=== PATIENT | female | born 1955 | race African-American/Black ===

== ENCOUNTER 2019-03-07 12:42 | Observation (INO) | payer MEDICAID ==
[~2019-03-07] VITALS: Ht 162 cm; Wt 111.2 kg
[~2019-03-07 12:42] MED LIST: ACHD5005 PO; AZIT-21 PO; CEPH500C PO; CPR500T PO; DOXY-233 PO; IBUP-30 PO
[2019-03-07] MEDS ORDERED: IOHEXOL 350 MG/ML 100 ML (OMNIPAQUE 350) VIAL IV ONE (13:00)
[2019-03-07] MEDS ORDERED: NS 100 ML (IVPB) BAG IV ONE (13:00)
[2019-03-07] MEDS ORDERED: CATHETER FLUSH 10 ML SYR IV PRN (13:00)
[2019-03-07] MEDS ORDERED: HOLD METFORMIN - RECEIVED CONTRAST 20 ML VIAL IV SCH (13:00)
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
[2019-03-07] MEDS ORDERED: fentaNYL INJECTION 100 MCG/2 ML AMP ONE (13:09)
[2019-03-07] MEDS ORDERED: LORazepam INJ 2 MG/ML (ATIVAN) VIAL ONE (13:10)
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
[2019-03-07] MEDS: LORazepam INJ 2 MG/ML (ATIVAN) VIAL IVP PRN ×2 (13:14→13:34)
[2019-03-07] MEDS ORDERED: TETANUS,DIPTH,PERTUSS P/F (BOOSTRIX) 0.5 ML VIAL IM ONE (13:15)
[2019-03-07] MEDS ORDERED: fentaNYL INJECTION 100 MCG/2 ML AMP IVP ONE ×2 (13:15→14:15)
[2019-03-07 13:23] LABS: BASOPHILS % (AUTO) 0 % (0-10); EOSINOPHILS # (AUTO) 0.2 10^3/uL (0.0-0.3); EOSINOPHILS % (AUTO) 2 % (0-10); HEMATOCRIT 43 % (35-52); HEMOGLOBIN 13.9 G/DL (11.5-16.0); LYMPHOCYTES # (AUTO) 2.8 X 10^3 (1.0-4.0); LYMPHOCYTES % (AUTO) 25 % (12-44); MEAN CORPUSCULAR HEMOGLOBIN 29 PG (25-34); MEAN CORPUSCULAR HGB CONC 33 G/DL (32-36); MEAN CORPUSCULAR VOLUME 91 FL (80-99); MEAN PLATELET VOLUME 10.6 FL (7.4-10.4); MONOCYTES # (AUTO) 0.8 X 10^3 (0.0-1.0); MONOCYTES % (AUTO) 8 % (0-12); NEUTROPHILS # (AUTO) 7.1 X 10^3 (1.8-7.8); NEUTROPHILS % (AUTO) 65 % (42-75); PLATELET COUNT 191 10^3/uL (130-400); RED CELL DISTRIBUTION WIDTH 14.3 % (10.0-14.5); WHITE BLOOD COUNT 10.9 10^3/uL (4.3-11.0)
[2019-03-07 13:40] LABS: INR 1.1 (0.8-1.4); PROTHROMBIN TIME PATIENT 14.1 SEC (12.2-14.7)
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
[2019-03-07 13:51] LABS: ALANINE AMINOTRANSFERASE 41 U/L (0-55); ALBUMIN 3.8 GM/DL (3.2-4.5); ALKALINE PHOSPHATASE 82 U/L (40-136); BILIRUBIN,DIRECT 0.3 MG/DL (0.0-0.3); BILIRUBIN,INDIRECT 0.5 MG/DL; BILIRUBIN,TOTAL 0.8 MG/DL (0.1-1.0); BUN/CREATININE RATIO 20; CALCIUM 9.2 MG/DL (8.5-10.1); CARBON DIOXIDE 23 MMOL/L (21-32); CHLORIDE 104 MMOL/L (98-107); CHOLESTEROL 165 MG/DL (< 200); CREATININE SERUM 0.64 MG/DL (0.60-1.30); GFR ESTIMATED > 60; GLUCOSE 157 MG/DL (70-105); HDL CHOLESTEROL 47 MG/DL (40-60); POTASSIUM 3.5 MMOL/L (3.6-5.0); SODIUM 136 MMOL/L (135-145); TOTAL PROTEIN 7.7 GM/DL (6.4-8.2); TRIGLYCERIDES 197 MG/DL (<150); VLDL CHOLESTEROL 39 MG/DL (5-40)
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
[2019-03-07 14:36] LABS: BILIRUBIN,URINE NEGATIVE (NEGATIVE); CLARITY,URINE SLIGHTLY CLOUDY; COLOR,URINE YELLOW; GLUCOSE, URINE (UA) NEGATIVE (NEGATIVE); KETONES,URINE NEGATIVE (NEGATIVE); LEUKOCYTE ESTERASE ,URINE 1+ (NEGATIVE); NITRITE,URINE POSITIVE (NEGATIVE); PH,URINE 5 (5-9); PROTEIN,URINE 3+ (NEGATIVE); UROBILINOGEN,URINE NORMAL (NORMAL)
[2019-03-07 14:44] LABS: BACTERIA,URINE MODERATE /HPF; RBC,URINE 50-100 /HPF
[2019-03-07 16:17] VITALS: BP 153/91
[2019-03-07 16:24] VITALS: BP 153/91
[2019-03-07] MEDS: fentaNYL INJECTION 100 MCG/2 ML AMP IV PRN ×2 (16:31→19:46)
[2019-03-07] MEDS: HYDROcodone/APAP 5 MG/325 MG (LORTAB) TAB PO PRN (16:31)
--- NOTE | 2019-03-07 16:37 | Diagnostic Imaging Report ---
EXAM: CT left shoulder without contrast. DATE: March 07, 2019. INDICATION: 63-year-old female, evaluation of left scapular fracture. COMPARISON: Left shoulder radiographs March 07, 2019. TECHNIQUE: Axial CT images at the level of the left shoulder and scapula were obtained without contrast. Coronal and sagittal reformats were obtained and provided. FINDINGS: There is a very comminuted and displaced fracture of the scapula. This includes fracture involvement of the base of the coracoid as well as additional more distal aspects of the coracoid. There is a medial to lateral fracture gap at the level of the coracoid process fracture which measures 8 mm in size as measured on axial image 95. There is superior to inferior displacement of the fracture at this level measuring 4.3 mm on coronal image 18. There is comminuted fracture involvement of the articulating surface of the glenoid including anterior to posterior length of the superior glenoid with offset of the articulating surface measuring up to roughly 4 mm with several displaced intra-articular fracture fragments. The fractures of the superior glenoid extend posteriorly to nearly the 9 o'clock position of the posterior glenoid. There is a displaced fracture of the scapula also at the level of the junction of the scapular spine with the acromion, perhaps best illustrated on sagittal image 34 and adjacent sequential images with the superior to inferior fracture gap of 10.4 mm. The humeral head is normally positioned relative to the glenoid. There is no identified fracture of the imaged portions of the left proximal humerus. The acromioclavicular joint is normally aligned. The left clavicle is intact. There is a mildly displaced fracture involving the left third rib anteriorly and laterally, left fourth rib, left fifth rib. There is a small anterior mediastinal hematoma. There is a mildly displaced fracture involving the right side of the upper sternum. Motion limited evaluation of the lungs is unremarkable. IMPRESSION: 1. Comminuted displaced scapular fracture including involvement of the articulating surface of the glenoid with offset of the articulating surface. 2. Mildly displaced fractures involving the left third, fourth, and fifth ribs. 3. Small anterior mediastinal hematoma. 4. Mildly displaced fracture of the right side of the upper sternum. Dictated by: Dictated on workstation # [id number]
[2019-03-07] MEDS ORDERED: SITA100T12 PO (16:51)
[2019-03-07] MEDS ORDERED: DAPA1TAB5 PO (16:51)
[2019-03-07] MEDS ORDERED: IBUP-1780 PO (16:51)
[2019-03-07] MEDS ORDERED: CYCL10TA9 PO (16:51)
[2019-03-07] MEDS ORDERED: SIMV20TA3 PO (16:51)
[2019-03-07] MEDS ORDERED: CYCL1DRO OU (16:51)
--- NOTE | 2019-03-07 16:51 | NUR ---
PATIENT AND THE FAMILY MEMBER CURRENTLY IN THE ROOM ARE UNSURE OF HER MEDICATIONS. I CALLED [facility] AND UPDATED THE MED REC WITH WHAT THEY HAVE FILLED RECENTLY BUT THE PATIENT ASKED THAT I SPEAK WITH HER GRANDDAUGHTER VIKY TO CLARIFY. I DO NOT HAVE A NUMBER FOR HER AND SHE IS NOT HERE AT THIS TIME. I WILL CHECK BACK TOMORROW. [facility] STATES THEY HAVE NOT YET DISPENSED THE TRULICITY THAT IS SHOWING ON THE EXT MED HX BECAUSE IT REQUIRES A PA. Addendum: 03/08/19 at 1052 by SARAY AMOR [facility] SPOKE WITH THE PATIENT AGAIN THIS MORNING ABOUT MEDICATIONS. SHE STILL IS UNABLE TO TELL ME WHAT MEDS SHE TAKES OTHER THAN HER IBU AND HER INJECTABLE. SHE DOES STATE IF HER INSURANCE DOESN'T COVER THE INJECTABLE SHE WILL STOP TAKING IT. SHE STATS VIKY HELPS HER WITH HER MEDS BUT SHES IN [employer] AND UNAVAILABLE FOR ME TO CALL AT THIS TIME. SHE WAS SEEING DR. LEAL BUT THAT HAS NOW BEEN SWITCHED TO [facility] AT THAT SAME LOCATION AND THEY PRESCRIBED ALL OF HER MEDICATIONS. SHE STATES SHE DOES NOT TAKE ANYTHING OTC. I CALLED AND SPOKE WITH [facility] OFFICE AND THEY FAXED ME A MEDICATION LIST HOWEVER ALL IT HAD WAS IBU, SIMVASTATIN, AND TRULICITY. [facility] HAS FILLED MORE THAN THAT FOR THE PATIENT THIS MONTH. I CALLED AND SPOKE WITH THEM TO SEE IF SOME MEDS HAD RECENTLY BEEN STOPPED. THEY WERE UNABLE TO GIVE ME CLEAR INFORMATION ABOUT THEIR RECORDS OTHER THAN THE PATIENT HAS FILLED THOSE OTHER MEDICATIONS BUT THEY ARE NOT AWARE OF WHAT SHE IS ACTUALLY TAKING AT HOME. I INCLUDED ALL MEDS THAT WERE RECENTLY FILLED AT [facility] ON THE MED REC AT THIS TIME. IN ADDITION THE THE THREE LISTED FROM THE DR. OFFICE THAT INCLUDES RESTASIS, JANUVIA, AND XIGDUO. THE PATIENT ALSO FILLED FLEXERIL 10MG #45 FOR 15 DAYS 8 BUT WHEN I ASKED HER ABOUT A MUSCLE RELAXER SHE STATES SHE DOES NOT TAKE ONE, I DID NOT INCLUDE THE FLEXERIL ON THE MED REC AT THIS TIME. [facility] STATES THEY HAVE NOT DISPENSED THE TRULICITY, IT REQUIRES A PRIOR AUTHORIZATION. WHEN I SPOKE WITH THE DR. OFFICE THEY STATE THE DO GIVE SAMPLES OF IT WHEN THEY HAVE IT AVAILABLE AND THEY DID TRY TO GET THE PA BUT THE FIRST TIME IT WAS DENIED. NURSE STATES THE PATIENT HAS TOLD THEM IF IT IS NOT AUTHORIZED OR SHE DOESN'T GET SAMPLES SHE WILL NOT TAKE IT.
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
[2019-03-07 18:07] LABS: HEMOGLOBIN 12.9 G/DL (11.5-16.0)
--- NOTE | 2019-03-07 19:00 | NUR ---
Pt complaining of chest pain 03/07, no radiation. Dr. Devlin notified, orders received for stat troponin.
[2019-03-07] MEDS ORDERED: ALPRAZolam 0.25 MG (XANAX) TAB PO NR (19:15)
[2019-03-07 19:30] VITALS: BP 125/71
[2019-03-07] MEDS: inSUlin ASPART (NovoLOG) 1 UNIT/0.01 ML (CHARGE PER UNIT) SC SCH (21:00)
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
[2019-03-08 00:40] VITALS: BP 128/80
[2019-03-08] MEDS: HYDROcodone/APAP 5 MG/325 MG (LORTAB) TAB PO PRN ×4 (00:43→18:11)
[2019-03-08 04:30] VITALS: BP 123/83
[2019-03-08] MEDS: inSUlin ASPART (NovoLOG) 1 UNIT/0.01 ML (CHARGE PER UNIT) SC SCH ×4 (06:00→22:31)
[2019-03-08 06:25] LABS: HEMOGLOBIN 12.8 G/DL (11.5-16.0); MEAN PLATELET VOLUME 11.3 FL (7.4-10.4); RED CELL DISTRIBUTION WIDTH 14.2 % (10.0-14.5); WHITE BLOOD COUNT 11.6 10^3/uL (4.3-11.0)
[2019-03-08 06:38] LABS: BUN/CREATININE RATIO 25; CALCIUM 8.2 MG/DL (8.5-10.1); CARBON DIOXIDE 22 MMOL/L (21-32); CHLORIDE 100 MMOL/L (98-107); CREATININE SERUM 0.59 MG/DL (0.60-1.30); GFR ESTIMATED > 60; GLUCOSE 136 MG/DL (70-105); POTASSIUM 3.9 MMOL/L (3.6-5.0); SODIUM 131 MMOL/L (135-145)
[2019-03-08 08:00] VITALS: BP 124/79
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
[2019-03-08] MEDS ORDERED: DULA1.5P2 SC (09:20)
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
[2019-03-08] MEDS: NS IV 1000 ML 1,000 ML IV SCH ×3 (11:30→23:14)
[2019-03-08 12:00] VITALS: BP 134/75
[2019-03-08] MEDS: ONDANSETRON 4 MG/2 ML (SDV) Z0FRAN IV PRN (13:55)
[2019-03-08] MEDS: fentaNYL INJECTION 100 MCG/2 ML AMP IV PRN ×2 (14:22→22:31)
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
[2019-03-08 16:00] VITALS: BP 139/87
--- NOTE | 2019-03-08 16:28 | NUR ---
Pastoral care visit, pt and present, doing well.
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
[2019-03-08 19:57] VITALS: BP 146/87
[2019-03-09] VITALS: BP 151/83
[2019-03-09] MEDS: HYDROcodone/APAP 5 MG/325 MG (LORTAB) TAB PO PRN ×4 (02:48→15:23)
[2019-03-09 04:00] VITALS: BP 144/85
[2019-03-09] MEDS: inSUlin ASPART (NovoLOG) 1 UNIT/0.01 ML (CHARGE PER UNIT) SC SCH ×2 (06:38→11:38)
[2019-03-09 08:00] VITALS: BP 117/65
[2019-03-09] MEDS: ONDANSETRON 4 MG/2 ML (SDV) Z0FRAN IV PRN (08:03)
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
[2019-03-09] MEDS: NS IV 1000 ML 1,000 ML IV SCH (09:13)
--- NOTE | 2019-03-09 10:36 | Physical Therapy Daily Note ---
PT Daily Note-Current Subjective Agrees to a short walk. Wants to get in bed after treatment. Transfers SCALE: Activities may be completed with or without assistive devices. 0-Eocggbvsgl-oucspni completes the activity by him/herself with no assistance from a helper. 5-Set-up or Clean-up Assistance-helper sets up or cleans up; patient completes activity. Channing assists only prior to or following the activity. 4-Supervision or Touching Assistance-helper provides verbal cues and/or touching/steadying and/or contact guard assistance as patient completes activity. Assistance may be provided throughout the activity or intermittently. 3-Partial/Moderate Assistance-helper does LESS THAN HALF the effort. Channing lifts, holds or supports trunk or limbs, but provides less than half the effort. 2-Substantial/Maximal Assistance-helper does MORE THAN HALF the effort. Channing lifts or holds trunk or limbs and provides more than half the effort. 7-Gmdohvihs-vjyfsj does ALL the effort. Patient does none of the effort to complete the activity. Or, the assistance of 2 or more helpers is required for the patient to complete the activity. If activity was not attempted, code reason: 7-Patient Refused. 9-Not Applicable-not attempted and the patient did not perform the activity before the current illness, exacerbation or injury. 10-Not Attempted due to Environmental Limitations-(lack of equipment, weather restraints, etc.). 88-Not Attempted due to Medical Conditions or Safety Concerns. Weight Bearing Right Lower Extremity: Right Weight Bearing/Tolerated Left Lower Extremity: Left Weight Bearing/Tolerated Treatments Pt ambulated with SBA x 150 ft with manipulating her bathroom, room and turns in the giles. She did require assist to lift her legs into bed and assist withpositioning in bed. Pt in bed post treatment. Assessment Current Status: Good Progress safe and steady gait without LOB noted. PT Correction Goals Correction Goals PT Correction Goals Time Frame: Mar 16, 2019 Sit to Lying (QC): 6 Lying-Sitting on Side/Bed(QC): 6 Sit to Stand (QC): 6 Roll Left to Right (QC): 6 Chair/Joi-kc-Besvi Xfer(QC): 6 Car Transfer (QC): 6 Does the Patient Walk: Yes Distance: 75' Walk 10 feet (QC): 6 Walk 10ft-Uneven Surface(QC): 6 Walk 50ft with 2 Turns (QC): 6 Walk 150 ft (QC): 9 Gait Assistive Device: Walker Uriah PT Plan Problem List Problem List: Activity Tolerance, Functional Strength, Safety, Balance, Gait, Transfer, Bed Mobility Treatment/Plan Treatment Plan: Continue Plan of Care Treatment Plan: Bed Mobility, Education, Functional Activity Paula, Functional Strength, Gait, Safety, Therapeutic Exercise, Transfers Treatment Duration: Mar 16, 2019 Frequency: 6 times per week Estimated Hrs Per Day: .25 hour per day Patient and/or Family Agrees t: Yes Safety Risks/Education Patient Education: Safety Issues Teaching Recipient: Patient Teaching Methods: Discussion Response to Teaching: Return Demonstration Discharge Recommendations Therapy Discharge Recommendati: Post Acute PT Time/GCodes Time In: 1000 Time Out: 1015 Total Billed Treatment Time: 15 Total Billed Treatment visit GT 15 MILENA WRIGHT PT Mar 09, 2019 10:36
[2019-03-09 12:00] VITALS: BP 137/80
[2019-03-09] MEDS ORDERED: DOCU-143 PO (12:27)
[2019-03-09] MEDS ORDERED: ACHD5005 PO (12:27)
--- NOTE | 2019-03-09 12:31 | Discharge Inst-Simple/Standard ---
Discharge Inst-Standard Discharge Medications New, Converted or Re-Newed RX: RX on Chart Patient Instructions/Follow Up Plan of Care/Instructions/FU: Dr. Antunez follow up within 2 weeks. Keep left arm in sling. See your primary care doctor within [address] Wang follow up 2 weeks. Activity as Tolerated: No Discharge Diet: Regular Diet Other Inst to Patient Follow up Appt: Make follow up appointment With Claus Hollis and your primary care doctor. Instructions: No lifting greater than 10 pounds. No strenuous activity. Keep left arm in sling. Use incentive spirometer at home as directed. No Smoking Skin/Wound Care: Keep clean and dry. Symptoms to Report: Appetite Changes, Extremity Discoloration, Numbness/Tingling, Swelling Increased, Bleeding Excessive, Eyesight Changes, Pain Increased, Urine Color Change, Constipation(Persistent), Fever over 101 degree F, Pain/Pressure in chest, Urinating Difficulty, Cough Up/Vomit Blood, Heart Beat Irreg/Pounding, Pain/Pressure in jaw, Vaginal Bleeding Increase, Cramps in feet or legs, Lightheadedness, Pain/Pressure in shoulder, Diarrhea(Persistent), Memory Changes Suddenly, Questions/Concerns, Weight gain consecutive days, Dizziness/Fainting, Nausea/Vomiting, Shortness of Breath, Weight gain over 2 pounds If questions or concerns contact your physician Or seek help at emergency department. Planned Outpatient Orders/Ref. Pneu Vac Indicated: Yes MILTON WANG DO Mar 09, 2019 12:30
[2019-03-09 15:30] VITALS: BP 137/80
[2019-03-10] MEDS ORDERED: ALBU2.5V4 INH (22:12)
[2019-03-10] MEDS ORDERED: AZIT250T PO (22:12)
== END 2019-03-09 12:26 | disposition home or self-care (01) ==
LOC: EDUNIT# 12:42 → ER 12:44 → UNDOADMOB 15:00 → 4TH 15:00 → UNDODISOB 03-09 15:30
PROVIDERS: ADMIT Surgery; ATTEND Surgery
DX: S22.31XA Fracture of one rib, right side, initial encounter for closed fracture (principal); S42.102A Fracture of unspecified part of scapula, left shoulder, initial encounter for closed fracture; M25.512 Pain in left shoulder; M47.812 Spondylosis without myelopathy or radiculopathy, cervical region; E11.9 Type 2 diabetes mellitus without complications; Z88.2 Allergy status to sulfonamides; Z79.891 Long term (current) use of opiate analgesic; Z79.899 Other long term (current) drug therapy; V89.2XXA Person injured in unspecified motor-vehicle accident, traffic, initial encounter
CPT/HCPCS: 36415; 70450; 71045; 71260; 72125; 72170; 73030; 73080; 73200; 73562; 73590; 74177; 76937; 80048; 80053; 80061; 80076; 80320; 81000; 82962; 83735; 83874; 84484; 84703; 85014; 85018; 85025; 85027; 85610; 85730; 86850; 86900; 86901; 87077; 87088; 87186; 90471; 90715; 93005; 94664; 96374; 96375; 96376; G0378

== ENCOUNTER 2019-03-10 16:49 | Emergency (ER) | payer MEDICAID ==
[~2019-03-10] VITALS: Ht 160 cm; Wt 111.2 kg
[~2019-03-10 16:49] MED LIST changes: +CYCL10TA9 PO; +CYCL1DRO OU; +DAPA1TAB5 PO; +DOCU-143 PO; +DULA1.5P2 SC; +IBUP-1780 PO; +SIMV20TA3 PO; +SITA100T12 PO
[2019-03-10] MEDS ORDERED: morphine INJ 10 MG/ML 1ML (SYR OR VIAL) IVP ONE (18:15)
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
[2019-03-10] MEDS ORDERED: morphine INJ 10 MG/ML 1ML (SYR OR VIAL) IM STA (19:56)
[2019-03-10 20:08] LABS: BASOPHILS % (AUTO) 0 % (0-10); EOSINOPHILS # (AUTO) 0.3 10^3/uL (0.0-0.3); EOSINOPHILS % (AUTO) 3 % (0-10); HEMATOCRIT 39 % (35-52); HEMOGLOBIN 12.3 G/DL (11.5-16.0); LYMPHOCYTES # (AUTO) 2.6 X 10^3 (1.0-4.0); LYMPHOCYTES % (AUTO) 25 % (12-44); MEAN CORPUSCULAR HEMOGLOBIN 30 PG (25-34); MEAN CORPUSCULAR HGB CONC 32 G/DL (32-36); MEAN CORPUSCULAR VOLUME 93 FL (80-99); MEAN PLATELET VOLUME 10.2 FL (7.4-10.4); MONOCYTES % (AUTO) 9 % (0-12); NEUTROPHILS # (AUTO) 6.8 X 10^3 (1.8-7.8); NEUTROPHILS % (AUTO) 63 % (42-75); PLATELET COUNT 204 10^3/uL (130-400); RED CELL DISTRIBUTION WIDTH 14.5 % (10.0-14.5); WHITE BLOOD COUNT 10.7 10^3/uL (4.3-11.0)
[2019-03-10 20:23] LABS: ALANINE AMINOTRANSFERASE 31 U/L (0-55); ALBUMIN 3.8 GM/DL (3.2-4.5); ALKALINE PHOSPHATASE 81 U/L (40-136); BILIRUBIN,TOTAL 1.5 MG/DL (0.1-1.0); BUN/CREATININE RATIO 14; CARBON DIOXIDE 26 MMOL/L (21-32); CHLORIDE 104 MMOL/L (98-107); CREATININE SERUM 0.69 MG/DL (0.60-1.30); GFR ESTIMATED > 60; GLUCOSE 109 MG/DL (70-105); POTASSIUM 3.8 MMOL/L (3.6-5.0); SODIUM 142 MMOL/L (135-145); TOTAL PROTEIN 7.5 GM/DL (6.4-8.2)
--- NOTE | 2019-03-10 20:51 | Diagnostic Imaging Report ---
PROCEDURE: CT chest without contrast. TECHNIQUE: Multiple contiguous axial images were obtained through the chest without the use of intravenous contrast. Auto Exposure Controls were utilized during the CT exam to meet ALARA standards for radiation dose reduction. INDICATION: Chest pain The CT chest, abdomen, and pelvis exam performed on 03/07/2019 noted a fracture of the left 1st rib near its articulation with the sternum. That finding is again evident and does not seem to have changed significantly. The previous exam also noted a small avulsion fracture along the superior margin of the medial head of the left clavicle. In addition, there is a comminuted fracture of the left scapula. Those findings seem similar as well. In the interval since the previous exam a displaced fracture of the left 3rd rib has developed. The fracture fragments are displaced by half the width of the shaft. There are also nondisplaced fractures of the left 4th and 5th 6th ribs. There is still no sign of a pneumothorax on the left, mild left lower lobe atelectasis/infiltrate has developed, however. There is no acute bony abnormality of the right thorax. However, in the interval since the prior study there has been an increase in the atelectasis/infiltrate in the right lung base. A small amount of fluid is also suspected in this area. There is no sign of a pneumothorax on the right. The heart is stable in size. The density in the anterior mediastinum seen previously is again evident. This may be related to a small amount of hemorrhage/hematoma formation. The aorta is not abnormally dilated. The sections through the upper abdomen failed to show any sign of an acute abnormality. There is no obvious breast mass but there does appear to be increased density throughout the subcutaneous fat of the anterior thorax. This may be related to edema/inflammation. IMPRESSION: 1. The fracture of the left 1st rib seen previously is again evident as is the comminuted fracture of the left scapula and the small avulsion fracture of the left clavicle. There is now a displaced fracture of the left 3rd rib and nondisplaced fractures of the left 4th, 5th and 6th ribs. 2. There has been an increase in the atelectasis/infiltrate and fluid in the right lung base since the prior exam and to a lesser extent in the left lower lobe. There is no sign of a pneumothorax. 3. These results were discussed with NILTON BAJWA. Dictated by: Dictated on workstation # [id number]
[2019-03-10] MEDS ORDERED: RX-ALBUTEROL NEB 2.5 MG/3 ML PACK #5 IH STA (21:54)
[2019-03-10] MEDS ORDERED: RX-HYDROCODONE/APAP 5/325 MG #4 TAB PK PO PRN (22:00)
[2019-03-10] MEDS ORDERED: RT-ALBUTEROL/IPRATROPIUM 3 ML (DUONEB) VIAL INH ONE (22:00)
[2019-03-10] MEDS ORDERED: AZITHROMYCIN 250 MG TAB (ZITHROMAX) PO ONE (22:00)
[2019-03-10] MEDS ORDERED: AZIT250T PO (22:12)
[2019-03-10] MEDS ORDERED: ALBU2.5V4 INH (22:12)
[2019-03-10 22:28] VITALS: BP 139/75
== END 2019-03-10 22:31 | disposition home or self-care (01) ==
LOC: EDUNIT# 16:49 → ER 16:50
DX: S22.43XA Multiple fractures of ribs, bilateral, initial encounter for closed fracture (principal); S42.102A Fracture of unspecified part of scapula, left shoulder, initial encounter for closed fracture; S22.20XA Unspecified fracture of sternum, initial encounter for closed fracture; J18.1 Lobar pneumonia, unspecified organism; K59.00 Constipation, unspecified; E11.9 Type 2 diabetes mellitus without complications; Z88.2 Allergy status to sulfonamides; Z87.81 Personal history of (healed) traumatic fracture; Z79.84 Long term (current) use of oral hypoglycemic drugs; Z77.22 Contact with and (suspected) exposure to environmental tobacco smoke (acute) (chronic); V89.2XXA Person injured in unspecified motor-vehicle accident, traffic, initial encounter
CPT/HCPCS: 36415; 71250; 80053; 85025; 94640

== ENCOUNTER → 2019-04-18 | Outpatient (CLI) | payer MEDICAID ==
[~2019-04-18] MED LIST changes: +ALBU2.5V4 INH; +AZIT250T PO
--- NOTE | 2019-04-18 12:50 | Diagnostic Imaging Report ---
INDICATION: Fracture. Two views were obtained. FINDINGS: There is arthrosis of the acromioclavicular joint. Proximal left humerus is intact. There is a persistent lucency through the base of the coracoid and superior aspect of the glenoid compatible with subacute fracture. Alignment appears grossly normal. There is no other fracture or dislocation. Left lung is clear. IMPRESSION: Stable alignment of the comminuted fracture involving the superior glenoid and coracoid. Moderate arthrosis of the acromioclavicular joint. Dictated by: Dictated on workstation # [id number]
== END ==
LOC: ORTHO 08:16
PROVIDERS: ATTEND Orthopaedic Surgery
DX: S42.145D Nondisplaced fracture of glenoid cavity of scapula, left shoulder, subsequent encounter for fracture with routine healing (principal)
CPT/HCPCS: 73030; 99203

== ENCOUNTER → 2019-05-24 | Outpatient (CLI) | payer MEDICAID ==
--- NOTE | 2019-05-24 10:56 | Diagnostic Imaging Report ---
INDICATION: Rotator cuff tendinitis and scapular fracture. TIME OF EXAM: 10:13 AM Correlation is made with prior radiograph from 04/18/2019. FINDINGS: Glenohumeral and acromioclavicular alignment are normal. Overall alignment of the scapula appears similar to prior exam. There are some residual fracture lines in the supraglenoid portion of the scapula and in the region of the coracoid. No new abnormality is identified. The right shoulder shows normal alignment. There is mild AC joint degenerative changes noted. No acute fracture on the right is identified. IMPRESSION: 1. Stable appearance to the scapular fractures on the left when compared with examination one month earlier. Fracture lines do remain partly visible. 2. No acute feature in the right shoulder is identified. Dictated by: Dictated on workstation # [id number]
== END ==
LOC: ORTHO 10:00
PROVIDERS: ATTEND Orthopaedic Surgery
DX: S42.145D Nondisplaced fracture of glenoid cavity of scapula, left shoulder, subsequent encounter for fracture with routine healing (principal)

== ENCOUNTER 2019-08-09 10:45 | Outpatient (RCR) | payer OTHER, MEDICAID ==
[~2019-08-09 10:45] MED LIST changes: +SIMV20TA26 PO; -SIMV20TA3 PO
== END 2019-10-07 | disposition home or self-care (01) ==
PROVIDERS: ATTEND Orthopaedic Surgery
DX: M75.41 Impingement syndrome of right shoulder (principal)

== ENCOUNTER → 2019-08-12 | Outpatient (CLI) | payer OTHER, MEDICAID ==
--- NOTE | 2019-08-12 11:11 | Diagnostic Imaging Report ---
INDICATION: Scapular fracture COMPARISON: 05/24/2019 TECHNIQUE: 3 radiographs of the left shoulder dated 08/12/2019 FINDINGS: Persistent fracture plane is identified extending through the base of the coracoid process. Alignment appears stable. Fracture through the scapular spine is again identified, though alignment appears slightly improved with the fracture lucency remaining well visualized though slightly less so than the prior examination. Mild degenerative changes of the acromioclavicular joint. No new fracture or dislocation. Fracturing extending into the superior aspect of the glenoid is again noted, appearing stable. IMPRESSION: Persistent fracturing of the scapula as described above. Persisting fracture lucencies do remain, particularly involving the base of the coracoid process extending into the superior glenoid, therefore, developing nonunion may be present. Overall alignment appears stable. No new fracture with mild scattered degenerative changes. Dictated by: Dictated on workstation # [id number]
== END ==
LOC: ORTHO 09:17
PROVIDERS: ATTEND Orthopaedic Surgery
DX: S42.142A Displaced fracture of glenoid cavity of scapula, left shoulder, initial encounter for closed fracture (principal)
CPT/HCPCS: 73030; 99213

== ENCOUNTER 2019-10-29 13:23 | Emergency (ER) | payer MEDICAID ==
[~2019-10-29] VITALS: Ht 157.5 cm; Wt 99.8 kg
--- OUTSIDE RECORDS SUMMARY | 2019-10-29 14:25 | XMS REPORT | Continuity of Care Document ---
Demographics Preferred Language Unknown Marital Status Unknown Christianity Affiliation Unknown Race Unknown Ethnic Group Unknown Author Organization Unknown Address Unknown Phone Unavailable Allergies Active Description Code Type Severity Reaction Onset Reported/Identified Relationship to Patient Clinical Status Yes SULFAMETHOXAZOLE-TRIMETHOPRIM MODERATE DERMATOLOGICAL - HIV Yes SULFAMETHOXAZOLE-TRIMETHOPRIM MODERATE MODERATE Yes Sulfa (Sulfonamide Antibiotics) [id number] Drug Allergy Unknown N/A 019 Medications Medication Packaging Start Date St op Date Route Dosage Sig NORMAL SALINE 1000CC IV BAG INJ 0.9 % (NS 1000CC IV BAG) ml 09/25/2018 10/10/2018 CONTINUOUSEVERY 0 Hour NORMAL SALINE 1000CC IV BAG INJ 0.9 % (NS 1000CC IV BAG) ml 10/02/2018 10/10/2018 CONTINUOUSEVERY 0 Hour KETOROLAC VIAL INJ 30 MG/CC (TORADOL VIAL) MG 12/11/2018 12/11/2018 ONCE&2115 METRONIDAZOLE TAB 500 MG (FLAGYL) MG 12/11/2018 12/11/2018 ONCE&2159 Problems Date Dx Coded Attending Type Code Diagnosis Diagnosed By 02/09/2017 W 309.0 ADJU STMENT DISORDER WITH DEPRESSED MOOD 02/09/2017 W 599.0 URIN JUAQUIN TRACT INFECTION, SITE NOT SPECIFIED 02/09/2017 W F43.21 ADJ USTMENT DISORDER WITH DEPRESSED MOOD 02/09/2017 W N39.0 URIN JUAQUIN TRACT INFECTION, SITE NOT SPECIFIED 03/08/2017 W 003.23 JJ MONELLA ARTHRITIS 03/08/2017 W 250.00 DEMI BETES MELLITUS WITHOUT MENTION OF COMPLICATION, TYPE II OR UNSPECIFIED TYPE, NOT STATED UNCONTROLLED 03/08/2017 W 250.90 DEMI BETES MELLITUS WITH UNSPECIFIED COMPLICATION, TYPE II OR UNSPECIFIED TYPE, NOT STATED UNCONTROLLED 03/08/2017 W 278.00 OBE SITY, UNSPECIFIED 03/08/2017 W 382.9 UNSP ECIFIED OTITIS MEDIA 03/08/2017 W 599.0 URIN JUAQUIN TRACT INFECTION, SITE NOT SPECIFIED 03/08/2017 W 737.30 SCO LIOSIS [AND KYPHOSCOLIOSIS], IDIOPATHIC 03/08/2017 W 788.1 DYSURIA 03/08/2017 W A02.23 JJ MONELLA ARTHRITIS 03/08/2017 W E11.8 TYPE 2 DIABETES MELLITUS WITH UNSPECIFIED COMPLICATIONS 03/08/2017 W E11.9 TYPE 2 DIABETES MELLITUS WITHOUT COMPLICATIONS 03/08/2017 W E66.1 DRUG -INDUCED OBESITY 03/08/2017 W H66.91 BLAYNE TIS MEDIA, UNSPECIFIED, RIGHT EAR 03/08/2017 W M41.00 INF ANTILE IDIOPATHIC SCOLIOSIS, SITE UNSPECIFIED 03/08/2017 W N39.0 URIN JUAQUIN TRACT INFECTION, SITE NOT SPECIFIED 03/08/2017 W R30.0 DYSURIA 03/08/2017 W V15.81 PER YENNI HISTORY OF NONCOMPLIANCE WITH MEDICAL TREATMENT, PRESENTING HAZARDS TO HEALTH 03/08/2017 W Z91.19 PAT IENT'S NONCOMPLIANCE WITH OTHER MEDICAL TREATMENT AND REGIMEN 04/14/2017 W 380.23 OTH ER CHRONIC OTITIS EXTERNA 04/14/2017 W 382.9 UNSP ECIFIED OTITIS MEDIA 04/14/2017 W H60.93 UNS PECIFIED OTITIS EXTERNA, BILATERAL 04/14/2017 W H66.93 BLAYNE TIS MEDIA, UNSPECIFIED, BILATERAL 04/25/2017 W 250.80 DEMI BETES MELLITUS WITH OTHER SPECIFIED MANIFESTATIONS, TYPE II OR UNSPECIFIED TYPE, NOT STATED UNCONTROLLED 04/25/2017 W 382.9 UNSP ECIFIED OTITIS MEDIA 04/25/2017 W E11.65 TYP E 2 DIABETES MELLITUS WITH HYPERGLYCEMIA 04/25/2017 W H66.93 BLAYNE TIS MEDIA, UNSPECIFIED, BILATERAL 04/25/2017 Anthony Kerr W 250.80 DIABETES MELLITUS WITH OTHER SPECIFIED MANIFESTATIONS, TYPE II OR UNSPECIFIED TYPE, NOT STATED UNCONTROLLED 04/25/2017 Anthony Kerr W E11.65 TYPE 2 DIABETES MELLITUS WITH HYPERGLYCEMIA 04/26/2017 Anthony Kerr W 250.80 DIABETES MELLITUS WITH OTHER SPECIFIED MANIFESTATIONS, TYPE II OR UNSPECIFIED TYPE, NOT STATED UNCONTROLLED 04/26/2017 Anthony Kerr W E11.65 TYPE 2 DIABETES MELLITUS WITH HYPERGLYCEMIA 05/16/2017 W 724.2 LUMBAGO 05/16/2017 W 788.42 ALONDRA YURIA 05/16/2017 W M54.5 LOW BACK PAIN 05/16/2017 W R35.8 OTHE R POLYURIA 06/30/2017 W 724.1 PAIN IN THORACIC SPINE 06/30/2017 W 728.85 SPA SM OF MUSCLE 06/30/2017 W 733.6 TIET ZE'S DISEASE 06/30/2017 W M54.6 PAIN IN THORACIC SPINE 06/30/2017 W M62.838 OT HER MUSCLE SPASM 06/30/2017 W 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] 11/20/2017 W 250.90 DEMI BETES MELLITUS WITH UNSPECIFIED COMPLICATION, TYPE II OR UNSPECIFIED TYPE, NOT STATED UNCONTROLLED 11/20/2017 W 278.00 OBE SITY, UNSPECIFIED 11/20/2017 W 309.81 POS TTRAUMATIC STRESS DISORDER 11/20/2017 W 599.0 URIN JUAQUIN TRACT INFECTION, SITE NOT SPECIFIED 11/20/2017 W 791.5 GLYC OSURIA 11/20/2017 W E11.8 TYPE 2 DIABETES MELLITUS WITH UNSPECIFIED COMPLICATIONS 11/20/2017 W E66.9 OBES ITY, UNSPECIFIED 11/20/2017 W F43.10 POS T-TRAUMATIC STRESS DISORDER, UNSPECIFIED 11/20/2017 W N39.0 URIN JUAQUIN TRACT INFECTION, SITE NOT SPECIFIED 11/20/2017 W R81 GLYCOSURIA 11/20/2017 W V15.81 PER YENNI HISTORY OF NONCOMPLIANCE WITH MEDICAL TREATMENT, PRESENTING HAZARDS TO HEALTH 11/20/2017 W V76.19 OTH ER SCREENING BREAST EXAMINATION 11/20/2017 W V76.2 SCRE ENING FOR MALIGNANT NEOPLASMS OF THE CERVIX 11/20/2017 W Z12.39 ENC OUNTER FOR OTHER SCREENING FOR MALIGNANT NEOPLASM OF BREAST 11/20/2017 W Z12.4 ENCO UNTER FOR SCREENING FOR MALIGNANT NEOPLASM OF CERVIX 11/20/2017 W Z91.19 PAT IENT'S NONCOMPLIANCE W OTH MEDICAL TREATMENT AND REGIMEN 11/27/2017 W 250.90 DEMI BETES MELLITUS WITH UNSPECIFIED COMPLICATION, TYPE II OR UNSPECIFIED TYPE, NOT STATED UNCONTROLLED 11/27/2017 W 300.00 ANX IETY STATE, UNSPECIFIED 11/27/2017 W 599.0 URIN JUAQUIN TRACT INFECTION, SITE NOT SPECIFIED 11/27/2017 W 618.01 CYS TOCELE, MIDLINE 11/27/2017 W E11.8 TYPE 2 DIABETES MELLITUS WITH UNSPECIFIED COMPLICATIONS 11/27/2017 W F41.9 ANXI ETY DISORDER, UNSPECIFIED 11/27/2017 W N13.6 PYON EPHROSIS 11/27/2017 W N81.10 CYS TOCELE, UNSPECIFIED 11/27/2017 W V15.81 PER YENNI HISTORY OF NONCOMPLIANCE WITH MEDICAL TREATMENT, PRESENTING HAZARDS TO HEALTH 11/27/2017 W V62.3 EDUC ATIONAL CIRCUMSTANCES 11/27/2017 W Z55.9 PROB LEMS RELATED TO EDUCATION AND LITERACY, UNSPECIFIED 11/27/2017 W Z91.19 PAT IENT'S NONCOMPLIANCE WITH OTHER MEDICAL TREATMENT AND REGIMEN 11/28/2017 Kerr, Benita-To W 250.90 DIABETES MELLITUS WITH UNSPECIFIED COMPLICATION, TYPE II OR UNSPECIFIED TYPE, NOT STATED UNCONTROLLED 11/28/2017 Kerr, Benita-To W 599.0 URINARY TRACT INFECTION, SITE NOT SPECIFIED 11/28/2017 Kerr, Benita-To W 791.5 GLYCOSURIA 11/28/2017 Kerr, Anthony W E11.8 TYPE 2 DIABETES MELLITUS WITH UNSPECIFIED COMPLICATIONS 11/28/2017 Kerr, Anthony W N39.0 URINARY TRACT INFECTION, SITE NOT SPECIFIED 11/28/2017 Kerr, Benita-To W R81 GLYCOSURIA 11/28/2017 Kerr, Benita-To W V15.81 11/28/2017 Kerr, Anthony W V76.19 OTHER SCREENING BREAST EXAMINATION 11/28/2017 Kerr, Benita-To W V76.2 SCREENING FOR MALIGNANT NEOPLASMS OF THE CERVIX 11/28/2017 Kerr, Anthony W Z12.39 ENCOUNTER FOR OTHER SCREENING FOR MALIGNANT NEOPLASM OF BREAST 11/28/2017 Kerr, Anthony W Z12.4 ENCOUNTER FOR SCREENING FOR MALIGNANT NEOPLASM OF CERVIX 11/28/2017 Kerr, MychalTo W Z91.19 PATIENT'S NONCOMPLIANCE W OTH MEDICAL TREATMENT AND REGIMEN 11/28/2017 Cirilo, Benita-To W 250.90 DIABETES MELLITUS WITH UNSPECIFIED COMPLICATION, TYPE II OR UNSPECIFIED TYPE, NOT STATED UNCONTROLLED 11/28/2017 Kerr, Benita-To W 278.00 11/28/2017 Kerr, Benita-To W 309.81 11/28/2017 Kerr, Benita-To W 599.0 11/28/2017 Kerr, Benita-To W 791.5 11/28/2017, Benita-To W E11.8 TYPE 2 DIABETES MELLITUS WITH UNSPECIFIED COMPLICATIONS 11/28/2017 Kerr, Benita-To W E66.9 OBESITY, UNSPECIFIED 11/28/2017 Kerr, Benita-To W F43.10 POST- TRAUMATIC STRESS DISORDER, UNSPECIFIED 11/28/2017 Kerr, Benita-To W N39.0 URINARY TRACT INFECTION, SITE NOT SPECIFIED 11/28/2017, Benita-To W R81 GLYCOSURIA 11/28/2017, Benita-To W V15.81 11/28/2017 Kerr, Benita-To W V76.19 OTHER SCREENING BREAST EXAMINATION 11/28/2017 Kerr, Benita-To W V76.2 SCREENING FOR MALIGNANT NEOPLASMS OF THE CERVIX 11/28/2017, Benita-To W Z12.39 ENCOUNTER FOR OTHER SCREENING FOR MALIGNANT NEOPLASM OF BREAST 11/28/2017 Kerr, Benita-To W Z12.4 ENCOUNTER FOR SCREENING FOR MALIGNANT NEOPLASM OF CERVIX 11/28/2017 Kerr, Benita-To W Z91.19 PATIENT'S NONCOMPLIANCE W OTH MEDICAL TREATMENT AND REGIMEN 11/28/2017, Benita-To W 250.00 11/28/2017, Benita-To W 250.90 11/28/2017, Benita-To W 278.00 11/28/2017, Benita-To W 309.81 11/28/2017, Benita-To W 599.0 11/28/2017, Benita-To W 791.5 11/28/2017, Benita-To W E11.8 TYPE 2 DIABETES MELLITUS WITH UNSPECIFIED COMPLICATIONS 11/28/2017, Benita-To W E11.9 TYPE 2 DIABETES MELLITUS WITHOUT COMPLICATIONS 11/28/2017 Kerr, Benita-To W E66.9 OBESITY, UNSPECIFIED 11/28/2017 Kerr, Benita-To W F43.10 POST- TRAUMATIC STRESS DISORDER, UNSPECIFIED 11/28/2017 Kerr, Benita-To W N39.0 URINARY TRACT INFECTION, SITE NOT SPECIFIED 11/28/2017, Benita-To W R81 GLYCOSURIA 11/28/2017, Benita-To W V15.81 11/28/2017 Kerr, Benita-To W V76.19 OTHER SCREENING BREAST EXAMINATION 11/28/2017 Kerr, Benita-To W V76.2 SCREENING FOR MALIGNANT NEOPLASMS OF THE CERVIX 11/28/2017, Benita-To W Z12.39 ENCOUNTER FOR OTHER SCREENING FOR MALIGNANT NEOPLASM OF BREAST 11/28/2017 Kerr, Benita-To W Z12.4 ENCOUNTER FOR SCREENING FOR MALIGNANT NEOPLASM OF CERVIX 11/28/2017 Kerr, Benita-To W Z91.19 PATIENT'S NONCOMPLIANCE W OTH MEDICAL TREATMENT AND REGIMEN 11/28/2017 W 250.00 DEMI BETES MELLITUS WITHOUT MENTION OF COMPLICATION, TYPE II OR UNSPECIFIED TYPE, NOT STATED UNCONTROLLED 11/28/2017 W E11.9 TYPE 2 DIABETES MELLITUS WITHOUT COMPLICATIONS 11/28/2017, Benita-To W 250.00 11/28/2017, Benita-To W 250.90 11/28/2017, Benita-To W 278.00 11/28/2017, Benita-To W 309.81 11/28/2017, Benita-To W 599.0 11/28/2017, Benita-To W 791.5 11/28/2017, Benita-To W E11.8 TYPE 2 DIABETES MELLITUS WITH UNSPECIFIED COMPLICATIONS 11/28/2017, Benita-To W E11.9 TYPE 2 DIABETES MELLITUS WITHOUT COMPLICATIONS 11/28/2017, Benita-To W E66.9 OBESITY, UNSPECIFIED 11/28/2017, Benita-To W F43.10 POST- TRAUMATIC STRESS DISORDER, UNSPECIFIED 11/28/2017, Benita-To W N39.0 URINARY TRACT INFECTION, SITE NOT SPECIFIED 11/28/2017, Benita-To W R81 GLYCOSURIA 11/28/2017, Benita-To W V15.81 11/28/2017, Benita-To W V76.19 11/28/2017 Kerr, Benita-To W V76.2 SCREENING FOR MALIGNANT NEOPLASMS OF THE CERVIX 11/28/2017 Kerr, Benita-To W Z12.39 ENCOUNTER FOR OTHER SCREENING FOR MALIGNANT NEOPLASM OF BREAST 11/28/2017 Kerr, Anthony W Z12.4 ENCOUNTER FOR SCREENING FOR MALIGNANT NEOPLASM OF CERVIX 11/28/2017 Cirilo, Anthony W Z91.19 PATIENT'S NONCOMPLIANCE W OTH MEDICAL TREATMENT AND REGIMEN 04/10/2018 W 250.00 DEMI BETES MELLITUS WITHOUT MENTION OF COMPLICATION, TYPE II OR UNSPECIFIED TYPE, NOT STATED UNCONTROLLED 04/10/2018 W 278.00 OBE SITY, UNSPECIFIED 04/10/2018 W 530.81 ESO PHAGEAL REFLUX 04/10/2018 W 535.50 UNS PECIFIED GASTRITIS AND GASTRODUODENITIS, WITHOUT MENTION OF HEMORRHAGE 04/10/2018 W E11.9 TYPE 2 DIABETES MELLITUS WITHOUT COMPLICATIONS 04/10/2018 W E66.9 OBES ITY, UNSPECIFIED 04/10/2018 W K21.9 MARAL RO-ESOPHAGEAL REFLUX DISEASE WITHOUT ESOPHAGITIS 04/10/2018 W K29.70 GAS TRITIS, UNSPECIFIED, WITHOUT BLEEDING 04/10/2018 W V70.0 ROUT INE GENERAL MEDICAL EXAMINATION AT A HEALTH CARE FACILITY 04/10/2018 W Z00.00 ENC OUNTER FOR GENERAL ADULT MEDICAL EXAMINATION WITHOUT ABNORMAL FINDINGS 04/11/2018 Kerr, Anthony W 250.00 DIABETES MELLITUS WITHOUT MENTION OF COMPLICATION, TYPE II OR UNSPECIFIED TYPE, NOT STATED UNCONTROLLED 04/11/2018 Kerr, BenitaAshlyn W 278.00 OBESITY, UNSPECIFIED 04/11/2018 Kerr, MychalTo W E11.9 TYPE 2 DIABETES MELLITUS WITHOUT COMPLICATIONS 04/11/2018 Kerr, MychalTo W E66.9 OBESITY, UNSPECIFIED 04/11/2018 Kerr, Anthony W 250.00 DIABETES MELLITUS WITHOUT MENTION OF COMPLICATION, TYPE II OR UNSPECIFIED TYPE, NOT STATED UNCONTROLLED 04/11/2018 Kerr, BenitaAshlyn W 278.00 OBESITY, UNSPECIFIED 04/11/2018 Kerr, MychalTo W 530.81 ESOPHAGEAL REFLUX 04/11/2018 Kerr, Benita-To W 535.50 UNSPECIFIED GASTRITIS AND GASTRODUODENITIS, WITHOUT MENTION OF HEMORRHAGE 04/11/2018 Kerr, Benita-To W E11.9 TYPE 2 DIABETES MELLITUS WITHOUT COMPLICATIONS 04/11/2018 Kerr, Benita-To W E66.9 OBESITY, UNSPECIFIED 04/11/2018 Kerr, Anthony W K21.9 GASTRO-ESOPHAGEAL REFLUX DISEASE WITHOUT ESOPHAGITIS 04/11/2018 Kerr, Anthony W K29.70 GASTRITIS, UNSPECIFIED, WITHOUT BLEEDING 04/11/2018 Anthony Kerr W V70.0 ROUTINE GENERAL MEDICAL EXAMINATION AT A HEALTH CARE FACILITY 04/11/2018 Anthony Kerr W Z00.00 ENCOUNTER FOR GENERAL ADULT MEDICAL EXAMINATION WITHOUT ABNORMAL FINDINGS 04/11/2018 Anthony Kerr W 250.00 DIABETES MELLITUS WITHOUT MENTION OF COMPLICATION, TYPE II OR UNSPECIFIED TYPE, NOT STATED UNCONTROLLED 04/11/2018 Cirilo, Anthony W 278.00 OBESITY, UNSPECIFIED 04/11/2018 Kerr, Anthony W 530.81 ESOPHAGEAL REFLUX 04/11/2018 Kerr, Anthony W 535.50 UNSPECIFIED GASTRITIS AND GASTRODUODENITIS, WITHOUT MENTION OF HEMORRHAGE 04/11/2018 Kerr, Anthony W E11.9 TYPE 2 DIABETES MELLITUS WITHOUT COMPLICATIONS 04/11/2018 Kerr, Anthony W E66.9 OBESITY, UNSPECIFIED 04/11/2018 Kerr, Anthony W K21.9 GASTRO-ESOPHAGEAL REFLUX DISEASE WITHOUT ESOPHAGITIS 04/11/2018 Cirilo, Anthony W K29.70 GASTRITIS, UNSPECIFIED, WITHOUT BLEEDING 04/11/2018 Anthony Kerr W V70.0 ROUTINE GENERAL MEDICAL EXAMINATION AT A HEALTH CARE FACILITY 04/11/2018 Anthony Kerr W Z00.00 ENCOUNTER FOR GENERAL ADULT MEDICAL EXAMINATION WITHOUT ABNORMAL FINDINGS 05/14/2018 W 250.00 DEMI BETES MELLITUS WITHOUT MENTION OF COMPLICATION, TYPE II OR UNSPECIFIED TYPE, NOT STATED UNCONTROLLED 05/14/2018 W 466.0 ACUT E BRONCHITIS 05/14/2018 W 780.61 FEV ER PRESENTING WITH CONDITIONS CLASSIFIED ELSEWHERE 05/14/2018 W 780.79 OTH ER MALAISE AND FATIGUE 05/14/2018 W E11.9 TYPE 2 DIABETES MELLITUS WITHOUT COMPLICATIONS 05/14/2018 W J20.9 ACUT E BRONCHITIS, UNSPECIFIED 05/14/2018 W R50.81 FEV ER PRESENTING WITH CONDITIONS CLASSIFIED ELSEWHERE 05/14/2018 W R53.83 OTH ER FATIGUE 06/01/2018 A 599.0 URIN JUAQUIN TRACT INFECTION, SITE NOT SPECIFIED 06/01/2018 A N39.0 URIN JUAQUIN TRACT INFECTION, SITE NOT SPECIFIED 06/18/2018 Margarita, Carmen A 599.0 URINARY TRACT INFECTION, SITE NOT SPECIFIED 06/18/2018 Margarita, Carmen A N39.0 URINARY TRACT INFECTION, SITE NOT SPECIFIED 06/18/2018 Margarita, Carmen A 599.0 URINARY TRACT INFECTION, SITE NOT SPECIFIED 06/18/2018 MargaritaCarmen W 625.8 OTHER SPECIFIED SYMPTOMS ASSOCIATED WITH FEMALE GENITAL ORGANS 06/18/2018 MargaritaCarmen W 698.1 PRURITUS OF GENITAL ORGANS 06/18/2018 Margarita, Carmen W L29.3 ANOGENITAL PRURITUS, UNSPECIFIED 06/18/2018 Margarita, Carmen A N39.0 URINARY TRACT INFECTION, SITE NOT SPECIFIED 06/18/2018 MargaritaCarmen W N89.8 OTHER SPECIFIED NONINFLAMMATORY DISORDERS OF VAGINA 06/18/2018 MargaritaCarmen W V76.2 SCREENING FOR MALIGNANT NEOPLASMS OF THE CERVIX 06/18/2018 MargaritaCarmen W Z12.4 ENCOUNTER FOR SCREENING FOR MALIGNANT NEOPLASM OF CERVIX 06/18/2018 W 250.02 DEMI BETES MELLITUS WITHOUT MENTION OF COMPLICATION, TYPE II OR UNSPECIFIED TYPE, UNCONTROLLED 06/18/2018 W 599.0 URIN JUAQUIN TRACT INFECTION, SITE NOT SPECIFIED 06/18/2018 W 625.8 OTHE R SPECIFIED SYMPTOMS ASSOCIATED WITH FEMALE GENITAL ORGANS 06/18/2018 W 698.1 PRUR ITUS OF GENITAL ORGANS 06/18/2018 W 788.1 DYSURIA 06/18/2018 W E11.65 TYP E 2 DIABETES MELLITUS WITH HYPERGLYCEMIA 06/18/2018 W L29.3 ANOG ENITAL PRURITUS, UNSPECIFIED 06/18/2018 W N39.0 URIN JUAQUIN TRACT INFECTION, SITE NOT SPECIFIED 06/18/2018 W N89.8 OTHE R SPECIFIED NONINFLAMMATORY DISORDERS OF VAGINA 06/18/2018 W R30.0 DYSURIA 06/18/2018 W V76.19 OTH ER SCREENING BREAST EXAMINATION 06/18/2018 W V76.2 SCRE ENING FOR MALIGNANT NEOPLASMS OF THE CERVIX 06/18/2018 W Z12.39 ENC OUNTER FOR OTHER SCREENING FOR MALIGNANT NEOPLASM OF BREAST 06/18/2018 W Z12.4 ENCO UNTER FOR SCREENING FOR MALIGNANT NEOPLASM OF CERVIX 07/18/2018 W 250.80 DEMI BETES MELLITUS WITH OTHER SPECIFIED MANIFESTATIONS, TYPE II OR UNSPECIFIED TYPE, NOT STATED UNCONTROLLED 07/18/2018 W 788.42 ALONDRA YURIA 07/18/2018 W E11.65 TYP E 2 DIABETES MELLITUS WITH HYPERGLYCEMIA 07/18/2018 W R35.8 OTHE R POLYURIA 07/20/2018 Kerr, Benita-To W 250.00 DIABETES MELLITUS WITHOUT MENTION OF COMPLICATION, TYPE II OR UNSPECIFIED TYPE, NOT STATED UNCONTROLLED 07/20/2018 Kerr, Benita-To W E11.9 TYPE 2 DIABETES MELLITUS WITHOUT COMPLICATIONS 07/20/2018 W 250.00 DEMI BETES MELLITUS WITHOUT MENTION OF COMPLICATION, TYPE II OR UNSPECIFIED TYPE, NOT STATED UNCONTROLLED 07/20/2018 W E11.9 TYPE 2 DIABETES MELLITUS WITHOUT COMPLICATIONS 07/20/2018 Kerr, Benita-To W 250.00 DIABETES MELLITUS WITHOUT MENTION OF COMPLICATION, TYPE II OR UNSPECIFIED TYPE, NOT STATED UNCONTROLLED 07/20/2018 Kerr, Benita-To W E11.9 TYPE 2 DIABETES MELLITUS WITHOUT COMPLICATIONS 08/14/2018 Kerr, Benita-To W 599.0 URINARY TRACT INFECTION, SITE NOT SPECIFIED 08/14/2018 Kerr, Benita-To W N39.0 URINARY TRACT INFECTION, SITE NOT SPECIFIED 08/14/2018 W 599.0 URIN JUAQUIN TRACT INFECTION, SITE NOT SPECIFIED 08/14/2018 W N39.0 URIN JUAQUIN TRACT INFECTION, SITE NOT SPECIFIED 08/14/2018 Kerr, Benita-To W 599.0 URINARY TRACT INFECTION, SITE NOT SPECIFIED 08/14/2018 Kerr, Benita-To W N39.0 URINARY TRACT INFECTION, SITE NOT SPECIFIED 08/22/2018 W 726.10 DIS ORDERS OF BURSAE AND TENDONS IN SHOULDER REGION, UNSPECIFIED 08/22/2018 W M75.101 UN SPECIFIED ROTATOR CUFF TEAR OR RUPTURE OF RIGHT SHOULDER, NOT SPECIFIED TRAUMATIC 09/03/2018 Carmen Avila W 564.00 CONSTIPATION, UNSPECIFIED 09/03/2018 Carmen Avila W 578.1 BLOOD IN STOOL 09/03/2018 Carmen Avila W 724.2 LUMBAGO 09/03/2018 MargaritaCarmen W 787.01 NAUSEA WITH VOMITING 09/03/2018 Carmen Avila W 789.00 ABDOMINAL PAIN, UNSPECIFIED SITE 09/03/2018 Margarita, Carmen W K59.00 CONSTIPATION, UNSPECIFIED 09/03/2018 Margarita, Carmen W K92.1 MELENA 09/03/2018 Margarita, Carmen W M54.5 LOW BACK PAIN 09/03/2018 Margarita, Carmen W R10.9 UNSPECIFIED ABDOMINAL PAIN 09/03/2018 Margarita, Carmen W R11.2 NAUSEA WITH VOMITING, UNSPECIFIED 09/03/2018 Margarita, Carmen W 250.00 09/03/2018 Margarita, Carmen W 564.00 CONSTIPATION, UNSPECIFIED 09/03/2018 Margarita, Carmen W 578.1 BLOOD IN STOOL 09/03/2018 Margarita, Carmen W 724.2 09/03/2018 Margarita, Carmen W 780.4 09/03/2018 Margarita, Carmen W 787.01 NAUSEA WITH VOMITING 09/03/2018 Margarita, Carmen W 788.41 09/03/2018 Margarita, Carmen W 789.00 ABDOMINAL PAIN, UNSPECIFIED SITE 09/03/2018 Margarita, Carmen W E11.9 TYPE 2 DIABETES MELLITUS WITHOUT COMPLICATIONS 09/03/2018 Margarita, Carmen W K59.00 CONSTIPATION, UNSPECIFIED 09/03/2018 Margarita, Carmen W K92.1 MELENA 09/03/2018 Margarita, Carmen W M54.5 LOW BACK PAIN 09/03/2018 Margarita, Carmen W R10.9 UNSPECIFIED ABDOMINAL PAIN 09/03/2018 Margarita, Carmen W R11.2 NAUSEA WITH VOMITING, UNSPECIFIED 09/03/2018 Margarita, Carmen W R35.0 FREQUENCY OF MICTURITION 09/03/2018 Margarita, Carmen W R42 DIZZINESS AND GIDDINESS 09/03/2018 W 250.00 DEMI BETES MELLITUS WITHOUT MENTION OF COMPLICATION, TYPE II OR UNSPECIFIED TYPE, NOT STATED UNCONTROLLED 09/03/2018 W 564.00 CON STIPATION, UNSPECIFIED 09/03/2018 W 578.1 BLOO D IN STOOL 09/03/2018 W 724.2 LUMBAGO 09/03/2018 W 780.4 DIZZ INESS AND GIDDINESS 09/03/2018 W 787.01 DIEUDONNE SEA WITH VOMITING 09/03/2018 W 788.41 URI NARY FREQUENCY 09/03/2018 W 789.00 ABD OMINAL PAIN, UNSPECIFIED SITE 09/03/2018 W E11.9 TYPE 2 DIABETES MELLITUS WITHOUT COMPLICATIONS 09/03/2018 W K59.00 CON STIPATION, UNSPECIFIED 09/03/2018 W K92.1 MELENA 09/03/2018 W M54.5 LOW BACK PAIN 09/03/2018 W R10.9 UNSP ECIFIED ABDOMINAL PAIN 09/03/2018 W R11.2 NAUS EA WITH VOMITING, UNSPECIFIED 09/03/2018 W R35.0 FREQ UENCY OF MICTURITION 09/03/2018 W R42 DIZZIN ESS AND GIDDINESS 10/03/2018 W 789.02 ABD OMINAL PAIN, LEFT UPPER QUADRANT 10/03/2018 W 789.04 ABD OMINAL PAIN, LEFT LOWER QUADRANT 10/03/2018 W R10.12 LEF T UPPER QUADRANT PAIN 10/03/2018 W R10.32 LEF T LOWER QUADRANT PAIN 11/15/2018 Kerr, Benita-To W 112.9 CANDIDIASIS OF UNSPECIFIED SITE 11/15/2018 Kerr, Benita-To W 599.0 URINARY TRACT INFECTION, SITE NOT SPECIFIED 11/15/2018 Kerr, Benita-To W B37.9 CANDIDIASIS, UNSPECIFIED 11/15/2018 Kerr, Benita-To W N39.0 URINARY TRACT INFECTION, SITE NOT SPECIFIED 11/15/2018 W 112.9 CAND IDIASIS OF UNSPECIFIED SITE 11/15/2018 W 599.0 URIN JUAQUIN TRACT INFECTION, SITE NOT SPECIFIED 11/15/2018 W B37.9 CAND IDIASIS, UNSPECIFIED 11/15/2018 W N39.0 URIN JUAQUIN TRACT INFECTION, SITE NOT SPECIFIED 11/15/2018 Kerr, Benita-To W 112.9 CANDIDIASIS OF UNSPECIFIED SITE 11/15/2018 Kerr, Benita-To W 599.0 URINARY TRACT INFECTION, SITE NOT SPECIFIED 11/15/2018 Krer, Benita-To W B37.9 CANDIDIASIS, UNSPECIFIED 11/15/2018 Kerr, Benita-To W N39.0 URINARY TRACT INFECTION, SITE NOT SPECIFIED 11/22/2018 W 112.0 CAND IDIASIS OF MOUTH 11/22/2018 W 616.10 VAG INITIS AND VULVOVAGINITIS, UNSPECIFIED 11/22/2018 W 786.2 COUGH 11/22/2018 W B37.0 CAND IDAL STOMATITIS 11/22/2018 W N76.0 ACUT E VAGINITIS 11/22/2018 W R05 COUGH 12/05/2018 W 110.3 DERM ATOPHYTOSIS OF GROIN AND PERIANAL AREA 12/05/2018 W B35.6 ANSLEY A CRURIS 12/10/2018 W 110.3 DERM ATOPHYTOSIS OF GROIN AND PERIANAL AREA 12/10/2018 W 338.19 OTH ER ACUTE PAIN 12/10/2018 W 625.8 OTHE R SPECIFIED SYMPTOMS ASSOCIATED WITH FEMALE GENITAL ORGANS 12/10/2018 W B35.6 ANSLEY A CRURIS 12/10/2018 W R22.2 LOCA LIZED SWELLING, MASS AND LUMP, TRUNK 12/10/2018 W R52 PAIN, UNSPECIFIED 12/11/2018 Brown, Stephon W 616.4 OTHER ABSCESS OF VULVA 12/11/2018 Brown, Stephon W N76.4 ABSCESS OF VULVA 12/19/2018 W 616.3 ABSC ESS OF [place] 12/19/2018 W N75.1 ABSC ESS OF [place] 01/15/2019 W 788.1 DYSURIA 01/15/2019 W R30.0 DYSURIA 01/15/2019 W 724.2 LUMBAGO 01/15/2019 W 788.1 DYSURIA 01/15/2019 W M54.5 LOW BACK PAIN 01/15/2019 W R30.0 DYSURIA 01/15/2019 W 724.2 LUMBAGO 01/15/2019 W 724.8 OTHE R SYMPTOMS REFERABLE TO BACK 01/15/2019 W 788.1 DYSURIA 01/15/2019 W M54.5 LOW BACK PAIN 01/15/2019 W M62.830 MU SCLE SPASM OF BACK 01/15/2019 W R30.0 DYSURIA 01/15/2019 W 724.2 LUMBAGO 01/15/2019 W 724.8 OTHE R SYMPTOMS REFERABLE TO BACK 01/15/2019 W 788.1 DYSURIA 01/15/2019 W M54.5 LOW BACK PAIN 01/15/2019 W M62.830 MU SCLE SPASM OF BACK 01/15/2019 W R30.0 DYSURIA 01/15/2019 W 724.2 LUMBAGO 01/15/2019 W 724.8 OTHE R SYMPTOMS REFERABLE TO BACK 01/15/2019 W 788.1 DYSURIA 01/15/2019 W 840.9 SPRA IN OF UNSPECIFIED SITE OF SHOULDER AND UPPER ARM 01/15/2019 W M54.5 LOW BACK PAIN 01/15/2019 W M62.830 MU SCLE SPASM OF BACK 01/15/2019 W R30.0 DYSURIA 01/15/2019 W S46.911A S TRAIN OF UNSPECIFIED MUSCLE, FASCIA AND TENDON AT SHOULDER AND UPPER ARM LEVEL, RIGHT ARM, INITIAL ENCOUNTER 01/15/2019 W 724.2 LUMBAGO 01/15/2019 W 724.8 OTHE R SYMPTOMS REFERABLE TO BACK 01/15/2019 W 788.1 DYSURIA 01/15/2019 W 840.9 SPRA IN OF UNSPECIFIED SITE OF SHOULDER AND UPPER ARM 01/15/2019 W M54.5 LOW BACK PAIN 01/15/2019 W M62.830 MU SCLE SPASM OF BACK 01/15/2019 W R30.0 DYSURIA 01/15/2019 W S46.911A S TRAIN OF UNSPECIFIED MUSCLE, FASCIA AND TENDON AT SHOULDER AND UPPER ARM LEVEL, RIGHT ARM, INITIAL ENCOUNTER 01/15/2019 W 599.0 URIN JUAQUIN TRACT INFECTION, SITE NOT SPECIFIED 01/15/2019 W 724.2 LUMBAGO 01/15/2019 W 724.8 OTHE R SYMPTOMS REFERABLE TO BACK 01/15/2019 W 788.1 DYSURIA 01/15/2019 W 840.9 SPRA IN OF UNSPECIFIED SITE OF SHOULDER AND UPPER ARM 01/15/2019 W M54.5 LOW BACK PAIN 01/15/2019 W M62.830 MU SCLE SPASM OF BACK 01/15/2019 W N39.0 URIN JUAQUIN TRACT INFECTION, SITE NOT SPECIFIED 01/15/2019 W R30.0 DYSURIA 01/15/2019 W S46.911A S TRAIN OF UNSPECIFIED MUSCLE, FASCIA AND TENDON AT SHOULDER AND UPPER ARM LEVEL, RIGHT ARM, INITIAL ENCOUNTER 01/15/2019 W 599.0 URIN JUAQUIN TRACT INFECTION, SITE NOT SPECIFIED 01/15/2019 W 724.2 LUMBAGO 01/15/2019 W 724.8 OTHE R SYMPTOMS REFERABLE TO BACK 01/15/2019 W 788.1 DYSURIA 01/15/2019 W 840.9 SPRA IN OF UNSPECIFIED SITE OF SHOULDER AND UPPER ARM 01/15/2019 W M54.5 LOW BACK PAIN 01/15/2019 W M62.830 MU SCLE SPASM OF BACK 01/15/2019 W N39.0 URIN JUAQUIN TRACT INFECTION, SITE NOT SPECIFIED 01/15/2019 W R30.0 DYSURIA 01/15/2019 W S46.911A S TRAIN OF UNSPECIFIED MUSCLE, FASCIA AND TENDON AT SHOULDER AND UPPER ARM LEVEL, RIGHT ARM, INITIAL ENCOUNTER 01/15/2019 W 250.00 DEMI BETES MELLITUS WITHOUT MENTION OF COMPLICATION, TYPE II OR UNSPECIFIED TYPE, NOT STATED UNCONTROLLED 01/15/2019 W 599.0 URIN JUAQUIN TRACT INFECTION, SITE NOT SPECIFIED 01/15/2019 W 724.2 LUMBAGO 01/15/2019 W 724.8 OTHE R SYMPTOMS REFERABLE TO BACK 01/15/2019 W 788.1 DYSURIA 01/15/2019 W 840.9 SPRA IN OF UNSPECIFIED SITE OF SHOULDER AND UPPER ARM 01/15/2019 W E11.9 TYPE 2 DIABETES MELLITUS WITHOUT COMPLICATIONS 01/15/2019 W M54.5 LOW BACK PAIN 01/15/2019 W M62.830 MU SCLE SPASM OF BACK 01/15/2019 W N39.0 URIN JUAQUIN TRACT INFECTION, SITE NOT SPECIFIED 01/15/2019 W R30.0 DYSURIA 01/15/2019 W S46.911A S TRAIN OF UNSPECIFIED MUSCLE,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
[2019-10-29] MEDS ORDERED: inSUlin (REGULAR) HUMAN 1 UNIT/0.01 ML (CHARGE PER UNIT) IV STA (16:10)
[2019-10-29] MEDS ORDERED: NS IV 1000 ML 1,000 ML IV ONE (16:10)
[2019-10-29 16:11] LABS: BASOPHILS % (AUTO) 0 % (0-10); EOSINOPHILS # (AUTO) 0.3 10^3/uL (0.0-0.3); EOSINOPHILS % (AUTO) 5 % (0-10); HEMATOCRIT 45 % (35-52); HEMOGLOBIN 14.8 G/DL (11.5-16.0); LYMPHOCYTES # (AUTO) 1.8 X 10^3 (1.0-4.0); LYMPHOCYTES % (AUTO) 34 % (12-44); MEAN CORPUSCULAR HEMOGLOBIN 30 PG (25-34); MEAN CORPUSCULAR HGB CONC 33 G/DL (32-36); MEAN CORPUSCULAR VOLUME 90 FL (80-99); MEAN PLATELET VOLUME 11.3 FL (7.4-10.4); MONOCYTES # (AUTO) 0.5 X 10^3 (0.0-1.0); MONOCYTES % (AUTO) 9 % (0-12); NEUTROPHILS # (AUTO) 2.7 X 10^3 (1.8-7.8); NEUTROPHILS % (AUTO) 52 % (42-75); PLATELET COUNT 152 10^3/uL (130-400); RED CELL DISTRIBUTION WIDTH 13.8 % (10.0-14.5); WHITE BLOOD COUNT 5.2 10^3/uL (4.3-11.0)
[2019-10-29 16:16] LABS: CHLORIDE 99 MMOL/L (98-107); SODIUM 131 MMOL/L (135-145)
[2019-10-29 16:17] LABS: CALCIUM 9.1 MG/DL (8.5-10.1)
[2019-10-29 16:18] LABS: TOTAL PROTEIN 7.7 GM/DL (6.4-8.2)
[2019-10-29 16:19] LABS: CARBON DIOXIDE 19 MMOL/L (21-32)
[2019-10-29 16:21] LABS: GLUCOSE 579 MG/DL (70-105)
[2019-10-29 16:21] LABS: BILIRUBIN,URINE NEGATIVE (NEGATIVE); CLARITY,URINE CLEAR; COLOR,URINE YELLOW; GLUCOSE, URINE (UA) 3+ (NEGATIVE); KETONES,URINE TRACE (NEGATIVE); LEUKOCYTE ESTERASE ,URINE NEGATIVE (NEGATIVE); NITRITE,URINE NEGATIVE (NEGATIVE); PH,URINE 5.5 (5-9); PROTEIN,URINE NEGATIVE (NEGATIVE)
[2019-10-29 16:22] LABS: ALKALINE PHOSPHATASE 87 U/L (40-136); CREATININE SERUM 0.85 MG/DL (0.60-1.30); GFR ESTIMATED > 60
[2019-10-29 16:23] LABS: BUN/CREATININE RATIO 9
[2019-10-29 16:25] LABS: ALANINE AMINOTRANSFERASE 57 U/L (0-55)
--- NOTE | 2019-10-29 16:37 | ED General ---
General Chief Complaint: Glucose Problems Stated Complaint: DIABETES;SHAKING Nursing Triage Note: Assisted pt via personal w/c to room #5 with c/o hyperglycemia. Pt reports flucuating glucose for x1wk. Pt repots chronic SOA et polyuria. A&OX4. Nursing Sepsis Screen: Possible Severe Sepsis Risk Source of Information: Patient Exam Limitations: No Limitations History of Present Illness Date Seen by Provider: Oct 29, 2019 Time Seen by Provider: 16:[address] Jack mclean of ketones in her urine. Patient is a diabetic and she is on metformin and was on Januvia. She is unable to continue on Januvia due to Medicaid payment issues. He has increased her metformin from 500 twice a day to 1000 mg twice a day now. He was worried because of ketones in the urine and wanted to have her checked out. Patient states that her blood sugars have not done well recently. Denies illness or injury. Denies dysuria or diarrhea. Does report increased thirst. Timing/Duration: 1 Week, Constant Severity: Moderate Associated Systoms: No Chest Pain, No Cough, No Fever/Chills, No Nausea/Vomiting, No Shortness of Air, No Weakness Allergies and Home Medications Allergies Coded Allergies: Sulfa (Sulfonamide Antibiotics) (Verified Allergy, Unknown, 03/07/19) Home Medications Albuterol Sulfate 2.5 Mg/3 Ml Vial.neb, 2.5 MG INH Q4H PRN for WHEEZING Prescribed by: TEMO CARTER on 03/10/192211 Azithromycin 250 Mg Tablet, 250 MG PO DAILY Prescribed by: TEMO CARTER on 03/10/192211 Cyclosporine 1 Each Droperette, 1 DROP OU BID, (Reported) Dapagliflozin/Metformin HCl 1 Each Tab.bp.24h, 1 TAB PO DAILY, (Reported) Docusate Sodium 100 Mg Capsule, 100 MG PO DAILY Prescribed by: MILTON WANG on 03/09/19 122 Dulaglutide 1.5 Mg/0.5 Ml Pen.injctr, 1.5 MG SC WEEK, (Reported) Hydrocodone Bit/Acetaminophen 1 Tab Tab, 1 TAB PO Q4-6HR Prescribed by: MILTON WANG on 03/09/19 122 Ibuprofen 800 Mg Tablet, 800 MG PO TID PRN for PAIN-MILD, (Reported) Simvastatin 20 Mg Tablet, 20 MG PO HS, (Reported) Sitagliptin Phosphate 100 Mg Tablet, 100 MG PO DAILY, (Reported) Patient Home Medication List Home Medication List Reviewed: Yes Review of Systems Review of Systems Constitutional: see HPI; No chills, No fever, No weakness EENTM: no symptoms reported Respiratory: no symptoms reported Cardiovascular: no symptoms reported Gastrointestinal: No abdominal pain, No nausea, No vomiting Genitourinary: No dysuria, No hematuria Musculoskeletal: no symptoms reported Skin: no symptoms reported Psychiatric/Neurological: No Symptoms Reported Hematologic/Lymphatic: No Symptoms Reported Polydipsia and polyuria All Other Systems Reviewed Negative Unless Noted: Yes Past Scyjufe-Wsajun-Ftizby Hx Past Med/Social Hx: Reviewed Nursing Past Med/Soc Hx Patient Social History Alcohol Use: Denies Use Recreational Drug Use: No Smoking Status: Never a Smoker 2nd Hand Smoke Exposure: Yes Recent Foreign Travel: No Contact w/Someone Who Travel: No Recent Infectious Disease Expo: No Recent Hopitalizations: Yes Immunizations Up To Date Tetanus Booster (TDap): Unknown Date of Influenza Vaccine: Mar 06, 2019 Past Medical History Surgeries: Yes (right shoulder, GI surgery, tubal, extra bone removed from skull as child) Respiratory: No Cardiac: Yes 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 oz. kg; 40.00 BMI Method:Estimated General Appearance: No Apparent Distress, WD/WN HEENT: PERRL/EOMI, Pharynx Normal Neck: Non Tender, Supple Respiratory: Lungs Clear, Normal Breath Sounds Cardiovascular: Regular Rate, Rhythm, No Murmur Gastrointestinal: Non Tender, Soft Extremity: Normal Range of Motion, Non Tender Neurologic/Psychiatric: Alert, Oriented x3 Skin: Normal Color, Warm/Dry Progress/Results/Core Measures Suspected Sepsis Recent Fever Within 48 Hours: No Infection Criteria Present: Suspected New Infection New/Unexplained Altered Menta: No Sepsis Screen: Possible Severe Sepsis Risk SIRS Temperature: Pulse: 97 Respiratory Rate: 22 Laboratory Tests 10/29/19 15:40: White Blood Count 5.2 Blood Pressure 178 /100 Mean: 126 Laboratory Tests 10/29/19 15:40: Creatinine 0.85, Platelet Count 152, Total Bilirubin 1.0 Results/Orders Lab Results Laboratory Tests Test 10/29/19 14:46 10/29/19 15:22 10/29/19 15:40 10/29/19 17:30 Range/Units Glucometer 476 *H 363 H 70-110 MG/DL Urine Color YELLOW Urine Clarity CLEAR Urine pH 5.5 5-9 Urine Specific [place] 1.010 L 1.016-1.022 Urine Protein NEGATIVE NEGATIVE Urine Glucose (UA) 3+ H NEGATIVE Urine Ketones TRACE H NEGATIVE Urine Nitrite NEGATIVE NEGATIVE Urine Bilirubin NEGATIVE NEGATIVE Urine Urobilinogen 0.2 < = 1.0 MG/DL Urine Leukocyte Esterase NEGATIVE NEGATIVE Urine RBC (Auto) NEGATIVE NEGATIVE Urine RBC NONE /HPF Urine WBC NONE /HPF Urine Crystals PRESENT H /LPF Urine Amorphous Sediment RARE JIM URATES H /LPF Urine Bacteria FEW H /HPF Urine Casts NONE /LPF Urine Mucus NEGATIVE /LPF Urine Culture Indicated NO White Blood Count 5.2 4.3-11.0 10^3/uL Red Blood Count 5.00 4.35-5.85 10^6/uL Hemoglobin 14.8 11.5-16.0 G/DL Hematocrit 45 35-52 % Mean Corpuscular Volume 90 80-99 FL Mean Corpuscular Hemoglobin 30 25-34 PG Mean Corpuscular Hemoglobin Concent 33 32-36 G/DL Red Cell Distribution Width 13.8 10.0-14.5 % Platelet Count 152 130-400 10^3/uL Mean Platelet Volume 11.3 H 7.4-10.4 FL Neutrophils (%) (Auto) 52 42-75 % Lymphocytes (%) (Auto) 34 12-44 % Monocytes (%) (Auto) 9 0-12 % Eosinophils (%) (Auto) 5 0-10 % Basophils (%) (Auto) 0 0-10 % Neutrophils # (Auto) 2.7 1.8-7.8 X 10^3 Lymphocytes # (Auto) 1.8 1.0-4.0 X 10^3 Monocytes # (Auto) 0.5 0.0-1.0 X 10^3 Eosinophils # (Auto) 0.3 0.0-0.3 10^3/uL Basophils # (Auto) 0.0 0.0-0.1 10^3/uL Sodium Level 131 L 135-145 MMOL/L Potassium Level 4.0 3.6-5.0 MMOL/L Chloride Level 99 98-107 MMOL/L Carbon Dioxide Level 19 L 21-32 MMOL/L Anion Gap 13 5-14 MMOL/L Blood Urea Nitrogen 8 7-18 MG/DL Creatinine 0.85 0.60-1.30 MG/DL Estimat Glomerular Filtration Rate > 60 BUN/Creatinine Ratio 9 Glucose Level 579 *H 70-105 MG/DL Calcium Level 9.1 8.5-10.1 MG/DL Corrected Calcium 9.1 8.5-10.1 MG/DL Total Bilirubin 1.0 0.1-1.0 MG/DL Aspartate Amino Transf (AST/SGOT) 52 H 5-34 U/L Alanine Aminotransferase (ALT/SGPT) 57 H 0-55 U/L Alkaline Phosphatase 87 40-136 U/L Total Protein 7.7 6.4-8.2 GM/DL Albumin 4.0 3.2-4.5 GM/DL My Orders Orders - PASCALE WAN MD Ns Iv 1000 Ml (Sodium Chloride 0.9%) (10/29/19 16:10) Insulin (Regular) Human (Humulin R (Per (10/29/19 16:10) Medications Given in ED Current Medications Medications Dose Ordered Sig/Bailey Route Start Time Stop Time Status Last Admin Dose Admin Sodium Chloride 1,000 ml @ 0 mls/hr Q0M ONCE IV 10/29/19 16:10 10/29/19 16:11 DC 10/29/19 16:17 0 MLS/HR Vital Signs/I&O 10/29/19 15:16 Temp 36.7 Pulse 97 Resp 22 B/P (MAP) 178/100 (126) Pulse Ox 96 O2 Delivery Room Air Capillary Refill : Less Than 3 Seconds Blood Pressure Mean: 126 Point of Care Testing Finger Stick Blood Glucose: 493 Progress Note : Progress Note Seen and evaluated. IV, labs, UA, saline 1 L bolus and insulin 15 units IV ordered. Monitor patient. 1833: Overall improved. Patient like to go home. She has trace ketones in her urine but no indication of diabetic ketoacidosis. Blood sugar is improved after insulin. She will initiate her increased metformin tonight and she will follow-up with her doctor for continuation of care tomorrow. Patient has been drinking water without difficulty. Overall she states she feels much better. Departure Impression Primary Impression: Diabetes mellitus type 2 Qualified Codes: E11.65 - Type 2 diabetes mellitus with hyperglycemia Disposition: HOME, SELF-CARE Condition: Improved Departure-Patient Inst. Decision time for Depature: 18:35 Referrals: TERESO DUTTON MD (PCP/Family) Primary Care Physician Patient Instructions: Diabetes Type 2 (DC), Hyperglycemia, Adult (DC) Add. Discharge Instructions: All discharge instructions reviewed with patient and/or family. Voiced understanding. Drink plenty of fluids. Take medications as directed. Call and make appointment with Dr. Dutton for tomorrow or the next day to review your blood sugar management. Return for worse pain, fever, vomiting, weakness, breathing problems or other concerns as needed. PASCALE WAN MD Oct 29, 2019 16:37
[2019-10-29 16:41] LABS: AMORPHOUS SEDIMENT,UR RARE AMOR URATES /LPF; BACTERIA,URINE FEW /HPF
--- NOTE | 2019-10-29 17:32 | NUR ---
Assisted pt via personal w/c to restroom.
[2019-10-29 18:45] VITALS: BP 123/108
== END 2019-10-29 18:45 | disposition home or self-care (01) ==
LOC: EDUNIT# 13:23 → ER 13:25
DX: E11.65 Type 2 diabetes mellitus with hyperglycemia (principal); Z88.2 Allergy status to sulfonamides; Z79.84 Long term (current) use of oral hypoglycemic drugs; Z77.22 Contact with and (suspected) exposure to environmental tobacco smoke (acute) (chronic)
CPT/HCPCS: 36415; 80053; 81000; 82962; 83036; 85025

== ENCOUNTER → 2019-10-29 | Outpatient (CLI) | payer MEDICAID ==
--- NOTE | 2019-10-29 20:05 | Diagnostic Imaging Report ---
EXAM: Digital mammogram bilateral screening COMPARISON: This study was compared to the prior exams of 12/15/2017 and 10/26/2016. There are no current complaints. The current study was also evaluated with a Computer Aided Detection (CAD) system. FINDINGS: There are scattered fibroglandular densities in both breasts which could obscure a lesion. Overall, there does not appear to have been any significant change when compared to the prior exam. No primary or secondary sign of malignancy is noted. IMPRESSION: There is no radiographic evidence for malignancy. ACR BI-RADS Category 1: Negative. Result letter will be mailed to the patient. Note: At least 10% of breast cancer is not imaged by mammography. Dictated by: Dictated on workstation # [id number]
== END ==
LOC: RAD 13:03
PROVIDERS: ATTEND Family Medicine
DX: Z12.31 Encounter for screening mammogram for malignant neoplasm of breast (principal)
CPT/HCPCS: 77063; 77067; 82962

== ENCOUNTER 2019-11-26 14:41 | Emergency (ER) | payer MEDICAID ==
[~2019-11-26] VITALS: Ht 160 cm; Wt 99.8 kg
[2019-11-26] MEDS ORDERED: NS IV 1000 ML 1,000 ML IV SCH (14:57)
[2019-11-26 15:19] LABS: BASOPHILS % (AUTO) 0 % (0-10); EOSINOPHILS # (AUTO) 0.2 10^3/uL (0.0-0.3); EOSINOPHILS % (AUTO) 4 % (0-10); HEMATOCRIT 43 % (35-52); HEMOGLOBIN 14.5 G/DL (11.5-16.0); LYMPHOCYTES # (AUTO) 2.5 X 10^3 (1.0-4.0); LYMPHOCYTES % (AUTO) 43 % (12-44); MEAN CORPUSCULAR HEMOGLOBIN 30 PG (25-34); MEAN CORPUSCULAR HGB CONC 33 G/DL (32-36); MEAN CORPUSCULAR VOLUME 89 FL (80-99); MEAN PLATELET VOLUME 11.2 FL (7.4-10.4); MONOCYTES # (AUTO) 0.4 X 10^3 (0.0-1.0); MONOCYTES % (AUTO) 7 % (0-12); NEUTROPHILS # (AUTO) 2.6 X 10^3 (1.8-7.8); NEUTROPHILS % (AUTO) 46 % (42-75); PLATELET COUNT 148 10^3/uL (130-400); RED CELL DISTRIBUTION WIDTH 13.6 % (10.0-14.5); WHITE BLOOD COUNT 5.7 10^3/uL (4.3-11.0)
[2019-11-26 15:33] LABS: ALBUMIN 3.9 GM/DL (3.2-4.5); CHLORIDE 101 MMOL/L (98-107); POTASSIUM 3.7 MMOL/L (3.6-5.0); SODIUM 135 MMOL/L (135-145)
[2019-11-26 15:35] LABS: GLUCOSE 345 MG/DL (70-105); TOTAL PROTEIN 7.8 GM/DL (6.4-8.2)
[2019-11-26 15:37] LABS: BILIRUBIN,TOTAL 0.7 MG/DL (0.1-1.0); CARBON DIOXIDE 20 MMOL/L (21-32)
[2019-11-26 15:39] LABS: ALKALINE PHOSPHATASE 88 U/L (40-136); CREATININE SERUM 0.76 MG/DL (0.60-1.30); GFR ESTIMATED > 60
[2019-11-26 15:40] LABS: BUN/CREATININE RATIO 13
[2019-11-26 15:42] LABS: ALANINE AMINOTRANSFERASE 56 U/L (0-55); MAGNESIUM 1.8 MG/DL (1.6-2.4)
--- NOTE | 2019-11-26 15:55 | ED General ---
General Chief Complaint: Glucose Problems Stated Complaint: HIGH BLOOD SUGAR Nursing Triage Note: CALLED DR DUTTON TO REPORT HIGH BLOOD SUGAR AND WAS REFFERED TO THE ER. PATIENT REPORTS BLOOD SUGAR OF 340 USABILITY STRATEGIST Nursing Sepsis Screen: No Definite Risk Source of Information: Patient Exam Limitations: No Limitations (CYNDIE GOLDEN,MED STUDENT) History of Present Illness Date Seen by Provider: Nov 26, 2019 Time Seen by Provider: 14:52 Initial Comments Ms. Wilde is a 63 year old female who reports to the emergency department this afternoon with complaints of elevated blood sugars. She states she called her PCPs office (Dr. Dutton) to report her high blood sugars and they instructed her to be seen in the emergency department. Mrs. Wilde states her blood sugar was 340 prior to arrival and has been elevated over the last few days. She was previously on insulin therapy but states her current diabetic medication regimen is oral medications only. Since the switch from insulin to oral medications she has noticed elevated blood sugars. She denies other complaints at this time including nausea, vomiting, shortness of air, fevers, cough, or diarrhea. She states she is currently on medication for a UTI. (CYNDIE GOLDEN,MED STUDENT) Initial Comments I was personally present for the history and physical of Ms Wilde, and I agree with MS4 documentation. (CIRO BURGER MD) Allergies and Home Medications Allergies Coded Allergies: Sulfa (Sulfonamide Antibiotics) (Verified Allergy, Unknown, 11/26/19) Home Medications Albuterol Sulfate 2.5 Mg/3 Ml Vial.neb, 2.5 MG INH Q4H PRN for WHEEZING Prescribed by: TEMO CARTER on 03/10/192211 Azithromycin 250 Mg Tablet, 250 MG PO DAILY Prescribed by: TEMO CARTER on 03/10/192211 Cyclosporine 1 Each Droperette, 1 DROP OU BID, (Reported) Dapagliflozin/Metformin HCl 1 Each Tab.bp.24h, 1 TAB PO DAILY, (Reported) Docusate Sodium 100 Mg Capsule, 100 MG PO DAILY Prescribed by: MILTON WANG on 03/09/19 122 Dulaglutide 1.5 Mg/0.5 Ml Pen.injctr, 1.5 MG SC WEEK, (Reported) Hydrocodone Bit/Acetaminophen 1 Tab Tab, 1 TAB PO Q4-6HR Prescribed by: MILTON WANG on 03/09/19 1227 Ibuprofen 800 Mg Tablet, 800 MG PO TID PRN for PAIN-MILD, (Reported) Simvastatin 20 Mg Tablet, 20 MG PO HS, (Reported) Sitagliptin Phosphate 100 Mg Tablet, 100 MG PO DAILY, (Reported) Patient Home Medication List Home Medication List Reviewed: Yes (CYNDIE GOLDEN MED STUDENT) Review of Systems Review of Systems Constitutional: no symptoms reported EENTM: no symptoms reported Respiratory: no symptoms reported Cardiovascular: no symptoms reported Gastrointestinal: no symptoms reported Genitourinary: no symptoms reported Musculoskeletal: no symptoms reported Skin: no symptoms reported (CYNDIE GOLDEN MED STUDENT) Past Qfnofhh-Sykwac-Cqnyii Hx Past Med/Social Hx: Reviewed Nursing Past Med/Soc Hx (CIRO BURGER MD) Patient Social History Alcohol Use: Denies Use Recreational Drug Use: No 2nd Hand Smoke Exposure: Yes Recent Foreign Travel: No Contact w/Someone Who Travel: No Recent Infectious Disease Expo: No Recent Hopitalizations: Yes Physical Abuse: No Sexual Abuse: No Mistreated: No Fear: No (CYNDIE GOLDEN MED STUDENT) Immunizations Up To Date Tetanus Booster (TDap): Unknown Date of Influenza Vaccine: Mar 06, 2019 (CYNDIE GOLDEN MED STUDENT) Past Medical History Surgeries: Yes (right shoulder, GI surgery, tubal, extra bone removed from [facility] as child) Respiratory: No Cardiac: No 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 oz. kg; 38.00 BMI Method:Estimated (CYNDIE GOLDEN MED STUDENT) General Appearance: No Apparent Distress, WD/WN, Obese HEENT: PERRL/EOMI, Normal ENT Inspection, Other (MM somewhat dry) Neck: Normal Inspection Respiratory: Lungs Clear, Normal Breath Sounds, No Accessory Muscle Use Cardiovascular: Regular Rate, Rhythm, No Murmur Gastrointestinal: Normal Bowel Sounds, Non Tender, Soft Extremity: Normal Inspection, No Pedal Edema Neurologic/Psychiatric: Alert, Oriented x3, No Motor/Sensory Deficits, Normal Mood/Affect, Other (Patient appears stressed and flustered.) Skin: Normal Color, Warm/Dry (CIRO BURGER MD) Progress/Results/Core Measures Suspected Sepsis Recent Fever Within 48 Hours: No Infection Criteria Present: None New/Unexplained Altered Menta: No Sepsis Screen: No Definite Risk SIRS Temperature: Pulse: 107 Respiratory Rate: 20 Laboratory Tests 11/26/19 15:05: White Blood Count 5.7 Blood Pressure 143 /98 Mean: 113 Laboratory Tests 11/26/19 15:05: Creatinine 0.76, Platelet Count 148, Total Bilirubin 0.7 (CYNDIE GOLDEN MED STUDENT) Results/Orders Lab Results Laboratory Tests Test 11/26/19 14:52 11/26/19 15:05 11/26/19 15:49 11/26/19 16:07 Range/Units Glucometer 323 H 271 H 70-110 MG/DL White Blood Count 5.7 4.3-11.0 10^3/uL Red Blood Count 4.87 4.35-5.85 10^6/uL Hemoglobin 14.5 11.5-16.0 G/DL Hematocrit 43 35-52 % Mean Corpuscular Volume 89 80-99 FL Mean Corpuscular Hemoglobin 30 25-34 PG Mean Corpuscular Hemoglobin Concent 33 32-36 G/DL Red Cell Distribution Width 13.6 10.0-14.5 % Platelet Count 148 130-400 10^3/uL Mean Platelet Volume 11.2 H 7.4-10.4 FL Neutrophils (%) (Auto) 46 42-75 % Lymphocytes (%) (Auto) 43 12-44 % Monocytes (%) (Auto) 7 0-12 % Eosinophils (%) (Auto) 4 0-10 % Basophils (%) (Auto) 0 0-10 % Neutrophils # (Auto) 2.6 1.8-7.8 X 10^3 Lymphocytes # (Auto) 2.5 1.0-4.0 X 10^3 Monocytes # (Auto) 0.4 0.0-1.0 X 10^3 Eosinophils # (Auto) 0.2 0.0-0.3 10^3/uL Basophils # (Auto) 0.0 0.0-0.1 10^3/uL Sodium Level 135 135-145 MMOL/L Potassium Level 3.7 3.6-5.0 MMOL/L Chloride Level 101 98-107 MMOL/L Carbon Dioxide Level 20 L 21-32 MMOL/L Anion Gap 14 5-14 MMOL/L Blood Urea Nitrogen 10 7-18 MG/DL Creatinine 0.76 0.60-1.30 MG/DL Estimat Glomerular Filtration Rate > 60 BUN/Creatinine Ratio 13 Glucose Level 345 H 70-105 MG/DL Calcium Level 9.0 8.5-10.1 MG/DL Corrected Calcium 9.1 8.5-10.1 MG/DL Magnesium Level 1.8 1.6-2.4 MG/DL Total Bilirubin 0.7 0.1-1.0 MG/DL Aspartate Amino Transf (AST/SGOT) 47 H 5-34 U/L Alanine Aminotransferase (ALT/SGPT) 56 H 0-55 U/L Alkaline Phosphatase 88 40-136 U/L Total Protein 7.8 6.4-8.2 GM/DL Albumin 3.9 3.2-4.5 GM/DL Urine Color YELLOW Urine Clarity CLEAR Urine pH 6.0 5-9 Urine Specific [place] 1.025 H 1.016-1.022 Urine Protein NEGATIVE NEGATIVE Urine Glucose (UA) 3+ H NEGATIVE Urine Ketones TRACE H NEGATIVE Urine Nitrite NEGATIVE NEGATIVE Urine Bilirubin NEGATIVE NEGATIVE Urine Urobilinogen 0.2 < = 1.0 MG/DL Urine Leukocyte Esterase NEGATIVE NEGATIVE Urine RBC (Auto) NEGATIVE NEGATIVE Urine RBC RARE /HPF Urine WBC 0-2 /HPF Urine Squamous Epithelial Cells 0-2 /HPF Urine Crystals NONE /LPF Urine Bacteria TRACE /HPF Urine Casts NONE /LPF Urine Mucus NEGATIVE /LPF Urine Yeast FEW H /HPF Urine Culture Indicated YES (CIRO BURGER MD) Micro Results Microbiology 11/26/19 Urine Culture - Final, Complete 3 or more isolates (CIRO BURGER MD) My Orders Orders - CIRO BURGER MD Accucheck Stat ONCE (11/26/19 14:45) Cbc With Automated Diff (11/26/19 14:57) Comprehensive Metabolic Panel (11/26/19 14:57) Magnesium (11/26/19 14:57) Ua Culture If Indicated (11/26/19 14:57) Ed Iv/Invasive Line Start (11/26/19 14:57) Ns Iv 1000 Ml (Sodium Chloride 0.9%) (11/26/19 14:57) Urine Culture (11/26/19 15:49) (CIRO BURGER MD) Vital Signs/I&O (CIRO BURGER MD) Vital Signs/I&O Capillary Refill : Less Than 3 Seconds (CYNDIE GOLDEN MED STUDENT) Blood Pressure Mean: 113 Point of Care Testing Finger Stick Blood Glucose: 323 (CYNDIE GOLDEN MED STUDENT) Progress Note : Progress Note UTI seems to be well treated. Yeast was noted but patient states she is being treated for that also. A liter of IVF was infused and BS rechecked. It was trending down. Patient was educated on DM diet and discharged. See discharge instructions for details on discussion. (CIRO BURGER MD) Departure Impression Primary Impression: Hyperglycemia Disposition: HOME, SELF-CARE Condition: Improved Departure-Patient Inst. Decision time for Depature: 16:32 (CIRO BURGER MD) Referrals: TERESO DUTTON MD (PCP/Family) Primary Care Physician Patient Instructions: Diabetes Type 2 (DC) Add. Discharge Instructions: Continue your medications as previously prescribed. Contact your primary care provider tomorrow morning and discuss blood sugar management. In the meantime drink plenty of water and avoid carbohydrates in your diet which would include breads, pastas, cereals, fruit juices, excessive fruits, candy, sodas, etc. Vegetables, nuts, and lean meats are good foods to eat to fill you up while not elevating your blood sugar. Return to care if you have worsening symptoms. Check your blood sugars fasting in the morning and 2 hours after meals. Lobbies blood sugars and review them with your doctor. All discharge instructions reviewed with patient and/or family. Voiced understanding. I have personally interviewed and examined this patient. I agree with MS4 history, exam, assessments and documentation except where otherwise noted. (CIRO BURGER MD) CYNDIE GOLDEN MED STUDENT Nov 26, 2019 15:55 CIRO BURGER MD Nov 26, 2019 16:34
[2019-11-26 16:00] LABS: BILIRUBIN,URINE NEGATIVE (NEGATIVE); CLARITY,URINE CLEAR; COLOR,URINE YELLOW; GLUCOSE, URINE (UA) 3+ (NEGATIVE); KETONES,URINE TRACE (NEGATIVE); LEUKOCYTE ESTERASE ,URINE NEGATIVE (NEGATIVE); NITRITE,URINE NEGATIVE (NEGATIVE); PROTEIN,URINE NEGATIVE (NEGATIVE)
[2019-11-26 16:07] LABS: BACTERIA,URINE TRACE /HPF; RBC,URINE RARE /HPF; SQUAMOUS EPITHELIAL CELL,UR 0-2 /HPF; WBC,URINE 0-2 /HPF
[2019-11-26 16:08] LABS: YEAST,URINE FEW /HPF
--- OUTSIDE RECORDS SUMMARY | 2019-11-26 16:27 | XMS REPORT | Continuity of Care Document ---
Demographics Preferred Language Unknown Marital Status Unknown Yarsani Affiliation Unknown Race Unknown Ethnic Group Unknown Author Organization Unknown Address Unknown Phone Unavailable Allergies Active Description Code Type Severity Reaction Onset Reported/Identified Relationship to Patient Clinical Status Yes SULFAMETHOXAZOLE-TRIMETHOPRIM MODERATE DERMATOLOGICAL - HIV Yes SULFAMETHOXAZOLE-TRIMETHOPRIM MODERATE MODERATE Yes Sulfa (Sulfonamide Antibiotics) [id number] Drug Allergy Unknown N/A 019 Medications [...] UNSPECIFIED TYPE, NOT STATED UNCONTROLLED 11/28/2017 Kerr, eBnita-To W 599.0 URINARY TRACT INFECTION, SITE NOT [...] W 250.90 11/28/2017, Benita-To W 278.00 11/28/2017, Beniat-To W 309.81 11/28/2017, Benita-To W 599.0 11/28/2017, [...] URINARY TRACT INFECTION, SITE NOT SPECIFIED 06/18/2018 MragaritaCarmen W 625.8 OTHER SPECIFIED SYMPTOMS ASSOCIATED WITH [...] MargaritaCarmen W 787.01 NAUSEA WITH VOMITING 09/03/2018 Caremn Avila W 789.00 ABDOMINAL PAIN, UNSPECIFIED SITE [...] FOR MALIGNANT NEOPLASM OF BREAST 02/27/2019 Rosina Oneill V76.19 OTHER SCREENING BREAST EXAMINATION 02/27/2019 Nino [...] ACC 03/09/2019 MILTON WANG DO Ot 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 03/09/2019 MILTON WANG DO Ot Z79.899 OTHER DIE REPAIRER FORGING (CURRENT) DRUG THERAPY 03/09/2019 WANG MILTON Ot [...] ACC 03/09/2019 MILTON WANG DO Ot 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 03/09/2019 MILTON WANG DO Ot Z79.899 OTHER DIE REPAIRER FORGING (CURRENT) DRUG THERAPY 03/09/2019 MILTON WANG DO [...] TOBACCO SMO 03/10/2019 TEMO LEE Ot Z79.84 JAIL (CURRENT) USE OF ORAL HYPOGLYC 03/10/2019 TEMO [...] TOBACCO SMO 03/14/2019 TEMO LEE Ot Z79.84 JAIL (CURRENT) USE OF ORAL HYPOGLYC 03/14/2019 TEMO LEE Ot Z87.81 PERSONAL HISTORY OF (HEALED) TRAUMATIC F 03/14/2019 EMMA PA, TEMO L Ot Z88.2 ALLERGY STATUS TO SULFONAMIDES STATUS 04/22/2019 MINDY LAZCANO MD Ot 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 41 IMPINGEMENT SYNDROME OF RIGHT SHOULDER 07/22/2019 MINDY LAZCANO MD, Ot M75. 41 IMPINGEMENT SYNDROME OF RIGHT SHOULDER 08/14/2019 Ot S42.142A D ISP FX OF GLENOID CAVITY OF SCAPULA, LE 10/07/2019 MINDY LAZCANO MD, Ot M75. 41 IMPINGEMENT SYNDROME OF RIGHT SHOULDER 10/08/2019 MINDY LAZCANO MD, Ot M75. 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 Results Test Result Range Lipid Panel - 06/17/16 10:25 C/HDL 3.4 3.7-6.7 Cholesterol 218 mg/dL 100-240 HDL 64 mg/dL 30-85 LDL-Calculated 129 mg/dL 0-100 Trig 125 mg/dL 35-160 VLDL 25 mg/dL 0-42 Urine Culture - 06/17/16 10:25 PRELIM CULTURE RESULTS >100,000 Gram Negativ e RAVINDRA / ID to Follow MEDIA PLATED Setup at 16:33 on 06/17/2016 CULTURE SOURCE [id number]\ Sensi - 06/17/16 10:25 FINAL CULTURE RESULTS [...] Negative Urine-Blood Trace-intact Negative Urine-Color Yellow Colorless-Lt. [place] ow Urine-Epithelial Cells 10-20/HPF Urine-Glucose 2+ Negative Urine-Ketones Negative Negative Urine-Leukocytes Trace Negative Urine-Nitrite Negative Negative Urine-Other Culture to follow Urine-pH 5.5 5-8.5 Urine-Protein Negative Negative Urine-RBC 5-10/HPF Urine-Specific [place] 1.020 1.000-1 .030 Urine-WBC 10-20/HPF Urobilinogen 1.0 0.2-1.0 Urine Culture - 06/28/16 15:30 PRELIM CULTURE RESULTS 50,000-100,000 Gram P ositive Mixed Margarita FINAL CULTURE RESULTS 50,000-100,000 Gram Po sitive Mixed Margarita [id number] Skin [id number] Further Workup done MEDIA PLATED Setup at [...] Negative Urine-Blood Trace-intact Negative Urine-Color Yellow Colorless-Lt. [place] ow Urine-Epithelial Cells 0-5/HPF Urine-Glucose 2+ Negative Urine-Ketones Negative Negative Urine-Leukocytes Negative Negative Urine-Nitrite Negative Negative Urine-Other Culture to follow Urine-pH 5.0 5-8.5 Urine-Protein Negative Negative Urine-RBC 0-2/HPF Urine-Specific [place] 1.015 1.000-1 .030 Urine-WBC 2-5/HPF Urobilinogen 0.2 0.2-1.0 Urine Culture - 06/01/18 11:00 PRELIM CULTURE RESULTS >100,000 Gram Negativ e Lactose Blower Feeder Dyed Raw Stock RAVINDRA / ID to Follow MEDIA PLATED Setup at 21:59 on 06/01/2018 CULTURE SOURCE clean [id number]\ Sensi - 06/01/18 11:00 FINAL CULTURE RESULTS [...] Negative Urine-Blood Negative Negative Urine-Color Yellow Colorless-Lt. [place] ow Urine-Epithelial Cells 5-10/HPF Urine-Glucose 3+ Negative Urine-Ketones Negative Negative Urine-Leukocytes Negative Negative Urine-Nitrite Negative Negative Urine-pH 5.5 5-8.5 Urine-Protein Negative Negative Urine-RBC Negative Urine-Specific [place] >=1.030 1.000-1 .030 Urine-WBC Negative Urobilinogen 0.2 E.U./dL 0.2-1.0 Urine Culture - 06/18/18 11:00 PRELIM CULTURE RESULTS 50,000-100,000 Gram N egative Lactose Blower Feeder Dyed Raw Stock RAVINDRA / ID to Follow MEDIA PLATED Setup at 14:35 on 06/18/2018 CULTURE SOURCE urine Sensi - 06/18/18 11:00 FINAL CULTURE RESULTS Klebsiella pneumoniae ([place] te 1) Ampicillin/Sulbactam 16/8 Ampicillin >16 Amoxicillin/K [...] Abundant Gram Positiv e Mixed Normal Margarita [id number] Gram Negative RAVINDRA / ID to Follow MEDIA PLATED Setup at 14:47 on 06/18/2018 Sensi - 06/18/18 11:00 FINAL CULTURE RESULTS Klebsiella pneumoniae ([place] te 1) Ampicillin/Sulbactam <=8/4 Ampicillin >16 Amoxicillin/K [...] Negative Urine-Blood Negative Negative Urine-Color Yellow Colorless-Lt. [place] ow Urine-Epithelial Cells 0-5/HPF Urine-Glucose 3+ Negative Urine-Ketones Negative Negative Urine-Leukocytes 1+ Negative Urine-Nitrite Positive Negative Urine-Other Culture to follow Urine-pH 6.0 5-8.5 Urine-Protein Negative Negative Urine-RBC Negative Urine-Specific [place] 1.020 1.000-1 .030 Urine-WBC 0-2/HPF Urobilinogen 1.0 E.U./dL 0.2-1.0 Urine Culture - 08/14/18 08:15 PRELIM CULTURE RESULTS >100,000 Gram Negativ e Lactose Blower Feeder Dyed Raw Stock RAVINDRA / ID to Follow MEDIA PLATED Setup at 15:08 on 08/14/2018 CULTURE SOURCE [id number]\ Sensi - 08/14/18 08:15 FINAL CULTURE RESULTS [...] 5-8.5 Urine-Protein Negative Negative Urine-RBC Negative Urine-Specific [place] 1.015 1.000-1 .030 Urine-WBC Negative Urobilinogen 2.0 E.U./dL 0.2-1.0 Urine Culture - 09/03/18 12:12 PRELIM CULTURE RESULTS 20,000-50,000 Gram Po sitive Mixed Margarita [id number] Skin Contaminant FINAL CULTURE RESULTS No Further [...] 31.9 g/dL 32.0-36.0 MCV 93.0 fL 80.0-97.0 [place]% 6.7 % 0.0-12.0 MPV 11.5 fL 7.4-10.0 [place]% 58.5 % 37.0-80.0 Plt 202 K/uL 150-400 RBC 5.02 M/uL 3.60-5.00 RDW 14.7 % 11.6-14.8 WBC 7.45 K/uL 5.00-10.00 Reva 4.36 K/uL 2.00-6.90 [place] 0.5 K/uL 0.0-0.9 Baso 0.0 K/uL 0.0-0.2 Urinalysis - 11/15/18 19:13 Icotest N/A Negative Urine Volume Urine Volume Insufficient ( <10mL) May Affect Microscopic Exam Urine Yeast Yeast Present Urine-Appearance Slightly Cloudy Clear Urine-Bacteria 1+ Urine-Bilirubin Negative Negative Urine-Blood Trace-intact Negative Urine-Color Yellow Colorless-Lt. [place] ow Urine-Epithelial Cells 0-5/HPF Urine-Glucose 3+ Negative Urine-Ketones Negative Negative Urine-Leukocytes Negative Negative Urine-Nitrite Negative Negative Urine-Other Urine Saved if Culture Need ed (48hrs from time of collection) Urine-pH 5.5 5-8.5 Urine-Protein Negative Negative Urine-RBC 0-2/HPF Urine-Specific [place] 1.010 1.000-1 .030 Urine-WBC Rare/HPF Urobilinogen 0.2 [...] 32.0 g/dL 32.0-36.0 MCV 91.6 fL 80.0-97.0 [place]% 6.7 % 0.0-12.0 MPV 10.6 fL 7.4-10.0 [place]% 79.5 % 37.0-80.0 Plt 210 K/uL 150-400 RBC 5.25 M/uL 3.60-5.00 RDW 14.6 % 11.6-14.8 WBC 13.06 K/uL 5.00-10.00 Reva 10.38 K/uL 2.00-6.90 [place] 0.9 K/uL 0.0-0.9 Baso 0.0 K/uL 0.0-0.2 Urinalysis - 12/11/18 20:17 Icotest N/A Negative Urine Volume Urine Volume Sufficient (10mL) Urine-Appearance Clear Clear Urine-Bacteria Rare Urine-Bilirubin Negative Negative Urine-Blood Negative Negative Urine-Color Yellow Colorless-Lt. [place] ow Urine-Epithelial Cells 1-5/HPF Urine-Glucose 2+ Negative Urine-Ketones Negative Negative Urine-Leukocytes Negative Negative Urine-Nitrite Negative Negative Urine-Other Urine Saved if Culture Need ed (48hrs from time of collection) Urine-pH 7.0 5-8.5 Urine-Protein Negative Negative Urine-RBC 0-2/HPF Urine-Specific [place] 1.015 1.000-1 .030 Urine-WBC 0-3/HPF Urobilinogen 1.0 [...] MEDIA PLATED Setup at 21:31 on 12/11/2018X [id number] Culture Media Position C43 CULTURE SOURCE drawn [...] Coagulase POSIT NAVI Staphylococci, RAVINDRA/Further ID to [id number] Gram Negative, RAVINDRA/ID to Follow MEDIA PLATED [...] pa saud - 03/07/19 13:09 WRISTBAND NUMBER [id number] NRG ABO+Rh group AP NRG Blood group [...] in u rine sediment by light microscopy 10-25 NRG Crystals detection in urine sediment by light microsco py NONE NRG Casts detection in urine sediment by light microscopy NONE NRG Mucus detection in urine sediment by light microscopy NEGATIVE NRG Complete urinalysis with reflex to culture YES NRG Bacterial urine culture - 03/07/19 14:28 Bacterial urine culture [id number] NRG COLONY COUNT >100,000/ML NRG FTX;REPORTABLE SUSCEPTIBILITY [...] g/dL 3.2-4.5 CALCIUM CORRECTED 9.2 mg/dL 8.5-10.1 Capillary blood glucose measurement by g lucometer (mass/volume) - 10/29/19 14:46 Capillary blood glucose measurement by glucometer (mas s/volume) 476 mg/dL 70-110 Complete urinalysis with reflex to cultu re - 10/29/19 15:22 Urine color determination YELLOW NRG Urine clarity determination CLEAR NR G Urine pH measurement by test strip 5.5 5-9 Specific gravity of urine by test strip 1.010 1.016-1.022 Urine protein assay by test strip, semi-quantitative NEGATIVE NEGATIVE Urine glucose detection by automated test strip 3+ NEGATIVE Erythrocytes detection in urine sediment by light micr oscopy NEGATIVE NEGATIVE Urine ketones detection by automated test strip TR JOCELYN NEGATIVE Urine nitrite detection by test strip NEGATIVE NEGATIVE Urine total bilirubin detection by test strip NEGA TIVE NEGATIVE Urine urobilinogen measurement by automated test strip (mass/volume) 0.2 mg/dL < = 1.0 Urine leukocyte esterase detection by dipstick NEG ATIVE NEGATIVE Automated urine sediment erythrocyte cou nt by microscopy (number/high power field) NONE NRG Automated urine sediment leukocyte count by microscopy (number/high power field) NONE NRG Bacteria detection in urine sediment by light microsco py FEW NRG Crystals detection in urine sediment by light microsco py PRESENT NRG Casts detection in urine sediment by light microscopy NONE NRG Mucus detection in urine sediment by light microscopy NEGATIVE NRG Complete urinalysis with reflex to culture NO NRG Amorphous sediment detection in urine sediment by ligh t microscopy RARE JIM URATES NRG Complete blood count (CBC) with automate d white blood cell (WBC) differential - 10/29/19 15:40 Blood leukocytes automated count (number/volume) 5.2 10*3/uL 4.3-11.0 Blood erythrocytes automated count (number/volume) 5.00 10*6/uL 4.35-5.85 Venous blood hemoglobin measurement (mass/volume) 14.8 g/dL 11.5-16.0 Blood hematocrit (volume fraction) 45 % 35-52 Automated erythrocyte mean corpuscular volume 90 [ foz_us] 80-99 Automated erythrocyte mean corpuscular h emoglobin (mass per erythrocyte) 30 pg 25-34 Automated erythrocyte mean corpuscular h emoglobin concentration measurement (mass/volume) 33 g/dL 32-36 Automated erythrocyte distribution width ratio 13. 8 % 10.0- 14.5 Automated blood platelet count (count/volume) 152 10*3/uL 130-400 Automated blood platelet mean volume measurement 11.3 [foz_us] 7.4-10.4 Automated blood neutrophils/100 leukocytes 52 % 42-75 Automated blood lymphocytes/100 leukocytes 34 % 12-44 Blood monocytes/100 leukocytes 9 % 0-12 Automated blood eosinophils/100 leukocytes 5 % 0-10 Automated blood basophils/100 leukocytes 0 % 0-10 Blood neutrophils automated count (number/volume) 2.7 10*3 1.8-7.8 Blood lymphocytes automated count (number/volume) 1.8 10*3 1.0-4.0 Blood monocytes automated count (number/volume) 0. 5 10*3 0.0-1.0 Automated eosinophil count 0.3 10*3/uL 0 .0-0.3 Automated blood basophil count (count/volume) 0.0 10*3/uL 0.0-0.1 Comprehensive metabolic panel - 10/29/19 15:40 Serum or plasma sodium measurement (moles/volume) 131 mmol/L 135-145 Serum or plasma potassium measurement (moles/volume) 4.0 mmol/L 3.6-5.0 Serum or plasma chloride measurement (moles/volume) 99 mmol/L 98-107 Carbon dioxide 19 mmol/L 21-32 Serum or plasma anion gap determination (moles/volume) 13 mmol/L 5-14 Serum or plasma urea nitrogen measurement (mass/volume ) 8 mg/dL 7-18 Serum or plasma creatinine measurement (mass/volume) 0.85 mg/dL 0.60-1.30 Serum or plasma urea nitrogen/creatinine mass ratio 9 NRG Serum or plasma creatinine measurement w ith calculation of estimated glomerular filtration rate > NRG Serum or plasma glucose measurement (mass/volume) 579 mg/dL 70-105 Serum or plasma calcium measurement (mass/volume) 9.1 mg/dL 8.5-10.1 Serum or plasma total bilirubin measurement (mass/volu me) 1.0 mg/dL 0.1-1.0 Serum or plasma alkaline phosphatase sukumar surement (enzymatic activity/volume) 87 U/L 40-136 Serum or plasma aspartate aminotransfera se measurement (enzymatic activity/volume) 52 U/L 5-34 Serum or plasma alanine aminotransferase measurement (enzymatic activity/volume) 57 U/L 0-55 Serum or plasma protein measurement (mass/volume) 7.7 g/dL 6.4-8.2 Serum or plasma albumin measurement (mass/volume) 4.0 g/dL 3.2-4.5 CALCIUM CORRECTED 9.1 mg/dL 8.5-10.1 Hemoglobin A1c measurement - 10/29/19 15 :40 Blood hemoglobin A1C measurement (mass/volume) 12. 2 % 4.0- 5.6 MEAN BLOOD GLUCOSE 303 % <=126 Capillary blood glucose measurement by g lucometer (mass/volume) - 10/29/19 15:44 Capillary blood glucose measurement by glucometer (mas s/volume) 493 mg/dL 70-110 Capillary blood glucose measurement by g lucometer (mass/volume) - 10/29/19 17:30 Capillary blood glucose measurement by glucometer (mas s/volume) 363 mg/dL 70-110 Capillary blood glucose measurement by g lucometer (mass/volume) - 10/29/19 18:35 Capillary blood glucose measurement by glucometer (mas s/volume) 356 mg/dL 70-110 Urine Culture - 11/18/19 10:00 PRELIM CULTURE RESULTS >100,000 Gram Negativ e Lactose Blower Feeder Dyed Raw Stock RAVINDRA / ID to Follow [id number],[id number],000 Gram Positive Mixed Margarita Probable Skin Contaminant CULTURE SOURCE urine Sensi - 11/18/19 10:00 FINAL CULTURE RESULTS Escherichia coli (Isolate 1) Ampicillin/Sulbactam >16/8 Ampicillin >16 Ceftriaxone <=1 Ciprofloxacin >2 Nitrofurantoin <=32 Gentamicin <=4 Levofloxacin >4 Trimethoprim/ Sulfamethoxazole <=2/38 Tetracycline <=4 Amikacin <=16 Aztreonam <=4 Ceftazidime <=1 Ceftazidime/K Clavulanate <=0.25 Cefotaxime <=2 Cefotaxime/K Clavulanate <=0.5 Cefoxitin <=8 Cefazolin >16 Cefepime <=2 Ertapenem <=0.5 Imipenem <=1 Meropenem <=1 Piperacillin/Tazobactam 64 Tigecycline <=2 Tobramycin <=4 Capillary blood glucose measurement by g lucometer (mass/volume) - 11/26/19 14:52 Capillary blood glucose measurement by glucometer (mas s/volume) 323 mg/dL 70-110 Complete blood count (CBC) with automate d white blood cell (WBC) differential - 11/26/19 15:05 Blood leukocytes automated count (number/volume) 5.7 10*3/uL 4.3-11.0 Blood erythrocytes automated count (number/volume) 4.87 10*6/uL 4.35-5.85 Venous blood hemoglobin measurement (mass/volume) 14.5 g/dL 11.5-16.0 Blood hematocrit (volume fraction) 43 % 35-52 Automated erythrocyte mean corpuscular volume 89 [ foz_us] 80-99 Automated erythrocyte mean corpuscular h emoglobin (mass per erythrocyte) 30 pg 25-34 Automated erythrocyte mean corpuscular h emoglobin concentration measurement (mass/volume) 33 g/dL 32-36 Automated erythrocyte distribution width ratio 13. 6 % 10.0- 14.5 Automated blood platelet count (count/volume) 148 10*3/uL 130-400 Automated blood platelet mean volume measurement 11.2 [foz_us] 7.4-10.4 Automated blood neutrophils/100 leukocytes 46 % 42-75 Automated blood lymphocytes/100 leukocytes 43 % 12-44 Blood monocytes/100 leukocytes 7 % 0-12 Automated blood eosinophils/100 leukocytes 4 % 0-10 Automated blood basophils/100 leukocytes 0 % 0-10 Blood neutrophils automated count (number/volume) 2.6 10*3 1.8-7.8 Blood lymphocytes automated count (number/volume) 2.5 10*3 1.0-4.0 Blood monocytes automated count (number/volume) 0. 4 10*3 0.0-1.0 Automated eosinophil count 0.2 10*3/uL 0 .0-0.3 Automated blood basophil count (count/volume) 0.0 10*3/uL 0.0-0.1 Comprehensive metabolic panel - 11/26/19 15:05 Serum or plasma sodium measurement (moles/volume) 135 mmol/L 135-145 Serum or plasma potassium measurement (moles/volume) 3.7 mmol/L 3.6-5.0 Serum or plasma chloride measurement (moles/volume) 101 mmol/L 98-107 Carbon dioxide 20 mmol/L 21-32 Serum or plasma anion gap determination (moles/volume) 14 mmol/L 5-14 Serum or plasma urea nitrogen measurement (mass/volume ) 10 mg/dL 7-18 Serum or plasma creatinine measurement (mass/volume) 0.76 mg/dL 0.60-1.30 Serum or plasma urea nitrogen/creatinine mass ratio 13 NRG Serum or plasma creatinine measurement w ith calculation of estimated glomerular filtration rate > NRG Serum or plasma glucose measurement (mass/volume) 345 mg/dL 70-105 Serum or plasma calcium measurement (mass/volume) 9.0 mg/dL 8.5-10.1 Serum or plasma total bilirubin measurement (mass/volu me) 0.7 mg/dL 0.1-1.0 Serum or plasma alkaline phosphatase sukumar surement (enzymatic activity/volume) 88 U/L 40-136 Serum or plasma aspartate aminotransfera se measurement (enzymatic activity/volume) 47 U/L 5-34 Serum or plasma alanine aminotransferase measurement (enzymatic activity/volume) 56 U/L 0-55 Serum or plasma protein measurement (mass/volume) 7.8 g/dL 6.4-8.2 Serum or plasma albumin measurement (mass/volume) 3.9 g/dL 3.2-4.5 CALCIUM CORRECTED 9.1 mg/dL 8.5-10.1 Magnesium - 11/26/19 15:05 Magnesium 1.8 mg/dL 1.6-2.4 Complete urinalysis with reflex to cultu re - 11/26/19 15:49 Urine color determination YELLOW NRG Urine clarity determination CLEAR NR G Urine pH measurement by test strip 6.0 5-9 Specific gravity of urine by test strip 1.025 1.016-1.022 Urine protein assay by test strip, semi-quantitative NEGATIVE NEGATIVE Urine glucose detection by automated test strip 3+ NEGATIVE Erythrocytes detection in urine sediment by light micr oscopy NEGATIVE NEGATIVE Urine ketones detection by automated test strip TR JOCELYN NEGATIVE Urine nitrite detection by test strip NEGATIVE NEGATIVE Urine total bilirubin detection by test strip NEGA TIVE NEGATIVE Urine urobilinogen measurement by automated test strip (mass/volume) 0.2 mg/dL < = 1.0 Urine leukocyte esterase detection by dipstick NEG ATIVE NEGATIVE Automated urine sediment erythrocyte cou nt by microscopy (number/high power field) RARE NRG Automated urine sediment leukocyte count by microscopy (number/high power field) [HPF] NRG Bacteria detection in urine sediment by light microsco py TRACE NRG Squamous epithelial cells detection in u rine sediment by light microscopy 0-2 NRG Crystals detection in urine sediment by light microsco py NONE NRG Casts detection in urine sediment by light microscopy NONE NRG Mucus detection in urine sediment by light microscopy NEGATIVE NRG Complete urinalysis with reflex to culture YES NRG Yeast detection in urine sediment by light microscopy FEW NRG Capillary blood glucose measurement by g lucometer (mass/volume) - 11/26/19 16:07 Capillary blood glucose measurement by glucometer (mas s/volume) 271 mg/dL 70-110 Encounters ACCT No. Visit Date/Time Discharge Status Pt. Type Provider Facility Loc./Unit Complaint [id number] 06/25/2018 12:16:00 Document Registration [id number] 10/03/2018 17:24:00 Document Registration [id number] 08/14/2018 10:56:00 Document Registration [id number] 11/15/2018 19:11:00 Document Registration [id number] 11/18/2019 11:11:00 11/18/2019 23:59 :00 DIS Outpatient TERESO WHITESIDE [id number] 11/18/2019 10:06:00 11/18/2019 23:59 :00 DIS Outpatient TERESO WHITESIDE [id number] 11/04/2019 14:12:00 11/04/2019 23:59 :00 DIS Outpatient TERESO WHITESIDE [id number] 10/29/2019 15:15:00 10/29/2019 23:59 :00 DIS Outpatient TERESO WHITESIDE [id number] 10/29/2019 11:36:00 10/29/2019 23:59 :00 DIS Outpatient TERESO WHITESIDE [id number] 10/08/2019 15:47:00 10/08/2019 23:59 :00 DIS Outpatient Oneill, Rosina [id number] 09/03/2019 10:17:00 09/03/2019 23:59 :00 DIS Outpatient TERESO WHITESIDE [id number] 08/16/2019 16:22:00 08/16/2019 23:59 :00 DIS Outpatient WATSONHERLINDA [id number] 08/05/2019 14:21:00 08/05/2019 23:59 :00 DIS Outpatient TERESO WHITESIDE [id number] 06/17/2019 11:28:00 06/17/2019 23:59 :00 DIS Outpatient TERESO WHITESIDE [id number] 05/31/2019 14:54:00 05/31/2019 23:59 :00 DIS Outpatient TERESO WHITESIDE [id number] 04/08/2019 15:43:00 04/08/2019 23:59: 00 DIS Outpatient TERESO WHITESIDE [id number] 03/19/2019 15:39:00 03/19/2019 23:59: 00 DIS Outpatient TERESO WHITESIDE [id number] 03/12/2019 15:00:00 03/12/2019 23:59: 00 DIS Outpatient TERESO WHITESIDE [id number] 03/06/2019 13:37:00 03/06/2019 23:59: 00 DIS Outpatient Oneill, Rosina [id number] 02/27/2019 15:24:00 02/27/2019 23:59: 00 DIS Outpatient Oneill, Rosina [id number] 02/19/2019 13:14:00 02/19/2019 23:59: 00 DIS Outpatient Anthony Kerr [id number] 02/12/2019 19:34:00 02/12/2019 23:59: 00 DIS Outpatient Anthony Kerr [id number] 02/12/2019 14:06:00 02/12/2019 23:59: 00 DIS Outpatient Kerr, MychalTo [id number] 02/05/2019 14:44:00 02/05/2019 23:59: 00 DIS Outpatient Kerr, MychalTo [id number] 01/11/2019 08:47:00 01/11/2019 23:59: 00 DIS Outpatient Kerr, Danielleu [id number] 12/19/2018 16:03:00 12/19/2018 23:59: 00 DIS Outpatient Jade Wells [id number] 12/11/2018 19:49:00 12/11/2018 22:18: 00 DIS Outpatient Ajay, [facility] [id number] 11/15/2018 19:11:00 11/15/2018 23:59: 00 DIS Outpatient Kerr, MychalTo [id number] 10/04/2018 14:32:00 10/04/2018 23:59: 00 DIS Outpatient Kerr, MychalTo [id number] 10/03/2018 17:24:00 10/03/2018 23:59: 00 DIS Outpatient KerrMychalTo [id number] 10/02/2018 07:16:00 10/02/2018 09:57: 00 DIS Outpatient Ifeanyi Dentct [id number] 09/29/2018 11:48:00 09/29/2018 23:59: 00 DIS Outpatient Polo Dentmitchell [id number] 09/03/2018 11:43:00 09/03/2018 23:59: 00 DIS Outpatient Margarita, Carmen [id number] 08/14/2018 10:56:00 08/14/2018 23:59: 00 DIS Outpatient Kerr, MychalTo [id number] 07/20/2018 14:39:00 07/20/2018 23:59: 00 DIS Outpatient Kerr, BenitaAshlyn [id number] 06/18/2018 11:55:00 06/18/2018 23:59: 00 DIS Outpatient Margarita, Carmen [id number] 06/01/2018 15:49:00 06/01/2018 23:59: 00 DIS Outpatient Kerr, MychalTo [id number] 04/10/2018 12:26:00 04/10/2018 23:59: 00 DIS Outpatient Kerr, BenitaAshlyn [id number] 12/15/2017 12:28:00 12/15/2017 23:59: 00 DIS Outpatient Margarita, Carmen [id number] 12/12/2017 12:33:00 12/12/2017 23:59: 00 DIS Outpatient Margarita, Carmen [id number] 11/28/2017 11:36:00 11/28/2017 23:59: 00 DIS Outpatient Kerr, Anthony [id number] 11/20/2017 14:33:00 11/20/2017 23:59: 00 DIS Outpatient Margarita, Carmen [id number] 04/25/2017 05:31:00 04/25/2017 23:59: 00 DIS Outpatient Kerr, Anthony [id number] 04/25/2017 22:12:00 04/25/2017 22:12: 00 CAN Outpatient Kerr, Anthony [id number] 04/25/2017 22:00:00 04/25/2017 22:00: 00 CAN Outpatient Kerr, Anthony [id number] 10/26/2016 07:56:00 10/26/2016 23:59: 00 DIS Outpatient Kerr, Anthony [id number] 08/24/2016 11:42:00 08/24/2016 23:59: 00 DIS Outpatient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
[2019-11-26 16:30] VITALS: BP 111/71
== END 2019-11-26 16:35 | disposition home or self-care (01) ==
LOC: EDUNIT# 14:41 → ER 14:43
DX: E11.65 Type 2 diabetes mellitus with hyperglycemia (principal); Z79.84 Long term (current) use of oral hypoglycemic drugs; Z79.899 Other long term (current) drug therapy; Z88.2 Allergy status to sulfonamides; B37.49 Other urogenital candidiasis
CPT/HCPCS: 36415; 80053; 81000; 82962; 83735; 85025; 87088; 96360

== ENCOUNTER 2020-05-01 18:51 | Inpatient (IN) | payer MEDICAID ==
[~2020-05-01] VITALS: Ht 157 cm; Wt 91.4 kg
[2020-05-01] MEDS ORDERED: ANTACID SUSP 30 ML UDC (MYLANTA) PO PRN (19:00)
[2020-05-01] MEDS ORDERED: NS IV 1000 ML 1,000 ML IV SCH (19:00)
[2020-05-01] MEDS ORDERED: MILK OF MAGNESIA 400 MG/5 ML 30 ML UDC PO PRN (19:00)
[2020-05-01] MEDS ORDERED: ONDANSETRON 4 MG/2 ML (SDV) Z0FRAN IV PRN (19:00)
[2020-05-01] MEDS ORDERED: NS IV 1000 ML 1,000 ML ONE (21:29)
[2020-05-01] MEDS: ENOXAPARIN 40 MG/0.4 ML (LOVENOX) SYR SC SCH (22:35)
[2020-05-01] MEDS: inSUlin ASPART (NovoLOG) 1 UNIT/0.01 ML (CHARGE PER UNIT) SC SCH (22:36)
[2020-05-01] MEDS: ACETAMINOPHEN 325 MG TABLET PO PRN (22:37)
[2020-05-01] MEDS: BENZONATATE 100 MG (TESSALON) CAPSULE PO PRN (22:38)
[2020-05-01] MEDS: guaiFENesin SYRUP 100 MG/5 ML 10 ML (ROBITUSSIN SF) PO PRN (22:38)
[2020-05-02] MEDS ORDERED: LORazepam INJ 2 MG/ML (ATIVAN) VIAL IVP ONE (01:15)
[2020-05-02] MEDS ORDERED: LORazepam INJ 2 MG/ML (ATIVAN) VIAL ONE (01:35)
[2020-05-02 03:12] LABS: HEMOGLOBIN 14.2 g/dL (11.5-16.0); MEAN PLATELET VOLUME 10.9 fL (9.0-12.2); WHITE BLOOD COUNT 4.8 10^3/uL (4.3-11.0)
[2020-05-02 03:40] LABS: ALBUMIN 3.4 GM/DL (3.2-4.5)
[2020-05-02 03:41] LABS: CHLORIDE 102 MMOL/L (98-107); POTASSIUM 3.7 MMOL/L (3.6-5.0); SODIUM 135 MMOL/L (135-145)
[2020-05-02 03:42] LABS: CALCIUM 7.6 MG/DL (8.5-10.1)
[2020-05-02 03:43] LABS: GLUCOSE 372 MG/DL (70-105); TOTAL PROTEIN 6.9 GM/DL (6.4-8.2)
[2020-05-02 03:44] LABS: CARBON DIOXIDE 17 MMOL/L (21-32)
[2020-05-02 03:45] LABS: BILIRUBIN,TOTAL 0.9 MG/DL (0.1-1.0)
[2020-05-02 03:46] LABS: ALKALINE PHOSPHATASE 92 U/L (40-136)
[2020-05-02 03:47] LABS: CREATININE SERUM 0.69 MG/DL (0.60-1.30); GFR ESTIMATED > 60
[2020-05-02 03:48] LABS: BUN/CREATININE RATIO 14
[2020-05-02 03:49] LABS: ALANINE AMINOTRANSFERASE 40 U/L (0-55)
[2020-05-02] MEDS: ACETAMINOPHEN 325 MG TABLET PO PRN (06:15)
[2020-05-02] MEDS: inSUlin ASPART (NovoLOG) 1 UNIT/0.01 ML (CHARGE PER UNIT) SC SCH ×4 (06:15→21:38)
[2020-05-02] MEDS: ENOXAPARIN 40 MG/0.4 ML (LOVENOX) SYR SC SCH ×2 (06:15→17:52)
[2020-05-02] MEDS ORDERED: REMDESIVIR INJ 200 MG in NS (IVPB) 210 ML IV ONE (07:00)
--- NOTE | 2020-05-02 07:46 | History & Physical-Hospitalist ---
History of Present Illness HPI/Chief Complaint Pt is a 64yoCF with a PMH of NIDDMII who presented to outside ER due to SOB. She became symptomatic with COVID roughly a week ago and was diagnosed 3 days ago. She has been intermittently febrile with cough but SOB developed yesterday. She has been nauseated as well but denies vomiting. She has had poor oral intake due to nausea and loss of taste. She quit taking her metformin for a few days because of this as well. Source: patient Date Seen 05/02/20 Time Seen by a Provider: 07:43 Attending Physician Rodríguez Stubbs MD PCP Grady Dutton MD Referring Physician Date of Admission May 01, 2020 at 21:20 Home Medications & Allergies Home Medications Reviewed patient Home Medication Reconciliation performed by pharmacy medication reconciliations development technician and/or nursing. Patients Allergies have been reviewed. Allergies Allergies Coded Allergies Sulfa (Sulfonamide Antibiotics) (Verified Allergy, Unknown, 11/26/19) Past Zjfnoyt-Dltnoc-Iqnijh Hx Past Med/Social Hx: Reviewed Nursing Past Med/Soc Hx Patient Social History Marrital Status: Alcohol Use: Denies Use Recreational Drug Use: No Smoking Status: Never a Smoker 2nd Hand Smoke Exposure: Yes Physical Abuse Screen: No Sexual Abuse: No Recent Foreign Travel: No Recent Hopitalizations: No Immunizations Up To Date Tetanus Booster (TDap): Unknown Date of Influenza Vaccine: Mar 06, 2019 Seasonal Allergies Seasonal Allergies: No Past Medical History Reproductive: Yes Musculoskeletal: Fractures Endocrine: Diabetes, Non-Insulin dep History of Blood Disorders: No Family History Reviewed Nursing Family Hx Patient reports no known family medical history. No Pertinent Family Hx Review of Systems Constitutional: fever, malaise EENTM: other (loss of taste) Respiratory: cough, phlegm, short of breath Cardiovascular: chest pain Gastrointestinal: No abdominal pain; nausea; No vomiting Genitourinary: frequency Musculoskeletal: no symptoms reported Skin: no symptoms reported Psychiatric/Neurological: Anxiety Physical Exam Physical Exam Vital Signs Vital Signs - First Documented 05/01/20 05/01/20 05/01/20 21:25 21:30 21:44 Temp 37.0 Pulse 110 Resp 26 B/P (MAP) 139/81 Pulse Ox 94 O2 Delivery Nasal Cannula O2 Flow Rate 6.00 Capillary Refill : Less Than 3 Seconds Height, Weight, BMI Height: '" Weight: lbs. oz. kg; 40.97 BMI Method:Estimated General Appearance: No Apparent Distress, Chronically ill, Obese HEENT: PERRL/EOMI, Moist Mucous Membranes; No Scleral Icterus (L), No Scleral Icterus (R) Neck: Normal Inspection, Supple Respiratory: No Accessory Muscle Use, Decreased Breath Sounds; No Wheezing; Other (on 6lpm HFNC) Cardiovascular: Regular Rate, Rhythm, No Murmur Gastrointestinal: Normal Bowel Sounds, Non Tender, Soft Extremity: Normal Capillary Refill, No Calf Tenderness, No Pedal Edema Neurologic/Psychiatric: Alert, Oriented x3 Skin: Normal Color, Warm/Dry Results Results/Procedures Labs Laboratory Tests 05/02/20 03:05 Patient resulted labs reviewed. Imaging: Reviewed Imaging Films Imaging [facility] [place], [place] NAME: [facility]AYLEIGH [facility] REC#: [id number] PT STATUS: ADM IN : 1955 PHYSICIAN: HELEN DESAI MD ADMIT DATE: 05/01/20/[facility] Signed Date of Exam:05/02/20 CHEST 1 VIEW, AP/PA ONLY INDICATION: Hypoxia. New admission for COVID. EXAMINATION: Chest from 05/02/2020 FINDINGS: The heart is prominent. Pulmonary vasculature is congested with increased interstitial and airspace opacities throughout both lungs, left worse than right. A small left effusion difficult to exclude. IMPRESSION: 1. Diffuse infiltrates with tiny left effusion not excluded. 2. Pulmonary vascular congestion. Dictated by: Dictated on workstation # [id number] Dict: 05/02/20 1020 Trans: 05/02/20 1053 [facility] [id number] Interpreted by: JOSEPH SHERIDAN MD Electronically signed by: JOSEPH SHERIDAN MD 05/02/20 1053 Assessment/Plan Admission Diagnosis Acute hypoxic respiratory failure due to COVID19 Admission Status: Inpatient Order (span 2 midnights) Reason for Inpatient Admission: see below Assessment and Plan Acute hypoxic respiratory failure due to COVID19 Continue to wean oxygen as able Remdesivir and continue decadron Discussed EUA status of convalescent plasma with patient and daughter, they are agreeable to treatment NIDDMII SSI Likely will be worse with steroids Will start Levemir Thrombocytopenia Plts 103 Appears chronic was 101 a year ago and 148 in October Trend for now OA Continue home ibuprofen DVT ppx: Lovenox but watch platelets closely Diagnosis/Problems Diagnosis/Problems (1) Acute respiratory failure Status: Acute Qualifiers: Respiratory failure complication: hypoxia Qualified Codes: J96.01 - Acute respiratory failure with hypoxia (2) Non-insulin dependent type 2 diabetes mellitus Status: Chronic (3) Prophylactic measure Status: Acute (4) Coronavirus infection Status: Acute Clinical Quality Measures DVT/VTE Risk/Contraindication: Risk Factor Score Per Nursin RFS Level Per Nursing on Admit: 4+=Very High RODRÍGUEZ STUBBS MD May 02, 2020 07:46
[2020-05-02] MEDS: dexAMETHasone 6 MG TAB (DECADRON) PO SCH (09:05)
[2020-05-02] MEDS: IBUPROFEN 600 MG (MOTRIN) TAB PO SCH ×4 (09:05→23:44)
[2020-05-02] MEDS: guaiFENesin SYRUP 100 MG/5 ML 10 ML (ROBITUSSIN SF) PO PRN ×2 (09:10→17:51)
[2020-05-02] MEDS: BENZONATATE 100 MG (TESSALON) CAPSULE PO PRN (09:10)
[2020-05-02] MEDS ORDERED: NS (IVPB) 250 ML ONE (10:13)
--- NOTE | 2020-05-02 10:22 | Diagnostic Imaging Report ---
INDICATION: Hypoxia. New admission for COVID. EXAMINATION: Chest from 05/02/2020 FINDINGS: The heart is prominent. Pulmonary vasculature is congested with increased interstitial and airspace opacities throughout both lungs, left worse than right. A small left effusion difficult to exclude. IMPRESSION: 1. Diffuse infiltrates with tiny left effusion not excluded. 2. Pulmonary vascular congestion. Dictated by: Dictated on workstation # [id number]
[2020-05-02 11:37] VITALS: BP 124/94
[2020-05-02 11:42] VITALS: BP 135/84
[2020-05-02 11:47] VITALS: BP 133/74
[2020-05-02 11:52] VITALS: BP 139/85
[2020-05-02 11:57] VITALS: BP 132/77
[2020-05-02] MEDS ORDERED: WATER (STERILE) FOR INJECTION 10 ML ONE (16:53)
[2020-05-02] MEDS ORDERED: cefTRIAXone 1,000 MG IV (ROCEPHIN) VIAL ONE (16:53)
[2020-05-02] MEDS: cefTRIAXone FOR IV USE 1,000 MG in WATER (STERILE) FOR INJECTION 10 ML IV SCH (17:51)
[2020-05-02] MEDS ORDERED: RT-ALBUTEROL INHALER HFA (VENTOLIN HFA) 18 GM IH ONE (20:28)
[2020-05-02] MEDS: RT-ALBUTEROL INHALER HFA (VENTOLIN HFA) 18 GM IH SCH (20:44)
[2020-05-03] MEDS: ACETAMINOPHEN 325 MG TABLET PO PRN ×2 (00:50→19:02)
--- NOTE | 2020-05-03 02:00 | NUR ---
HAS BEEN RESTLESS. HOT AT THE FIRST OF SHIFT, ALTHOUGH AFEBRILE. NOW COMFORTABLE AND SLEEPING. O2 UP TO 5L AGAIN.
[2020-05-03] MEDS: RT-ALBUTEROL INHALER HFA (VENTOLIN HFA) 18 GM IH SCH ×4 (04:07→19:50)
[2020-05-03 05:41] LABS: ALBUMIN 3.2 GM/DL (3.2-4.5); CALCIUM 7.9 MG/DL (8.5-10.1); CARBON DIOXIDE 10 MMOL/L (21-32); CHLORIDE 105 MMOL/L (98-107); GLUCOSE 372 MG/DL (70-105); POTASSIUM 3.9 MMOL/L (3.6-5.0); SODIUM 134 MMOL/L (135-145); TOTAL PROTEIN 7.2 GM/DL (6.4-8.2)
[2020-05-03 05:42] LABS: BILIRUBIN,TOTAL 0.8 MG/DL (0.1-1.0)
[2020-05-03 05:43] LABS: ALKALINE PHOSPHATASE 92 U/L (40-136)
[2020-05-03 05:44] LABS: CREATININE SERUM 0.76 MG/DL (0.60-1.30); GFR ESTIMATED > 60
[2020-05-03 05:45] LABS: BUN/CREATININE RATIO 18
[2020-05-03 05:47] LABS: ALANINE AMINOTRANSFERASE 37 U/L (0-55)
[2020-05-03] MEDS: IBUPROFEN 600 MG (MOTRIN) TAB PO SCH (06:00)
[2020-05-03] MEDS ORDERED: REMDESIVIR INJ 100 MG in NS (IVPB) 230 ML IV SCH (07:00)
[2020-05-03] MEDS: inSUlin ASPART (NovoLOG) 1 UNIT/0.01 ML (CHARGE PER UNIT) SC SCH ×4 (07:07→21:43)
[2020-05-03] MEDS: ENOXAPARIN 40 MG/0.4 ML (LOVENOX) SYR SC SCH ×2 (07:08→18:07)
[2020-05-03 07:31] LABS: HEMOGLOBIN 13.1 g/dL (11.5-16.0); MEAN PLATELET VOLUME 11.4 fL (9.0-12.2); WHITE BLOOD COUNT 5.7 10^3/uL (4.3-11.0)
[2020-05-03] MEDS: REMDESIVIR INJ 100 MG in NS (IVPB) 230 ML IV SCH (09:30)
[2020-05-03] MEDS: dexAMETHasone 6 MG TAB (DECADRON) PO SCH (09:30)
[2020-05-03] MEDS: guaiFENesin SYRUP 100 MG/5 ML 10 ML (ROBITUSSIN SF) PO PRN (09:39)
--- NOTE | 2020-05-03 11:54 | Progress Note - Hospitalist ---
Subjective HPI/CC On Admission Date Seen by Provider: May 03, 2020 Time Seen by Provider: 11:46 Pt is a 64yoCF with a PMH of NIDDMII who presented to outside ER due to SOB. She became symptomatic with COVID roughly a week ago and was diagnosed 3 days ago. She has been intermittently febrile with cough but SOB developed yesterday. She has been nauseated as well but denies vomiting. She has had poor oral intake due to nausea and loss of taste. She quit taking her metformin for a few days because of this as well. Subjective/Events-last exam Pt reports being very upset. She called her daughter so we could all speak on speakerphone. Her biggest concern is about how much food she is getting. She would like more food than she received with breakfast (3 scoops of eggs, oatmeal, orange juice, and sausage). She would also like to have a few gatorades throughout the day. We all discussed that due to her blood sugars being elevated it was not reasonable to have that much extra caloric intake in her fluids. Off ered one gatorade per day to sip on throughout the day. Daughter informed me that patient is unable to read so if there is a menu someone will need to read it to her to help her with meal choices. the patient also requested more bottles of water and snacks to have at bedside because it takes her nurse a while to put on her PPE and get to her room. She also stated she felt short of breath and that she was worried her oxygen was being weaned to quickly. I informed her that we monitor her vitals remotely and are watching her numbers 24/7. While I was at bedside her sats were 94% through most of our conversation. She was on 5lpm but I turned her up to 6lpm and she felt better with this. I discussed with her nurse that we will plan to have more diabetic friendly snacks at the bedside so patient will have them readily available and same for water bottles. Everyone was in agreement with this plan. Focused Exam Lactate Level 05/01/20 23:47: Lactic Acid Level 1.32 05/03/20 11:00: Lactic Acid Level 1.14 Lactic Acid Level Laboratory Tests Test 05/03/20 11:00 Lactic Acid Level 1.14 MMOL/L (0.50-2.00) Objective Exam Vital Signs Vital Signs Date Time Temp Pulse Resp B/P (MAP) Pulse Ox O2 Delivery O2 Flow Rate FiO2 05/03/20 07:43 36.1 77 26 114/58 92 Nasal Cannula 5.00 Capillary Refill : Less Than 3 Seconds General Appearance: Anxious, Chronically ill, Obese Respiratory: Lungs Clear, No Accessory Muscle Use, Other (on 6lpm NC) Cardiovascular: Regular Rate, Rhythm, No Murmur Gastrointestinal: Normal Bowel Sounds, Non Tender, Soft Neurologic/Psychiatric: Alert, Oriented x3 Results/Procedures Lab Laboratory Tests 05/03/20 05:00 05/03/20 07:10 Patient resulted labs reviewed. Imaging: Reviewed Imaging Films Assessment/Plan Assessment and Plan Assess & Plan/Chief Complaint Acute hypoxic respiratory failure due to COVID19 Continue to wean oxygen as able Remdesivir and continue decadron s/p 1 unit convalescent plasma Lovenox MAT protocol IS NIDDMII SSI Likely will be worse with steroids Increase Levemir Discussed diet compliance with patient Repeat BMP now, gap up today and beta hydroxybutyrate up as well but has received multiple doses of insulin since then- if still quite acidotic will need insulin gtt Thrombocytopenia Plts up today to 144 Trend for now OA Continue home ibuprofen DVT ppx: Lovenox Diagnosis/Problems Diagnosis/Problems (1) Acute respiratory failure Status: Acute Qualifiers: Respiratory failure complication: hypoxia Qualified Codes: J96.01 - Acute respiratory failure with hypoxia (2) Non-insulin dependent type 2 diabetes mellitus Status: Chronic (3) Prophylactic measure Status: Acute (4) Coronavirus infection Status: Acute Clinical Quality Measures DVT/VTE Risk/Contraindication: Risk Factor Score Per Nursin RFS Level Per Nursing on Admit: 4+=Very High RODRÍGUEZ STUBBS MD May 03, 2020 11:54
[2020-05-03 12:24] LABS: BUN/CREATININE RATIO 19; CALCIUM 7.9 MG/DL (8.5-10.1); CARBON DIOXIDE 17 MMOL/L (21-32); CHLORIDE 103 MMOL/L (98-107); CREATININE SERUM 0.67 MG/DL (0.60-1.30); GFR ESTIMATED > 60; POTASSIUM 3.2 MMOL/L (3.6-5.0); SODIUM 135 MMOL/L (135-145)
[2020-05-03 12:30] LABS: GLUCOSE 405 MG/DL (70-105)
[2020-05-03] MEDS: IBUPROFEN 600 MG (MOTRIN) TAB PO PRN (13:29)
[2020-05-03] MEDS ORDERED: KCL 20 MEQ TAB (K-DUR) PO ONE (15:30)
[2020-05-03] MEDS: BENZONATATE 100 MG (TESSALON) CAPSULE PO PRN (16:32)
[2020-05-03] MEDS ORDERED: WATER (STERILE) FOR INJECTION 10 ML ONE (16:38)
[2020-05-03] MEDS ORDERED: cefTRIAXone 1,000 MG IV (ROCEPHIN) VIAL ONE (16:38)
[2020-05-03] MEDS: cefTRIAXone FOR IV USE 1,000 MG in WATER (STERILE) FOR INJECTION 10 ML IV SCH (18:08)
[2020-05-04] MEDS: RT-ALBUTEROL INHALER HFA (VENTOLIN HFA) 18 GM IH SCH ×4 (00:55→21:28)
[2020-05-04] MEDS: IBUPROFEN 600 MG (MOTRIN) TAB PO PRN (02:16)
[2020-05-04 05:19] LABS: HEMOGLOBIN 13.4 g/dL (11.5-16.0); MEAN PLATELET VOLUME 11.1 fL (9.0-12.2); WHITE BLOOD COUNT 6.7 10^3/uL (4.3-11.0)
[2020-05-04 05:31] LABS: ALBUMIN 3.2 GM/DL (3.2-4.5); CHLORIDE 101 MMOL/L (98-107); POTASSIUM 3.2 MMOL/L (3.6-5.0); SODIUM 136 MMOL/L (135-145)
[2020-05-04 05:32] LABS: CALCIUM 7.7 MG/DL (8.5-10.1)
[2020-05-04 05:33] LABS: GLUCOSE 326 MG/DL (70-105)
[2020-05-04 05:34] LABS: TOTAL PROTEIN 6.6 GM/DL (6.4-8.2)
[2020-05-04 05:35] LABS: BILIRUBIN,TOTAL 0.7 MG/DL (0.1-1.0); CARBON DIOXIDE 18 MMOL/L (21-32)
[2020-05-04 05:37] LABS: ALKALINE PHOSPHATASE 89 U/L (40-136); CREATININE SERUM 0.67 MG/DL (0.60-1.30); GFR ESTIMATED > 60
[2020-05-04 05:38] LABS: BUN/CREATININE RATIO 18
[2020-05-04 05:40] LABS: ALANINE AMINOTRANSFERASE 36 U/L (0-55)
--- NOTE | 2020-05-04 06:13 | Pulmonary Consultation ---
History of Present Illness History of Present Illness Date Seen by Provider: May 04, 2020 Time Seen by Provider: 06:07 Date of Admission Allergies and Home Medications Allergies Coded Allergies: Sulfa (Sulfonamide Antibiotics) (Verified Allergy, Unknown, 11/26/19) Home Medications Albuterol Sulfate 2.5 Mg/3 Ml Vial.neb, 2.5 MG INH Q4H PRN for WHEEZING Prescribed by: TEMO CARTER on 03/10/192211 Azithromycin 250 Mg Tablet, 250 MG PO DAILY Prescribed by: TEMO CARTER on 03/10/192211 Cyclosporine 1 Each Droperette, 1 DROP OU BID, (Reported) Dapagliflozin/Metformin HCl 1 Each Tab.bp.24h, 1 TAB PO DAILY, (Reported) Docusate Sodium 100 Mg Capsule, 100 MG PO DAILY Prescribed by: MILTON WANG on 03/09/19 122 Dulaglutide 1.5 Mg/0.5 Ml Pen.injctr, 1.5 MG SC WEEK, (Reported) Hydrocodone Bit/Acetaminophen 1 Tab Tab, 1 TAB PO Q4-6HR Prescribed by: MILTON WANG on 03/09/19 1227 Ibuprofen 800 Mg Tablet, 800 MG PO TID PRN for PAIN-MILD, (Reported) Simvastatin 20 Mg Tablet, 20 MG PO HS, (Reported) Sitagliptin Phosphate 100 Mg Tablet, 100 MG PO DAILY, (Reported) Past Hgcwbpm-Lyrwlw-Yifgle Hx Past Med/Social Hx: Reviewed Nursing Past Med/Soc Hx Patient Social History Alcohol Use: Denies Use Recreational Drug Use: No Smoking Status: Never a Smoker 2nd Hand Smoke Exposure: Yes Recent Foreign Travel: No Recent Hopitalizations: No Immunizations Up To Date Tetanus Booster (TDap): Unknown Date of Influenza Vaccine: Mar 06, 2019 Seasonal Allergies Seasonal Allergies: No Past Medical History Surgeries: Yes Respiratory: No Cardiac: No Neurological: No Reproductive Disorders: Yes Genitourinary: No Gastrointestinal: No Musculoskeletal: No Fractures Endocrine: Yes Diabetes, Non-Insulin dep HEENT: No Cancer: No Psychosocial: No Integumentary: No Blood Disorders: No Family Medical History Reviewed Nursing Family Hx Patient reports no known family medical history. No Pertinent Family Hx Review of Systems Time Seen by Provider: 06:20 Sepsis Event Evaluation Height, Weight, BMI Height: '" Weight: lbs. oz. kg; 40.97 BMI Method:Estimated Exam Exam Vital Signs Date Time Temp Pulse Resp B/P (MAP) Pulse Ox O2 Delivery O2 Flow Rate FiO2 05/04/20 04:01 36.9 71 18 121/76 92 Vapotherm 30.00 90.00 05/04/20 04:00 92 Vapotherm 35.00 90 05/04/20 01:02 Vapotherm 30.00 90 05/04/20 01:00 80 05/04/20 00:55 High Flow N/C 15.00 05/04/20 00:04 95 High Flow N/C 11.00 05/03/20 23:51 36.0 70 22 120/76 94 High Flow N/C 10.00 05/03/20 21:43 94 High Flow N/C 11.00 05/03/20 20:25 90 05/03/20 20:00 92 High Flow N/C 11.00 05/03/20 19:50 High Flow N/C 11.00 05/03/20 19:31 36.8 80 20 131/71 91 High Flow N/C 10.00 05/03/20 15:33 High Flow N/C 10.00 05/03/20 15:31 36.6 72 16 126/62 92 High Flow N/C 10.00 05/03/20 12:13 73 05/03/20 12:00 High Flow N/C 10.00 05/03/20 12:00 36.0 77 20 126/62 93 Nasal Cannula 5.00 05/03/20 09:00 94 Nasal Cannula 5.00 05/03/20 08:00 Nasal Cannula 5.00 05/03/20 07:43 36.1 77 26 114/58 92 Nasal Cannula 5.00 05/03/20 07:00 72 I & O 05/04/20 07:00 Intake Total 1775 ml Balance 1775 ml Height & Weight Height: '" Weight: lbs. oz. kg; 40.97 BMI Method:Estimated General Appearance: Anxious, Chronically ill, Obese HEENT: PERRL/EOMI, Moist Mucous Membranes; No Scleral Icterus (L), No Scleral Icterus (R) Neck: Normal Inspection, Supple Respiratory: Lungs Clear, No Accessory Muscle Use, Other (on 6lpm NC) Cardiovascular: Regular Rate, Rhythm, No Murmur Capillary Refill: Less Than 3 Seconds Extremity: Normal Capillary Refill, No Calf Tenderness, No Pedal Edema Neurologic/Psychiatric: Alert, Oriented x3 Skin: Normal Color, Warm/Dry Results Lab Laboratory Tests 05/03/20 05:00 05/03/20 07:10 05/03/20 11:00 05/04/20 04:15 Assessment/Plan Assessment/Plan Acute hypoxic respiratory failure due to COVID19 -Currenlty on Vapotherm at 90% Continue to wean oxygen as able Remdesivir and continue decadron -Check ABG s/p 1 unit convalescent plasma Lovenox MAT protocol IS NIDDMII hx however now she is acute DKA -Start DKA protocol -Transfer to ICU -Repeat beta hydroxybuterate -Check UA Levemir Thrombocytopenia Plts up today to 144 Trend for now DVT/GI ppx: Lovenox -Start protonix ROSIE FRANCO DO May 04, 2020 06:13
[2020-05-04] MEDS ORDERED: D5 1/2 NS 1000 ML IV SOLUTION 1,000 ML IV SCH ×2 (06:15→19:00)
[2020-05-04] MEDS ORDERED: NS IV 1000 ML 1,000 ML IV SCH (06:15)
[2020-05-04] MEDS ORDERED: POTASSIUM CL 10MEQ/50ML IVPB 50 ML IV SCH (06:15)
[2020-05-04] MEDS: inSUlin ASPART (NovoLOG) 1 UNIT/0.01 ML (CHARGE PER UNIT) SC SCH ×2 (06:28→23:20)
[2020-05-04] MEDS: ENOXAPARIN 40 MG/0.4 ML (LOVENOX) SYR SC SCH ×2 (06:28→21:22)
[2020-05-04] MEDS ORDERED: morphine INJ 4 MG/ML 1 ML (VIAL/SYRINGE) IVP PRN (06:30)
[2020-05-04] MEDS ORDERED: LORazepam 0.5 MG (ATIVAN) TABLET PO PRN (07:00)
[2020-05-04 07:38] LABS: ABG BASE EXCESS -3.5 MMOL/L (-2.5-2.5); ABG OXYGEN SATURATION 89 % (94-100); ABG PCO2 31 MMHG (35-45); ABG PH 7.43 (7.37-7.43); ABG PO2 59 MMHG (79-93); ABG TCO2 21.3 MMOL/L (21.0-31.0)
[2020-05-04 07:40] LABS: ALLENS TEST YES-POS
[2020-05-04 07:41] LABS: INSPIRED O2 90%; PATIENT TEMP 36.3; VENTILATOR NO
[2020-05-04] MEDS: POTASSIUM CL 10MEQ/50ML IVPB 50 ML IV SCH ×7 (07:53→19:04)
[2020-05-04] MEDS: LORazepam INJ 2 MG/ML (ATIVAN) VIAL IVP PRN ×2 (07:53→11:21)
[2020-05-04 08:08] LABS: BILIRUBIN,URINE 1+ (NEGATIVE); CLARITY,URINE CLEAR; COLOR,URINE YELLOW; GLUCOSE, URINE (UA) 2+ (NEGATIVE); KETONES,URINE 3+ (NEGATIVE); LEUKOCYTE ESTERASE ,URINE NEGATIVE (NEGATIVE); NITRITE,URINE NEGATIVE (NEGATIVE); PH,URINE 6.5 (5-9); PROTEIN,URINE NEGATIVE (NEGATIVE)
[2020-05-04] MEDS: 1/2 NS IV SOLUTION 1,000 ML IV SCH ×4 (08:13→18:54)
[2020-05-04 08:18] LABS: BACTERIA,URINE TRACE /HPF; YEAST,URINE MODERATE /HPF
[2020-05-04] MEDS: dexAMETHasone 6 MG TAB (DECADRON) PO SCH (08:20)
[2020-05-04] MEDS: risperiDONE 0.25 MG (RisperDAL) TAB PO SCH ×2 (08:21→21:24)
[2020-05-04] MEDS: PANTOPRAZOLE 40 MG (PROTONIX) VIAL IV SCH (08:21)
[2020-05-04] MEDS: REMDESIVIR INJ 100 MG in NS (IVPB) 230 ML IV SCH (08:21)
[2020-05-04 08:26] LABS: BILIRUBIN,URINE NEGATIVE (NEGATIVE); CLARITY,URINE CLEAR; COLOR,URINE YELLOW; GLUCOSE, URINE (UA) 2+ (NEGATIVE); KETONES,URINE 3+ (NEGATIVE); LEUKOCYTE ESTERASE ,URINE NEGATIVE (NEGATIVE); NITRITE,URINE NEGATIVE (NEGATIVE); PROTEIN,URINE NEGATIVE (NEGATIVE)
[2020-05-04 08:36] LABS: BACTERIA,URINE TRACE /HPF; RBC,URINE 0-2 /HPF
[2020-05-04 09:50] LABS: CHLORIDE 102 MMOL/L (98-107); POTASSIUM 2.7 MMOL/L (3.6-5.0); SODIUM 135 MMOL/L (135-145)
[2020-05-04 09:52] LABS: CALCIUM 7.7 MG/DL (8.5-10.1); GLUCOSE 300 MG/DL (70-105)
[2020-05-04 09:53] LABS: CARBON DIOXIDE 20 MMOL/L (21-32)
[2020-05-04 09:56] LABS: CREATININE SERUM 0.66 MG/DL (0.60-1.30); GFR ESTIMATED > 60
[2020-05-04 09:57] LABS: BUN/CREATININE RATIO 17
[2020-05-04] MEDS ORDERED: DexMEDEtomidine PRE MIX 100 ML IV ONE (11:05)
[2020-05-04 11:18] VITALS: BP 125/75
--- NOTE | 2020-05-04 11:30 | NUR ---
PATIENT ANXIOUS, SITTING ON SIDE OF BED, CLOTHING OFF PATIENT PER HER DOING. PATIENT TACHYPENIC RR 40'S-50'S. PATIENT AGITATED STATING "I CANT BREATHE" THIS NURSE EDUCATED PATIENT THAT SHE WOULD NEED TO LEAVE HER VAPOTHERM ON, ET TAKE DEEP BREATHES IN. PATIENT IS MAXED OUT ON VAPOTHERM. THIS RN EDUCATED PATIENT REGARDING BIPAP. TOLD PATIENT THAT DUE TO HER INCREASED OXYGEN NEEDS SHE WOULD NEED TO SWITCH TO THIS, PATIENT ANXIOUS. RECEIVED ORDERS FOR PRECEDEX FROM DR. FRANCO. PATIENT STARTED ON PRECEDEX ET BIPAP PLACED BY RT AT THIS TIME.
[2020-05-04] MEDS: DexMEDEtomidine PRE MIX 100 ML IV PRN ×2 (11:37→20:06)
[2020-05-04 11:57] LABS: BUN/CREATININE RATIO 15; CALCIUM 7.3 MG/DL (8.5-10.1); CARBON DIOXIDE 22 MMOL/L (21-32); CHLORIDE 104 MMOL/L (98-107); CREATININE SERUM 0.66 MG/DL (0.60-1.30); GFR ESTIMATED > 60; GLUCOSE 354 MG/DL (70-105); POTASSIUM 3.6 MMOL/L (3.6-5.0); SODIUM 136 MMOL/L (135-145)
--- NOTE | 2020-05-04 13:20 | NUR ---
PATIENT SITTING ON SIDE OF BED AT THIS TIME, BIPAP RIPPED OFF IN MULTIPLE PIECES, PATIENT FLAILING IN BED, O2 SATS IN THE 50'S. THIS NURSE ATTEMPTING TO PLACE PATIENT BACK ON BIPAP, EXPLAINING TO PATIENT THAT SHE NEEDED THE OXYGEN ON, PATIENT HITTING AT STAFF. THIS RN HOLLERED OUT FOR HELP OF OTHER STAFF, ANIMAL HUSBANDRY MANAGER WITH THIS NURSE AT BEDSIDE. ATTEMPTS TO PLACE PATIENT BACK ON BIPAP UNSUCCESSFUL. PATIENT O2 SATS 70'S. THIS RN GOT PATIENT ON VAPOTHERM IN ORDER TO GET PATIENT ON SOME SORT OF OXYGEN, PRN ANXIETY MEDICATION ADMINISTERED, WITH NO RELIEF IN ANXIETY. PATIENT CONTINUES WITH FLAILING ET SWATTING AT STAFF PULLING AT CORDS. DR. FRANCO CALLED AT THIS TIME. RECEIVED ORDER FOR INTUBATION. CALL PLACED TO PATIENT DAUGHTER SONAL, NEXT OF KIN, D/T PATIENT NON COHERENT ET UNABLE TO ANSWER QUESTIONS OR FOLLOW COMMANDS. RECEIVED CONSENT FROM SISTER.
[2020-05-04] MEDS ORDERED: fentaNYL DRIP PRE-MIX 250 ML IV ONE (13:42)
[2020-05-04] MEDS ORDERED: PROPOFOL DRIP (ICU) 100 ML IV ONE (13:42)
--- NOTE | 2020-05-04 14:07 | Pulmonary Procedures ---
Pulmonary Procedures Date of Procedure Date of Service: May 04, 2020 Reason for Intubation: acute respiratory failure Time of Intubation: 14:06 Intubation Method: orotracheal Tube Size: 8 Medications: Fentanyl, Propofol, Rocuronium, Versed Positive End Tide CO2: Yes Breath Sounds after Intubation: bilateral-equal Intubation Complications: no complications Post Intubation Xray: Yes ROSIE FRANCO DO May 04, 2020 14:07
[2020-05-04] MEDS ORDERED: PROPOFOL DRIP (ICU) 100 ML IV SCH (14:15)
[2020-05-04] MEDS ORDERED: fentaNYL DRIP PRE-MIX 250 ML IV SCH (14:15)
[2020-05-04] MEDS: fentaNYL DRIP PRE-MIX 250 ML IV SCH (14:15)
--- NOTE | 2020-05-04 14:22 | Pulmonary Progress Note ---
Standard Progress Note Progress Notes Date Seen by Provider: May 04, 2020 Time Seen by Provider: 14:17 Called to bedside secondary to acute respiratory distress. Upon my arrival RT was bag masking and pt is very agitated. Will proceed with intubation. Assessment & Plan Acute hypoxic respiratory failure due to COVID19 -Pt is a full code. Will Proceed with intubation. -Will use Propofol and Fentanyl after intubation -OG tube and restraints. Remdesivir and continue decadron -Check ABG 1hr after intubation s/p 1 unit convalescent plasma Lovenox MAT protocol IS NIDDMII hx however now she is acute DKA -Start DKA protocol -Transfer to ICU -Repeat beta hydroxybuterate -Check UA Levemir Thrombocytopenia Plts up today to 144 Trend for now DVT/GI ppx: Lovenox -Start protonix Critical Care: Critically Ill Patient Time spent with patient (mins): 60 Focused Exam Lactate Level 05/01/20 23:47: Lactic Acid Level 1.32 05/03/20 11:00: Lactic Acid Level 1.14 ROSIE FRANCO DO May 04, 2020 14:22
--- NOTE | 2020-05-04 14:34 | Physical Therapy Progress Note ---
Therapy Progress Note Per physician, patient is intubated. PT will continue to follow patient status. RAZIA GILLESPIE PT May 04, 2020 14:34
--- NOTE | 2020-05-04 14:35 | Diagnostic Imaging Report ---
INDICATION: Post intubation. TECHNIQUE: Single view chest 2:14 PM. CORRELATION STUDY: 05/02/2020 FINDINGS: Endotracheal tube has been placed. Tip projecting over the lower trachea just above the level of the katelin of approximately 1 cm. Gastric tube has also been placed passing below the left hemidiaphragm and edge of the film. Heart size enlarged, mediastinum prominent appearing somewhat accentuated increased from prior. Scattered bilateral pulmonary opacities are present overall have adversely increased. Findings remain most pronounced in the mid to lower left lung as well as right mid lung. IMPRESSION: 1. Interval intubation. Endotracheal tube projects over the lower trachea just above the katelin. 2. Scattered bilateral pulmonary opacities persisting, stable to slightly increased. Vasculature overall appears increased as well. Dictated by: Dictated on workstation # [id number]
[2020-05-04] MEDS ORDERED: ROCURONIUM 50 MG/5 ML (ZEMURON) VIAL IV ONE (14:43)
[2020-05-04] MEDS ORDERED: fentaNYL INJECTION 100 MCG/2 ML AMP IV ONE (14:43)
[2020-05-04] MEDS ORDERED: MIDAZOLAM 5 MG/5 ML (VERSED) VIAL IJ ONE (14:43)
[2020-05-04] MEDS: PROPOFOL DRIP (ICU) 100 ML IV SCH ×2 (15:57→21:40)
[2020-05-04] MEDS ORDERED: METF750T45 PO (15:58)
[2020-05-04] MEDS ORDERED: GLIM4TAB56 PO (15:58)
[2020-05-04] MEDS ORDERED: LORA10TA7 PO (15:58)
[2020-05-04] MEDS ORDERED: TIZA4TAB4 PO (15:58)
[2020-05-04] MEDS ORDERED: LIDO700A45 TOP (15:58)
[2020-05-04] MEDS ORDERED: NYST15CR TOP (15:58)
--- NOTE | 2020-05-04 15:58 | NUR ---
PATIENT WAS UNAVAILABLE TO SPEAK WITH, SO I USED THE MED LIST FROM DOCTOR'S OFFICE AND WENT THROUGH THE EXTERNAL MED HISTORY TO COMPLETE MED REC. WHEN I CAN SPEAK WITH THE PATIENT I WILL UPDATE THE MED REC AND NOTES NEEDED.
--- NOTE | 2020-05-04 16:11 | NUR ---
TIME LINE NOTE: Francisco6: JOAN ON FLOOR 1357: vERSED 4 1358: PROPOFOL 5ML ADMINISTERED BY DR. FRANCO 50 FENTANYL 50 ALEXANDER 1359: DR. FRANCO INTUBATING ETT SIZE 8, 23 LIP, COLOR CHANGE, BILATERAL BREATH SOUNDS 1400: RT BAGGING, SECURING TUBE 1401: SWITCHED TO VENT, OG PLACED, AUSCULTATED FOR PLACEMENT 1403: PROPOFOL GTT STARTED AT 20
[2020-05-04 16:30] LABS: ABG BASE EXCESS -2.6 MMOL/L (-2.5-2.5); ABG OXYGEN SATURATION 94 % (94-100); ABG PCO2 39 MMHG (35-45); ABG PH 7.37 (7.37-7.43); ABG PO2 69 MMHG (79-93); ABG TCO2 23.3 MMOL/L (21.0-31.0)
[2020-05-04 16:32] LABS: ALLENS TEST YES-POS; INSPIRED O2 90%; PATIENT TEMP 36; VENTILATOR NO
--- NOTE | 2020-05-04 18:10 | NUR ---
CONTACTED EICU REGARDING PATIENT HYPOTENSIVE. RECEIVED ORDERS , SEE EMAR
[2020-05-04] MEDS ORDERED: NS IV 500 ML 500 ML ONE (18:19)
[2020-05-04 18:28] VITALS: BP 82/47
[2020-05-04] MEDS ORDERED: NS 100 ML (IVPB) BAG IV ONE (18:30)
[2020-05-04 18:48] LABS: CHLORIDE 105 MMOL/L (98-107); POTASSIUM 3.3 MMOL/L (3.6-5.0); SODIUM 137 MMOL/L (135-145)
[2020-05-04 18:49] LABS: CALCIUM 7.4 MG/DL (8.5-10.1)
[2020-05-04 18:50] LABS: GLUCOSE 185 MG/DL (70-105)
[2020-05-04 18:51] LABS: CARBON DIOXIDE 21 MMOL/L (21-32)
[2020-05-04 18:54] LABS: CREATININE SERUM 0.72 MG/DL (0.60-1.30); GFR ESTIMATED > 60
[2020-05-04 18:55] LABS: BUN/CREATININE RATIO 14
[2020-05-04] MEDS ORDERED: 1/2 NS IV SOLUTION 1,000 ML IV SCH (18:58)
[2020-05-04] MEDS ORDERED: NOREPINEPHRINE 4 MG/250 ML 250 ML IV ONE (19:09)
--- NOTE | 2020-05-04 19:17 | NUR ---
CONTACTED EICU REGARDING PATIENT CONTINUED HYPOTENSION POST FLUID BOLUS. RECEIVED NEW ORDERS TO START LEVOPHED. SEE EMAR
[2020-05-04] MEDS ORDERED: metFORMIN 500 MG (GLUCOPHAGE) TAB PO SCH (20:45)
[2020-05-04] MEDS ORDERED: GLIMEPIRIDE 4 MG (AMARYL) TAB PO ONE (20:45)
[2020-05-04] MEDS ORDERED: metFORMIN 500 MG (GLUCOPHAGE) TAB ONE (20:58)
[2020-05-04] MEDS ORDERED: GLIMEPIRIDE 4 MG (AMARYL) TAB ONE (20:58)
[2020-05-04] MEDS ORDERED: cefTRIAXone 1,000 MG IV (ROCEPHIN) VIAL ONE (21:00)
[2020-05-04] MEDS ORDERED: WATER (STERILE) FOR INJECTION 10 ML ONE (21:00)
[2020-05-04] MEDS: cefTRIAXone FOR IV USE 1,000 MG in WATER (STERILE) FOR INJECTION 10 ML IV SCH (21:21)
[2020-05-04] MEDS: NOREPINEPHRINE 4 MG/250 ML 250 ML IV SCH (21:23)
[2020-05-04 21:28] VITALS: BP 116/59
[2020-05-04] MEDS ORDERED: NS IV 1000 ML 1,000 ML ONE (23:55)
[2020-05-05] MEDS: NS IV 1000 ML 1,000 ML IV SCH ×3 (00:41→20:13)
[2020-05-05] MEDS: DexMEDEtomidine PRE MIX 100 ML IV PRN (01:29)
[2020-05-05] MEDS: RT-ALBUTEROL INHALER HFA (VENTOLIN HFA) 18 GM IH SCH ×4 (01:49→18:30)
[2020-05-05 01:50] VITALS: BP 107/52
[2020-05-05 02:29] LABS: ABG BASE EXCESS -5.7 MMOL/L (-2.5-2.5); ABG OXYGEN SATURATION 94 % (94-100); ABG PCO2 34 MMHG (35-45); ABG PH 7.36 (7.37-7.43); ABG PO2 77 MMHG (79-93); ABG TCO2 19.6 MMOL/L (21.0-31.0); BASOPHILS % (AUTO) 0 % (0-10); EOSINOPHILS % (AUTO) 0 % (0-10); HEMATOCRIT 40 % (35-52); HEMOGLOBIN 13.2 g/dL (11.5-16.0); LYMPHOCYTES # (AUTO) 1.5 10^3/uL (1.0-4.0); LYMPHOCYTES % (AUTO) 16 % (12-44); MEAN CORPUSCULAR HEMOGLOBIN 30 pg (25-34); MEAN CORPUSCULAR HGB CONC 33 g/dL (32-36); MEAN CORPUSCULAR VOLUME 90 fL (80-99); MONOCYTES # (AUTO) 0.5 10^3/uL (0.0-1.0); MONOCYTES % (AUTO) 6 % (0-12); NEUTROPHILS # (AUTO) 6.8 10^3/uL (1.8-7.8); NEUTROPHILS % (AUTO) 76 % (42-75); PLATELET COUNT 201 10^3/uL (130-400)
[2020-05-05 02:31] LABS: ALLENS TEST ART LINE; INSPIRED O2 100%; PATIENT TEMP 37.6; VENTILATOR YES
[2020-05-05 02:33] LABS: ALBUMIN 2.8 GM/DL (3.2-4.5); CHLORIDE 106 MMOL/L (98-107); POTASSIUM 3.4 MMOL/L (3.6-5.0); SODIUM 136 MMOL/L (135-145)
[2020-05-05 02:35] LABS: GLUCOSE 361 MG/DL (70-105); TOTAL PROTEIN 6.1 GM/DL (6.4-8.2); TRIGLYCERIDES 213 MG/DL (<150)
[2020-05-05 02:36] LABS: CARBON DIOXIDE 14 MMOL/L (21-32)
[2020-05-05 02:37] LABS: BILIRUBIN,TOTAL 0.8 MG/DL (0.1-1.0)
[2020-05-05 02:39] LABS: ALKALINE PHOSPHATASE 78 U/L (40-136); CREATININE SERUM 0.67 MG/DL (0.60-1.30); GFR ESTIMATED > 60
[2020-05-05 02:40] LABS: BUN/CREATININE RATIO 12
[2020-05-05 02:42] LABS: ALANINE AMINOTRANSFERASE 40 U/L (0-55); MAGNESIUM 1.6 MG/DL (1.6-2.4)
[2020-05-05] MEDS: PROPOFOL DRIP (ICU) 100 ML IV SCH ×4 (02:49→21:26)
[2020-05-05] MEDS ORDERED: D5 1/2 NS 1000 ML IV SOLUTION 1,000 ML IV SCH (04:15)
[2020-05-05] MEDS ORDERED: NS IV 1000 ML 1,000 ML IV SCH (04:15)
--- NOTE | 2020-05-05 04:25 | Pulmonary Progress Note ---
Subjective Time Seen by a Provider: 04:20 Sepsis Event Evaluation Height, Weight, BMI Height: '" Weight: lbs. oz. kg; 40.97 BMI Method:Estimated Focused Exam Lactate Level 05/03/20 11:00: Lactic Acid Level 1.14 Exam Exam Vital Signs Date Time Temp Pulse Resp B/P (MAP) Pulse Ox O2 Delivery O2 Flow Rate FiO2 05/05/20 02:49 101 110/47 05/05/20 01:50 102 39 94 100 05/05/20 01:29 96 31 109/53 95 Mechanical Ventilator 90.00 05/04/20 21:40 87 106/46 05/04/20 21:28 86 37 96 100 05/04/20 21:23 82 116/59 05/04/20 21:00 97 Mechanical Ventilator 90 05/04/20 21:00 96 Mechanical Ventilator 90 05/04/20 20:09 37.1 05/04/20 20:06 84 30 134/44 94 Mechanical Ventilator 90.00 05/04/20 19:00 66 05/04/20 18:28 69 24 98 90 05/04/20 18:00 67 24 75/48 94 NIV Bilevel 65.00 05/04/20 17:00 66 23 83/61 94 NIV Bilevel 65.00 05/04/20 16:00 67 24 93/64 95 NIV Bilevel 65.00 05/04/20 15:57 67 05/04/20 15:55 36.0 05/04/20 15:00 65 24 96/65 95 NIV Bilevel 65.00 05/04/20 14:00 71 14 104/67 95 NIV Bilevel 65.00 05/04/20 13:00 67 71 99/66 92 NIV Bilevel 65.00 05/04/20 12:44 67 05/04/20 12:00 67 37 101/59 93 NIV Bilevel 65.00 05/04/20 11:37 68 05/04/20 11:22 NIV Bilevel 65.00 05/04/20 11:18 85 40 93 65.00 05/04/20 11:00 92 25 129/82 74 Vapotherm 40.00 100.00 05/04/20 10:30 73 33 123/73 92 Vapotherm 40.00 100.00 05/04/20 09:00 90 Vapotherm 40.00 90 05/04/20 09:00 90 Vapotherm 40.00 90 05/04/20 08:19 36.9 Vapotherm 40.00 100.00 05/04/20 07:21 90 Vapotherm 30.00 90 05/04/20 06:35 76 I & O 05/05/20 07:00 Intake Total 960 ml Output Total 1475 ml Balance -515 ml Height & Weight Height: '" Weight: lbs. oz. kg; 40.97 BMI Method:Estimated General Appearance: Anxious, Chronically ill, Obese HEENT: PERRL/EOMI, Moist Mucous Membranes; No Scleral Icterus (L), No Scleral Icterus (R) Neck: Normal Inspection, Supple Respiratory: Lungs Clear, No Accessory Muscle Use, Other (on 6lpm NC) Cardiovascular: Regular Rate, Rhythm, No Murmur Capillary Refill: Less Than 3 Seconds Extremity: Normal Capillary Refill, No Calf Tenderness, No Pedal Edema Neurologic/Psychiatric: Alert, Oriented x3 Skin: Normal Color, Warm/Dry Results Lab Laboratory Tests 05/03/20 05:00 05/03/20 07:10 05/03/20 11:00 05/04/20 04:15 05/04/20 07:30 05/04/20 11:30 05/04/20 18:30 05/05/20 02:08 Assessment/Plan Assessment/Plan Acute hypoxic respiratory failure due to COVID19 -S/p intubation 05/04 - Propofol and Fentanyl after intubation -D/C precedex -OG tube and restraints. Remdesivir and continue decadron -Check ABG 1hr after intubation s/p 1 unit convalescent plasma Lovenox MAT protocol IS Acute DKA -- Insulin gtt was d/c'd last night per EICU. Pt is now back in DKA -Restart DKA protocol -Chem Q2 -D/C metformin and Gliparide -Start DKA protocol -Repeat beta hydroxybuterate -Check UA Levemir Thrombocytopenia Plts up today to 144 Trend for now DVT/GI ppx: Lovenox -Start protonix ROSIE FRANCO DO May 05, 2020 04:25
[2020-05-05] MEDS ORDERED: POTASSIUM CL 10MEQ/50ML IVPB 50 ML IV SCH (04:30)
[2020-05-05] MEDS ORDERED: LACTATED RINGERS 1,000 ML IV SCH (04:30)
[2020-05-05 04:44] LABS: PHOSPHORUS 1.6 MG/DL (2.3-4.7)
[2020-05-05] MEDS: NOREPINEPHRINE 4 MG/250 ML 250 ML IV SCH ×4 (04:50→20:59)
[2020-05-05] MEDS: fentaNYL DRIP PRE-MIX 250 ML IV SCH (04:51)
[2020-05-05] MEDS: inSUlin ASPART (NovoLOG) 1 UNIT/0.01 ML (CHARGE PER UNIT) SC SCH ×3 (05:55→11:45)
[2020-05-05] MEDS: POTASSIUM CL 10MEQ/50ML IVPB 50 ML IV SCH ×9 (05:55→22:49)
[2020-05-05] MEDS: MIDAZOLAM DRIP PRE-MIX 100 ML IV SCH (05:56)
[2020-05-05] MEDS ORDERED: GLIMEPIRIDE 4 MG (AMARYL) TAB PO SCH (06:30)
[2020-05-05] MEDS: 1/2 NS IV SOLUTION 1,000 ML IV SCH ×6 (07:29→23:38)
--- NOTE | 2020-05-05 07:36 | NUR ---
CLARIFIED POTASSIUM CHLORIDE INFUSION WITH DR FRANCO TOTAL AMOUNT IS 80MEQ. - FIXED ORDERS TO KCL IV 80MEQ
[2020-05-05 07:48] VITALS: BP 94/64
[2020-05-05] MEDS: risperiDONE 0.25 MG (RisperDAL) TAB PO SCH ×2 (07:56→20:02)
[2020-05-05] MEDS: ENOXAPARIN 40 MG/0.4 ML (LOVENOX) SYR SC SCH ×2 (07:56→19:56)
[2020-05-05] MEDS: dexAMETHasone 6 MG TAB (DECADRON) PO SCH (07:56)
[2020-05-05] MEDS: PANTOPRAZOLE 40 MG (PROTONIX) VIAL IV SCH (07:56)
[2020-05-05 09:18] LABS: BUN/CREATININE RATIO 10; CALCIUM 7.8 MG/DL (8.5-10.1); CARBON DIOXIDE 18 MMOL/L (21-32); CHLORIDE 109 MMOL/L (98-107); CREATININE SERUM 0.72 MG/DL (0.60-1.30); GFR ESTIMATED > 60; GLUCOSE 322 MG/DL (70-105); POTASSIUM 3.6 MMOL/L (3.6-5.0); SODIUM 139 MMOL/L (135-145)
--- NOTE | 2020-05-05 11:01 | Occ Therapy Progress Note ---
Therapy Progress Note Pt. currently intubated. Will continue to monitor and assess when medically stable. 1101 AC RIVAS OT May 05, 2020 11:01
[2020-05-05 11:21] LABS: CHLORIDE 110 MMOL/L (98-107); SODIUM 138 MMOL/L (135-145)
[2020-05-05 11:22] LABS: CALCIUM 7.3 MG/DL (8.5-10.1)
[2020-05-05 11:23] LABS: GLUCOSE 284 MG/DL (70-105)
[2020-05-05 11:24] LABS: CARBON DIOXIDE 19 MMOL/L (21-32)
[2020-05-05 11:27] LABS: CREATININE SERUM 0.67 MG/DL (0.60-1.30); GFR ESTIMATED > 60
[2020-05-05 11:28] LABS: BUN/CREATININE RATIO 10
[2020-05-05] MEDS: REMDESIVIR INJ 100 MG in NS (IVPB) 230 ML IV SCH (11:45)
[2020-05-05 11:56] VITALS: BP 123/60
[2020-05-05 13:07] LABS: CHLORIDE 111 MMOL/L (98-107); POTASSIUM 3.3 MMOL/L (3.6-5.0); SODIUM 139 MMOL/L (135-145)
[2020-05-05 13:08] LABS: CALCIUM 7.4 MG/DL (8.5-10.1)
[2020-05-05 13:09] LABS: GLUCOSE 263 MG/DL (70-105)
[2020-05-05 13:10] LABS: CARBON DIOXIDE 21 MMOL/L (21-32)
[2020-05-05 13:13] LABS: CREATININE SERUM 0.62 MG/DL (0.60-1.30); GFR ESTIMATED > 60
[2020-05-05 13:14] LABS: BUN/CREATININE RATIO 10
[2020-05-05 14:49] VITALS: BP 114/66
[2020-05-05 15:03] LABS: CHLORIDE 111 MMOL/L (98-107); POTASSIUM 3.1 MMOL/L (3.6-5.0); SODIUM 140 MMOL/L (135-145)
[2020-05-05 15:04] LABS: CALCIUM 7.4 MG/DL (8.5-10.1)
[2020-05-05 15:05] LABS: GLUCOSE 232 MG/DL (70-105)
[2020-05-05 15:06] LABS: CARBON DIOXIDE 22 MMOL/L (21-32)
[2020-05-05 15:08] LABS: CREATININE SERUM 0.62 MG/DL (0.60-1.30); GFR ESTIMATED > 60
[2020-05-05 15:09] LABS: BUN/CREATININE RATIO 10
--- NOTE | 2020-05-05 15:40 | NUR ---
Received dietary consult for vent status. Note pt is currently intubated/sedated. Would recommend initiation of TF of Pulmocare at 15ml/hr with 25ml free water flushes q4h. Will continue to follow and reassess as pt needs, intake, and status change. Zita ELIZALDE, MS RD LD [phone] CELL
[2020-05-05 18:31] VITALS: BP 101/46
[2020-05-05] MEDS ORDERED: cefTRIAXone 1,000 MG IV (ROCEPHIN) VIAL ONE (19:47)
[2020-05-05] MEDS ORDERED: WATER (STERILE) FOR INJECTION 10 ML ONE (19:47)
[2020-05-05] MEDS: cefTRIAXone FOR IV USE 1,000 MG in WATER (STERILE) FOR INJECTION 10 ML IV SCH (19:57)
[2020-05-05 20:35] LABS: BUN/CREATININE RATIO 9; CALCIUM 7.6 MG/DL (8.5-10.1); CARBON DIOXIDE 21 MMOL/L (21-32); CHLORIDE 112 MMOL/L (98-107); CREATININE SERUM 0.55 MG/DL (0.60-1.30); GFR ESTIMATED > 60; GLUCOSE 197 MG/DL (70-105); SODIUM 142 MMOL/L (135-145)
[2020-05-05 21:04] VITALS: BP 96/43
[2020-05-05 23:05] LABS: CHLORIDE 110 MMOL/L (98-107); POTASSIUM 3.1 MMOL/L (3.6-5.0); SODIUM 141 MMOL/L (135-145)
[2020-05-05 23:06] LABS: CALCIUM 7.3 MG/DL (8.5-10.1)
[2020-05-05 23:07] LABS: GLUCOSE 166 MG/DL (70-105)
[2020-05-05 23:08] LABS: CARBON DIOXIDE 21 MMOL/L (21-32)
[2020-05-05 23:11] LABS: CREATININE SERUM 0.54 MG/DL (0.60-1.30); GFR ESTIMATED > 60
[2020-05-05 23:12] LABS: BUN/CREATININE RATIO 7
[2020-05-06] MEDS: POTASSIUM CHLORIDE INJ 20 MEQ in LACTATED RINGERS 1,000 ML IV SCH (00:43)
[2020-05-06] MEDS: POTASSIUM CL 10MEQ/50ML IVPB 50 ML IV SCH ×7 (00:45→07:38)
[2020-05-06] MEDS: PROPOFOL DRIP (ICU) 100 ML IV SCH ×6 (00:54→20:08)
[2020-05-06] MEDS: NOREPINEPHRINE 4 MG/250 ML 250 ML IV SCH ×4 (01:41→20:08)
[2020-05-06 01:56] LABS: CHLORIDE 111 MMOL/L (98-107); SODIUM 142 MMOL/L (135-145)
[2020-05-06 01:57] LABS: CALCIUM 7.4 MG/DL (8.5-10.1); GLUCOSE 145 MG/DL (70-105)
[2020-05-06] MEDS: RT-ALBUTEROL INHALER HFA (VENTOLIN HFA) 18 GM IH SCH ×4 (01:57→19:15)
[2020-05-06 01:58] VITALS: BP 102/53
[2020-05-06 01:59] LABS: CARBON DIOXIDE 21 MMOL/L (21-32)
[2020-05-06 02:01] LABS: CREATININE SERUM 0.55 MG/DL (0.60-1.30); GFR ESTIMATED > 60
[2020-05-06 02:02] LABS: BUN/CREATININE RATIO 7
[2020-05-06 03:07] LABS: ABG BASE EXCESS -0.4 MMOL/L (-2.5-2.5); ABG OXYGEN SATURATION 90 % (94-100); ABG PCO2 45 MMHG (35-45); ABG PH 7.35 (7.37-7.43); ABG PO2 55 MMHG (79-93)
[2020-05-06 03:08] LABS: ALLENS TEST YES-POS; BASOPHILS % (AUTO) 0 % (0-10); EOSINOPHILS # (AUTO) 0.1 10^3/uL (0.0-0.3); EOSINOPHILS % (AUTO) 1 % (0-10); HEMATOCRIT 38 % (35-52); HEMOGLOBIN 12.1 g/dL (11.5-16.0); INSPIRED O2 90%; LYMPHOCYTES # (AUTO) 1.6 10^3/uL (1.0-4.0); LYMPHOCYTES % (AUTO) 21 % (12-44); MEAN CORPUSCULAR HEMOGLOBIN 29 pg (25-34); MEAN CORPUSCULAR HGB CONC 32 g/dL (32-36); MEAN CORPUSCULAR VOLUME 92 fL (80-99); MEAN PLATELET VOLUME 10.3 fL (9.0-12.2); MONOCYTES # (AUTO) 0.6 10^3/uL (0.0-1.0); MONOCYTES % (AUTO) 8 % (0-12); NEUTROPHILS # (AUTO) 5.2 10^3/uL (1.8-7.8); NEUTROPHILS % (AUTO) 67 % (42-75); PATIENT TEMP 36.4; PLATELET COUNT 208 10^3/uL (130-400); VENTILATOR YES; WHITE BLOOD COUNT 7.7 10^3/uL (4.3-11.0)
[2020-05-06 03:24] LABS: ALBUMIN 2.7 GM/DL (3.2-4.5); CHLORIDE 111 MMOL/L (98-107); SODIUM 142 MMOL/L (135-145)
[2020-05-06 03:25] LABS: CALCIUM 7.5 MG/DL (8.5-10.1)
[2020-05-06 03:26] LABS: GLUCOSE 137 MG/DL (70-105); TOTAL PROTEIN 6.5 GM/DL (6.4-8.2)
[2020-05-06 03:27] LABS: CARBON DIOXIDE 20 MMOL/L (21-32)
[2020-05-06 03:28] LABS: BILIRUBIN,TOTAL 0.6 MG/DL (0.1-1.0)
[2020-05-06 03:29] LABS: PHOSPHORUS 1.7 MG/DL (2.3-4.7)
[2020-05-06 03:30] LABS: ALKALINE PHOSPHATASE 78 U/L (40-136); CREATININE SERUM 0.53 MG/DL (0.60-1.30); GFR ESTIMATED > 60
[2020-05-06 03:31] LABS: BUN/CREATININE RATIO 8
[2020-05-06 03:32] LABS: MAGNESIUM 2.1 MG/DL (1.6-2.4)
[2020-05-06 03:33] LABS: ALANINE AMINOTRANSFERASE 36 U/L (0-55)
--- NOTE | 2020-05-06 04:27 | Pulmonary Progress Note ---
Subjective Time Seen by a Provider: 04:21 Subjective/Events-last exam Pt is sedated on vent. Sepsis Event Evaluation Height, Weight, BMI Height: '" Weight: lbs. oz. kg; 40.97 BMI Method:Estimated Focused Exam Lactate Level 05/03/20 11:00: Lactic Acid Level 1.14 Exam Exam Vital Signs Date Time Temp Pulse Resp B/P (MAP) Pulse Ox O2 Delivery O2 Flow Rate FiO2 05/06/20 03:00 81 32 101/49 (66) 98 Mechanical Ventilator 90.00 05/06/20 02:00 80 108/38 (61) 98 Mechanical Ventilator 90.00 05/06/20 01:58 83 24 97 100 05/06/20 01:41 83 104/48 05/06/20 01:00 81 19 97/53 (68) 97 Mechanical Ventilator 100.00 05/06/20 01:00 81 05/06/20 00:54 82 103/52 05/06/20 00:00 82 10 98/51 (67) 97 Mechanical Ventilator 100.00 05/05/20 23:00 86 13 102/50 (67) 96 Mechanical Ventilator 100.00 05/05/20 22:00 83 13 102/49 (66) 96 Mechanical Ventilator 100.00 05/05/20 21:26 85 97/46 05/05/20 21:04 85 24 96 100 05/05/20 21:00 86 14 96/43 (60) 96 Mechanical Ventilator 100.00 05/05/20 21:00 97 Mechanical Ventilator 100 05/05/20 20:00 84 18 106/49 (68) 94 Mechanical Ventilator 100.00 05/05/20 19:48 36.3 05/05/20 19:00 84 05/05/20 19:00 84 14 100/47 (64) 95 Mechanical Ventilator 100.00 05/05/20 18:31 89 26 94 100 05/05/20 18:00 96 25 99/49 (66) 92 Mechanical Ventilator 90.00 05/05/20 17:00 81 24 112/48 (69) 92 Mechanical Ventilator 90.00 05/05/20 16:06 36.5 05/05/20 16:00 80 23 130/67 (88) 93 Mechanical Ventilator 90.00 05/05/20 15:35 82 100/53 05/05/20 15:00 82 25 92/55 (67) 94 Mechanical Ventilator 90.00 05/05/20 14:49 82 25 93 100 05/05/20 14:00 85 25 114/66 (82) 92 Mechanical Ventilator 90.00 05/05/20 13:00 92 28 114/65 (81) 93 Mechanical Ventilator 90.00 05/05/20 12:58 93 117/65 05/05/20 12:53 91 05/05/20 12:00 92 31 117/65 (82) 93 Mechanical Ventilator 90.00 05/05/20 11:56 90 30 93 100 05/05/20 11:41 37.9 05/05/20 11:00 89 24 123/60 (81) 96 Mechanical Ventilator 90.00 05/05/20 10:00 89 25 116/54 (74) 93 Mechanical Ventilator 90.00 05/05/20 09:00 90 24 112/46 (68) 95 Mechanical Ventilator 90.00 05/05/20 08:14 98 Mechanical Ventilator 100 05/05/20 08:13 37.9 05/05/20 08:00 95 26 109/49 (69) 96 Mechanical Ventilator 90.00 05/05/20 07:55 95 94/64 05/05/20 07:48 83 31 90 100 05/05/20 07:00 97 36 94/64 (74) 93 Mechanical Ventilator 90.00 05/05/20 06:33 92 05/05/20 06:00 93 34 106/54 94 Mechanical Ventilator 90.00 05/05/20 05:56 93 35 114/49 05/05/20 05:00 96 34 120/63 96 Mechanical Ventilator 90.00 05/05/20 04:50 95 91/41 I & O 05/06/20 07:00 Intake Total 1160 ml Output Total 1500 ml Balance -340 ml Height & Weight Height: '" Weight: lbs. oz. kg; 40.97 BMI Method:Estimated General Appearance: Anxious, Chronically ill, Obese HEENT: PERRL/EOMI, Moist Mucous Membranes; No Scleral Icterus (L), No Scleral Icterus (R) Neck: Normal Inspection, Supple Respiratory: Lungs Clear, No Accessory Muscle Use, Other (on 6lpm NC) Cardiovascular: Regular Rate, Rhythm, No Murmur Capillary Refill: Less Than 3 Seconds Extremity: Normal Capillary Refill, No Calf Tenderness, No Pedal Edema Neurologic/Psychiatric: Alert, Oriented x3 Skin: Normal Color, Warm/Dry Results Lab Laboratory Tests 05/04/20 07:30 05/04/20 11:30 05/04/20 18:30 05/05/20 02:08 05/05/20 08:35 05/05/20 10:45 05/05/20 12:33 05/05/20 14:30 05/05/20 20:05 05/05/20 22:37 05/06/20 00:49 05/06/20 02:57 Assessment/Plan Assessment/Plan Acute hypoxic respiratory failure due to COVID19 -S/p intubation 05/04 - Propofol and Fentanyl after intubation -D/C precedex -OG tube and restraints. Remdesivir and continue decadron -Check ABG 1hr after intubation s/p 1 unit convalescent plasma Lovenox MAT protocol IS Acute DKA -- DKA now resolved. -Give Levemir and D/C DKA protocol 2hours after. -SL IVF for now -D/C metformin and Gliparide -Start DKA protocol Levemir -Pt was not on insulin prior to admission. She will need to remain on insulin after discharge. Hypokalemia/hypophos -replace Thrombocytopenia Plts up today to 144 Trend for now DVT/GI ppx: Lovenox -Start protonix ROSIE FRANCO DO May 06, 2020 04:27
[2020-05-06] MEDS ORDERED: POTASSIUM PHOSPHATE INJ 30 MM in NS (IVPB) 250 ML IV ONE (04:30)
[2020-05-06] MEDS: fentaNYL DRIP PRE-MIX 250 ML IV SCH ×2 (05:45→18:10)
[2020-05-06] MEDS: inSUlin ASPART (NovoLOG) 1 UNIT/0.01 ML (CHARGE PER UNIT) SC SCH ×3 (06:43→17:18)
[2020-05-06] MEDS: ENOXAPARIN 40 MG/0.4 ML (LOVENOX) SYR SC SCH ×2 (06:47→18:09)
[2020-05-06] MEDS: PANTOPRAZOLE 40 MG (PROTONIX) VIAL IV SCH (08:54)
[2020-05-06] MEDS: REMDESIVIR INJ 100 MG in NS (IVPB) 230 ML IV SCH (09:14)
[2020-05-06] MEDS: dexAMETHasone 6 MG TAB (DECADRON) PO SCH (09:25)
[2020-05-06] MEDS: risperiDONE 0.25 MG (RisperDAL) TAB PO SCH ×2 (09:25→20:07)
[2020-05-06 10:35] VITALS: BP 133/74
[2020-05-06] MEDS ORDERED: NS IV 1000 ML 1,000 ML ONE (11:08)
--- NOTE | 2020-05-06 12:01 | Diagnostic Imaging Report ---
Indication: Intubated patient. COMPARISON: 05/04/2020 FINDINGS: Single frontal radiograph view the chest was obtained and demonstrates bilateral scattered patchy and confluent infiltrates. Overall, aeration is stable compared to prior exam. There is no large effusion or pneumothorax. Cardiac silhouette is heavily obscured, but appears stable. Indwelling endotracheal tube is seen with tip just below the level of clavicular heads. Gastric tube is also seen with tip likely at the pylorus. Right upper extremity PICC line is present with tip in the right atrium. Osseous structures show no acute abnormalities. IMPRESSION: 1. Stable bilateral infiltrates. 2. Lines and tubes as above. Dictated by: Dictated on workstation # [id number]
--- NOTE | 2020-05-06 13:00 | Physical Therapy Progress Note ---
Therapy Progress Note Pt is currently intubated and sedated, no skilled therapy services performed this date. MILENA WRIGHT PT May 06, 2020 13:00
--- NOTE | 2020-05-06 13:54 | Anesthesia-Procedure Note ---
Procedures/Interventions Procedure Start/Stop/Diagnosis Date of Procedure: May 06, 2020 Start Time: 13:00 Referring Physician: Dr Crespo Preprocedural Diagnosis: Resp. Failure, COVID + Brief History Called for arterial line placement in ICU 7. Pt intubated and sedated prior to my arrival. Left radial arterial line (20G) secured with sterile tegaderm. Stop Time: 13:15 Postprocedural Diagnosis: Same Arterial Line Arterial Line Catheter: 20G Type: Radial Location: Left Procedure: prepped, draped in sterile fashion, patient tolerated procedure well, no immediate complications, post procedure area cleaned, post procedure dressing applied JEAN-CLAUDE BAIN DO May 06, 2020 13:54
[2020-05-06 15:01] VITALS: BP 101/55
--- NOTE | 2020-05-06 15:20 | NUR ---
Note pt currently receiving Pulmocare via 60ml bolus feeds q4h, with 30ml water flushes before and after each bolus. Would recommend continuation if this regimen at this time. Will continue to follow and reassess as pt needs, intake, and status change. Zita ELIZALDE, MS RD LD [phone] CELL
--- NOTE | 2020-05-06 16:04 | Physical Therapy Progress Note ---
Therapy Progress Note PROM B U/LE all planes. MILENA WRIGHT PT May 06, 2020 16:04
[2020-05-06] MEDS ORDERED: cefTRIAXone FOR IV USE 1,000 MG in WATER (STERILE) FOR INJECTION 10 ML IV SCH (19:00)
[2020-05-06 19:16] VITALS: BP 108/64
[2020-05-06] MEDS: FAMOTIDINE 20MG/2ML IV (PEPCID) IV SCH (20:07)
[2020-05-06] MEDS: MIDAZOLAM DRIP PRE-MIX 100 ML IV SCH (20:08)
[2020-05-06 21:25] VITALS: BP 117/87
[2020-05-07] MEDS: PROPOFOL DRIP (ICU) 100 ML IV SCH ×2 (00:22→04:21)
[2020-05-07] MEDS: inSUlin ASPART (NovoLOG) 1 UNIT/0.01 ML (CHARGE PER UNIT) SC SCH ×6 (00:50→20:40)
[2020-05-07] MEDS: RT-ALBUTEROL INHALER HFA (VENTOLIN HFA) 18 GM IH SCH ×4 (01:20→18:26)
[2020-05-07 01:21] VITALS: BP 110/57
[2020-05-07 03:12] LABS: BASOPHILS % (AUTO) 0 % (0-10); EOSINOPHILS % (AUTO) 0 % (0-10); HEMATOCRIT 38 % (35-52); HEMOGLOBIN 12.1 g/dL (11.5-16.0); LYMPHOCYTES # (AUTO) 0.8 10^3/uL (1.0-4.0); LYMPHOCYTES % (AUTO) 11 % (12-44); MEAN CORPUSCULAR HEMOGLOBIN 30 pg (25-34); MEAN CORPUSCULAR HGB CONC 32 g/dL (32-36); MEAN CORPUSCULAR VOLUME 93 fL (80-99); MEAN PLATELET VOLUME 10.2 fL (9.0-12.2); MONOCYTES # (AUTO) 0.5 10^3/uL (0.0-1.0); MONOCYTES % (AUTO) 8 % (0-12); NEUTROPHILS # (AUTO) 5.5 10^3/uL (1.8-7.8); NEUTROPHILS % (AUTO) 79 % (42-75); PLATELET COUNT 231 10^3/uL (130-400)
[2020-05-07 03:13] LABS: ABG BASE EXCESS 0.6 MMOL/L (-2.5-2.5); ABG OXYGEN SATURATION 93 % (94-100); ABG PCO2 46 MMHG (35-45); ABG PH 7.36 (7.37-7.43); ABG PO2 67 MMHG (79-93); ABG TCO2 27.1 MMOL/L (21.0-31.0)
[2020-05-07 03:31] LABS: ALLENS TEST ARTLINE; PATIENT TEMP 36.1; VENTILATOR YES
[2020-05-07 03:41] LABS: ALBUMIN 2.6 GM/DL (3.2-4.5); CHLORIDE 108 MMOL/L (98-107); POTASSIUM 3.7 MMOL/L (3.6-5.0); SODIUM 140 MMOL/L (135-145)
[2020-05-07 03:43] LABS: CALCIUM 7.6 MG/DL (8.5-10.1); TRIGLYCERIDES 133 MG/DL (<150)
[2020-05-07 03:44] LABS: GLUCOSE 341 MG/DL (70-105); TOTAL PROTEIN 6.7 GM/DL (6.4-8.2)
[2020-05-07 03:45] LABS: BILIRUBIN,TOTAL 0.9 MG/DL (0.1-1.0); CARBON DIOXIDE 20 MMOL/L (21-32)
[2020-05-07 03:47] LABS: ALKALINE PHOSPHATASE 77 U/L (40-136); CREATININE SERUM 0.67 MG/DL (0.60-1.30); GFR ESTIMATED > 60
[2020-05-07 03:48] LABS: BUN/CREATININE RATIO 12
[2020-05-07 03:50] LABS: ALANINE AMINOTRANSFERASE 40 U/L (0-55); MAGNESIUM 2.3 MG/DL (1.6-2.4)
[2020-05-07] MEDS: NOREPINEPHRINE 4 MG/250 ML 250 ML IV SCH ×3 (05:17→17:12)
[2020-05-07] MEDS: fentaNYL DRIP PRE-MIX 250 ML IV SCH (05:51)
--- NOTE | 2020-05-07 06:26 | Pulmonary Progress Note ---
Subjective Time Seen by a Provider: 06:21 Sepsis Event Evaluation Height, Weight, BMI Height: '" Weight: lbs. oz. kg; 40.97 BMI Method:Estimated Exam Exam Vital Signs Date Time Temp Pulse Resp B/P (MAP) Pulse Ox O2 Delivery O2 Flow Rate FiO2 05/07/20 05:19 36.2 Mechanical Ventilator 45.00 05/07/20 04:21 97 110/57 05/07/20 01:21 97 26 91 55 05/07/20 01:00 97 12 90 Mechanical Ventilator 05/07/20 00:51 36.1 55.00 05/07/20 00:22 108 117/87 05/07/20 00:00 99 10 91 Mechanical Ventilator 55.00 05/06/20 23:00 98 13 90 Mechanical Ventilator 55.00 05/06/20 22:00 100 11 89 Mechanical Ventilator 55.00 05/06/20 21:25 108 26 94 55 05/06/20 21:00 100 19 92 Mechanical Ventilator 55.00 05/06/20 20:18 Mechanical Ventilator 55.00 05/06/20 20:08 104 24 108/64 05/06/20 20:08 104 108/64 05/06/20 20:08 104 108/64 05/06/20 20:04 36.0 104 24 92 Mechanical Ventilator 50.00 05/06/20 20:00 104 40 92 Mechanical Ventilator 50.00 05/06/20 19:18 36.2 05/06/20 19:16 98 26 92 50 05/06/20 19:05 Automatic Cuff 05/06/20 19:00 102 31 92 Mechanical Ventilator 50.00 05/06/20 18:50 103 05/06/20 18:00 103 31 92 Mechanical Ventilator 50.00 05/06/20 17:00 105 23 92 Mechanical Ventilator 50.00 05/06/20 16:38 107 119/61 05/06/20 16:00 109 24 99 Mechanical Ventilator 50.00 05/06/20 15:26 36.6 05/06/20 15:01 109 27 94 50 05/06/20 15:00 106 25 94 Automatic Cuff 05/06/20 13:00 111 34 100 Mechanical Ventilator 50.00 05/06/20 12:50 112 05/06/20 12:41 115 142/76 05/06/20 12:00 112 27 122/76 (91) 100 Mechanical Ventilator 50.00 05/06/20 11:54 36.9 05/06/20 11:00 116 21 130/72 (91) 98 Mechanical Ventilator 50.00 05/06/20 10:41 113 123/65 05/06/20 10:35 113 31 99 50 05/06/20 10:00 110 12 145/77 (99) 98 Mechanical Ventilator 50.00 05/06/20 09:00 115 27 152/86 (108) 99 Mechanical Ventilator 50.00 05/06/20 08:54 112 160/81 05/06/20 08:13 103 24 96 50 05/06/20 08:00 96 24 160/80 (106) 100 Mechanical Ventilator 50.00 05/06/20 07:45 36.6 05/06/20 07:35 100 Mechanical Ventilator 50 05/06/20 07:09 81 05/06/20 07:00 92 24 133/53 (79) 99 Mechanical Ventilator 50.00 I & O 05/07/20 07:00 Intake Total 750 ml Output Total 2575 ml Balance -1825 ml Height & Weight Height: '" Weight: lbs. oz. kg; 40.97 BMI Method:Estimated General Appearance: Anxious, Chronically ill, Obese HEENT: PERRL/EOMI, Moist Mucous Membranes; No Scleral Icterus (L), No Scleral Icterus (R) Neck: Normal Inspection, Supple Respiratory: Lungs Clear, No Accessory Muscle Use, Other (on 6lpm NC) Cardiovascular: Regular Rate, Rhythm, No Murmur Capillary Refill: Less Than 3 Seconds Extremity: Normal Capillary Refill, No Calf Tenderness, No Pedal Edema Neurologic/Psychiatric: Alert, Oriented x3 Skin: Normal Color, Warm/Dry Results Lab Laboratory Tests 05/05/20 08:35 05/05/20 10:45 05/05/20 12:33 05/05/20 14:30 05/05/20 20:05 05/05/20 22:37 05/06/20 00:49 05/06/20 02:57 05/07/20 03:00 Assessment/Plan Assessment/Plan Acute hypoxic respiratory failure due to COVID19 -S/p intubation 05/04 - Propofol and Fentanyl after intubation -D/C precedex -OG tube and restraints. Remdesivir and continue decadron -Check ABG 1hr after intubation s/p 1 unit convalescent plasma Lovenox MAT protocol IS Acute DKA -- DKA now resolved. -Give Levemir and D/C DKA protocol 2hours after. -SL IVF for now -D/C metformin and Gliparide -Start DKA protocol Levemir -Pt was not on insulin prior to admission. She will need to remain on insulin after discharge. Hypokalemia/hypophos -replace Thrombocytopenia Plts up today to 144 Trend for now DVT/GI ppx: Lovenox -Start protonix ROSIE FRANCO DO May 07, 2020 06:26
--- NOTE | 2020-05-07 07:43 | Diagnostic Imaging Report ---
INDICATION: COVID pneumonia. Comparison is made with prior examination from 05/06/2020. FINDINGS: There is bilateral airspace disease. Heart size is normal. There is no pleural effusion or pneumothorax. ET and NG tubes are in satisfactory position. IMPRESSION: Persistent diffuse bilateral airspace disease suspect for underlying pneumonia Dictated by: Dictated on workstation # [id number]
[2020-05-07 07:55] VITALS: BP 110/55
[2020-05-07] MEDS: ENOXAPARIN 40 MG/0.4 ML (LOVENOX) SYR SC SCH ×2 (08:07→18:41)
[2020-05-07] MEDS: dexAMETHasone 6 MG TAB (DECADRON) PO SCH (08:08)
[2020-05-07] MEDS: FAMOTIDINE 20MG/2ML IV (PEPCID) IV SCH ×2 (08:08→20:40)
[2020-05-07] MEDS: risperiDONE 0.25 MG (RisperDAL) TAB PO SCH ×2 (08:08→20:40)
--- NOTE | 2020-05-07 13:09 | NUR ---
RIGHT FEMORAL CENTRAL LINE REMOVED AT THIS TIME PER DR. FRANCO'S ORDER.
--- NOTE | 2020-05-07 13:22 | Physical Therapy Progress Note ---
Therapy Progress Note Pt is intubated and sedated. PROM B U/LE in available planes. MILENA WRIGHT PT May 07, 2020 13:22
--- NOTE | 2020-05-07 13:56 | NUR ---
THIS RN CALLED PT'S DAUGHTER, SONAL, AND PROVIDED UPDATE ON PT. PT'S DAUGHTER THANKFUL FOR UPDATE.
[2020-05-07 15:14] VITALS: BP 139/62
--- NOTE | 2020-05-07 15:17 | NUR ---
Note pt currently receiving Pulmocare via 60ml bolus feeds q4h with 30ml water flushes before and after each bolus. Pt appears to be tolerating well, per Zoey SCOTT. Recommend increasing to 75ml bolus q4h and monitor for tolerance. Will continue to follow and reassess as pt needs, intake, and status change. Zita ELIZALDE, MS RD LD
[2020-05-07 15:41] LABS: ALANINE AMINOTRANSFERASE 39 U/L (0-55); ALBUMIN 2.5 GM/DL (3.2-4.5); ALKALINE PHOSPHATASE 65 U/L (40-136); BILIRUBIN,TOTAL 0.8 MG/DL (0.1-1.0); BUN/CREATININE RATIO 23; CALCIUM 7.9 MG/DL (8.5-10.1); CARBON DIOXIDE 30 MMOL/L (21-32); CHLORIDE 106 MMOL/L (98-107); CREATININE SERUM 0.61 MG/DL (0.60-1.30); GFR ESTIMATED > 60; GLUCOSE 318 MG/DL (70-105); POTASSIUM 3.6 MMOL/L (3.6-5.0); SODIUM 144 MMOL/L (135-145); TOTAL PROTEIN 6.6 GM/DL (6.4-8.2)
[2020-05-07 18:26] VITALS: BP 122/59
--- NOTE | 2020-05-07 21:00 | NUR ---
PT IS CURRENTLY IN PRONE POSITION AND MOVING BOTH ARMS AND LEGS AT THIS TIME. PT COUGHING AND DE-SATING TO 87%. HIGH PEAK PRESSURE AND HIGH CIRCUIT PRESSURE ALARMS ON VENT; PROPOFOL RESTARTED AT THIS TIME AT 25 MCG/KG/MIN. WILL CONTINUE TO MONITOR.
[2020-05-07 21:40] VITALS: BP 125/58
[2020-05-08] MEDS: inSUlin ASPART (NovoLOG) 1 UNIT/0.01 ML (CHARGE PER UNIT) SC SCH ×7 (00:35→23:43)
[2020-05-08] MEDS: NOREPINEPHRINE 4 MG/250 ML 250 ML IV SCH ×4 (00:35→19:38)
[2020-05-08 02:07] VITALS: BP 114/56
[2020-05-08] MEDS: RT-ALBUTEROL INHALER HFA (VENTOLIN HFA) 18 GM IH SCH ×4 (02:07→22:15)
[2020-05-08] MEDS: MAGNESIUM 1 GM/100 ML IVPB 100 ML IV SCH (02:20)
[2020-05-08] MEDS: KCL 20 MEQ TAB (K-DUR) PO SCH (02:20)
[2020-05-08] MEDS: POTASSIUM CL 10MEQ/50ML IVPB 50 ML IV SCH ×6 (02:20→09:17)
[2020-05-08] MEDS: PROPOFOL DRIP (ICU) 100 ML IV SCH ×5 (02:25→20:42)
[2020-05-08 03:06] LABS: BASOPHILS % (AUTO) 0 % (0-10); EOSINOPHILS % (AUTO) 0 % (0-10); HEMATOCRIT 36 % (35-52); HEMOGLOBIN 11.5 g/dL (11.5-16.0); LYMPHOCYTES # (AUTO) 1.1 10^3/uL (1.0-4.0); LYMPHOCYTES % (AUTO) 16 % (12-44); MEAN CORPUSCULAR HEMOGLOBIN 29 pg (25-34); MEAN CORPUSCULAR HGB CONC 32 g/dL (32-36); MEAN CORPUSCULAR VOLUME 91 fL (80-99); MEAN PLATELET VOLUME 9.8 fL (9.0-12.2); MONOCYTES # (AUTO) 0.8 10^3/uL (0.0-1.0); MONOCYTES % (AUTO) 12 % (0-12); NEUTROPHILS # (AUTO) 4.6 10^3/uL (1.8-7.8); NEUTROPHILS % (AUTO) 69 % (42-75); PLATELET COUNT 233 10^3/uL (130-400); WHITE BLOOD COUNT 6.6 10^3/uL (4.3-11.0)
[2020-05-08 03:07] LABS: ABG BASE EXCESS 7.2 MMOL/L (-2.5-2.5); ABG OXYGEN SATURATION 97 % (94-100); ABG PCO2 43 MMHG (35-45); ABG PH 7.47 (7.37-7.43); ABG PO2 71 MMHG (79-93); ABG TCO2 32.7 MMOL/L (21.0-31.0)
[2020-05-08 03:11] LABS: ALLENS TEST ARTLINE; INSPIRED O2 50; PATIENT TEMP 36; VENTILATOR YES
[2020-05-08 03:19] LABS: ALBUMIN 2.5 GM/DL (3.2-4.5); CHLORIDE 106 MMOL/L (98-107); POTASSIUM 3.1 MMOL/L (3.6-5.0); SODIUM 142 MMOL/L (135-145)
[2020-05-08 03:21] LABS: CALCIUM 7.6 MG/DL (8.5-10.1)
[2020-05-08 03:22] LABS: GLUCOSE 258 MG/DL (70-105); TOTAL PROTEIN 6.3 GM/DL (6.4-8.2); TRIGLYCERIDES 130 MG/DL (<150)
[2020-05-08 03:23] LABS: CARBON DIOXIDE 27 MMOL/L (21-32)
[2020-05-08 03:24] LABS: BILIRUBIN,TOTAL 0.7 MG/DL (0.1-1.0)
[2020-05-08 03:25] LABS: PHOSPHORUS 1.3 MG/DL (2.3-4.7)
[2020-05-08 03:26] LABS: ALKALINE PHOSPHATASE 69 U/L (40-136); CREATININE SERUM 0.57 MG/DL (0.60-1.30); GFR ESTIMATED > 60
[2020-05-08 03:27] LABS: BUN/CREATININE RATIO 30
[2020-05-08 03:29] LABS: ALANINE AMINOTRANSFERASE 35 U/L (0-55)
--- NOTE | 2020-05-08 04:03 | Pulmonary Progress Note ---
Subjective Time Seen by a Provider: 03:58 Subjective/Events-last exam Pt is sedated on vent. Sepsis Event Evaluation Height, Weight, BMI Height: '" Weight: lbs. oz. kg; 40.97 BMI Method:Estimated Exam Exam Vital Signs Date Time Temp Pulse Resp B/P (MAP) Pulse Ox O2 Delivery O2 Flow Rate FiO2 05/08/20 02:25 85 114/56 05/08/20 02:07 85 24 95 50 05/07/20 23:26 36.8 05/07/20 21:40 99 26 94 60 05/07/20 21:00 93 Mechanical Ventilator 60 05/07/20 19:46 37.2 05/07/20 19:00 Mechanical Ventilator 60.00 05/07/20 19:00 96 05/07/20 18:26 90 25 96 60 05/07/20 18:00 99 23 93 Mechanical Ventilator 55.00 05/07/20 17:00 102 14 93 Mechanical Ventilator 55.00 05/07/20 16:00 104 25 92 Mechanical Ventilator 55.00 05/07/20 15:26 37.1 05/07/20 15:14 101 25 91 60 05/07/20 15:07 Mechanical Ventilator 50.00 05/07/20 15:00 104 27 90 Mechanical Ventilator 55.00 05/07/20 14:00 90 24 91 Mechanical Ventilator 55.00 05/07/20 13:14 48 05/07/20 13:08 99 140/90 05/07/20 13:00 89 24 91 Mechanical Ventilator 55.00 05/07/20 12:20 90 05/07/20 12:00 90 24 90 Mechanical Ventilator 55.00 05/07/20 11:48 96 142/59 05/07/20 11:35 37.5 05/07/20 11:00 88 40 92 Mechanical Ventilator 55.00 05/07/20 10:00 99 26 92 Mechanical Ventilator 55.00 05/07/20 09:00 85 23 91 Mechanical Ventilator 55.00 05/07/20 08:20 93 Mechanical Ventilator 45 05/07/20 08:18 87 132/57 05/07/20 08:00 88 15 93 Mechanical Ventilator 55.00 05/07/20 07:55 86 26 95 45 05/07/20 07:22 36.0 05/07/20 07:00 87 23 92 Mechanical Ventilator 55.00 05/07/20 06:43 71 05/07/20 06:00 84 23 92 Mechanical Ventilator 55.00 05/07/20 05:19 36.2 Mechanical Ventilator 45.00 05/07/20 05:00 80 24 96 Mechanical Ventilator 55.00 05/07/20 04:21 97 110/57 05/07/20 04:00 92 25 Mechanical Ventilator 55.00 I & O 05/08/20 07:00 Intake Total 280 ml Output Total 1040 ml Balance -760 ml Height & Weight Height: '" Weight: lbs. oz. kg; 40.97 BMI Method:Estimated General Appearance: Anxious, Chronically ill, Obese HEENT: PERRL/EOMI, Moist Mucous Membranes; No Scleral Icterus (L), No Scleral Icterus (R) Neck: Normal Inspection, Supple Respiratory: Lungs Clear, No Accessory Muscle Use, Other (on 6lpm NC) Cardiovascular: Regular Rate, Rhythm, No Murmur Capillary Refill: Less Than 3 Seconds Extremity: Normal Capillary Refill, No Calf Tenderness, No Pedal Edema Neurologic/Psychiatric: Alert, Oriented x3 Skin: Normal Color, Warm/Dry Results Lab Laboratory Tests 05/07/20 03:00 05/07/20 15:04 05/08/20 02:50 Assessment/Plan Assessment/Plan Acute hypoxic respiratory failure due to COVID19 -S/p intubation 05/04 -Decrease VT to 350 -Repeat ABG in 1hr - Propofol and Fentanyl after intubation -OG tube and restraints. -Continue TF s/p Remdesivir and CVP - decadron -Check ABG 1hr after intubation Lovenox MAT protocol IS s/p Acute DKA -Levemir -D/C metformin and Gliparide -Pt was not on insulin prior to admission. She will need to remain on insulin after discharge. Hypokalemia/hypophos -replace Thrombocytopenia - Resolved DVT/GI ppx: Lovenox -Start prilosec ROSIE FRANCO DO May 08, 2020 04:03
[2020-05-08] MEDS: LACTATED RINGERS 1,000 ML IV SCH (04:51)
[2020-05-08] MEDS: ENOXAPARIN 40 MG/0.4 ML (LOVENOX) SYR SC SCH ×2 (07:20→17:48)
[2020-05-08 07:23] VITALS: BP 143/63
--- NOTE | 2020-05-08 07:43 | Diagnostic Imaging Report ---
INDICATION: Covid positive. TECHNIQUE: Single view chest 7:14 AM. CORRELATION STUDY: 05/07/2020 FINDINGS: Endotracheal tube, gastric tube and right upper extremity central line all remain in place. Heart size and mediastinum are generally stable. Extensive bilateral pulmonary opacities do persist but overall appearing slightly improved. However, dense areas of consolidation remain particularly in the right mid lung and left lung base. IMPRESSION: 1. Stable appearance about support lines and tubes. 2. Extensive bilateral pulmonary infiltrates do persist but may be slightly improved from prior. Dictated by: Dictated on workstation # [id number]
[2020-05-08] MEDS ORDERED: POTASSIUM PHOSPHATE INJ 30 MM in NS (IVPB) 250 ML IV ONE (08:00)
[2020-05-08] MEDS: risperiDONE 0.25 MG (RisperDAL) TAB PO SCH ×2 (08:06→20:33)
[2020-05-08] MEDS: dexAMETHasone 6 MG TAB (DECADRON) PO SCH (08:06)
[2020-05-08] MEDS: FAMOTIDINE 20MG/2ML IV (PEPCID) IV SCH ×2 (08:06→20:33)
[2020-05-08] MEDS: ARTIFICIAL TEARS OINT (LACRI-LUBE) 3.5 GM TUBE OU SCH ×2 (09:17→20:34)
[2020-05-08 09:23] LABS: ABG BASE EXCESS 6.5 MMOL/L (-2.5-2.5); ABG OXYGEN SATURATION 96 % (94-100); ABG PCO2 41 MMHG (35-45); ABG PH 7.48 (7.37-7.43); ABG PO2 75 MMHG (79-93); ABG TCO2 31.4 MMOL/L (21.0-31.0)
[2020-05-08 09:26] LABS: INSPIRED O2 50%; PATIENT TEMP 36.8; VENTILATOR YES
[2020-05-08 10:59] VITALS: BP 80/72
--- NOTE | 2020-05-08 11:23 | Physical Therapy Progress Note ---
Therapy Progress Note Patient sedated and ventilated. PROM all extremities. RAZIA GILLESPIE PT May 08, 2020 11:23
--- NOTE | 2020-05-08 13:47 | NUR ---
Note pt currently intubated/sedated. Note pt currently receiving Pulmocare via 60ml bolus feeds q4h, with 30ml water flushes before and after each bolus. Would recommend increase TF by 30ml q8h as tolerated, toward goal rate of 180ml bolus feed q4h. Will continue to follow and reassess as pt needs, intake, and status change. Jules Cabrera, MS RD [phone] cell
--- NOTE | 2020-05-08 13:48 | NUR ---
THIS RN CALLED SONAL, PT'S DAUGHTER, AND PROVIDED UPDATE.
[2020-05-08] MEDS: fentaNYL DRIP PRE-MIX 250 ML IV SCH ×2 (14:26→20:42)
[2020-05-08 15:28] VITALS: BP 137/73
[2020-05-08 19:08] VITALS: BP 115/70
[2020-05-08 22:16] VITALS: BP 114/59
[2020-05-09] MEDS: NOREPINEPHRINE 4 MG/250 ML 250 ML IV SCH ×4 (02:05→19:12)
[2020-05-09] MEDS: RT-ALBUTEROL INHALER HFA (VENTOLIN HFA) 18 GM IH SCH ×4 (02:13→19:40)
[2020-05-09 02:14] VITALS: BP 105/59
[2020-05-09] MEDS: PROPOFOL DRIP (ICU) 100 ML IV SCH ×2 (02:26→14:44)
[2020-05-09] MEDS: MIDAZOLAM DRIP PRE-MIX 100 ML IV SCH (02:26)
[2020-05-09 03:24] LABS: ABG BASE EXCESS 7.9 MMOL/L (-2.5-2.5); ABG OXYGEN SATURATION 96 % (94-100); ABG PCO2 48 MMHG (35-45); ABG PH 7.44 (7.37-7.43); ABG PO2 74 MMHG (79-93); ABG TCO2 34.1 MMOL/L (21.0-31.0)
[2020-05-09 03:30] LABS: INSPIRED O2 45; PATIENT TEMP 35.8; VENTILATOR YES
[2020-05-09 03:42] LABS: ALANINE AMINOTRANSFERASE 19 U/L (0-55)
[2020-05-09 04:02] LABS: BASOPHILS % (AUTO) 0 % (0-10); EOSINOPHILS # (AUTO) 0.1 10^3/uL (0.0-0.3); EOSINOPHILS % (AUTO) 1 % (0-10); HEMATOCRIT 37 % (35-52); HEMOGLOBIN 11.5 g/dL (11.5-16.0); LYMPHOCYTES # (AUTO) 1.2 10^3/uL (1.0-4.0); LYMPHOCYTES % (AUTO) 21 % (12-44); MEAN CORPUSCULAR HEMOGLOBIN 29 pg (25-34); MEAN CORPUSCULAR HGB CONC 31 g/dL (32-36); MEAN CORPUSCULAR VOLUME 93 fL (80-99); MEAN PLATELET VOLUME 9.8 fL (9.0-12.2); MONOCYTES # (AUTO) 0.7 10^3/uL (0.0-1.0); MONOCYTES % (AUTO) 12 % (0-12); NEUTROPHILS # (AUTO) 3.7 10^3/uL (1.8-7.8); NEUTROPHILS % (AUTO) 63 % (42-75); PLATELET COUNT 222 10^3/uL (130-400); WHITE BLOOD COUNT 5.9 10^3/uL (4.3-11.0)
[2020-05-09 04:16] LABS: ALBUMIN 2.4 GM/DL (3.2-4.5); CALCIUM 7.5 MG/DL (8.5-10.1); CHLORIDE 104 MMOL/L (98-107); POTASSIUM 3.7 MMOL/L (3.6-5.0)
[2020-05-09 04:18] LABS: CREATININE SERUM 0.53 MG/DL (0.60-1.30)
[2020-05-09 04:24] LABS: BUN/CREATININE RATIO 34; CARBON DIOXIDE 27 MMOL/L (21-32); GFR ESTIMATED > 60; GLUCOSE 236 MG/DL (70-105); SODIUM 141 MMOL/L (135-145)
[2020-05-09 04:25] LABS: ALKALINE PHOSPHATASE 64 U/L (40-136); BILIRUBIN,TOTAL 0.8 MG/DL (0.1-1.0); PHOSPHORUS 2.8 MG/DL (2.3-4.7); TOTAL PROTEIN 6.1 GM/DL (6.4-8.2); TRIGLYCERIDES 181 MG/DL (<150)
[2020-05-09] MEDS: inSUlin ASPART (NovoLOG) 1 UNIT/0.01 ML (CHARGE PER UNIT) SC SCH ×6 (05:19→23:23)
[2020-05-09] MEDS: KCL 20 MEQ TAB (K-DUR) PO SCH (05:19)
[2020-05-09] MEDS: LACTATED RINGERS 1,000 ML IV SCH ×2 (05:19→15:04)
[2020-05-09] MEDS: POTASSIUM CL 10MEQ/50ML IVPB 50 ML IV SCH (05:19)
[2020-05-09] MEDS: MAGNESIUM 1 GM/100 ML IVPB 100 ML IV SCH (05:19)
--- NOTE | 2020-05-09 06:51 | Diagnostic Imaging Report ---
INDICATION: COVID pneumonia. Comparison is made with prior examination from 05/08/2020. FINDINGS: There are bilateral pulmonary infiltrates. There is some venous congestion. Heart size is normal. There is no pneumothorax. The lines and tubes are in satisfactory position. IMPRESSION: Bilateral pulmonary infiltrates compatible with COVID pneumonia. Some underlying congestive failure cannot be excluded. Dictated by: Dictated on workstation # [id number]
[2020-05-09 07:24] VITALS: BP 90/52
--- NOTE | 2020-05-09 07:35 | NUR ---
LT RADIAL ARTERIAL LINE REMOVED AT THIS TIME. ARTERIAL LINE PULLING BACK BLOOD BUT WILL NOT KEEP WAVEFORM FOR BLOOD PRESSURE MONITORING.
[2020-05-09] MEDS: dexAMETHasone 6 MG TAB (DECADRON) PO SCH (07:36)
[2020-05-09] MEDS: FAMOTIDINE 20MG/2ML IV (PEPCID) IV SCH ×2 (07:36→19:27)
[2020-05-09] MEDS: ARTIFICIAL TEARS OINT (LACRI-LUBE) 3.5 GM TUBE OU SCH ×2 (07:36→19:28)
[2020-05-09] MEDS: risperiDONE 0.25 MG (RisperDAL) TAB PO SCH ×2 (07:36→19:28)
[2020-05-09] MEDS: ENOXAPARIN 40 MG/0.4 ML (LOVENOX) SYR SC SCH ×2 (07:36→19:27)
[2020-05-09] MEDS ORDERED: METOCLOPRAMIDE INJ 10 MG/2 ML (REGLAN) ONE (09:31)
[2020-05-09] MEDS: METOCLOPRAMIDE INJ 10 MG/2 ML (REGLAN) IVP SCH ×2 (09:55→17:39)
[2020-05-09 10:37] VITALS: BP 119/76
--- NOTE | 2020-05-09 11:27 | NUR ---
THIS RN NOTIFIED DR. HESTER OF DECREASED URINE OUTPUT OF 60ML/4HR PERIOD. NO NEW ORDERS OBTAINED.
--- NOTE | 2020-05-09 11:49 | Progress Note - Hospitalist ---
Subjective HPI/CC On Admission Date Seen by Provider: May 09, 2020 Time Seen by Provider: 11:00 Pt is a 64yoCF with a PMH of NIDDMII who presented to outside ER due to SOB. She became symptomatic with COVID roughly a week ago and was diagnosed 3 days ago. She has been intermittently febrile with cough but SOB developed yesterday. She has been nauseated as well but denies vomiting. She has had poor oral intake due to nausea and loss of taste. She quit taking her metformin for a few days because of this as well. Subjective/Events-last exam Patient is prone Reviewed meds and labs Conferred with RN in room Prone position helpful Objective Exam Vital Signs Vital Signs Date Time Temp Pulse Resp B/P (MAP) Pulse Ox O2 Delivery O2 Flow Rate FiO2 05/10/20 06:00 77 24 107/66 (80) 94 Mechanical Ventilator 45.00 05/10/20 02:16 45 05/09/20 23:23 35.4 Capillary Refill : Less Than 3 Seconds General Appearance: No Apparent Distress, WD/WN, Chronically ill, Obese Respiratory: Normal Breath Sounds, Decreased Breath Sounds Cardiovascular: Regular Rate, Rhythm Neurologic/Psychiatric: Other (sedated) Results/Procedures Lab Laboratory Tests 05/10/20 03:15 Patient resulted labs reviewed. Imaging: Reviewed Imaging Films Assessment/Plan Assessment and Plan Assess & Plan/Chief Complaint Assessment and plan per Dr Crespo with my modifications in italic bold: Acute hypoxic respiratory failure due to COVID19 -S/p intubation 05/04 -Decrease VT to 350 -Repeat ABG in 1hr - Propofol and Fentanyl after intubation -OG tube and restraints. -Continue TF s/p Remdesivir and CVP - decadron -Check ABG 1hr after intubation Lovenox MAT protocol IS s/p Acute DKA -Levemir -D/C metformin and Gliparide -Pt was not on insulin prior to admission. She will need to remain on insulin after discharge. Hypokalemia/hypophos -replace Thrombocytopenia - Resolved DVT/GI ppx: Lovenox -Start prilosec Maintain prone positioning protocol Critical Care Critically Ill Patient Clinical Quality Measures DVT/VTE Risk/Contraindication: Risk Factor Score Per Nursin RFS Level Per Nursing on Admit: 4+=Very High YU SINGH DO May 09, 2020 11:49
[2020-05-09] MEDS: fentaNYL DRIP PRE-MIX 250 ML IV SCH (14:44)
[2020-05-09 14:56] VITALS: BP 120/76
[2020-05-09 19:40] VITALS: BP 114/70
[2020-05-09 21:29] VITALS: BP 109/67
[2020-05-10] MEDS: METOCLOPRAMIDE INJ 10 MG/2 ML (REGLAN) IVP SCH ×3 (02:08→17:32)
[2020-05-10 02:16] VITALS: BP 111/69
[2020-05-10] MEDS: RT-ALBUTEROL INHALER HFA (VENTOLIN HFA) 18 GM IH SCH ×4 (02:16→19:27)
[2020-05-10 03:28] LABS: ABG BASE EXCESS 7.7 MMOL/L (-2.5-2.5); ABG OXYGEN SATURATION 91 % (94-100); ABG PCO2 44 MMHG (35-45); ABG PH 7.47 (7.37-7.43); ABG PO2 57 MMHG (79-93); ABG TCO2 33.4 MMOL/L (21.0-31.0); BASOPHILS % (AUTO) 0 % (0-10); EOSINOPHILS # (AUTO) 0.3 10^3/uL (0.0-0.3); EOSINOPHILS % (AUTO) 4 % (0-10); HEMATOCRIT 40 % (35-52); HEMOGLOBIN 12.2 g/dL (11.5-16.0); LYMPHOCYTES # (AUTO) 1.4 10^3/uL (1.0-4.0); LYMPHOCYTES % (AUTO) 19 % (12-44); MEAN CORPUSCULAR HEMOGLOBIN 29 pg (25-34); MEAN CORPUSCULAR HGB CONC 30 g/dL (32-36); MEAN CORPUSCULAR VOLUME 95 fL (80-99); MEAN PLATELET VOLUME 9.7 fL (9.0-12.2); MONOCYTES # (AUTO) 0.8 10^3/uL (0.0-1.0); MONOCYTES % (AUTO) 12 % (0-12); NEUTROPHILS # (AUTO) 4.5 10^3/uL (1.8-7.8); NEUTROPHILS % (AUTO) 62 % (42-75); PLATELET COUNT 168 10^3/uL (130-400); WHITE BLOOD COUNT 7.3 10^3/uL (4.3-11.0)
[2020-05-10 03:30] LABS: ALLENS TEST POSITIVE; INSPIRED O2 70; PATIENT TEMP 35.3; VENTILATOR YES
[2020-05-10 03:38] LABS: ALBUMIN 2.5 GM/DL (3.2-4.5); CHLORIDE 101 MMOL/L (98-107); POTASSIUM 3.6 MMOL/L (3.6-5.0); SODIUM 145 MMOL/L (135-145)
[2020-05-10 03:39] LABS: CALCIUM 7.7 MG/DL (8.5-10.1)
[2020-05-10 03:40] LABS: GLUCOSE 172 MG/DL (70-105); TRIGLYCERIDES 210 MG/DL (<150)
[2020-05-10 03:41] LABS: TOTAL PROTEIN 6.3 GM/DL (6.4-8.2)
[2020-05-10 03:42] LABS: BILIRUBIN,TOTAL 0.9 MG/DL (0.1-1.0); CARBON DIOXIDE 26 MMOL/L (21-32)
[2020-05-10] MEDS: NOREPINEPHRINE 4 MG/250 ML 250 ML IV SCH ×4 (03:43→23:32)
[2020-05-10 03:44] LABS: ALKALINE PHOSPHATASE 71 U/L (40-136); CREATININE SERUM 0.51 MG/DL (0.60-1.30); GFR ESTIMATED > 60; PHOSPHORUS 2.6 MG/DL (2.3-4.7)
[2020-05-10 03:45] LABS: BUN/CREATININE RATIO 39
[2020-05-10 03:47] LABS: ALANINE AMINOTRANSFERASE 59 U/L (0-55)
[2020-05-10] MEDS: POTASSIUM CL 10MEQ/50ML IVPB 50 ML IV SCH ×5 (03:47→08:17)
[2020-05-10] MEDS: MAGNESIUM 1 GM/100 ML IVPB 100 ML IV SCH (03:47)
[2020-05-10] MEDS: KCL 20 MEQ TAB (K-DUR) PO SCH (03:48)
[2020-05-10] MEDS: inSUlin ASPART (NovoLOG) 1 UNIT/0.01 ML (CHARGE PER UNIT) SC SCH ×6 (03:50→23:13)
[2020-05-10] MEDS: PROPOFOL DRIP (ICU) 100 ML IV SCH (05:30)
[2020-05-10] MEDS: ENOXAPARIN 40 MG/0.4 ML (LOVENOX) SYR SC SCH ×2 (05:58→18:39)
[2020-05-10 07:29] VITALS: BP 117/68
[2020-05-10] MEDS: dexAMETHasone 6 MG TAB (DECADRON) PO SCH (08:16)
[2020-05-10] MEDS: ARTIFICIAL TEARS OINT (LACRI-LUBE) 3.5 GM TUBE OU SCH ×2 (08:16→21:20)
[2020-05-10] MEDS: fentaNYL DRIP PRE-MIX 250 ML IV SCH (08:16)
[2020-05-10] MEDS: risperiDONE 0.25 MG (RisperDAL) TAB PO SCH ×2 (08:16→21:19)
[2020-05-10] MEDS: FAMOTIDINE 20MG/2ML IV (PEPCID) IV SCH ×2 (08:16→21:19)
--- NOTE | 2020-05-10 08:23 | Diagnostic Imaging Report ---
CHEST 1 VIEW, AP/PA ONLY Indication: Intubation Comparison: 05/09/2020 Findings: Stable ET tube position with tip 3 cm above the katelin. The enteric tube has been retracted and has tip at the GE junction and sidehole in the lower one third of esophagus. Stable right PICC. No change in bilateral pulmonary consolidation. No pleural effusion or pneumothorax. Impression: 1. Enteric tube has been retracted and now has tip at the GE junction. Consider advancement of approximately 6 to 7 cm so that the sidehole will be within the stomach. 2. Stable position of ET tube. Dictated by: Dictated on workstation # [id number]
--- NOTE | 2020-05-10 10:00 | NUR ---
THIS RN SPOKE WITH DR. HESTER ABOUT PEEP SETTINGS AND PRONE POSITIONING. THIS RN INSTRUCTED TO ATTEMPT TO DECREASE PEEP TO 10 FROM 12 BY END OF SHIFT AND TO D/C PRONE POSITIONING.
[2020-05-10] MEDS ORDERED: FUROSEMIDE 40 MG/4 ML INJ (LASIX) IVP ONE (10:30)
[2020-05-10 11:24] VITALS: BP 116/71
--- NOTE | 2020-05-10 11:53 | Progress Note - Hospitalist ---
Subjective HPI/CC On Admission Date Seen by Provider: May 10, 2020 Time Seen by Provider: 11:00 Pt is a 64yoCF with a PMH of NIDDMII who presented to outside ER due to SOB. She became symptomatic with COVID roughly a week ago and was diagnosed 3 days ago. She has been intermittently febrile with cough but SOB developed yesterday. She has been nauseated as well but denies vomiting. She has had poor oral intake due to nausea and loss of taste. She quit taking her metformin for a few days because of this as well. Subjective/Events-last exam DC prone positioning PEEP 12 and decreasing PEEP by 2 each shift Reglan started Increasing TF since they are now tolerated better Sugars are ok Objective Exam Vital Signs Vital Signs Date Time Temp Pulse Resp B/P (MAP) Pulse Ox O2 Delivery O2 Flow Rate FiO2 05/10/20 19:43 36.9 05/10/20 19:28 89 27 94 94 05/10/20 18:00 103/66 (77) Mechanical Ventilator 85.00 Capillary Refill : Less Than 3 Seconds General Appearance: No Apparent Distress, WD/WN, Chronically ill Respiratory: Lungs Clear Cardiovascular: Regular Rate, Rhythm Results/Procedures Lab Laboratory Tests 05/10/20 03:15 Patient resulted labs reviewed. Imaging: Reviewed Imaging Films Assessment/Plan Assessment and Plan Assess & Plan/Chief Complaint Assessment and plan per Dr Crespo with my modifications in italic bold: Acute hypoxic respiratory failure due to COVID19 -S/p intubation 05/04 -Decrease VT to 350 -Repeat ABG in 1hr - Propofol and Fentanyl after intubation -OG tube and restraints. -Continue TF s/p Remdesivir and CVP - decadron -Check ABG 1hr after intubation Lovenox MAT protocol IS s/p Acute DKA -Levemir -D/C metformin and Gliparide -Pt was not on insulin prior to admission. She will need to remain on insulin after discharge. Hypokalemia/hypophos -replace Thrombocytopenia - Resolved DVT/GI ppx: Lovenox -Start prilosec DC prone positioning protocol Critical Care Critically Ill Patient Clinical Quality Measures DVT/VTE Risk/Contraindication: Risk Factor Score Per Nursin RFS Level Per Nursing on Admit: 4+=Very High YU SINGH DO May 10, 2020 11:53
[2020-05-10 14:43] VITALS: BP 110/70
--- NOTE | 2020-05-10 15:45 | NUR ---
THIS RN CALLED AND SPOKE WITH PT'S DAUGHTER, SONAL, AND PROVIDED UPDATE.
[2020-05-10 19:28] VITALS: BP 110/63
[2020-05-10 22:52] VITALS: BP 110/66
[2020-05-11] MEDS: LACTATED RINGERS 1,000 ML IV SCH (01:16)
[2020-05-11] MEDS: METOCLOPRAMIDE INJ 10 MG/2 ML (REGLAN) IVP SCH (01:18)
[2020-05-11 02:12] VITALS: BP 99/58
[2020-05-11] MEDS: RT-ALBUTEROL INHALER HFA (VENTOLIN HFA) 18 GM IH SCH ×4 (02:12→21:06)
[2020-05-11 03:31] LABS: BASOPHILS % (AUTO) 0 % (0-10); EOSINOPHILS # (AUTO) 0.1 10^3/uL (0.0-0.3); EOSINOPHILS % (AUTO) 1 % (0-10); HEMATOCRIT 37 % (35-52); HEMOGLOBIN 11.5 g/dL (11.5-16.0); LYMPHOCYTES # (AUTO) 1.4 10^3/uL (1.0-4.0); LYMPHOCYTES % (AUTO) 16 % (12-44); MEAN CORPUSCULAR HEMOGLOBIN 29 pg (25-34); MEAN CORPUSCULAR HGB CONC 31 g/dL (32-36); MEAN CORPUSCULAR VOLUME 94 fL (80-99); MEAN PLATELET VOLUME 9.8 fL (9.0-12.2); MONOCYTES # (AUTO) 0.9 10^3/uL (0.0-1.0); MONOCYTES % (AUTO) 11 % (0-12); NEUTROPHILS # (AUTO) 6.1 10^3/uL (1.8-7.8); NEUTROPHILS % (AUTO) 71 % (42-75); PLATELET COUNT 200 10^3/uL (130-400); WHITE BLOOD COUNT 8.7 10^3/uL (4.3-11.0)
[2020-05-11 03:35] LABS: ABG PCO2 44 MMHG (35-45); ABG PH 7.49 (7.37-7.43); ABG PO2 86 MMHG (79-93); ABG TCO2 35.5 MMOL/L (21.0-31.0)
[2020-05-11 03:38] LABS: ALBUMIN 2.4 GM/DL (3.2-4.5); CHLORIDE 104 MMOL/L (98-107); POTASSIUM 3.3 MMOL/L (3.6-5.0); SODIUM 144 MMOL/L (135-145)
[2020-05-11 03:40] LABS: CALCIUM 7.8 MG/DL (8.5-10.1); TRIGLYCERIDES 151 MG/DL (<150)
[2020-05-11 03:41] LABS: GLUCOSE 148 MG/DL (70-105); TOTAL PROTEIN 5.9 GM/DL (6.4-8.2)
[2020-05-11 03:42] LABS: CARBON DIOXIDE 31 MMOL/L (21-32)
[2020-05-11 03:42] LABS: ABG OXYGEN SATURATION 99 % (94-100); ALLENS TEST POSITIVE; INSPIRED O2 85; PATIENT TEMP 36.2; VENTILATOR YES
[2020-05-11 03:43] LABS: BILIRUBIN,TOTAL 1.1 MG/DL (0.1-1.0)
[2020-05-11 03:44] LABS: ALKALINE PHOSPHATASE 65 U/L (40-136); PHOSPHORUS 2.5 MG/DL (2.3-4.7)
[2020-05-11 03:45] LABS: CREATININE SERUM 0.51 MG/DL (0.60-1.30); GFR ESTIMATED > 60
[2020-05-11 03:46] LABS: BUN/CREATININE RATIO 39
[2020-05-11 03:47] LABS: ALANINE AMINOTRANSFERASE 52 U/L (0-55); MAGNESIUM 1.9 MG/DL (1.6-2.4)
[2020-05-11] MEDS: NOREPINEPHRINE 4 MG/250 ML 250 ML IV SCH (03:48)
[2020-05-11] MEDS: inSUlin ASPART (NovoLOG) 1 UNIT/0.01 ML (CHARGE PER UNIT) SC SCH ×6 (03:48→23:56)
[2020-05-11] MEDS: MAGNESIUM 1 GM/100 ML IVPB 100 ML IV SCH (03:51)
[2020-05-11] MEDS: KCL 20 MEQ TAB (K-DUR) PO SCH (04:52)
[2020-05-11] MEDS: POTASSIUM CL 10MEQ/50ML IVPB 50 ML IV SCH ×5 (04:52→08:55)
--- NOTE | 2020-05-11 05:58 | Pulmonary Progress Note ---
Subjective Time Seen by a Provider: 05:52 Sepsis Event Evaluation Height, Weight, BMI Height: '" Weight: lbs. oz. kg; 40.97 BMI Method:Estimated Exam Exam Vital Signs Date Time Temp Pulse Resp B/P (MAP) Pulse Ox O2 Delivery O2 Flow Rate FiO2 05/11/20 03:35 37.1 05/11/20 02:12 77 22 93 85 05/11/20 01:00 80 05/11/20 00:31 37.9 05/10/20 23:00 82 30 112/65 (81) 94 Mechanical Ventilator 85.00 05/10/20 22:52 81 22 93 85 05/10/20 22:00 90 27 110/64 (79) 93 Mechanical Ventilator 85.00 05/10/20 21:26 93 Mechanical Ventilator 40 05/10/20 21:00 85 106/63 (77) 93 Mechanical Ventilator 85.00 05/10/20 20:30 87 21 106/68 (81) 94 Mechanical Ventilator 85.00 05/10/20 20:15 79 109/65 (80) 94 Mechanical Ventilator 85.00 05/10/20 20:00 82 36 106/65 (80) 94 Mechanical Ventilator 85.00 05/10/20 19:45 87 28 109/64 (77) 93 Mechanical Ventilator 85.00 05/10/20 19:43 36.9 05/10/20 19:30 85 113/65 (80) 93 Mechanical Ventilator 85.00 05/10/20 19:28 89 27 94 94 05/10/20 19:15 87 26 110/63 (80) 94 Mechanical Ventilator 85.00 05/10/20 19:00 88 05/10/20 19:00 88 109/67 (82) 94 Mechanical Ventilator 85.00 05/10/20 18:00 87 25 103/66 (77) 94 Mechanical Ventilator 85.00 05/10/20 17:45 93 26 108/66 (79) 92 05/10/20 17:30 94 48 113/74 (84) 93 05/10/20 17:15 92 28 122/66 (84) 94 05/10/20 17:00 93 28 114/69 (86) 94 Mechanical Ventilator 85.00 05/10/20 16:45 93 28 112/70 (79) 93 05/10/20 16:38 Mechanical Ventilator 85.00 05/10/20 16:30 92 28 109/69 (84) 93 05/10/20 16:15 92 29 108/72 (84) 94 05/10/20 16:00 93 28 109/69 (85) 94 Mechanical Ventilator 90.00 05/10/20 15:56 36.8 05/10/20 15:45 93 19 107/71 (84) 93 05/10/20 15:42 Mechanical Ventilator 90.00 05/10/20 15:30 92 28 113/71 (86) 95 05/10/20 15:15 94 26 119/71 (85) 94 05/10/20 15:00 96 31 117/72 (85) 95 Mechanical Ventilator 50.00 05/10/20 14:45 96 29 111/67 (81) 94 05/10/20 14:43 96 31 94 95 05/10/20 14:30 102 27 110/70 (85) 90 05/10/20 14:15 97 41 111/70 (83) 90 05/10/20 14:00 93 31 118/68 (83) Mechanical Ventilator 50.00 05/10/20 13:45 98 62 124/83 (95) 90 05/10/20 13:30 98 32 109/67 (81) 95 05/10/20 13:15 94 56 111/63 (81) 94 05/10/20 13:00 92 36 113/68 (79) 89 Mechanical Ventilator 50.00 05/10/20 12:47 Mechanical Ventilator 50.00 05/10/20 12:45 92 123/74 (87) 90 05/10/20 12:36 85 05/10/20 12:30 88 29 119/69 (90) 88 05/10/20 12:15 86 122/75 (92) 89 05/10/20 12:00 84 30 121/76 (93) 89 Mechanical Ventilator 45.00 05/10/20 11:45 85 130/82 (96) 05/10/20 11:30 86 29 130/83 (98) 91 05/10/20 11:24 88 27 92 40 05/10/20 11:20 36.3 05/10/20 11:15 87 28 116/71 (87) 93 05/10/20 11:00 85 25 117/71 (84) 94 Mechanical Ventilator 45.00 05/10/20 10:45 85 24 113/71 (83) 95 05/10/20 10:30 79 30 115/82 (95) 89 05/10/20 10:15 79 21 104/68 (81) 93 05/10/20 10:00 80 23 100/66 (78) 93 Mechanical Ventilator 45.00 05/10/20 09:45 82 21 101/66 (77) 92 05/10/20 09:30 84 23 108/67 (80) 92 05/10/20 09:15 84 22 105/64 (73) 05/10/20 09:00 81 22 104/63 (77) 92 Mechanical Ventilator 45.00 05/10/20 08:45 87 23 109/69 (81) 93 05/10/20 08:30 90 24 115/67 (77) 05/10/20 08:27 93 Mechanical Ventilator 40 05/10/20 08:15 111/65 (82) 05/10/20 08:00 84 17 110/66 (79) 93 Mechanical Ventilator 45.00 05/10/20 07:52 36.6 05/10/20 07:45 89 22 112/67 (82) 94 05/10/20 07:30 117/68 (87) 05/10/20 07:29 84 22 95 40 05/10/20 07:15 78 22 107/64 (80) 95 05/10/20 07:00 78 28 119/72 (87) 93 Mechanical Ventilator 45.00 05/10/20 07:00 76 05/10/20 06:45 77 21 109/67 (79) 94 05/10/20 06:30 76 21 112/68 (81) 94 05/10/20 06:15 76 20 107/66 (80) 94 05/10/20 06:00 77 24 107/66 (80) 94 Mechanical Ventilator 45.00 I & O 05/11/20 07:00 Intake Total 995 ml Output Total 2620 ml Balance -1625 ml Height & Weight Height: '" Weight: lbs. oz. kg; 40.97 BMI Method:Estimated General Appearance: No Apparent Distress, WD/WN, Chronically ill HEENT: PERRL/EOMI, Moist Mucous Membranes; No Scleral Icterus (L), No Scleral Icterus (R) Neck: Normal Inspection, Supple Respiratory: Lungs Clear Cardiovascular: Regular Rate, Rhythm Capillary Refill: Less Than 3 Seconds Extremity: Normal Capillary Refill, No Calf Tenderness, No Pedal Edema Neurologic/Psychiatric: Other (sedated) Skin: Normal Color, Warm/Dry Results Lab Laboratory Tests 05/10/20 03:15 05/11/20 02:52 Assessment/Plan Assessment/Plan Acute hypoxic respiratory failure due to COVID19 -S/p intubation 05/04 -VT to 350, RR 20 increase PEEP to 14 -Repeat ABG in 1hr -Resume proning -- - Propofol and Fentanyl after intubation -OG tube and restraints. -Continue TF s/p Remdesivir and CVP - decadron -Check ABG 1hr after intubation Lovenox MAT protocol IS s/p Acute DKA -Levemir -D/C metformin and Gliparide -Pt was not on insulin prior to admission. She will need to remain on insulin after discharge. Hypokalemia/hypophos -replace Thrombocytopenia - Resolved DVT/GI ppx: Lovenox -Start prilosec ROSIE FRANCO DO May 11, 2020 05:58
[2020-05-11] MEDS: ARTIFICIAL TEARS OINT (LACRI-LUBE) 3.5 GM TUBE OU SCH ×2 (08:05→21:11)
[2020-05-11] MEDS: dexAMETHasone 6 MG TAB (DECADRON) PO SCH (08:06)
[2020-05-11] MEDS: risperiDONE 0.25 MG (RisperDAL) TAB PO SCH ×2 (08:06→21:09)
[2020-05-11] MEDS: ENOXAPARIN 40 MG/0.4 ML (LOVENOX) SYR SC SCH ×2 (08:06→21:09)
[2020-05-11] MEDS: FAMOTIDINE 20MG/2ML IV (PEPCID) IV SCH ×2 (08:06→21:09)
[2020-05-11 08:31] VITALS: BP 125/75
--- NOTE | 2020-05-11 08:43 | NUR ---
ASSESSMENT COMPLETE SEE FLOW SHEET, NEW OG TUBE PLACED OLD ONE NOTED TO BE LAYING IN THE BED, PLACEMENT VERIFIED. PT DROWSY UPON ARRIVAL TO ROOM IS ABLE TO FOLLOW COMMANDS, AND IS NOTED TO BE OVERBREATHING VENTILATOR. SEDATION RESTARTED AND ADJUSTED BY THIS RN. ( SEE IV FLOW SHEET). CHANGES TO VENTILATOR CHANGED BY THIS RN ORDERED BY DR FRANCO. WITH RT AT DOOR TO VERIFY CHANGES. WILL CONTINUE TO MONITOR.
[2020-05-11 09:00] LABS: ABG BASE EXCESS 7.3 MMOL/L (-2.5-2.5); ABG OXYGEN SATURATION 97 % (94-100); ABG PCO2 48 MMHG (35-45); ABG PH 7.44 (7.37-7.43); ABG PO2 88 MMHG (79-93)
[2020-05-11 09:02] LABS: PATIENT TEMP 37.4; VENTILATOR YES
[2020-05-11 09:03] LABS: ALLENS TEST YES-POS
[2020-05-11] MEDS: PROPOFOL DRIP (ICU) 100 ML IV SCH ×3 (11:12→23:52)
--- NOTE | 2020-05-11 11:45 | Physical Therapy Progress Note ---
Therapy Progress Note Non skilled PROM B U/LE in available planes. MILENA WRIGHT PT May 11, 2020 11:45
[2020-05-11] MEDS: MIDAZOLAM DRIP PRE-MIX 100 ML IV SCH (12:44)
[2020-05-11 14:10] VITALS: BP 126/81
[2020-05-11] MEDS: fentaNYL DRIP PRE-MIX 250 ML IV SCH (15:46)
--- NOTE | 2020-05-11 17:17 | NUR ---
Note pt currently receiving Pulmocare via 60ml bolus feeds q4h with 30ml water flushes before/after each bolus. Increase TF by 30ml q8h as tolerated, toward goal of 180ml bolus feeds q4h. Will continue to follow and reassess as pt needs, intake, and status change. Jules Cabrera, MS RD LD [phone] cell
--- NOTE | 2020-05-11 18:16 | NUR ---
UPDATE GIVEN TO DAUGHTER SONAL PASSWORD VERIFIED.
[2020-05-11 18:18] VITALS: BP 130/80
[2020-05-11 21:06] VITALS: BP 134/82
[2020-05-12 01:08] VITALS: BP 132/80
[2020-05-12] MEDS: RT-ALBUTEROL INHALER HFA (VENTOLIN HFA) 18 GM IH SCH ×4 (01:08→19:04)
[2020-05-12 02:26] LABS: ABG BASE EXCESS 7.6 MMOL/L (-2.5-2.5); ABG OXYGEN SATURATION 100 % (94-100); ABG PCO2 45 MMHG (35-45); ABG PH 7.46 (7.37-7.43); ABG PO2 192 MMHG (79-93); ABG TCO2 33.1 MMOL/L (21.0-31.0)
[2020-05-12 02:27] LABS: BASOPHILS % (AUTO) 0 % (0-10); EOSINOPHILS # (AUTO) 0.1 10^3/uL (0.0-0.3); EOSINOPHILS % (AUTO) 1 % (0-10); HEMATOCRIT 38 % (35-52); HEMOGLOBIN 11.8 g/dL (11.5-16.0); LYMPHOCYTES # (AUTO) 1.3 10^3/uL (1.0-4.0); LYMPHOCYTES % (AUTO) 15 % (12-44); MEAN CORPUSCULAR HEMOGLOBIN 29 pg (25-34); MEAN CORPUSCULAR HGB CONC 31 g/dL (32-36); MEAN CORPUSCULAR VOLUME 93 fL (80-99); MEAN PLATELET VOLUME 9.7 fL (9.0-12.2); MONOCYTES # (AUTO) 0.9 10^3/uL (0.0-1.0); MONOCYTES % (AUTO) 10 % (0-12); NEUTROPHILS # (AUTO) 6.7 10^3/uL (1.8-7.8); NEUTROPHILS % (AUTO) 73 % (42-75); PLATELET COUNT 196 10^3/uL (130-400); WHITE BLOOD COUNT 9.2 10^3/uL (4.3-11.0)
[2020-05-12 02:33] LABS: ALLENS TEST YES-POS; INSPIRED O2 85%; PATIENT TEMP 36.4; VENTILATOR YES
[2020-05-12 02:39] LABS: ALBUMIN 2.5 GM/DL (3.2-4.5); CHLORIDE 97 MMOL/L (98-107); POTASSIUM 3.7 MMOL/L (3.6-5.0); SODIUM 134 MMOL/L (135-145)
[2020-05-12 02:40] LABS: CALCIUM 7.8 MG/DL (8.5-10.1)
[2020-05-12 02:41] LABS: GLUCOSE 160 MG/DL (70-105); TOTAL PROTEIN 6.4 GM/DL (6.4-8.2); TRIGLYCERIDES 141 MG/DL (<150)
[2020-05-12 02:42] LABS: CARBON DIOXIDE 28 MMOL/L (21-32)
[2020-05-12 02:43] LABS: BILIRUBIN,TOTAL 1.5 MG/DL (0.1-1.0)
[2020-05-12 02:44] LABS: PHOSPHORUS 2.7 MG/DL (2.3-4.7)
[2020-05-12 02:45] LABS: ALKALINE PHOSPHATASE 75 U/L (40-136); CREATININE SERUM 0.51 MG/DL (0.60-1.30); GFR ESTIMATED > 60
[2020-05-12 02:46] LABS: BUN/CREATININE RATIO 22
[2020-05-12 02:48] LABS: ALANINE AMINOTRANSFERASE 49 U/L (0-55); MAGNESIUM 1.9 MG/DL (1.6-2.4)
[2020-05-12] MEDS: inSUlin ASPART (NovoLOG) 1 UNIT/0.01 ML (CHARGE PER UNIT) SC SCH ×5 (03:40→20:42)
--- NOTE | 2020-05-12 03:58 | Pulmonary Progress Note ---
Subjective Time Seen by a Provider: 03:53 Subjective/Events-last exam Sedated on vent. Sepsis Event Evaluation Height, Weight, BMI Height: '" Weight: lbs. oz. kg; 40.97 BMI Method:Estimated Exam Exam Vital Signs Date Time Temp Pulse Resp B/P (MAP) Pulse Ox O2 Delivery O2 Flow Rate FiO2 05/12/20 02:45 36.4 05/12/20 01:08 85 26 92 85 05/12/20 01:00 87 26 132/80 (97) 92 Mechanical Ventilator 85.00 05/12/20 01:00 87 05/12/20 00:15 82 23 113/72 (86) 92 Mechanical Ventilator 85.00 05/11/20 23:58 36.5 05/11/20 23:00 87 25 125/86 (99) 93 Mechanical Ventilator 85.00 05/11/20 22:00 91 27 125/86 (99) 94 Mechanical Ventilator 85.00 05/11/20 21:06 86 24 93 85 05/11/20 21:00 90 22 134/82 (99) 93 Mechanical Ventilator 85.00 05/11/20 20:00 94 32 130/82 (100) 94 Mechanical Ventilator 85.00 05/11/20 19:49 36.9 05/11/20 19:45 97 27 135/80 (99) 93 Mechanical Ventilator 85.00 05/11/20 19:30 94 25 126/82 (95) 93 Mechanical Ventilator 85.00 05/11/20 19:15 93 22 127/78 (94) 93 Mechanical Ventilator 85.00 05/11/20 19:00 98 05/11/20 19:00 98 20 119/80 (94) 93 Mechanical Ventilator 85.00 05/11/20 18:18 99 28 93 85 05/11/20 18:12 97 120 132/82 (99) 94 Mechanical Ventilator 85.00 05/11/20 17:18 102 79 123/82 (96) 92 Mechanical Ventilator 85.00 05/11/20 16:11 103 135/82 05/11/20 16:00 106 76 115/76 (89) 92 Mechanical Ventilator 85.00 05/11/20 15:17 37.3 05/11/20 15:00 103 78 135/82 (99) 93 Mechanical Ventilator 85.00 05/11/20 14:10 101 30 93 85 05/11/20 14:00 101 95 126/81 (96) 93 Mechanical Ventilator 85.00 05/11/20 13:00 100 51 135/86 (102) 94 Mechanical Ventilator 85.00 05/11/20 12:44 93 29 136/82 05/11/20 12:31 101 05/11/20 12:00 98 14 137/86 (103) 95 Mechanical Ventilator 85.00 05/11/20 11:26 37.3 05/11/20 11:12 93 136/82 05/11/20 11:00 90 19 136/82 (100) 97 Mechanical Ventilator 85.00 05/11/20 10:00 87 33 116/73 (87) 95 Mechanical Ventilator 85.00 05/11/20 09:00 25 108/62 (77) 96 Mechanical Ventilator 85.00 05/11/20 08:41 93 Mechanical Ventilator 40 05/11/20 08:31 85 29 94 85 05/11/20 08:00 29 118/64 (82) 90 Mechanical Ventilator 85.00 05/11/20 07:35 37.1 05/11/20 07:00 19 102/56 (71) 92 Mechanical Ventilator 85.00 05/11/20 06:51 80 05/11/20 06:00 81 27 99/62 (74) 93 Mechanical Ventilator 85.00 05/11/20 05:00 74 20 118/69 (85) 93 Mechanical Ventilator 85.00 05/11/20 04:00 73 29 117/72 (87) 91 Mechanical Ventilator 85.00 I & O 05/12/20 07:00 Intake Total 1060 ml Output Total 1575 ml Balance -515 ml Height & Weight Height: '" Weight: lbs. oz. kg; 40.97 BMI Method:Estimated General Appearance: No Apparent Distress, WD/WN, Chronically ill HEENT: PERRL/EOMI, Moist Mucous Membranes; No Scleral Icterus (L), No Scleral Icterus (R) Neck: Normal Inspection, Supple Respiratory: Lungs Clear Cardiovascular: Regular Rate, Rhythm Capillary Refill: Less Than 3 Seconds Extremity: Normal Capillary Refill, No Calf Tenderness, No Pedal Edema Neurologic/Psychiatric: Other (sedated) Skin: Normal Color, Warm/Dry Results Lab Laboratory Tests 05/11/20 02:52 05/12/20 02:00 Assessment/Plan Assessment/Plan Acute hypoxic respiratory failure due to COVID19 -S/p intubation 05/04 -VT to 350, RR 18 increase PEEP to 16 -Repeat ABG in 1hr -Resume proning -- - Propofol and Fentanyl after intubation -OG tube and restraints. -Continue TF s/p Remdesivir and CVP - decadron Lovenox MAT protocol IS Thrush -Start Diflucan s/p Acute DKA -Levemir -D/C metformin and Gliparide -Pt was not on insulin prior to admission. She will need to remain on insulin after discharge. Thrombocytopenia - Resolved DVT/GI ppx: Lovenox -Start prilosec ROSIE FRANCO DO May 12, 2020 03:58
[2020-05-12] MEDS ORDERED: FLUCONAZOLE 200 MG/100 ML 100 ML IV ONE (04:00)
[2020-05-12] MEDS ORDERED: FUROSEMIDE 40 MG/4 ML INJ (LASIX) IVP ONE (04:00)
[2020-05-12] MEDS: LACTATED RINGERS 1,000 ML IV SCH (04:44)
[2020-05-12] MEDS: PROPOFOL DRIP (ICU) 100 ML IV SCH ×2 (04:44→17:40)
[2020-05-12] MEDS: fentaNYL DRIP PRE-MIX 250 ML IV SCH ×2 (04:45→15:28)
[2020-05-12] MEDS: KCL 20 MEQ TAB (K-DUR) PO SCH (05:41)
[2020-05-12] MEDS: POTASSIUM CL 10MEQ/50ML IVPB 50 ML IV SCH (05:41)
[2020-05-12] MEDS: MAGNESIUM 1 GM/100 ML IVPB 100 ML IV SCH (05:41)
--- NOTE | 2020-05-12 08:20 | Diagnostic Imaging Report ---
EXAMINATION: Portable semierect AP chest at 2:18 AM INDICATION: Respiratory distress The appearance of the chest has improved since the prior exam of 05/10/2020 as the periphery of the right lung base does seem better aerated. There is still a thick band of atelectasis/infiltrate extending from the right hilum to the right midlung. The diffuse alveolar/interstitial infiltrates involving the left lung base and the left midlung seen previously are again evident and no different. The heart is stable in size. The supportive tubes and lines seem similar in position to the prior exam. The mediastinum is not widened. The osseous structures are intact. IMPRESSION: The appearance of the chest has improved somewhat since the prior exam as the right lung base does seem better aerated. There is still considerable involvement of both lungs by pneumonia/atelectasis, however. Follow-up study would be recommended for continued evaluation. Dictated by: Dictated on workstation # [id number]
[2020-05-12] MEDS: FAMOTIDINE 20MG/2ML IV (PEPCID) IV SCH ×2 (08:28→20:42)
[2020-05-12] MEDS: ARTIFICIAL TEARS OINT (LACRI-LUBE) 3.5 GM TUBE OU SCH ×2 (08:28→20:42)
[2020-05-12] MEDS: risperiDONE 0.25 MG (RisperDAL) TAB PO SCH ×2 (08:28→20:42)
[2020-05-12] MEDS: ENOXAPARIN 40 MG/0.4 ML (LOVENOX) SYR SC SCH ×2 (08:28→17:41)
[2020-05-12 08:38] VITALS: BP 107/70
--- NOTE | 2020-05-12 10:26 | Physical Therapy Progress Note ---
Therapy Progress Note PROM bilateral extremities all planes in supine with repositioning. Restraints in place bilateral UE. RAZIA GILLESPIE PT May 12, 2020 10:26
[2020-05-12 13:57] VITALS: BP 119/72
--- NOTE | 2020-05-12 15:41 | NUR ---
Note pt currently receiving Pulmocare via 60ml bolus feeds q4h with 30ml water flushes before/after each bolus. Recommend continue to increase TF by 30ml q8h as tolerated, toward goal rate of 180ml bolus feeds q4h. Will continue to follow and reassess as pt needs, intake, and status change. Jules Cabrera, MS RD LD [phone] cell
[2020-05-12] MEDS: ACETAMINOPHEN 325 MG TABLET PO PRN (17:58)
[2020-05-12 19:04] VITALS: BP 97/70
[2020-05-13] MEDS: inSUlin ASPART (NovoLOG) 1 UNIT/0.01 ML (CHARGE PER UNIT) SC SCH ×7 (01:03→23:25)
[2020-05-13] MEDS: fentaNYL DRIP PRE-MIX 250 ML IV SCH ×3 (01:43→19:42)
[2020-05-13 03:00] VITALS: BP 113/70
[2020-05-13] MEDS: RT-ALBUTEROL INHALER HFA (VENTOLIN HFA) 18 GM IH SCH ×4 (03:00→18:49)
[2020-05-13 03:45] LABS: BASOPHILS % (AUTO) 0 % (0-10); EOSINOPHILS # (AUTO) 0.3 10^3/uL (0.0-0.3); EOSINOPHILS % (AUTO) 3 % (0-10); HEMATOCRIT 38 % (35-52); HEMOGLOBIN 11.8 g/dL (11.5-16.0); LYMPHOCYTES # (AUTO) 1.2 10^3/uL (1.0-4.0); LYMPHOCYTES % (AUTO) 11 % (12-44); MEAN CORPUSCULAR HEMOGLOBIN 29 pg (25-34); MEAN CORPUSCULAR HGB CONC 31 g/dL (32-36); MEAN CORPUSCULAR VOLUME 93 fL (80-99); MEAN PLATELET VOLUME 10.2 fL (9.0-12.2); MONOCYTES # (AUTO) 0.7 10^3/uL (0.0-1.0); MONOCYTES % (AUTO) 7 % (0-12); NEUTROPHILS % (AUTO) 77 % (42-75); PLATELET COUNT 189 10^3/uL (130-400); WHITE BLOOD COUNT 10.4 10^3/uL (4.3-11.0)
[2020-05-13 03:50] LABS: ABG BASE EXCESS 10.4 MMOL/L (-2.5-2.5); ABG PCO2 30 MMHG (35-45); ABG PO2 61 MMHG (79-93); ABG TCO2 33.5 MMOL/L (21.0-31.0)
[2020-05-13 03:51] LABS: ABG OXYGEN SATURATION 95 % (94-100); ABG PH 7.65 (7.37-7.43)
[2020-05-13 03:52] LABS: ALLENS TEST YES-POS; INSPIRED O2 35%; PATIENT TEMP 99.4; VENTILATOR YES
[2020-05-13 04:10] LABS: CHLORIDE 96 MMOL/L (98-107); POTASSIUM 3.4 MMOL/L (3.6-5.0); SODIUM 134 MMOL/L (135-145)
[2020-05-13 04:11] LABS: CALCIUM 7.8 MG/DL (8.5-10.1)
[2020-05-13 04:12] LABS: GLUCOSE 165 MG/DL (70-105); TRIGLYCERIDES 155 MG/DL (<150)
[2020-05-13 04:13] LABS: CARBON DIOXIDE 28 MMOL/L (21-32)
[2020-05-13 04:15] LABS: PHOSPHORUS 2.8 MG/DL (2.3-4.7)
[2020-05-13 04:16] LABS: CREATININE SERUM 0.48 MG/DL (0.60-1.30); GFR ESTIMATED > 60
[2020-05-13 04:17] LABS: BUN/CREATININE RATIO 25
[2020-05-13 04:18] LABS: MAGNESIUM 1.8 MG/DL (1.6-2.4)
[2020-05-13] MEDS: MAGNESIUM 1 GM/100 ML IVPB 100 ML IV SCH (05:09)
[2020-05-13] MEDS: KCL 20 MEQ TAB (K-DUR) PO SCH (05:09)
[2020-05-13] MEDS: POTASSIUM CL 10MEQ/50ML IVPB 50 ML IV SCH ×7 (05:10→09:08)
--- NOTE | 2020-05-13 05:24 | Pulmonary Progress Note ---
Subjective Time Seen by a Provider: 05:19 Subjective/Events-last exam Sedated on vent. Sepsis Event Evaluation Height, Weight, BMI Height: '" Weight: lbs. oz. kg; 40.97 BMI Method:Estimated Exam Exam Vital Signs Date Time Temp Pulse Resp B/P (MAP) Pulse Ox O2 Delivery O2 Flow Rate FiO2 05/13/20 04:00 102 26 120/73 (89) 96 Mechanical Ventilator 30.00 05/13/20 03:37 37.4 Mechanical Ventilator 30.00 05/13/20 03:00 101 28 98 35 05/13/20 03:00 101 28 113/70 (82) 98 Mechanical Ventilator 35.00 05/13/20 02:00 103 26 106/68 (81) 97 Mechanical Ventilator 35.00 05/13/20 01:04 37.2 Mechanical Ventilator 35.00 05/13/20 01:00 96 24 99/62 (74) 97 Mechanical Ventilator 40.00 05/13/20 01:00 96 05/13/20 00:00 96 24 92/58 (69) 93 Mechanical Ventilator 40.00 05/12/20 23:00 98 24 99/56 (70) 92 Mechanical Ventilator 40.00 05/12/20 22:00 102 26 102/63 (76) 97 Mechanical Ventilator 40.00 05/12/20 21:00 Mechanical Ventilator 40 05/12/20 21:00 105 28 101/67 (78) 97 Mechanical Ventilator 40.00 05/12/20 20:41 Mechanical Ventilator 40.00 05/12/20 20:00 104 29 99/67 (79) 97 Mechanical Ventilator 50.00 05/12/20 19:45 103 27 104/69 (79) 97 Mechanical Ventilator 50.00 05/12/20 19:30 105 27 100/67 (77) 98 Mechanical Ventilator 50.00 05/12/20 19:27 38.2 05/12/20 19:15 105 29 96/63 (72) 97 Mechanical Ventilator 50.00 05/12/20 19:15 38.2 05/12/20 19:04 105 27 96 50 05/12/20 19:00 105 05/12/20 19:00 105 28 97/70 (77) 97 Mechanical Ventilator 50.00 05/12/20 19:00 Mechanical Ventilator 50.00 05/12/20 18:00 108 28 121/73 (89) 97 Mechanical Ventilator 70.00 05/12/20 17:58 38.6 05/12/20 17:40 92 134/79 05/12/20 17:00 103 32 129/76 (93) 96 Mechanical Ventilator 70.00 05/12/20 16:00 92 27 134/79 (97) 98 Mechanical Ventilator 70.00 05/12/20 15:00 93 25 116/69 (85) 98 Mechanical Ventilator 70.00 05/12/20 14:00 81 28 120/69 (86) 98 Mechanical Ventilator 70.00 05/12/20 13:57 82 26 96 60 05/12/20 13:00 82 20 119/72 (88) 99 Mechanical Ventilator 70.00 05/12/20 12:00 86 05/12/20 12:00 85 20 115/72 (86) 100 Mechanical Ventilator 70.00 05/12/20 11:00 78 20 108/69 (82) 93 Mechanical Ventilator 70.00 05/12/20 10:00 84 20 94/64 (74) 92 Mechanical Ventilator 70.00 05/12/20 09:00 86 32 109/71 (84) 96 Mechanical Ventilator 70.00 05/12/20 08:45 Mechanical Ventilator 70 05/12/20 08:38 78 20 91 70 05/12/20 08:20 35.4 05/12/20 08:00 77 115/81 (92) 92 Mechanical Ventilator 70.00 05/12/20 07:42 76 05/12/20 07:00 86 56 104/72 (83) 92 Mechanical Ventilator 70.00 05/12/20 06:00 87 26 132/80 (97) 92 Mechanical Ventilator 70.00 I & O 05/13/20 07:00 Intake Total 720 ml Output Total 1425 ml Balance -705 ml Height & Weight Height: '" Weight: lbs. oz. kg; 40.97 BMI Method:Estimated General Appearance: No Apparent Distress, WD/WN, Chronically ill HEENT: PERRL/EOMI, Moist Mucous Membranes; No Scleral Icterus (L), No Scleral Icterus (R) Neck: Normal Inspection, Supple Respiratory: Lungs Clear Cardiovascular: Regular Rate, Rhythm Capillary Refill: Less Than 3 Seconds Extremity: Normal Capillary Refill, No Calf Tenderness, No Pedal Edema Neurologic/Psychiatric: Other (sedated) Skin: Normal Color, Warm/Dry Results Lab Laboratory Tests 05/12/20 02:00 05/13/20 03:10 Assessment/Plan Assessment/Plan Acute hypoxic respiratory failure due to COVID19 -S/p intubation 05/04 -VT to 350, RR 18 Decrease PEEP to 14 -Repeat ABG in 1hr -Decrease VT to 300 secondary to ABG results and repeat ABG in 1hr. -Resume proning -- - Propofol and Fentanyl after intubation -OG tube and restraints. -Continue TF s/p Remdesivir and CVP - decadron Lovenox MAT protocol IS Thrush -Start Diflucan s/p Acute DKA -Levemir -D/C metformin and Gliparide -Pt was not on insulin prior to admission. She will need to remain on insulin after discharge. Thrombocytopenia - Resolved DVT/GI ppx: Lovenox -Start prilosec ROSIE FRANCO DO May 13, 2020 05:24
[2020-05-13] MEDS: LACTATED RINGERS 1,000 ML IV SCH (06:11)
[2020-05-13] MEDS: ENOXAPARIN 40 MG/0.4 ML (LOVENOX) SYR SC SCH ×2 (06:15→19:34)
[2020-05-13 07:27] VITALS: BP 114/78
[2020-05-13] MEDS: risperiDONE 0.25 MG (RisperDAL) TAB PO SCH ×2 (08:08→19:35)
[2020-05-13] MEDS: FAMOTIDINE 20MG/2ML IV (PEPCID) IV SCH ×2 (08:08→19:34)
[2020-05-13] MEDS: FLUCONAZOLE 200 MG/100 ML 50 ML, EMPTY IV BAG (PVC) 1 EA IV SCH ×2 (08:08)
[2020-05-13] MEDS: ARTIFICIAL TEARS OINT (LACRI-LUBE) 3.5 GM TUBE OU SCH ×2 (08:10→19:34)
[2020-05-13] MEDS: ACETAMINOPHEN 325 MG TABLET PO PRN (08:36)
--- NOTE | 2020-05-13 08:36 | Diagnostic Imaging Report ---
EXAMINATION: Portable erect AP chest at 2:27 AM INDICATION: Respiratory failure The dense alveolar/interstitial infiltrates involving the left lung base in the periphery of the left midlung seen on the prior study of 05/12/2020 are again evident and essentially no different. There is perhaps somewhat greater involvement of the right midlung by pneumonia/atelectasis than noted on prior exam. The upper lungs remain clear. The heart is stable. In the interval since the prior exam, the ET tube tip has been retracted. The tip now lies just below the thoracic inlet and appears to be in good position. The other supportive tubes and lines are unchanged. The osseous structures are intact. IMPRESSION: The overall appearance of the chest has not changed significantly since the prior exam. There may be slightly greater involvement of the right mid lung by pneumonia/atelectasis, however. Dictated by: Dictated on workstation # [id number]
[2020-05-13 08:47] LABS: ABG BASE EXCESS 6.9 MMOL/L (-2.5-2.5); ABG OXYGEN SATURATION 89 % (94-100); ABG PCO2 47 MMHG (35-45); ABG PH 7.44 (7.37-7.43); ABG PO2 62 MMHG (79-93); ABG TCO2 32.1 MMOL/L (21.0-31.0)
[2020-05-13 08:47] LABS: BILIRUBIN,URINE 1+ (NEGATIVE); CLARITY,URINE SL CLOUDY; COLOR,URINE AMBER; GLUCOSE, URINE (UA) TRACE (NEGATIVE); KETONES,URINE 1+ (NEGATIVE); LEUKOCYTE ESTERASE ,URINE TRACE (NEGATIVE); NITRITE,URINE NEGATIVE (NEGATIVE); PH,URINE 6.5 (5-9); PROTEIN,URINE TRACE (NEGATIVE)
[2020-05-13 08:48] LABS: ALLENS TEST YES-POS
[2020-05-13 08:49] LABS: INSPIRED O2 30%; PATIENT TEMP 101.2; VENTILATOR YES
[2020-05-13 09:28] LABS: BACTERIA,URINE FEW /HPF
[2020-05-13 09:29] LABS: YEAST,URINE LARGE /HPF
[2020-05-13 11:14] VITALS: BP 118/81
--- NOTE | 2020-05-13 11:36 | Physical Therapy Progress Note ---
Therapy Progress Note PT performed PROM to bilateral extremities, restraints on at the end of tx. Proper PPE donned before entering room. Patient O2 sats did not decrease during ROM. NOY DUARTE PT May 13, 2020 11:36
[2020-05-13] MEDS: MIDAZOLAM DRIP PRE-MIX 100 ML IV SCH (12:32)
--- NOTE | 2020-05-13 14:18 | NUR ---
DAUGHTER CALLED PASSWORD VERIFIED, UPDATE GIVEN.
[2020-05-13 15:40] VITALS: BP 100/68
[2020-05-13 18:49] VITALS: BP 111/74
[2020-05-13 21:49] VITALS: BP 133/73
[2020-05-14 02:14] VITALS: BP 135/79
[2020-05-14] MEDS: RT-ALBUTEROL INHALER HFA (VENTOLIN HFA) 18 GM IH SCH ×4 (02:14→19:27)
[2020-05-14] MEDS: fentaNYL DRIP PRE-MIX 250 ML IV SCH ×3 (02:47→17:34)
[2020-05-14] MEDS: LACTATED RINGERS 1,000 ML IV SCH ×2 (02:50→14:07)
[2020-05-14] MEDS: ACETAMINOPHEN 325 MG TABLET PO PRN ×2 (02:56→21:24)
[2020-05-14 03:06] LABS: ABG BASE EXCESS 4.9 MMOL/L (-2.5-2.5); ABG OXYGEN SATURATION 91 % (94-100); ABG PCO2 51 MMHG (35-45); ABG PH 7.39 (7.37-7.43); ABG PO2 68 MMHG (79-93); ABG TCO2 30.8 MMOL/L (21.0-31.0)
[2020-05-14 03:07] LABS: ALLENS TEST YES-POS; BASOPHILS % (AUTO) 0 % (0-10); EOSINOPHILS # (AUTO) 0.3 10^3/uL (0.0-0.3); EOSINOPHILS % (AUTO) 3 % (0-10); HEMATOCRIT 36 % (35-52); HEMOGLOBIN 11.2 g/dL (11.5-16.0); INSPIRED O2 40%; LYMPHOCYTES % (AUTO) 11 % (12-44); MEAN CORPUSCULAR HEMOGLOBIN 29 pg (25-34); MEAN CORPUSCULAR HGB CONC 31 g/dL (32-36); MEAN CORPUSCULAR VOLUME 93 fL (80-99); MEAN PLATELET VOLUME 10.5 fL (9.0-12.2); MONOCYTES # (AUTO) 0.7 10^3/uL (0.0-1.0); MONOCYTES % (AUTO) 8 % (0-12); NEUTROPHILS # (AUTO) 7.1 10^3/uL (1.8-7.8); NEUTROPHILS % (AUTO) 77 % (42-75); PATIENT TEMP 38.3; PLATELET COUNT 183 10^3/uL (130-400); VENTILATOR YES; WHITE BLOOD COUNT 9.2 10^3/uL (4.3-11.0)
[2020-05-14 03:30] LABS: BUN/CREATININE RATIO 20; CALCIUM 7.3 MG/DL (8.5-10.1); CARBON DIOXIDE 26 MMOL/L (21-32); CHLORIDE 103 MMOL/L (98-107); CREATININE SERUM 0.44 MG/DL (0.60-1.30); GFR ESTIMATED > 60; GLUCOSE 153 MG/DL (70-105); MAGNESIUM 1.9 MG/DL (1.6-2.4); PHOSPHORUS 2.1 MG/DL (2.3-4.7); POTASSIUM 3.6 MMOL/L (3.6-5.0); SODIUM 137 MMOL/L (135-145); TRIGLYCERIDES 136 MG/DL (<150)
[2020-05-14] MEDS: KCL 20 MEQ TAB (K-DUR) PO SCH (03:42)
[2020-05-14] MEDS: POTASSIUM CL 10MEQ/50ML IVPB 50 ML IV SCH (03:42)
[2020-05-14] MEDS: MAGNESIUM 1 GM/100 ML IVPB 100 ML IV SCH (03:42)
[2020-05-14] MEDS: inSUlin ASPART (NovoLOG) 1 UNIT/0.01 ML (CHARGE PER UNIT) SC SCH ×6 (04:02→23:28)
--- NOTE | 2020-05-14 05:26 | Pulmonary Progress Note ---
Subjective Time Seen by a Provider: 05:20 Subjective/Events-last exam Pt is sedated on vent. Sepsis Event Evaluation Height, Weight, BMI Height: '" Weight: lbs. oz. kg; 40.97 BMI Method:Estimated Exam Exam Vital Signs Date Time Temp Pulse Resp B/P (MAP) Pulse Ox O2 Delivery O2 Flow Rate FiO2 05/14/20 03:16 38.0 05/14/20 03:16 38.0 05/14/20 03:08 38.3 05/14/20 02:56 38.3 05/14/20 02:14 105 30 94 40 05/14/20 01:00 103 05/13/20 23:00 37.1 05/13/20 23:00 92 23 124/74 (91) 96 Mechanical Ventilator 40.00 05/13/20 22:00 93 28 132/74 (93) 93 Mechanical Ventilator 40.00 05/13/20 21:49 93 24 94 30 05/13/20 21:00 89 25 119/76 (90) 97 Mechanical Ventilator 40.00 05/13/20 20:57 Mechanical Ventilator 40.00 05/13/20 20:14 Mechanical Ventilator 30 05/13/20 20:04 36.2 05/13/20 20:00 89 22 112/69 (83) 96 Mechanical Ventilator 30.00 05/13/20 19:41 Mechanical Ventilator 30.00 05/13/20 19:00 90 05/13/20 19:00 89 20 111/70 (84) 96 Mechanical Ventilator 30.00 05/13/20 18:49 89 22 95 30 05/13/20 18:09 89 25 111/74 (86) 96 Mechanical Ventilator 30.00 05/13/20 17:00 89 22 104/69 (81) 94 Mechanical Ventilator 30.00 05/13/20 16:44 36.6 05/13/20 16:00 91 23 109/70 (83) 93 Mechanical Ventilator 30.00 05/13/20 15:40 92 24 93 30 05/13/20 15:00 94 23 102/66 (78) 92 Mechanical Ventilator 30.00 05/13/20 14:00 98 25 101/69 (80) 91 Mechanical Ventilator 30.00 05/13/20 13:00 105 25 113/75 (88) 92 Mechanical Ventilator 30.00 05/13/20 12:33 102 05/13/20 12:32 100 25 115/77 05/13/20 12:21 37.0 05/13/20 12:00 100 25 118/70 (86) 91 Mechanical Ventilator 30.00 05/13/20 11:14 103 28 94 30 05/13/20 11:00 102 25 105/70 (82) 94 Mechanical Ventilator 30.00 05/13/20 10:00 101 26 95/61 (72) 90 Mechanical Ventilator 30.00 05/13/20 09:04 37.9 05/13/20 09:00 112 43 123/79 (94) 87 Mechanical Ventilator 30.00 05/13/20 08:36 38.4 05/13/20 08:35 Mechanical Ventilator 30 05/13/20 08:00 113 32 108/68 (81) 91 Mechanical Ventilator 30.00 05/13/20 07:40 38.0 05/13/20 07:27 107 28 95 30 05/13/20 07:00 105 27 109/72 (84) 95 Mechanical Ventilator 30.00 05/13/20 06:42 106 05/13/20 06:00 102 25 101/63 (76) 89 Mechanical Ventilator 30.00 I & O 05/14/20 07:00 Intake Total 1010 ml Output Total 1220 ml Balance -210 ml Height & Weight Height: '" Weight: lbs. oz. kg; 40.97 BMI Method:Estimated General Appearance: No Apparent Distress, WD/WN, Chronically ill HEENT: PERRL/EOMI, Moist Mucous Membranes; No Scleral Icterus (L), No Scleral Icterus (R) Neck: Normal Inspection, Supple Respiratory: Lungs Clear Cardiovascular: Regular Rate, Rhythm Capillary Refill: Less Than 3 Seconds Extremity: Normal Capillary Refill, No Calf Tenderness, No Pedal Edema Neurologic/Psychiatric: Other (sedated) Skin: Normal Color, Warm/Dry Results Lab Laboratory Tests 05/13/20 03:10 05/14/20 02:58 Assessment/Plan Assessment/Plan Acute hypoxic respiratory failure due to COVID19 -S/p intubation 05/04 -VT to 300 , RR 18 Decrease PEEP to 14 -Repeat ABG in 1hr -Resume proning - Propofol and Fentanyl after intubation -OG tube and restraints. -Continue TF s/p Remdesivir and CVP - decadron Lovenox MAT protocol IS PNA - worsening -Pt has copious sputum production and fevers -Start Zosyn and Vanco 05/14 -Repeat partida cultures Thrush - Diflucan s/p Acute DKA -Levemir -D/C metformin and Gliparide -Pt was not on insulin prior to admission. She will need to remain on insulin after discharge. Thrombocytopenia - Resolved DVT/GI ppx: Lovenox -Start prilosec ROSIE FRANCO DO May 14, 2020 05:26
[2020-05-14] MEDS ORDERED: PHARMACY TO DOSE IV SCH (05:30)
[2020-05-14] MEDS ORDERED: PIPERACILLIN/TAZO 4.5 GM VIAL (ZOSYN) IV ONE (05:41)
[2020-05-14] MEDS ORDERED: NS (IVPB) 100 ML ONE (05:42)
[2020-05-14] MEDS ORDERED: VANCOMYCIN 1000 MG/VIAL ONE (05:45)
[2020-05-14] MEDS ORDERED: NS IV 500 ML 500 ML ONE (05:45)
[2020-05-14] MEDS ORDERED: PIPERACILLIN/TAZOBACTAM (BULK) 4.5 GM in NS (IVPB) 100 ML IV SCH (06:00)
[2020-05-14] MEDS ORDERED: VANCOMYCIN INJECTION 2,000 MG in NS IV 500 ML 500 ML IV SCH (06:00)
[2020-05-14] MEDS: MIDAZOLAM DRIP PRE-MIX 100 ML IV SCH ×2 (06:07→19:46)
[2020-05-14] MEDS: ENOXAPARIN 40 MG/0.4 ML (LOVENOX) SYR SC SCH ×2 (06:08→17:29)
--- NOTE | 2020-05-14 07:34 | Diagnostic Imaging Report ---
CHEST 1 VIEW, AP/PA ONLY Indication: Respiratory failure, COVID 19 pneumonia Comparison: 05/13/2020 Findings: Stable ET and enteric tubes. Stable right PICC. Bilateral pulmonary consolidations have not substantially changed allowing for differences in technique. No pleural effusion or pneumothorax. Stable cardiac mediastinal silhouette. Impression: 1. Stable support devices. 2. No substantial change in pulmonary consolidations. Report was faxed to [facility] by carmen at 7:33am. Dictated by: Dictated on workstation # [id number]
[2020-05-14] MEDS: FLUCONAZOLE 200 MG/100 ML 50 ML, EMPTY IV BAG (PVC) 1 EA IV SCH ×2 (08:01)
[2020-05-14] MEDS: risperiDONE 0.25 MG (RisperDAL) TAB PO SCH ×2 (08:02→19:39)
[2020-05-14] MEDS: METOCLOPRAMIDE INJ 10 MG/2 ML (REGLAN) IVP SCH ×2 (08:02→19:38)
[2020-05-14] MEDS: FAMOTIDINE 20MG/2ML IV (PEPCID) IV SCH ×2 (08:02→19:39)
[2020-05-14] MEDS: ARTIFICIAL TEARS OINT (LACRI-LUBE) 3.5 GM TUBE OU SCH ×2 (08:03→19:39)
[2020-05-14] MEDS ORDERED: POTASSIUM PHOSPHATE INJ 30 MM in NS (IVPB) 250 ML IV ONE (09:00)
--- NOTE | 2020-05-14 09:02 | NUR ---
VANCOMYCIN DOSING SCR 0.44 (USED 1.0); ADJ BW 73 KG; CRCL ~ 66; BOLUS VANC 2 GM GIVEN THEN VANC 15 MG/KG X 109 KG ~ 1500 MG Q12H CHECK TROUGH LEVEL 05/15 1700 HOLD DOSE AND CONTACT PHARMACY IF LEVEL IS GREATER THAN 20 OR LESS THEN 10
--- NOTE | 2020-05-14 09:30 | Physical Therapy Progress Note ---
Therapy Progress Note PT performed PROM to bilateral extremities, has increasing tightness in BLE, restraints on at the end of tx. Proper PPE donned before entering room. Patient O2 sats did not decrease during ROM. NOY DUARTE PT May 14, 2020 09:30
[2020-05-14] MEDS: PIPERACILLIN/TAZOBACTAM (BULK) 4.5 GM in NS (IVPB) 100 ML IV SCH ×2 (13:07→19:38)
[2020-05-14 15:03] VITALS: BP 124/68
[2020-05-14] MEDS: VANCOMYCIN 1500 MG/NS 500 ML IVPB IV SCH ×2 (17:29)
[2020-05-14 19:27] VITALS: BP 113/65
[2020-05-14 21:20] VITALS: BP 142/95
[2020-05-15] MEDS: fentaNYL DRIP PRE-MIX 250 ML IV SCH ×3 (00:57→16:40)
[2020-05-15 01:31] VITALS: BP 139/82
[2020-05-15] MEDS: RT-ALBUTEROL INHALER HFA (VENTOLIN HFA) 18 GM IH SCH ×4 (01:31→18:56)
[2020-05-15 02:19] LABS: BASOPHILS % (AUTO) 0 % (0-10); EOSINOPHILS # (AUTO) 0.3 10^3/uL (0.0-0.3); EOSINOPHILS % (AUTO) 3 % (0-10); HEMATOCRIT 34 % (35-52); HEMOGLOBIN 10.4 g/dL (11.5-16.0); LYMPHOCYTES # (AUTO) 1.3 10^3/uL (1.0-4.0); LYMPHOCYTES % (AUTO) 15 % (12-44); MEAN CORPUSCULAR HEMOGLOBIN 29 pg (25-34); MEAN CORPUSCULAR HGB CONC 31 g/dL (32-36); MEAN CORPUSCULAR VOLUME 94 fL (80-99); MEAN PLATELET VOLUME 9.9 fL (9.0-12.2); MONOCYTES # (AUTO) 0.9 10^3/uL (0.0-1.0); MONOCYTES % (AUTO) 10 % (0-12); NEUTROPHILS # (AUTO) 6.1 10^3/uL (1.8-7.8); NEUTROPHILS % (AUTO) 71 % (42-75); PLATELET COUNT 174 10^3/uL (130-400); WHITE BLOOD COUNT 8.7 10^3/uL (4.3-11.0)
[2020-05-15 02:20] LABS: ABG BASE EXCESS 4.3 MMOL/L (-2.5-2.5); ABG OXYGEN SATURATION 97 % (94-100); ABG PCO2 50 MMHG (35-45); ABG PH 7.38 (7.37-7.43); ABG PO2 90 MMHG (79-93); ABG TCO2 30.6 MMOL/L (21.0-31.0)
[2020-05-15 02:22] LABS: ALLENS TEST YES-POS; VENTILATOR YES
[2020-05-15 02:25] LABS: CHLORIDE 105 MMOL/L (98-107); POTASSIUM 3.5 MMOL/L (3.6-5.0); SODIUM 139 MMOL/L (135-145)
[2020-05-15 02:26] LABS: CALCIUM 7.3 MG/DL (8.5-10.1)
[2020-05-15 02:27] LABS: GLUCOSE 139 MG/DL (70-105); TRIGLYCERIDES 145 MG/DL (<150)
[2020-05-15 02:28] LABS: CARBON DIOXIDE 26 MMOL/L (21-32)
[2020-05-15 02:30] LABS: CREATININE SERUM 0.47 MG/DL (0.60-1.30); GFR ESTIMATED > 60; PHOSPHORUS 2.6 MG/DL (2.3-4.7)
[2020-05-15 02:31] LABS: BUN/CREATININE RATIO 15
[2020-05-15 02:33] LABS: MAGNESIUM 1.9 MG/DL (1.6-2.4)
[2020-05-15] MEDS: PIPERACILLIN/TAZOBACTAM (BULK) 4.5 GM in NS (IVPB) 100 ML IV SCH ×3 (04:01→20:33)
[2020-05-15] MEDS: inSUlin ASPART (NovoLOG) 1 UNIT/0.01 ML (CHARGE PER UNIT) SC SCH ×5 (04:01→20:27)
[2020-05-15] MEDS: KCL 20 MEQ TAB (K-DUR) PO SCH (04:10)
[2020-05-15] MEDS: MAGNESIUM 1 GM/100 ML IVPB 100 ML IV SCH (04:10)
[2020-05-15] MEDS: POTASSIUM CL 10MEQ/50ML IVPB 50 ML IV SCH ×5 (04:10→08:55)
--- NOTE | 2020-05-15 04:41 | Pulmonary Progress Note ---
Subjective Time Seen by a Provider: 04:36 Subjective/Events-last exam Pt is sedated on vent. Sepsis Event Evaluation Height, Weight, BMI Height: '" Weight: lbs. oz. kg; 40.97 BMI Method:Estimated Exam Exam Vital Signs Date Time Temp Pulse Resp B/P (MAP) Pulse Ox O2 Delivery O2 Flow Rate FiO2 05/15/20 04:00 86 19 117/69 (85) 99 Mechanical Ventilator 45.00 05/15/20 03:00 91 22 130/76 (94) 100 Mechanical Ventilator 45.00 05/15/20 02:08 Mechanical Ventilator 45.00 05/15/20 02:00 88 19 135/80 (98) 100 Mechanical Ventilator 55.00 05/15/20 01:31 96 25 99 55 05/15/20 01:00 91 05/15/20 01:00 90 18 112/66 (81) 95 Mechanical Ventilator 55.00 05/15/20 00:00 93 20 116/65 (82) 95 Mechanical Ventilator 55.00 05/14/20 23:00 101 23 115/66 (82) 98 Mechanical Ventilator 55.00 05/14/20 22:00 103 22 127/69 (88) 100 Mechanical Ventilator 55.00 05/14/20 21:54 38.1 05/14/20 21:24 37.7 05/14/20 21:23 Mechanical Ventilator 55.00 05/14/20 21:20 116 44 94 55 05/14/20 21:07 Mechanical Ventilator 50.00 05/14/20 21:00 107 24 142/95 (111) 98 Mechanical Ventilator 40.00 05/14/20 20:10 Mechanical Ventilator 30 05/14/20 20:00 89 22 139/71 (93) 94 Mechanical Ventilator 40.00 05/14/20 19:46 89 137/77 05/14/20 19:36 36.8 Mechanical Ventilator 40.00 05/14/20 19:27 86 24 98 40 05/14/20 19:00 85 21 113/65 (81) 95 Mechanical Ventilator 40.00 05/14/20 19:00 85 05/14/20 18:00 87 24 117/66 (83) 94 Mechanical Ventilator 40.00 05/14/20 17:00 84 21 106/65 (79) 94 Mechanical Ventilator 40.00 05/14/20 16:00 84 19 107/68 (81) 92 Mechanical Ventilator 40.00 05/14/20 15:46 36.5 05/14/20 15:03 89 25 93 40 05/14/20 15:00 90 24 124/68 (86) 93 Mechanical Ventilator 40.00 05/14/20 14:00 85 19 113/69 (84) 95 Mechanical Ventilator 40.00 05/14/20 13:00 87 05/14/20 13:00 84 20 111/65 (80) 95 Mechanical Ventilator 40.00 05/14/20 12:00 85 21 112/67 (82) 94 Mechanical Ventilator 40.00 05/14/20 11:33 36.8 05/14/20 11:00 86 22 108/67 (81) 95 Mechanical Ventilator 40.00 05/14/20 10:15 90 25 100 40 05/14/20 10:00 84 19 108/68 (81) 92 Mechanical Ventilator 40.00 05/14/20 09:00 Mechanical Ventilator 30 05/14/20 09:00 86 21 111/67 (82) 93 Mechanical Ventilator 40.00 05/14/20 08:00 87 20 113/70 (84) 93 Mechanical Ventilator 40.00 05/14/20 07:29 36.6 05/14/20 07:23 86 22 94 40 05/14/20 07:00 87 05/14/20 07:00 88 21 116/66 (83) 94 Mechanical Ventilator 40.00 05/14/20 06:07 86 05/14/20 06:00 87 19 98/64 (75) 93 Mechanical Ventilator 40.00 05/14/20 05:00 89 26 98/64 (75) 94 Mechanical Ventilator 40.00 I & O 05/15/20 07:00 Intake Total 570 ml Output Total 1150 ml Balance -580 ml Height & Weight Height: '" Weight: lbs. oz. kg; 40.97 BMI Method:Estimated General Appearance: No Apparent Distress, WD/WN, Chronically ill HEENT: PERRL/EOMI, Moist Mucous Membranes; No Scleral Icterus (L), No Scleral Icterus (R) Neck: Normal Inspection, Supple Respiratory: Lungs Clear Cardiovascular: Regular Rate, Rhythm Capillary Refill: Less Than 3 Seconds Extremity: Normal Capillary Refill, No Calf Tenderness, No Pedal Edema Neurologic/Psychiatric: Other (sedated) Skin: Normal Color, Warm/Dry Results Lab Laboratory Tests 05/14/20 02:58 05/15/20 02:05 Assessment/Plan Assessment/Plan Acute hypoxic respiratory failure due to COVID19 -S/p intubation 05/04 -VT to 300 , RR 18 Decrease PEEP to 14 -- decrease to 12 -Repeat ABG in 1hr -Resume proning - Propofol and Fentanyl after intubation -OG tube and restraints. -Continue TF s/p Remdesivir and CVP - decadron Lovenox MAT protocol IS PNA - worsening -Pt has copious sputum production and fevers -Zosyn and Vanco 05/14 -Repeat partida cultures Thrush - Diflucan s/p Acute DKA -Levemir -D/C metformin and Gliparide -Pt was not on insulin prior to admission. She will need to remain on insulin after discharge. Thrombocytopenia - Resolved DVT/GI ppx: Lovenox -Start prilosec ROSIE FRANCO DO May 15, 2020 04:41
[2020-05-15] MEDS: VANCOMYCIN 1500 MG/NS 500 ML IVPB IV SCH ×2 (05:15)
[2020-05-15] MEDS: ENOXAPARIN 40 MG/0.4 ML (LOVENOX) SYR SC SCH ×2 (05:15→19:00)
--- NOTE | 2020-05-15 05:39 | Diagnostic Imaging Report ---
Indication: Respiratory failure Portable chest 1:25 AM There is ET tube projects over the trachea. NG tube projects over the stomach. Right upper extremity PICC line tip projects over the SVC. There are peripheral infiltrates in the left lung. There are infiltrates in the right midlung. There are no effusions. IMPRESSION: Bilateral pulmonary infiltrates. These appear slightly improved compared to the previous day. Dictated by: Dictated on workstation # [id number]
[2020-05-15 08:19] VITALS: BP 111/65
[2020-05-15] MEDS: MICONAZOLE 2% POWDER (DESENEX AF) 90 GM TOP SCH ×2 (08:50→20:34)
[2020-05-15] MEDS: FLUCONAZOLE 200 MG/100 ML 50 ML, EMPTY IV BAG (PVC) 1 EA IV SCH ×4 (08:51→09:20)
[2020-05-15] MEDS: METOCLOPRAMIDE INJ 10 MG/2 ML (REGLAN) IVP SCH ×2 (08:51→20:33)
[2020-05-15] MEDS: risperiDONE 0.25 MG (RisperDAL) TAB PO SCH ×2 (08:52→20:34)
[2020-05-15] MEDS: FAMOTIDINE 20MG/2ML IV (PEPCID) IV SCH ×2 (08:52→20:33)
[2020-05-15] MEDS: ARTIFICIAL TEARS OINT (LACRI-LUBE) 3.5 GM TUBE OU SCH ×2 (08:54→20:33)
[2020-05-15] MEDS: MIDAZOLAM DRIP PRE-MIX 100 ML IV SCH (08:58)
--- NOTE | 2020-05-15 09:24 | Physical Therapy Progress Note ---
Therapy Progress Note PROM bilateral extremities in supine. Restraints in place bilateral UE. RAZIA GILLESPIE PT May 15, 2020 09:24
[2020-05-15 11:43] VITALS: BP 156/84
--- NOTE | 2020-05-15 13:52 | NUR ---
Note pt currently receiving [facility] via 60ml bolus feeds q4h with 30ml water flushes before/after each bolus. Luis Antonio SCOTT states pt having some difficulties with receiving TF while prone. Recommend that pt only be fed while supine. Continue to increase TF by 30ml q8h as tolerated, toward goal rate of 180ml bolus feeds q4h. Will continue to follow and reassess as pt needs, intake, and status change. Jules Cabrera, MS RD LD [phone]
--- NOTE | 2020-05-15 14:40 | NUR ---
CONTACTED PT FAMILY AND SPOKE TO SONAL. UPDATED FAMILY ON PT CURRENT STATUS.
[2020-05-15 14:51] VITALS: BP 132/77
[2020-05-15] MEDS ORDERED: TROUGH ORDER-PHARMACY XX NR (17:00)
[2020-05-15] MEDS: ACETAMINOPHEN 325 MG TABLET PO PRN (18:39)
[2020-05-15 18:56] VITALS: BP 132/73
[2020-05-15 22:26] VITALS: BP 120/67
[2020-05-16] MEDS: inSUlin ASPART (NovoLOG) 1 UNIT/0.01 ML (CHARGE PER UNIT) SC SCH ×6 (00:28→21:50)
[2020-05-16] MEDS: MIDAZOLAM DRIP PRE-MIX 100 ML IV SCH (00:29)
[2020-05-16] MEDS: fentaNYL DRIP PRE-MIX 250 ML IV SCH ×2 (00:30→13:20)
[2020-05-16 01:42] VITALS: BP 120/67
[2020-05-16] MEDS: RT-ALBUTEROL INHALER HFA (VENTOLIN HFA) 18 GM IH SCH ×4 (01:42→18:59)
[2020-05-16] MEDS: POTASSIUM CL 10MEQ/50ML IVPB 50 ML IV SCH ×7 (02:31→11:23)
[2020-05-16] MEDS: KCL 20 MEQ TAB (K-DUR) PO SCH (02:32)
[2020-05-16] MEDS: MAGNESIUM 1 GM/100 ML IVPB 100 ML IV SCH (02:32)
[2020-05-16] MEDS: LACTATED RINGERS 1,000 ML IV SCH ×2 (02:32→05:11)
[2020-05-16 03:44] LABS: ABG BASE EXCESS 7.3 MMOL/L (-2.5-2.5); ABG OXYGEN SATURATION 92 % (94-100); ABG PCO2 51 MMHG (35-45); ABG PH 7.41 (7.37-7.43); ABG PO2 70 MMHG (79-93); ABG TCO2 33.4 MMOL/L (21.0-31.0)
[2020-05-16] MEDS: ACETAMINOPHEN 325 MG TABLET PO PRN ×2 (03:45→21:50)
[2020-05-16 03:46] LABS: BASOPHILS % (AUTO) 0 % (0-10); EOSINOPHILS # (AUTO) 0.3 10^3/uL (0.0-0.3); EOSINOPHILS % (AUTO) 4 % (0-10); HEMATOCRIT 36 % (35-52); HEMOGLOBIN 10.8 g/dL (11.5-16.0); LYMPHOCYTES # (AUTO) 1.4 10^3/uL (1.0-4.0); LYMPHOCYTES % (AUTO) 19 % (12-44); MEAN CORPUSCULAR HEMOGLOBIN 29 pg (25-34); MEAN CORPUSCULAR HGB CONC 30 g/dL (32-36); MEAN CORPUSCULAR VOLUME 96 fL (80-99); MONOCYTES # (AUTO) 0.8 10^3/uL (0.0-1.0); MONOCYTES % (AUTO) 11 % (0-12); NEUTROPHILS # (AUTO) 4.6 10^3/uL (1.8-7.8); NEUTROPHILS % (AUTO) 65 % (42-75); PLATELET COUNT 211 10^3/uL (130-400); WHITE BLOOD COUNT 7.1 10^3/uL (4.3-11.0)
[2020-05-16 03:50] LABS: ALLENS TEST YES-POS; INSPIRED O2 30%; VENTILATOR YES
[2020-05-16 03:51] LABS: PATIENT TEMP 37.6
[2020-05-16 03:52] LABS: CHLORIDE 104 MMOL/L (98-107); POTASSIUM 3.3 MMOL/L (3.6-5.0); SODIUM 141 MMOL/L (135-145)
[2020-05-16 03:53] LABS: CALCIUM 7.9 MG/DL (8.5-10.1)
[2020-05-16 03:54] LABS: GLUCOSE 134 MG/DL (70-105)
[2020-05-16 03:55] LABS: CARBON DIOXIDE 29 MMOL/L (21-32)
[2020-05-16 03:57] LABS: CREATININE SERUM 0.49 MG/DL (0.60-1.30); GFR ESTIMATED > 60; PHOSPHORUS 2.5 MG/DL (2.3-4.7)
[2020-05-16 03:58] LABS: BUN/CREATININE RATIO 10
[2020-05-16] MEDS: PIPERACILLIN/TAZOBACTAM (BULK) 4.5 GM in NS (IVPB) 100 ML IV SCH (04:58)
--- NOTE | 2020-05-16 05:22 | Pulmonary Progress Note ---
Subjective Time Seen by a Provider: 05:17 Subjective/Events-last exam Pt is sedated on vent. Sepsis Event Evaluation Height, Weight, BMI Height: '" Weight: lbs. oz. kg; 40.97 BMI Method:Estimated Exam Exam Vital Signs Date Time Temp Pulse Resp B/P (MAP) Pulse Ox O2 Delivery O2 Flow Rate FiO2 05/16/20 05:00 37.8 94 20 97/58 (71) 98 Mechanical Ventilator 30.00 05/16/20 04:00 37.9 101 26 93/47 (62) 92 Mechanical Ventilator 30.00 05/16/20 03:45 37.8 05/16/20 03:00 37.4 99 30 124/65 (84) 92 Mechanical Ventilator 30.00 05/16/20 02:00 37.5 96 25 122/60 (80) 92 Mechanical Ventilator 30.00 05/16/20 01:42 100 23 95 30 05/16/20 01:00 37.4 96 20 122/65 (84) 95 Mechanical Ventilator 30.00 05/16/20 01:00 96 05/16/20 00:29 97 23 120/67 05/16/20 00:00 37.4 96 25 122/67 (85) 95 Mechanical Ventilator 30.00 05/15/20 23:00 37.4 94 18 118/70 (86) 95 Mechanical Ventilator 30.00 05/15/20 22:26 97 23 95 30 05/15/20 22:00 37.6 101 20 120/67 (84) 95 Mechanical Ventilator 30.00 05/15/20 21:00 Mechanical Ventilator 40 05/15/20 21:00 37.9 109 28 123/73 (90) 95 Mechanical Ventilator 30.00 05/15/20 20:27 38.1 102 21 114/72 (86) 95 Mechanical Ventilator 30.00 05/15/20 20:00 38.3 105 23 114/72 (86) 95 Mechanical Ventilator 30.00 05/15/20 19:09 38.1 05/15/20 19:00 38.6 112 24 123/69 (87) 98 Mechanical Ventilator 30.00 05/15/20 19:00 113 05/15/20 18:56 110 28 90 30 05/15/20 18:39 38.5 05/15/20 18:00 38.4 114 25 137/77 (97) 90 Mechanical Ventilator 45.00 05/15/20 17:45 38.3 114 28 144/89 (112) 89 05/15/20 17:30 38.2 113 28 143/83 (100) 89 05/15/20 17:15 38.1 113 40 150/90 (117) 05/15/20 17:00 38.1 109 25 152/81 (103) 90 Mechanical Ventilator 45.00 05/15/20 16:45 38 103 38 135/79 (100) 91 05/15/20 16:30 38 98 21 132/77 (91) 91 05/15/20 16:15 37.9 98 17 132/72 (91) 05/15/20 16:00 37.8 100 22 136/76 (98) 89 Mechanical Ventilator 45.00 05/15/20 15:45 37.8 98 27 130/76 (102) 89 05/15/20 15:30 37.7 97 27 139/80 (97) 91 05/15/20 15:15 37.7 94 20 129/73 (95) 89 05/15/20 15:00 37.6 95 22 129/74 (86) 90 Mechanical Ventilator 45.00 05/15/20 14:51 91 22 96 25 05/15/20 14:45 37.6 90 21 132/77 (95) 97 05/15/20 14:30 37.6 90 20 135/79 (87) 05/15/20 14:15 37.5 139/77 (101) 05/15/20 14:00 37.5 87 21 139/78 (92) 97 Mechanical Ventilator 45.00 05/15/20 13:45 37.4 89 21 137/74 (97) 97 05/15/20 13:30 37.4 90 20 133/74 (97) 05/15/20 13:15 37.4 90 19 137/77 (95) 05/15/20 13:00 37.3 92 20 140/79 (96) 97 Mechanical Ventilator 45.00 05/15/20 13:00 94 05/15/20 12:45 37.2 93 21 153/84 (103) 96 05/15/20 12:30 37.1 92 15 137/77 (108) 96 05/15/20 12:15 37.2 142/81 (103) 05/15/20 12:00 37.1 94 18 145/78 (106) 96 Mechanical Ventilator 45.00 05/15/20 11:45 37 146/81 (106) 05/15/20 11:43 96 26 94 45 05/15/20 11:30 36.9 98 28 156/84 (99) 05/15/20 11:15 37.1 98 34 156/88 (112) 05/15/20 11:00 37.1 94 26 144/78 (102) 95 Mechanical Ventilator 45.00 05/15/20 10:45 37 94 23 132/77 (98) 96 05/15/20 10:30 37.2 86 34 117/77 (88) 91 05/15/20 10:15 37.3 82 18 111/69 (84) 91 05/15/20 10:00 37.2 81 16 118/68 (81) 98 Mechanical Ventilator 45.00 05/15/20 09:45 37.2 84 19 115/67 (80) 97 05/15/20 09:30 37.2 83 17 118/68 (84) 98 05/15/20 09:15 37.2 86 19 120/68 (84) 98 05/15/20 09:00 Mechanical Ventilator 40 05/15/20 09:00 37.2 86 20 121/69 (82) 98 Mechanical Ventilator 45.00 05/15/20 08:58 81 20 111/65 05/15/20 08:45 37.1 86 18 127/73 (94) 98 05/15/20 08:30 37.2 80 19 113/68 (81) 05/15/20 08:19 81 20 98 45 05/15/20 08:15 37.2 77 18 111/65 (84) 05/15/20 08:00 76 15 113/69 (82) 98 Mechanical Ventilator 45.00 05/15/20 07:45 37.2 77 18 106/67 (82) 98 05/15/20 07:30 37.2 106/64 (75) 05/15/20 07:15 37.2 79 18 108/63 (81) 100 05/15/20 07:00 37.2 81 19 111/66 (83) 100 Mechanical Ventilator 45.00 05/15/20 07:00 80 05/15/20 06:45 37.3 81 18 112/67 (81) 100 05/15/20 06:30 37.3 82 19 112/65 (82) 100 05/15/20 06:15 37.4 83 19 110/70 (79) 99 05/15/20 06:00 83 19 110/70 (83) 100 Mechanical Ventilator 45.00 I & O 05/16/20 07:00 Intake Total 220 ml Output Total 2275 ml Balance -2055 ml Height & Weight Height: '" Weight: lbs. oz. kg; 40.97 BMI Method:Estimated General Appearance: No Apparent Distress, WD/WN, Chronically ill HEENT: PERRL/EOMI, Moist Mucous Membranes; No Scleral Icterus (L), No Scleral Icterus (R) Neck: Normal Inspection, Supple Respiratory: Lungs Clear Cardiovascular: Regular Rate, Rhythm Capillary Refill: Less Than 3 Seconds Extremity: Normal Capillary Refill, No Calf Tenderness, No Pedal Edema Neurologic/Psychiatric: Other (sedated) Skin: Normal Color, Warm/Dry Results Lab Laboratory Tests 05/15/20 02:05 05/16/20 03:15 Assessment/Plan Assessment/Plan Acute hypoxic respiratory failure due to COVID19 -S/p intubation 05/04 -VT to 300 , RR 18 Decrease PEEP to 12 -- decrease to 10 -Continue proning - Propofol and Fentanyl after intubation -OG tube and restraints. -Continue TF s/p Remdesivir and CVP - decadron Lovenox MAT protocol IS PNA - Persistent fever tm over last 24hrs 38.6 -Pt has copious sputum production and fevers -Zosyn and Vanco 05/14 -Repeat partida cultures -Change Zosyn to Merrem to cover for ESBL -Change Diflucan to eraxis Thrush - Eraxis s/p Acute DKA -Levemir -D/C metformin and Gliparide -Pt was not on insulin prior to admission. She will need to remain on insulin after discharge. Thrombocytopenia - Resolved DVT/GI ppx: Lovenox -Start prilosec ROSIE FRANCO DO May 16, 2020 05:22
[2020-05-16] MEDS ORDERED: ANIDULAFUNGIN INJECTION 200 MG in NS (IVPB) 250 ML IV ONE (05:30)
--- NOTE | 2020-05-16 05:32 | Diagnostic Imaging Report ---
EXAMINATION: Portable erect AP chest at 1:44 AM INDICATION: Respiratory failure, COVID-19 The appearance of the chest has improved slightly since the prior exam of 05/15/2019 as both lungs do seem somewhat better aerated, particularly the right midlung. There are still alveolar/interstitial pulmonary infiltrates bilaterally, however. The heart is stable in size. The mediastinum is not widened. The osseous structures are intact. The supportive tubes and lines seem similar in position to the prior exam. IMPRESSION: The appearance of the chest has improved since the prior exam as both lungs do seem somewhat better aerated. Dictated by: Dictated on workstation # [id number]
[2020-05-16] MEDS ORDERED: MEROPENEM 500 MG VIAL (MERREM) IV ONE (05:40)
[2020-05-16] MEDS ORDERED: WATER (STERILE) FOR INJECTION 10 ML ONE (05:41)
[2020-05-16] MEDS: MEROPENEM 500 MG/SWFI 10 ML IV PUSH IV SCH ×6 (05:57→17:07)
[2020-05-16] MEDS ORDERED: MEROPENEM 2,000 MG in NS (IVPB) 100 ML IV SCH (06:00)
[2020-05-16] MEDS: ENOXAPARIN 40 MG/0.4 ML (LOVENOX) SYR SC SCH ×2 (06:05→18:37)
[2020-05-16] MEDS: FAMOTIDINE 20MG/2ML IV (PEPCID) IV SCH ×2 (07:47→19:50)
[2020-05-16] MEDS: METOCLOPRAMIDE INJ 10 MG/2 ML (REGLAN) IVP SCH ×2 (07:47→19:50)
[2020-05-16] MEDS: ARTIFICIAL TEARS OINT (LACRI-LUBE) 3.5 GM TUBE OU SCH ×2 (07:47→19:50)
[2020-05-16] MEDS: risperiDONE 0.25 MG (RisperDAL) TAB PO SCH ×2 (07:48→19:50)
[2020-05-16 08:19] VITALS: BP 113/69
[2020-05-16] MEDS: MICONAZOLE 2% POWDER (DESENEX AF) 90 GM TOP SCH ×2 (10:24→19:50)
[2020-05-16 15:26] VITALS: BP 123/73
[2020-05-16 19:00] VITALS: BP 112/72
[2020-05-16 23:06] VITALS: BP 116/72
[2020-05-17] MEDS: inSUlin ASPART (NovoLOG) 1 UNIT/0.01 ML (CHARGE PER UNIT) SC SCH ×4 (00:26→18:02)
[2020-05-17] MEDS: MEROPENEM 500 MG/SWFI 10 ML IV PUSH IV SCH ×8 (00:28→18:09)
[2020-05-17] MEDS: fentaNYL DRIP PRE-MIX 250 ML IV SCH ×2 (00:29→16:44)
[2020-05-17 01:52] VITALS: BP 95/60
[2020-05-17] MEDS: RT-ALBUTEROL INHALER HFA (VENTOLIN HFA) 18 GM IH SCH ×3 (01:52→18:25)
[2020-05-17] MEDS: MAGNESIUM 1 GM/100 ML IVPB 100 ML IV SCH (02:19)
[2020-05-17] MEDS: KCL 20 MEQ TAB (K-DUR) PO SCH (02:19)
[2020-05-17] MEDS: POTASSIUM CL 10MEQ/50ML IVPB 50 ML IV SCH ×5 (02:19→08:32)
[2020-05-17] MEDS: MIDAZOLAM DRIP PRE-MIX 100 ML IV SCH (03:40)
[2020-05-17 04:00] LABS: ABG BASE EXCESS 6.8 MMOL/L (-2.5-2.5); ABG OXYGEN SATURATION 92 % (94-100); ABG PCO2 50 MMHG (35-45); ABG PH 7.41 (7.37-7.43); ABG PO2 69 MMHG (79-93)
[2020-05-17 04:01] LABS: BASOPHILS % (AUTO) 0 % (0-10); EOSINOPHILS # (AUTO) 0.3 10^3/uL (0.0-0.3); EOSINOPHILS % (AUTO) 4 % (0-10); HEMATOCRIT 34 % (35-52); HEMOGLOBIN 10.3 g/dL (11.5-16.0); LYMPHOCYTES # (AUTO) 1.4 10^3/uL (1.0-4.0); LYMPHOCYTES % (AUTO) 21 % (12-44); MEAN CORPUSCULAR HEMOGLOBIN 29 pg (25-34); MEAN CORPUSCULAR HGB CONC 30 g/dL (32-36); MEAN CORPUSCULAR VOLUME 96 fL (80-99); MEAN PLATELET VOLUME 9.7 fL (9.0-12.2); MONOCYTES # (AUTO) 0.7 10^3/uL (0.0-1.0); MONOCYTES % (AUTO) 11 % (0-12); NEUTROPHILS # (AUTO) 4.1 10^3/uL (1.8-7.8); NEUTROPHILS % (AUTO) 63 % (42-75); PLATELET COUNT 194 10^3/uL (130-400); WHITE BLOOD COUNT 6.5 10^3/uL (4.3-11.0)
[2020-05-17 04:05] LABS: ALLENS TEST NEGATIVE; INSPIRED O2 30; PATIENT TEMP 36.8; VENTILATOR YES
[2020-05-17 04:11] LABS: CHLORIDE 102 MMOL/L (98-107); POTASSIUM 3.2 MMOL/L (3.6-5.0); SODIUM 140 MMOL/L (135-145)
[2020-05-17 04:12] LABS: CALCIUM 7.8 MG/DL (8.5-10.1)
[2020-05-17 04:13] LABS: GLUCOSE 121 MG/DL (70-105); TRIGLYCERIDES 146 MG/DL (<150)
[2020-05-17 04:14] LABS: CARBON DIOXIDE 27 MMOL/L (21-32)
[2020-05-17 04:17] LABS: CREATININE SERUM 0.46 MG/DL (0.60-1.30); GFR ESTIMATED > 60
[2020-05-17 04:18] LABS: BUN/CREATININE RATIO 13
[2020-05-17 04:19] LABS: MAGNESIUM 1.9 MG/DL (1.6-2.4)
--- NOTE | 2020-05-17 04:58 | Pulmonary Progress Note ---
Subjective Time Seen by a Provider: 04:57 Subjective/Events-last exam Pt is sedated on vent. Sepsis Event Evaluation Height, Weight, BMI Height: '" Weight: lbs. oz. kg; 40.97 BMI Method:Estimated Exam Exam Vital Signs Date Time Temp Pulse Resp B/P (MAP) Pulse Ox O2 Delivery O2 Flow Rate FiO2 05/17/20 03:40 89 24 95/60 05/17/20 01:52 89 24 96 30 05/17/20 01:00 93 05/16/20 23:06 98 24 96 30 05/16/20 23:00 37.7 101 29 111/67 (82) 96 Mechanical Ventilator 30.00 05/16/20 22:00 37.9 107 29 121/70 (87) 96 Mechanical Ventilator 30.00 05/16/20 21:50 37.9 05/16/20 21:00 Mechanical Ventilator 30 05/16/20 21:00 37.7 104 25 122/70 (87) 96 Mechanical Ventilator 30.00 05/16/20 20:00 37.6 103 27 117/71 (86) 95 Mechanical Ventilator 30.00 05/16/20 19:36 37.6 95 26 120/73 (89) 96 Mechanical Ventilator 30.00 05/16/20 19:00 96 25 96 30 05/16/20 19:00 97 05/16/20 19:00 37.6 98 24 120/73 (89) 96 Mechanical Ventilator 30.00 05/16/20 18:37 101 22 108/70 05/16/20 18:00 37.4 98 29 118/72 (84) Mechanical Ventilator 30.00 05/16/20 17:45 37.4 97 32 120/67 (78) 92 05/16/20 17:30 37.4 98 45 125/71 (86) 05/16/20 17:15 37.3 96 27 124/79 (87) 05/16/20 17:00 37.3 92 126/73 (89) Mechanical Ventilator 30.00 05/16/20 16:45 37.3 93 22 124/74 (85) 95 05/16/20 16:30 37.3 92 18 132/81 (100) 96 05/16/20 16:15 37.4 90 22 119/67 (83) 05/16/20 16:00 37.4 41 114/68 (83) Mechanical Ventilator 30.00 05/16/20 15:49 Mechanical Ventilator 30.00 05/16/20 15:45 37.4 85 123/72 (89) 95 05/16/20 15:30 37.4 96 24 128/77 (94) 95 05/16/20 15:26 96 25 98 40 05/16/20 15:15 37.4 92 31 123/73 (88) 05/16/20 15:00 37.4 96 130/78 (92) Mechanical Ventilator 30.00 05/16/20 14:45 37.4 100 29 125/81 (95) 97 05/16/20 14:30 37.4 93 21 113/74 (88) 97 05/16/20 14:15 37.4 97 24 119/73 (90) 05/16/20 14:00 37.4 96 22 113/65 (87) 97 Mechanical Ventilator 30.00 05/16/20 13:45 37.4 96 23 110/72 (88) 96 05/16/20 13:30 37.4 99 27 119/74 (82) 96 05/16/20 13:15 37.4 98 26 116/70 (84) 96 05/16/20 13:00 37.4 98 25 114/69 (85) Mechanical Ventilator 30.00 05/16/20 12:50 98 05/16/20 12:45 37.4 97 30 134/80 (103) 97 05/16/20 12:30 37.4 96 23 124/77 (88) 98 05/16/20 12:15 37.4 98 26 131/78 (92) 05/16/20 12:00 37.4 05/16/20 12:00 37.4 99 26 139/80 (93) Mechanical Ventilator 30.00 05/16/20 11:45 37.3 100 23 144/79 (107) 95 05/16/20 11:30 37.3 100 26 143/78 (101) 95 05/16/20 11:15 37.3 101 28 130/77 (96) 95 05/16/20 11:00 37.3 102 29 133/79 (94) 94 Mechanical Ventilator 30.00 05/16/20 10:45 37.4 101 28 136/76 (91) 94 12/19/20 10:30 37.4 99 27 135/77 (96) 96 05/16/20 10:15 37.5 87 24 145/80 (95) 93 05/16/20 10:00 37.5 87 102/57 (72) 97 Mechanical Ventilator 30.00 05/16/20 09:45 37.5 90 22 104/60 (72) 96 05/16/20 09:30 37.6 90 22 101/56 (68) 97 05/16/20 09:15 37.6 92 22 96/57 (71) 96 05/16/20 09:00 37.7 92 23 99/58 (70) 97 Mechanical Ventilator 30.00 05/16/20 09:00 Mechanical Ventilator 40 05/16/20 08:45 37.7 96 23 105/58 (75) 97 05/16/20 08:30 37.7 93 22 96/54 (68) 97 05/16/20 08:19 98 26 98 40 05/16/20 08:15 37.7 95 15 113/69 (83) 96 05/16/20 08:00 37.7 101 26 101/74 (85) 97 Mechanical Ventilator 30.00 05/16/20 07:45 37.6 95 26 120/66 (79) 99 05/16/20 07:30 37.6 94 25 113/67 (85) 98 05/16/20 07:15 37.5 95 25 114/73 (87) 96 05/16/20 07:00 94 05/16/20 07:00 37.5 93 24 112/67 (81) 87 Mechanical Ventilator 30.00 05/16/20 06:45 37.6 24 97/57 (73) 90 05/16/20 06:30 37.6 89 23 96/60 (70) 94 05/16/20 06:15 37.6 90 24 97/60 (72) 95 05/16/20 06:00 37.7 88 23 97/60 (72) 97 Mechanical Ventilator 30.00 05/16/20 05:00 37.8 94 20 97/58 (71) 98 Mechanical Ventilator 30.00 I & O 05/17/20 07:00 Intake Total 100 ml Output Total 1025 ml Balance -925 ml Height & Weight Height: '" Weight: lbs. oz. kg; 40.97 BMI Method:Estimated General Appearance: No Apparent Distress, WD/WN, Chronically ill HEENT: PERRL/EOMI, Moist Mucous Membranes; No Scleral Icterus (L), No Scleral Icterus (R) Neck: Normal Inspection, Supple Respiratory: Lungs Clear Cardiovascular: Regular Rate, Rhythm Capillary Refill: Less Than 3 Seconds Extremity: Normal Capillary Refill, No Calf Tenderness, No Pedal Edema Neurologic/Psychiatric: Other (sedated) Skin: Normal Color, Warm/Dry Results Lab Laboratory Tests 05/16/20 03:15 05/17/20 03:30 Assessment/Plan Assessment/Plan Acute hypoxic respiratory failure due to COVID19 -S/p intubation 05/04 -VT to 300 , RR 18 Decrease PEEP to 12 -- decrease to 10 -Continue proning - Propofol and Fentanyl after intubation -OG tube and restraints. -Continue TF s/p Remdesivir and CVP - decadron Lovenox MAT protocol IS PNA - Persistent fever tm over last 24hrs 38.6 -Pt has copious sputum production and fevers -Zosyn and Vanco 05/14 -Repeat partida cultures -Change Zosyn to Merrem to cover for ESBL -Change Diflucan to eraxis Thrush - Eraxis s/p Acute DKA -Levemir -D/C metformin and Gliparide -Pt was not on insulin prior to admission. She will need to remain on insulin after discharge. Thrombocytopenia - Resolved DVT/GI ppx: Lovenox -Start prilosec ROSIE FRANCO DO May 17, 2020 04:58
[2020-05-17] MEDS ORDERED: LACTULOSE SYRUP 10GM/15ML (ENULOSE) 30ML UDC PO PRN (05:45)
[2020-05-17] MEDS: ENOXAPARIN 40 MG/0.4 ML (LOVENOX) SYR SC SCH ×2 (06:08→18:09)
[2020-05-17 06:44] VITALS: BP 131/78
--- NOTE | 2020-05-17 07:40 | Diagnostic Imaging Report ---
EXAMINATION: Portable erect AP chest at 2:08 AM INDICATION: Respiratory distress The heart is stable in size when compared to the prior exam of 05/16/2020. The alveolar/interstitial pulmonary infiltrates involving both lungs seen previously are again evident and essentially no different. The mediastinum is not widened. The osseous structures are intact. The supportive tubes and lines seem similar in position. IMPRESSION: Stable chest. There has been no adverse change since the prior exam. Dictated by: Dictated on workstation # [id number]
[2020-05-17] MEDS: ANIDULAFUNGIN INJECTION 100 MG in NS (IVPB) 100 ML IV SCH (08:16)
[2020-05-17] MEDS: FAMOTIDINE 20MG/2ML IV (PEPCID) IV SCH ×2 (08:17→20:49)
[2020-05-17] MEDS: ARTIFICIAL TEARS OINT (LACRI-LUBE) 3.5 GM TUBE OU SCH ×2 (08:18→20:50)
[2020-05-17] MEDS: METOCLOPRAMIDE INJ 10 MG/2 ML (REGLAN) IVP SCH ×2 (08:18→20:50)
[2020-05-17] MEDS: risperiDONE 0.25 MG (RisperDAL) TAB PO SCH ×2 (08:21→20:50)
[2020-05-17] MEDS: DOCUSATE SODIUM 100 MG (COLACE) CAP PO SCH ×2 (08:21→20:50)
[2020-05-17] MEDS: MICONAZOLE 2% POWDER (DESENEX AF) 90 GM TOP SCH ×2 (08:22→20:50)
[2020-05-17] MEDS: ACETAMINOPHEN 325 MG TABLET PO PRN ×2 (10:11→20:51)
[2020-05-17 10:56] VITALS: BP 131/78
[2020-05-17] MEDS: LACTATED RINGERS 1,000 ML IV SCH (11:53)
[2020-05-17 15:27] VITALS: BP 107/59
[2020-05-17 18:25] VITALS: BP 135/87
[2020-05-17 21:27] VITALS: BP 134/73
[2020-05-18] MEDS: MEROPENEM 500 MG/SWFI 10 ML IV PUSH IV SCH ×10 (00:52→23:27)
[2020-05-18] MEDS: inSUlin ASPART (NovoLOG) 1 UNIT/0.01 ML (CHARGE PER UNIT) SC SCH ×5 (00:55→23:22)
[2020-05-18] MEDS: fentaNYL DRIP PRE-MIX 250 ML IV SCH ×5 (01:02→23:27)
[2020-05-18] MEDS: MIDAZOLAM DRIP PRE-MIX 100 ML IV SCH ×2 (02:12→12:37)
[2020-05-18] MEDS: RT-ALBUTEROL INHALER HFA (VENTOLIN HFA) 18 GM IH SCH ×4 (02:13→18:29)
[2020-05-18 02:15] LABS: ABG BASE EXCESS 7.3 MMOL/L (-2.5-2.5); ABG OXYGEN SATURATION 89 % (94-100); ABG PCO2 51 MMHG (35-45); ABG PH 7.42 (7.37-7.43); ABG PO2 59 MMHG (79-93); ABG TCO2 33.3 MMOL/L (21.0-31.0)
[2020-05-18 02:16] VITALS: BP 129/83
[2020-05-18 02:16] LABS: INSPIRED O2 30; PATIENT TEMP 37.4; VENTILATOR YES
[2020-05-18 02:23] LABS: BASOPHILS % (AUTO) 0 % (0-10); EOSINOPHILS # (AUTO) 0.2 10^3/uL (0.0-0.3); EOSINOPHILS % (AUTO) 3 % (0-10); HEMATOCRIT 35 % (35-52); HEMOGLOBIN 10.5 g/dL (11.5-16.0); LYMPHOCYTES # (AUTO) 1.9 10^3/uL (1.0-4.0); LYMPHOCYTES % (AUTO) 28 % (12-44); MEAN CORPUSCULAR HEMOGLOBIN 28 pg (25-34); MEAN CORPUSCULAR HGB CONC 30 g/dL (32-36); MEAN CORPUSCULAR VOLUME 95 fL (80-99); MEAN PLATELET VOLUME 9.7 fL (9.0-12.2); MONOCYTES # (AUTO) 0.8 10^3/uL (0.0-1.0); MONOCYTES % (AUTO) 11 % (0-12); NEUTROPHILS % (AUTO) 57 % (42-75); PLATELET COUNT 197 10^3/uL (130-400)
[2020-05-18 02:33] LABS: CHLORIDE 102 MMOL/L (98-107); POTASSIUM 3.4 MMOL/L (3.6-5.0); SODIUM 141 MMOL/L (135-145)
[2020-05-18 02:35] LABS: CALCIUM 7.8 MG/DL (8.5-10.1); GLUCOSE 149 MG/DL (70-105)
[2020-05-18 02:37] LABS: CARBON DIOXIDE 29 MMOL/L (21-32)
[2020-05-18 02:39] LABS: GFR ESTIMATED > 60; PHOSPHORUS 2.4 MG/DL (2.3-4.7)
[2020-05-18 02:40] LABS: BUN/CREATININE RATIO 18
[2020-05-18] MEDS: POTASSIUM CL 10MEQ/50ML IVPB 50 ML IV SCH ×3 (02:49→08:00)
[2020-05-18] MEDS: KCL 20 MEQ TAB (K-DUR) PO SCH (02:50)
[2020-05-18] MEDS: MAGNESIUM 1 GM/100 ML IVPB 100 ML IV SCH (02:50)
--- NOTE | 2020-05-18 04:51 | Pulmonary Progress Note ---
Subjective Time Seen by a Provider: 04:50 Subjective/Events-last exam Sedated on vent. Sepsis Event Evaluation Height, Weight, BMI Height: '" Weight: lbs. oz. kg; 40.97 BMI Method:Estimated Exam Exam Vital Signs Date Time Temp Pulse Resp B/P (MAP) Pulse Ox O2 Delivery O2 Flow Rate FiO2 05/18/20 04:00 37.1 90 37 91/62 (72) 92 Mechanical Ventilator 30.00 05/18/20 03:00 37.5 98 113/71 (85) 95 Mechanical Ventilator 30.00 05/18/20 02:16 104 32 92 30 05/18/20 02:12 106 30 128/81 05/18/20 02:00 37.4 105 30 128/81 (97) 93 Mechanical Ventilator 30.00 05/18/20 01:00 95 05/18/20 01:00 37.3 95 128/76 (93) 91 Mechanical Ventilator 30.00 05/18/20 00:00 37.5 96 113/69 (84) 91 Mechanical Ventilator 30.00 05/17/20 23:00 37.6 101 129/75 (93) 92 Mechanical Ventilator 30.00 05/17/20 22:00 38.1 112 24 118/69 (85) 90 Mechanical Ventilator 30.00 05/17/20 21:27 117 29 91 30 05/17/20 21:21 37.8 05/17/20 21:00 Mechanical Ventilator 30 05/17/20 21:00 37.9 107 158/90 (112) 91 Mechanical Ventilator 30.00 05/17/20 20:51 37.9 05/17/20 20:00 37.8 100 124/75 (91) 92 Mechanical Ventilator 30.00 05/17/20 19:00 103 05/17/20 19:00 37.9 103 37 120/78 (92) 91 Mechanical Ventilator 30.00 05/17/20 18:25 105 27 94 30 05/17/20 18:00 37.8 105 52 135/83 (95) 92 Mechanical Ventilator 30.00 05/17/20 17:45 37.7 105 57 135/87 (98) 92 05/17/20 17:30 37.7 105 33 138/91 (112) 93 05/17/20 17:15 37.7 105 32 144/85 (100) 93 05/17/20 17:00 37.6 105 19 140/82 (106) Mechanical Ventilator 30.00 05/17/20 16:45 37.5 103 26 141/82 (97) 05/17/20 16:30 37.5 98 44 105/61 (78) 92 05/17/20 16:15 37.5 98 105/63 (77) 05/17/20 16:00 37.6 98 49 107/60 (80) 92 Mechanical Ventilator 30.00 05/17/20 15:45 37.6 99 52 105/59 (77) 92 05/17/20 15:30 37.6 102 54 116/64 (79) 92 05/17/20 15:27 101 29 93 30 05/17/20 15:15 37.6 99 52 107/59 (77) 93 05/17/20 15:00 37.7 102 43 110/56 (75) 93 Mechanical Ventilator 30.00 05/17/20 14:45 37.8 105 51 110/65 (79) 93 05/17/20 14:30 37.9 108 28 108/62 (78) 92 05/17/20 14:15 38 110 33 108/59 (77) 93 05/17/20 14:00 38 109 52 112/58 (82) Mechanical Ventilator 30.00 05/17/20 13:45 38.1 111 41 112/63 (80) 92 05/17/20 13:30 38.1 112 29 113/62 (83) 92 05/17/20 13:15 38.1 116 33 114/64 (87) 92 05/17/20 13:00 109 05/17/20 13:00 38.1 116 48 120/73 (86) 92 Mechanical Ventilator 30.00 05/17/20 12:45 38 114 63 116/69 (85) 92 05/17/20 12:30 38 113 68 123/72 (86) 91 05/17/20 12:15 37.9 116 67 122/78 (89) 91 05/17/20 12:00 37.9 113 65 126/73 (90) 92 Mechanical Ventilator 30.00 05/17/20 11:48 38.0 05/17/20 11:45 38 108 48 115/60 (78) 93 05/17/20 11:30 38.1 108 61 98/64 (76) 93 12/20/20 11:15 38.1 110 110/67 (80) 05/17/20 11:00 38.1 112 24 123/73 (92) Mechanical Ventilator 30.00 05/17/20 10:56 113 30 95 30 05/17/20 10:45 38.2 112 62 111/68 (82) 96 05/17/20 10:30 38.2 115 40 118/72 (86) 96 05/17/20 10:15 38.1 115 32 129/73 (87) 05/17/20 10:11 38.1 05/17/20 10:00 38.1 117 42 123/79 (93) 96 Mechanical Ventilator 30.00 05/17/20 09:45 38 115 30 119/75 (91) 95 05/17/20 09:30 38 113 32 126/76 (87) 95 05/17/20 09:15 37.9 112 30 132/72 (88) 96 05/17/20 09:00 37.8 115 31 121/74 (93) 95 Mechanical Ventilator 30.00 05/17/20 08:45 37.7 113 24 133/68 (87) 97 05/17/20 08:30 37.6 107 27 135/74 (87) 96 05/17/20 08:15 37.5 107 31 126/74 (89) 95 05/17/20 08:00 37.4 109 29 136/72 (91) 94 Mechanical Ventilator 30.00 05/17/20 08:00 Mechanical Ventilator 30 05/17/20 07:45 37.4 110 25 146/78 (89) 93 05/17/20 07:30 37.3 109 24 142/72 (97) 94 05/17/20 07:15 37.2 106 19 146/78 (96) 92 05/17/20 07:00 101 05/17/20 07:00 37.1 105 22 130/75 (95) 94 Mechanical Ventilator 30.00 05/17/20 06:45 37 102 131/78 (98) 05/17/20 06:44 100 28 91 30 05/17/20 06:30 36.9 102 32 124/75 (86) 94 05/17/20 06:15 36.9 95 28 127/81 (90) 96 05/17/20 06:00 36.8 86 127 127/81 (96) 81 Mechanical Ventilator 30.00 05/17/20 05:00 36.8 89 20 116/71 (86) 96 Mechanical Ventilator 30.00 I & O 05/18/20 07:00 Intake Total 510 ml Output Total 1375 ml Balance -865 ml Height & Weight Height: '" Weight: lbs. oz. kg; 40.97 BMI Method:Estimated General Appearance: No Apparent Distress, WD/WN, Chronically ill HEENT: PERRL/EOMI, Moist Mucous Membranes; No Scleral Icterus (L), No Scleral Icterus (R) Neck: Normal Inspection, Supple Respiratory: Lungs Clear Cardiovascular: Regular Rate, Rhythm Capillary Refill: Less Than 3 Seconds Extremity: Normal Capillary Refill, No Calf Tenderness, No Pedal Edema Neurologic/Psychiatric: Other (sedated) Skin: Normal Color, Warm/Dry Results Lab Laboratory Tests 05/17/20 03:30 05/18/20 02:00 Assessment/Plan Assessment/Plan Acute hypoxic respiratory failure due to COVID19 -S/p intubation 05/04 -VT to 300 , RR 18 Decrease PEEP to 12 -- decrease to 10 -d/c proning - Propofol and Fentanyl after intubation -OG tube and restraints. -Continue TF s/p Remdesivir and CVP - decadron Lovenox MAT protocol IS PNA - Persistent fever tm over last 24hrs 38.6 -Pt has copious sputum production and fevers -Zosyn and Vanco 05/14 -Repeat partida cultures -Change Zosyn to Merrem to cover for ESBL -Change Diflucan to eraxis Thrush - Eraxis s/p Acute DKA -Levemir -D/C metformin and Gliparide -Pt was not on insulin prior to admission. She will need to remain on insulin after discharge. Thrombocytopenia - Resolved DVT/GI ppx: Lovenox -Start prilosec ROSIE FRANCO DO May 18, 2020 04:51
[2020-05-18] MEDS: ENOXAPARIN 40 MG/0.4 ML (LOVENOX) SYR SC SCH ×2 (05:50→19:52)
[2020-05-18 07:10] VITALS: BP 129/83
--- NOTE | 2020-05-18 08:12 | Diagnostic Imaging Report ---
EXAMINATION: Chest 1 view HISTORY: COVID positive, intubated COMPARISON: 05/17/2020 FINDINGS: Endotracheal tube tip terminates 3 cm above the katelin. Gastric tube tip terminates below the field of view. There are moderate bilateral airspace opacities which are slightly improved from prior exam. There is likely a tiny left pleural effusion. No pneumothorax. Heart size is normal. Lung volumes are small. IMPRESSION: 1. Slight improvement in moderate bilateral airspace opacities consistent with COVID 19 pneumonia. Dictated by: Dictated on workstation # [id number]
[2020-05-18] MEDS: ANIDULAFUNGIN INJECTION 100 MG in NS (IVPB) 100 ML IV SCH (08:43)
[2020-05-18] MEDS: DOCUSATE SODIUM 10 MG/ML 10 ML UDC (COLACE) PO SCH ×2 (08:43→19:52)
[2020-05-18] MEDS: METOCLOPRAMIDE INJ 10 MG/2 ML (REGLAN) IVP SCH ×2 (08:44→19:52)
[2020-05-18] MEDS: FAMOTIDINE 20MG/2ML IV (PEPCID) IV SCH ×2 (08:44→19:52)
[2020-05-18] MEDS: risperiDONE 0.25 MG (RisperDAL) TAB PO SCH ×2 (08:44→19:52)
[2020-05-18] MEDS: MICONAZOLE 2% POWDER (DESENEX AF) 90 GM TOP SCH ×2 (08:44→19:52)
[2020-05-18] MEDS: ARTIFICIAL TEARS OINT (LACRI-LUBE) 3.5 GM TUBE OU SCH ×2 (08:44→19:52)
--- NOTE | 2020-05-18 09:36 | Physical Therapy Progress Note ---
Therapy Progress Note Patient remains on mechanical ventilator. PT will continue to monitor patient status. RAZIA GILLESPIE PT May 18, 2020 09:36
[2020-05-18 10:23] VITALS: BP 108/72
--- NOTE | 2020-05-18 13:14 | NUR ---
UPDATED DAUGHTER SONAL ON PT.
[2020-05-18 14:25] VITALS: BP 116/71
--- NOTE | 2020-05-18 16:55 | NUR ---
Note pt currently receiving TF via 100ml bolus feeds q4h with 30ml water flushes before/after each bolus. Increase TF by 30ml q8h as tolerated, toward goal of 180ml bolus feeds q4h. Will continue to follow and reassess as pt needs, intake, and status change. Jules Cabrera, MS RD LD [phone] cell
[2020-05-18] MEDS: ACETAMINOPHEN 325 MG TABLET PO PRN (20:00)
[2020-05-18 21:18] VITALS: BP 90/56
[2020-05-18] MEDS: LACTATED RINGERS 1,000 ML IV SCH (21:29)
[2020-05-19 01:41] VITALS: BP 116/52
[2020-05-19] MEDS: RT-ALBUTEROL INHALER HFA (VENTOLIN HFA) 18 GM IH SCH ×4 (01:41→18:20)
[2020-05-19] MEDS: MIDAZOLAM DRIP PRE-MIX 100 ML IV SCH (01:48)
[2020-05-19 01:52] LABS: ABG BASE EXCESS 7.7 MMOL/L (-2.5-2.5); ABG OXYGEN SATURATION 89 % (94-100); ABG PCO2 54 MMHG (35-45); ABG PO2 60 MMHG (79-93); ABG TCO2 34.1 MMOL/L (21.0-31.0)
[2020-05-19 01:53] LABS: BASOPHILS % (AUTO) 0 % (0-10); EOSINOPHILS # (AUTO) 0.3 10^3/uL (0.0-0.3); EOSINOPHILS % (AUTO) 6 % (0-10); HEMATOCRIT 32 % (35-52); HEMOGLOBIN 9.4 g/dL (11.5-16.0); LYMPHOCYTES # (AUTO) 2.1 10^3/uL (1.0-4.0); LYMPHOCYTES % (AUTO) 35 % (12-44); MEAN CORPUSCULAR HEMOGLOBIN 28 pg (25-34); MEAN CORPUSCULAR HGB CONC 30 g/dL (32-36); MEAN CORPUSCULAR VOLUME 96 fL (80-99); MEAN PLATELET VOLUME 9.5 fL (9.0-12.2); MONOCYTES # (AUTO) 0.6 10^3/uL (0.0-1.0); MONOCYTES % (AUTO) 9 % (0-12); NEUTROPHILS # (AUTO) 2.8 10^3/uL (1.8-7.8); NEUTROPHILS % (AUTO) 49 % (42-75); PLATELET COUNT 186 10^3/uL (130-400); WHITE BLOOD COUNT 5.9 10^3/uL (4.3-11.0)
[2020-05-19 01:54] LABS: ALLENS TEST POSITIVE; INSPIRED O2 30; PATIENT TEMP 37.3; VENTILATOR YES
[2020-05-19 02:02] LABS: CHLORIDE 105 MMOL/L (98-107); POTASSIUM 3.3 MMOL/L (3.6-5.0); SODIUM 142 MMOL/L (135-145)
[2020-05-19 02:04] LABS: CALCIUM 7.5 MG/DL (8.5-10.1); GLUCOSE 125 MG/DL (70-105); TRIGLYCERIDES 158 MG/DL (<150)
[2020-05-19 02:06] LABS: CARBON DIOXIDE 29 MMOL/L (21-32)
[2020-05-19 02:08] LABS: CREATININE SERUM 0.47 MG/DL (0.60-1.30); GFR ESTIMATED > 60; PHOSPHORUS 2.4 MG/DL (2.3-4.7)
[2020-05-19 02:09] LABS: BUN/CREATININE RATIO 19
[2020-05-19 02:10] LABS: MAGNESIUM 2.1 MG/DL (1.6-2.4)
[2020-05-19] MEDS: POTASSIUM CL 10MEQ/50ML IVPB 50 ML IV SCH ×6 (02:28→11:24)
[2020-05-19] MEDS: MAGNESIUM 1 GM/100 ML IVPB 100 ML IV SCH (02:28)
[2020-05-19] MEDS: KCL 20 MEQ TAB (K-DUR) PO SCH (02:29)
--- NOTE | 2020-05-19 05:30 | Pulmonary Progress Note ---
Subjective Time Seen by a Provider: 05:22 Sepsis Event Evaluation Height, Weight, BMI Height: '" Weight: lbs. oz. kg; 40.97 BMI Method:Estimated Exam Exam Vital Signs Date Time Temp Pulse Resp B/P (MAP) Pulse Ox O2 Delivery O2 Flow Rate FiO2 05/19/20 05:00 37.7 102 25 116/70 (85) 93 Mechanical Ventilator 30.00 05/19/20 04:00 37.6 98 25 125/74 (91) 92 Mechanical Ventilator 30.00 05/19/20 03:00 37.4 92 20 147/67 (93) 93 Mechanical Ventilator 30.00 05/19/20 02:00 37.3 88 128/51 (76) 98 Mechanical Ventilator 30.00 05/19/20 01:48 92 139/67 05/19/20 01:41 90 24 100 30 05/19/20 01:00 37.4 85 117/56 (76) 98 Mechanical Ventilator 30.00 05/19/20 01:00 85 05/19/20 00:00 37.5 86 117/58 (77) 97 Mechanical Ventilator 30.00 05/18/20 23:00 37.6 90 107/55 (72) 97 Mechanical Ventilator 30.00 05/18/20 22:00 37.6 89 22 116/56 (76) 97 Mechanical Ventilator 30.00 05/18/20 21:18 92 19 96 30 05/18/20 21:00 37.7 93 19 99/54 (69) 95 Mechanical Ventilator 30.00 05/18/20 20:34 37.7 05/18/20 20:05 98 Mechanical Ventilator 30.00 05/18/20 20:03 Mechanical Ventilator 30.00 05/18/20 20:00 37.7 100 110/70 (83) 94 Mechanical Ventilator 30.00 05/18/20 20:00 37.7 05/18/20 19:00 101 05/18/20 19:00 37.7 101 32 121/71 (88) 97 Mechanical Ventilator 30.00 05/18/20 18:30 100 23 91 30 05/18/20 18:15 37.7 97 21 110/65 (80) 92 Mechanical Ventilator 30.00 05/18/20 17:00 37.7 92 22 91/54 (66) 91 Mechanical Ventilator 30.00 05/18/20 16:00 37.7 96 24 97/56 (70) 90 Mechanical Ventilator 30.00 05/18/20 15:06 37.9 103 20 103/63 (76) 89 Mechanical Ventilator 30.00 05/18/20 14:54 30.00 05/18/20 14:25 101 25 91 30 05/18/20 14:00 36.9 101 24 120/71 (87) 92 Mechanical Ventilator 28.00 05/18/20 13:33 100 05/18/20 13:00 36.9 104 39 128/75 (92) 91 Mechanical Ventilator 28.00 05/18/20 12:37 101 42 120/72 05/18/20 12:00 36.9 101 32 118/78 (91) 94 Mechanical Ventilator 28.00 05/18/20 11:00 36.9 101 42 110/69 (83) 93 Mechanical Ventilator 28.00 05/18/20 10:23 103 32 93 28 05/18/20 10:00 36.9 107 19 89/56 (67) 88 Mechanical Ventilator 28.00 05/18/20 09:00 36.9 107 16 111/74 (86) 91 Mechanical Ventilator 24.00 05/18/20 09:00 88 Mechanical Ventilator 24.00 05/18/20 08:00 36.9 108 25 133/83 (100) 92 Mechanical Ventilator 24.00 05/18/20 07:10 104 32 92 24 05/18/20 07:00 36.9 111 23 140/75 (96) 95 Mechanical Ventilator 24.00 05/18/20 07:00 114 05/18/20 06:00 36.9 95 30 128/85 (99) 96 Mechanical Ventilator 30.00 I & O 05/19/20 07:00 Intake Total 2450 ml Output Total 800 ml Balance 1650 ml Height & Weight Height: '" Weight: lbs. oz. kg; 40.97 BMI Method:Estimated General Appearance: No Apparent Distress, WD/WN, Chronically ill HEENT: PERRL/EOMI, Moist Mucous Membranes; No Scleral Icterus (L), No Scleral Icterus (R) Neck: Normal Inspection, Supple Respiratory: Lungs Clear Cardiovascular: Regular Rate, Rhythm Capillary Refill: Less Than 3 Seconds Extremity: Normal Capillary Refill, No Calf Tenderness, No Pedal Edema Neurologic/Psychiatric: Other (sedated) Skin: Normal Color, Warm/Dry Results Lab Laboratory Tests 05/18/20 02:00 05/19/20 01:43 Assessment/Plan Assessment/Plan Acute hypoxic respiratory failure due to COVID19 -S/p intubation 05/04 -Will attempt to wean vent today. -VT to 350 , RR 18 decrease PEEP to 5 -d/c proning - Propofol and Fentanyl after intubation -OG tube and restraints. -Continue TF s/p Remdesivir and CVP - decadron Lovenox MAT protocol IS PNA - -Pt has copious sputum production and fevers -Merrem to cover for ESBL -eraxis Thrush - Eraxis s/p Acute DKA -Levemir -D/C metformin and Gliparide -Pt was not on insulin prior to admission. She will need to remain on insulin after discharge. Thrombocytopenia - Resolved DVT/GI ppx: Lovenox -Start prilosec ROSIE FRANCO DO May 19, 2020 05:30
[2020-05-19] MEDS: inSUlin ASPART (NovoLOG) 1 UNIT/0.01 ML (CHARGE PER UNIT) SC SCH ×4 (05:44→23:45)
[2020-05-19 06:14] VITALS: BP 137/60
[2020-05-19] MEDS: MEROPENEM 500 MG/SWFI 10 ML IV PUSH IV SCH ×8 (06:25→22:44)
[2020-05-19] MEDS: ENOXAPARIN 40 MG/0.4 ML (LOVENOX) SYR SC SCH ×2 (06:25→19:28)
--- NOTE | 2020-05-19 07:46 | Diagnostic Imaging Report ---
INDICATION: Covid positive, mechanical ventilation. TECHNIQUE: Single view chest 2:21 AM. CORRELATION STUDY: 05/18/2020 FINDINGS: Endotracheal tube, gastric tube and right-sided central line all remain in place. Heart size enlarged, mediastinum prominent. Extensive 5 lobe infiltrate is again demonstrated. Overall stable to slightly progressed from prior. Small effusions not excluded. IMPRESSION: 1. Stable support lines and tubes. 2. Extensive bilateral pulmonary infiltrates persisting, stable to perhaps minimally increased. Dictated by: Dictated on workstation # [id number]
[2020-05-19] MEDS: DOCUSATE SODIUM 10 MG/ML 10 ML UDC (COLACE) PO SCH ×2 (07:52→19:29)
[2020-05-19] MEDS: METOCLOPRAMIDE INJ 10 MG/2 ML (REGLAN) IVP SCH ×2 (07:53→19:29)
[2020-05-19] MEDS: ARTIFICIAL TEARS OINT (LACRI-LUBE) 3.5 GM TUBE OU SCH ×2 (07:53→19:29)
[2020-05-19] MEDS: ANIDULAFUNGIN INJECTION 100 MG in NS (IVPB) 100 ML IV SCH (07:53)
[2020-05-19] MEDS: MICONAZOLE 2% POWDER (DESENEX AF) 90 GM TOP SCH ×2 (07:53→19:29)
[2020-05-19] MEDS: risperiDONE 0.25 MG (RisperDAL) TAB PO SCH ×2 (07:53→19:29)
[2020-05-19] MEDS: FAMOTIDINE 20MG/2ML IV (PEPCID) IV SCH ×2 (07:53→19:29)
[2020-05-19] MEDS: ACETAMINOPHEN 325 MG TABLET PO PRN ×2 (07:56→19:28)
--- NOTE | 2020-05-19 10:23 | Physical Therapy Progress Note ---
Therapy Progress Note PROM all extremities in supine. Sedated and intubated. RAZIA GILLESPIE PT May 19, 2020 10:23
[2020-05-19 10:30] VITALS: BP 118/61
--- NOTE | 2020-05-19 13:09 | NUR ---
DAUGHTER UPDATED ON PT'S CONDITION.
--- NOTE | 2020-05-19 14:42 | NUR ---
Note pt currently receiving TF via 100ml bolus feeds q4h with 30ml water flushes before/after each bolus. Increase TF by 30ml q8h as tolerated, toward goal of 180ml bolus feeds q4h. Will continue to follow and reassess as pt needs, intake, and status change. Jules Cabrera, MS RD LD [phone] cell
[2020-05-19 14:43] VITALS: BP 129/64
--- NOTE | 2020-05-19 15:00 | NUR ---
PT CONTINUES TO BE OFF OF SEDATION, DOES SLIGHTLY AWAKEN WITH TURNS, IS UNABLE TO FOLLOW COMMANDS. VITAL SIGNS STABLE, RESPIRATIONS NOTED TO BE TACHYPNEIC AT TIMES. WILL CONTINUE TO MONITOR.
--- NOTE | 2020-05-19 17:25 | NUR ---
PT AWAKE, ALERT AND IS ABLE TO FOLLOW COMMANDS, VENT CHANGES MADE BY THIS RN WITH RT OUTSIDE OF ROOM. WILL OBTAIN ABG IN 30 MIN.
[2020-05-19 18:10] LABS: ABG BASE EXCESS 7.2 MMOL/L (-2.5-2.5); ABG OXYGEN SATURATION 98 % (94-100); ABG PCO2 42 MMHG (35-45); ABG PH 7.48 (7.37-7.43); ABG PO2 116 MMHG (79-93)
[2020-05-19 18:12] LABS: ALLENS TEST YES-POS; INSPIRED O2 30; VENTILATOR YES
--- NOTE | 2020-05-19 18:19 | NUR ---
ABG RESULTS GIVEN TO DR FRANCO, ORDERS RECEIVED TO PLACE PT BACK TO AC MODE WITH PREVIOUS SETTINGS, RT NOTIFIED AND PRECEDEX ORDERED PER DR RFANCO'S ORDERS.
[2020-05-19 18:20] VITALS: BP 128/70
[2020-05-19] MEDS: DexMEDEtomidine PRE MIX 100 ML IV SCH (19:43)
[2020-05-19 22:07] VITALS: BP 99/53
--- NOTE | 2020-05-19 22:53 | NUR ---
E-ICU CALLED D/T PT BEING UNCOMFORTABLE ON VENT WITHOUT SEDATION AND BP DROPPING WHILE ON PRECEDEX. ORDERS GIVEN FOR 1 L BOLUS OVER 2 HR.
[2020-05-19] MEDS ORDERED: fentaNYL INJECTION 100 MCG/2 ML AMP IVP PRN ×2 (23:15)
[2020-05-19] MEDS ORDERED: LACTATED RINGERS 1,000 ML IV SCH (23:15)
[2020-05-20 01:38] LABS: BASOPHILS % (AUTO) 0 % (0-10); EOSINOPHILS # (AUTO) 0.2 10^3/uL (0.0-0.3); EOSINOPHILS % (AUTO) 5 % (0-10); HEMATOCRIT 33 % (35-52); LYMPHOCYTES # (AUTO) 1.5 10^3/uL (1.0-4.0); LYMPHOCYTES % (AUTO) 29 % (12-44); MEAN CORPUSCULAR HEMOGLOBIN 29 pg (25-34); MEAN CORPUSCULAR HGB CONC 30 g/dL (32-36); MEAN CORPUSCULAR VOLUME 94 fL (80-99); MEAN PLATELET VOLUME 9.7 fL (9.0-12.2); MONOCYTES # (AUTO) 0.5 10^3/uL (0.0-1.0); MONOCYTES % (AUTO) 10 % (0-12); NEUTROPHILS # (AUTO) 2.9 10^3/uL (1.8-7.8); NEUTROPHILS % (AUTO) 56 % (42-75); PLATELET COUNT 190 10^3/uL (130-400); WHITE BLOOD COUNT 5.2 10^3/uL (4.3-11.0)
[2020-05-20 01:43] LABS: CHLORIDE 105 MMOL/L (98-107); POTASSIUM 3.5 MMOL/L (3.6-5.0); SODIUM 142 MMOL/L (135-145)
[2020-05-20 01:45] LABS: GLUCOSE 132 MG/DL (70-105)
[2020-05-20 01:46] VITALS: BP 140/75
[2020-05-20] MEDS: RT-ALBUTEROL INHALER HFA (VENTOLIN HFA) 18 GM IH SCH ×4 (01:46→18:43)
[2020-05-20 01:47] LABS: CARBON DIOXIDE 27 MMOL/L (21-32)
[2020-05-20 01:49] LABS: ABG OXYGEN SATURATION 97 % (94-100); ABG PCO2 43 MMHG (35-45); ABG PH 7.47 (7.37-7.43); ABG PO2 85 MMHG (79-93); ABG TCO2 32.1 MMOL/L (21.0-31.0)
[2020-05-20 01:49] LABS: CREATININE SERUM 0.46 MG/DL (0.60-1.30); GFR ESTIMATED > 60; PHOSPHORUS 2.4 MG/DL (2.3-4.7)
[2020-05-20 01:50] LABS: BUN/CREATININE RATIO 11
[2020-05-20 01:50] LABS: ALLENS TEST POSITIVE; INSPIRED O2 45; PATIENT TEMP 37.1; VENTILATOR YES
[2020-05-20] MEDS: KCL 20 MEQ TAB (K-DUR) PO SCH (02:07)
[2020-05-20] MEDS: MAGNESIUM 1 GM/100 ML IVPB 100 ML IV SCH (02:07)
[2020-05-20] MEDS: POTASSIUM CL 10MEQ/50ML IVPB 50 ML IV SCH ×3 (02:08→08:18)
[2020-05-20] MEDS: LACTATED RINGERS 1,000 ML IV SCH ×2 (02:37→08:18)
[2020-05-20] MEDS: DexMEDEtomidine PRE MIX 100 ML IV SCH ×3 (03:20→20:44)
--- NOTE | 2020-05-20 05:20 | Pulmonary Progress Note ---
Subjective Time Seen by a Provider: 05:15 Sepsis Event Evaluation Height, Weight, BMI Height: '" Weight: lbs. oz. kg; 40.97 BMI Method:Estimated Exam Exam Vital Signs Date Time Temp Pulse Resp B/P (MAP) Pulse Ox O2 Delivery O2 Flow Rate FiO2 05/20/20 04:00 37.0 63 24 122/68 (86) 93 Mechanical Ventilator 45.00 05/20/20 03:20 62 05/20/20 03:00 37.0 60 28 121/67 (85) 92 Mechanical Ventilator 45.00 05/20/20 02:00 36.9 63 24 129/70 (89) 93 Mechanical Ventilator 45.00 05/20/20 01:46 62 28 93 45 05/20/20 01:00 64 05/20/20 01:00 37.0 64 25 131/71 (91) 93 Mechanical Ventilator 45.00 05/20/20 00:00 37.2 73 21 132/72 (92) 93 Mechanical Ventilator 45.00 05/19/20 23:17 Mechanical Ventilator 45.00 05/19/20 23:00 37.4 87 21 121/70 (87) 91 Mechanical Ventilator 40.00 05/19/20 22:07 77 25 95 40 05/19/20 22:00 37.5 70 27 101/55 (70) 94 Mechanical Ventilator 40.00 05/19/20 21:00 37.8 77 24 102/62 (75) 94 Mechanical Ventilator 40.00 05/19/20 20:08 38.0 05/19/20 20:05 94 Mechanical Ventilator 40.00 05/19/20 20:03 Mechanical Ventilator 40.00 05/19/20 20:00 38.0 101 32 108/57 (74) 90 Mechanical Ventilator 30.00 05/19/20 19:48 Mechanical Ventilator 30.00 05/19/20 19:43 109 05/19/20 19:28 38.0 05/19/20 19:00 37.9 107 20 128/68 (88) 96 Mechanical Ventilator 30.00 05/19/20 19:00 107 05/19/20 18:20 105 35 96 30 05/19/20 18:00 38.0 107 34 135/67 (89) 96 Mechanical Ventilator 30.00 05/19/20 17:00 39.0 108 40 129/64 (85) 91 Mechanical Ventilator 30.00 12/22/20 16:00 39.0 99 45 131/63 (85) 93 Mechanical Ventilator 30.00 05/19/20 15:00 37.9 104 21 130/66 (87) 95 Mechanical Ventilator 30.00 05/19/20 14:43 104 34 91 30 05/19/20 14:00 37.9 102 31 127/65 (85) 95 Mechanical Ventilator 30.00 05/19/20 13:00 102 05/19/20 13:00 37.9 98 19 120/70 (87) 90 Mechanical Ventilator 30.00 05/19/20 12:00 37.8 96 27 117/56 (76) 93 Mechanical Ventilator 30.00 05/19/20 11:00 37.7 100 28 118/61 (80) 93 Mechanical Ventilator 30.00 05/19/20 10:30 101 32 93 30 05/19/20 10:00 37.7 106 31 108/66 (80) 92 Mechanical Ventilator 30.00 05/19/20 09:00 98 Mechanical Ventilator 30.00 05/19/20 09:00 37.7 113 27 126/61 (82) 93 Mechanical Ventilator 30.00 05/19/20 08:45 38.1 05/19/20 08:00 37.7 106 61 150/73 (98) 95 Mechanical Ventilator 30.00 05/19/20 07:56 38.1 05/19/20 07:00 37.7 101 40 134/77 (96) 93 Mechanical Ventilator 30.00 05/19/20 07:00 103 05/19/20 06:14 97 22 91 30 05/19/20 06:00 37.7 97 21 135/60 (85) 91 Mechanical Ventilator 30.00 I & O 05/20/20 07:00 Intake Total 2000 ml Output Total 4350 ml Balance -2350 ml Height & Weight Height: '" Weight: lbs. oz. kg; 40.97 BMI Method:Estimated General Appearance: No Apparent Distress, WD/WN, Chronically ill HEENT: PERRL/EOMI, Moist Mucous Membranes; No Scleral Icterus (L), No Scleral Icterus (R) Neck: Normal Inspection, Supple Respiratory: Lungs Clear Cardiovascular: Regular Rate, Rhythm Capillary Refill: Less Than 3 Seconds Extremity: Normal Capillary Refill, No Calf Tenderness, No Pedal Edema Neurologic/Psychiatric: Other (sedated) Skin: Normal Color, Warm/Dry Results Lab Laboratory Tests 05/19/20 01:43 05/20/20 01:15 Assessment/Plan Assessment/Plan Acute hypoxic respiratory failure due to COVID19 -S/p intubation 05/04 -Will attempt to wean vent today. -VT to 350 , RR 18 decrease PEEP5 -d/c proning - Propofol and Fentanyl after intubation -OG tube and restraints. -Continue TF s/p Remdesivir and CVP - decadron Lovenox MAT protocol IS PNA - -Pt has copious sputum production and fevers -Merrem to cover for ESBL -eraxis Thrush - Eraxis s/p Acute DKA -Levemir -D/C metformin and Gliparide -Pt was not on insulin prior to admission. She will need to remain on insulin after discharge. Thrombocytopenia - Resolved DVT/GI ppx: Lovenox -Start prilosec ROSIE FRANCO DO May 20, 2020 05:20
[2020-05-20] MEDS: inSUlin ASPART (NovoLOG) 1 UNIT/0.01 ML (CHARGE PER UNIT) SC SCH ×4 (05:42→22:59)
[2020-05-20] MEDS: ENOXAPARIN 40 MG/0.4 ML (LOVENOX) SYR SC SCH ×2 (06:14→17:56)
[2020-05-20] MEDS: MEROPENEM 500 MG/SWFI 10 ML IV PUSH IV SCH ×8 (06:14→22:55)
[2020-05-20 06:59] VITALS: BP 126/67
--- NOTE | 2020-05-20 07:53 | Diagnostic Imaging Report ---
INDICATION: COVID pneumonia AP view of the chest is obtained with comparison made to study of one day earlier. Extensive bilateral airspace disease has a similar appearance. These are predominantly peripheral. Endotracheal tube is in place with tip at the level of thoracic inlet. Nasogastric tube and right upper extremity PICC are in stable position. No new abnormality is seen. IMPRESSION: Stable overall appearance of extensive bilateral infiltrates. Report was faxed to [facility] by carmen at 7:53am. Dictated by: Dictated on workstation # [id number]
[2020-05-20] MEDS: ANIDULAFUNGIN INJECTION 100 MG in NS (IVPB) 100 ML IV SCH (08:18)
[2020-05-20] MEDS: FAMOTIDINE 20MG/2ML IV (PEPCID) IV SCH ×2 (08:19→19:16)
[2020-05-20] MEDS: DOCUSATE SODIUM 10 MG/ML 10 ML UDC (COLACE) PO SCH ×2 (08:19→19:01)
[2020-05-20] MEDS: MICONAZOLE 2% POWDER (DESENEX AF) 90 GM TOP SCH ×2 (08:19→19:17)
[2020-05-20] MEDS: risperiDONE 0.25 MG (RisperDAL) TAB PO SCH ×2 (08:19→19:01)
[2020-05-20] MEDS: METOCLOPRAMIDE INJ 10 MG/2 ML (REGLAN) IVP SCH ×2 (08:19→19:16)
[2020-05-20] MEDS: ARTIFICIAL TEARS OINT (LACRI-LUBE) 3.5 GM TUBE OU SCH ×2 (08:21→19:17)
[2020-05-20 08:24] LABS: ABG BASE EXCESS 6.3 MMOL/L (-2.5-2.5); ABG OXYGEN SATURATION 95 % (94-100); ABG PCO2 38 MMHG (35-45); ABG PH 7.51 (7.37-7.43); ABG PO2 73 MMHG (79-93); ABG TCO2 30.8 MMOL/L (21.0-31.0)
[2020-05-20 08:30] LABS: ALLENS TEST YES-POS; INSPIRED O2 50%; PATIENT TEMP 37; VENTILATOR YES
--- NOTE | 2020-05-20 09:25 | NUR ---
PT EXTUBATED PER EICU ORDERS. PLACED ON BIPAP AT THIS TIME BY RT. RESTRAINTS REMOVED. WILL CONTINUE TO MONITOR.
[2020-05-20 09:38] VITALS: BP 137/80
--- NOTE | 2020-05-20 10:04 | Physical Therapy Progress Note ---
Therapy Progress Note PROM not performed this date, per nursing request. Sedation has been decreased and possible extubation today. MILENA WRIGHT PT May 20, 2020 10:04
[2020-05-20 13:16] VITALS: BP 137/80
[2020-05-20] MEDS ORDERED: DexMEDEtomidine PRE MIX 100 ML IV ONE (16:57)
[2020-05-20 18:43] VITALS: BP 137/80
[2020-05-20 21:42] VITALS: BP_SYST 125; BP_SYST 128; BP_DIAS 75
[2020-05-21] MEDS: DexMEDEtomidine PRE MIX 100 ML IV SCH ×3 (01:23→17:41)
[2020-05-21 03:17] LABS: BASOPHILS % (AUTO) 0 % (0-10); EOSINOPHILS # (AUTO) 0.2 10^3/uL (0.0-0.3); EOSINOPHILS % (AUTO) 3 % (0-10); HEMATOCRIT 36 % (35-52); LYMPHOCYTES % (AUTO) 16 % (12-44); MEAN CORPUSCULAR HEMOGLOBIN 28 pg (25-34); MEAN CORPUSCULAR HGB CONC 30 g/dL (32-36); MEAN CORPUSCULAR VOLUME 94 fL (80-99); MEAN PLATELET VOLUME 9.3 fL (9.0-12.2); MONOCYTES # (AUTO) 0.5 10^3/uL (0.0-1.0); MONOCYTES % (AUTO) 7 % (0-12); NEUTROPHILS # (AUTO) 4.7 10^3/uL (1.8-7.8); NEUTROPHILS % (AUTO) 74 % (42-75); PLATELET COUNT 192 10^3/uL (130-400); WHITE BLOOD COUNT 6.4 10^3/uL (4.3-11.0)
[2020-05-21 03:28] LABS: CHLORIDE 104 MMOL/L (98-107); POTASSIUM 3.5 MMOL/L (3.6-5.0); SODIUM 140 MMOL/L (135-145)
[2020-05-21 03:29] LABS: CALCIUM 8.3 MG/DL (8.5-10.1)
[2020-05-21 03:30] LABS: GLUCOSE 152 MG/DL (70-105); TRIGLYCERIDES 156 MG/DL (<150)
[2020-05-21 03:31] LABS: CARBON DIOXIDE 26 MMOL/L (21-32)
[2020-05-21 03:33] LABS: PHOSPHORUS 2.3 MG/DL (2.3-4.7)
[2020-05-21 03:34] LABS: CREATININE SERUM 0.48 MG/DL (0.60-1.30); GFR ESTIMATED > 60
[2020-05-21 03:35] LABS: BUN/CREATININE RATIO 15
[2020-05-21 03:36] LABS: MAGNESIUM 1.9 MG/DL (1.6-2.4)
[2020-05-21] MEDS: MAGNESIUM 1 GM/100 ML IVPB 100 ML IV SCH (04:00)
[2020-05-21] MEDS: POTASSIUM CL 10MEQ/50ML IVPB 50 ML IV SCH ×3 (04:00→04:26)
[2020-05-21] MEDS: KCL 20 MEQ TAB (K-DUR) PO SCH (04:00)
[2020-05-21 04:16] LABS: ABG OXYGEN SATURATION 98 % (94-100); ABG PCO2 36 MMHG (35-45); ABG PH 7.51 (7.37-7.43); ABG PO2 94 MMHG (79-93); ABG TCO2 29.2 MMOL/L (21.0-31.0)
[2020-05-21 04:19] LABS: ALLENS TEST POSITIVE; INSPIRED O2 BIPAP 60%; PATIENT TEMP 37.1; VENTILATOR NO
[2020-05-21] MEDS: inSUlin ASPART (NovoLOG) 1 UNIT/0.01 ML (CHARGE PER UNIT) SC SCH ×3 (05:31→17:36)
[2020-05-21] MEDS: ENOXAPARIN 40 MG/0.4 ML (LOVENOX) SYR SC SCH ×2 (05:34→17:29)
[2020-05-21] MEDS: MEROPENEM 500 MG/SWFI 10 ML IV PUSH IV SCH ×6 (05:34→17:29)
--- NOTE | 2020-05-21 07:13 | Progress Note - Hospitalist ---
Subjective HPI/CC On Admission Date Seen by Provider: May 21, 2020 Time Seen by Provider: 10:30 Pt is a 64yoCF with a PMH of NIDDMII who presented to outside ER due to SOB. She became symptomatic with COVID roughly a week ago and was diagnosed 3 days ago. She has been intermittently febrile with cough but SOB developed yesterday. She has been nauseated as well but denies vomiting. She has had poor oral intake due to nausea and loss of taste. She quit taking her metformin for a few days because of this as well. Subjective/Events-last exam Extubated yesterday on biPAP Very frightened tried to reassure Review of Systems General: Fatigue Pulmonary: Dyspnea Objective Exam Vital Signs Vital Signs Date Time Temp Pulse Resp B/P (MAP) Pulse Ox O2 Delivery O2 Flow Rate FiO2 05/22/20 18:00 110 31 129/81 (97) 93 Vapotherm 30.00 60.00 05/22/20 16:45 37.9 05/22/20 14:56 60 Capillary Refill : Less Than 3 Seconds General Appearance: Anxious, Chronically ill, Mild Distress, Obese Respiratory: Accessory Muscle Use, Decreased Breath Sounds Cardiovascular: Regular Rate, Rhythm Neurologic/Psychiatric: Alert Results/Procedures Lab Laboratory Tests 05/22/20 02:55 Patient resulted labs reviewed. Imaging: Reviewed Imaging Films Assessment/Plan Assessment and Plan Assess & Plan/Chief Complaint Assessment and plan per Dr Crespo with my modifications in italic bold: Acute hypoxic respiratory failure due to COVID19 -S/p intubation 05/04 -Decrease VT to 350 -Repeat ABG in 1hr - Propofol and Fentanyl after intubation -OG tube and restraints. -Continue TF s/p Remdesivir and CVP - decadron -Check ABG 1hr after intubation Lovenox MAT protocol IS s/p Acute DKA -Levemir -D/C metformin and Gliparide -Pt was not on insulin prior to admission. She will need to remain on insulin after discharge. Hypokalemia/hypophos -replace Thrombocytopenia - Resolved DVT/GI ppx: Lovenox -Start prilosec DC prone positioning protocol 05/22/20: Extubated yesterday biPAP today Very anxious Monitor closely for reintubation Critical Care Critically Ill Patient Clinical Quality Measures DVT/VTE Risk/Contraindication: Risk Factor Score Per Nursin RFS Level Per Nursing on Admit: 4+=Very High YU SINGH DO May 21, 2020 07:13
[2020-05-21 07:19] VITALS: BP 111/71
[2020-05-21] MEDS: RT-ALBUTEROL INHALER HFA (VENTOLIN HFA) 18 GM IH SCH ×3 (07:19→18:04)
--- NOTE | 2020-05-21 07:41 | Diagnostic Imaging Report ---
Indication: Respiratory failure Portable chest 3:08 AM Right upper extremity PICC line tip projects over the SVC. There are diffuse alveolar infiltrates in both lungs. These are not appreciably changed compared to the previous day's exam. IMPRESSION: Stable chest with severe diffuse pulmonary infiltrates. Dictated by: Dictated on workstation # [id number]
[2020-05-21] MEDS: ANIDULAFUNGIN INJECTION 100 MG in NS (IVPB) 100 ML IV SCH (08:05)
[2020-05-21] MEDS: ARTIFICIAL TEARS OINT (LACRI-LUBE) 3.5 GM TUBE OU SCH ×2 (08:07→20:35)
[2020-05-21] MEDS: METOCLOPRAMIDE INJ 10 MG/2 ML (REGLAN) IVP SCH ×2 (08:07→20:35)
--- NOTE | 2020-05-21 08:27 | Speech Therapy Progress Note ---
Therapy Progress Note ST attempted to complete BDE, however patient is having difficulty with breathing consistently. ST will follow up on patient's status at a later time. JENA DAVENPORT May 21, 2020 08:27
[2020-05-21] MEDS: FAMOTIDINE 20MG/2ML IV (PEPCID) IV SCH ×2 (08:37→20:35)
[2020-05-21] MEDS: DOCUSATE SODIUM 10 MG/ML 10 ML UDC (COLACE) PO SCH ×2 (08:37→20:35)
[2020-05-21] MEDS: MICONAZOLE 2% POWDER (DESENEX AF) 90 GM TOP SCH ×2 (08:37→20:35)
[2020-05-21] MEDS: risperiDONE 0.25 MG (RisperDAL) TAB PO SCH ×2 (08:37→20:35)
--- NOTE | 2020-05-21 09:58 | Physical Therapy Evaluation ---
PT Evaluation-General Medical Diagnosis Admission Date May 01, 2020 at 21:20 Medical Diagnosis: Covid (+)/hypoxia Onset Date: May 01, 2020 Therapy Diagnosis Therapy Diagnosis: severe weakness/debility Precautions Precautions/Isolations: Airborne Isolation, Fall Prevention Referral Physician: Cherie Reason for Referral: Evaluation/Treatment Medical History Pertinent Medical History: DM Additional Medical History morbid obesity Current History ER secondary to SOA/extubated 05/20/20 Reviewed History: Yes Social History Current Living Status: Spouse Prior Prior Level of Function SCALE: Activities may be completed with or without assistive devices. 0-Ptrsmihvbs-qpzcdug completes the activity by him/herself with no assistance from a helper. 5-Set-up or Clean-up Assistance-helper sets up or cleans up; patient completes activity. [place] assists only prior to or following the activity. 4-Supervision or Touching Assistance-helper provides verbal cues and/or touching/steadying and/or contact guard assistance as patient completes activity. Assistance may be provided throughout the activity or intermittently. 3-Partial/Moderate Assistance-helper does LESS THAN HALF the effort. [place] lifts, holds or supports trunk or limbs, but provides less than half the effort. 2-Substantial/Maximal Assistance-helper does MORE THAN HALF the effort. [place] lifts or holds trunk or limbs and provides more than half the effort. 1-Bszwwvizk-kmijxh does ALL the effort. Patient does none of the effort to complete the activity. Or, the assistance of 2 or more helpers is required for the patient to complete the activity. If activity was not attempted, code reason: 7-Patient Refused. 9-Not Applicable-not attempted and the patient did not perform the activity before the current illness, exacerbation or injury. 10-Not Attempted due to Environmental Limitations-(lack of equipment, weather restraints, etc.). 88-Not Attempted due to Medical Conditions or Safety Concerns. Bed Mobility: 6 Transfers (B,C,W/C): 6 Gait: 6 Stairs: 6 Indoor Mobility (Ambulation): Independent Stairs: Independent PT Evaluation-Current Subjective Patient currently on BiPap. Shakes her head agreeing to PT. Objective Patient Orientation: Person, Time, Situation Attachments: Oxygen, Eng[place] Catheter, IV ROM/Strength ROM Lower Extremities bilateral LE WFL Strength Lower Extremities 2-/5 grossly all planes bilaterally Integumentary/Posture Integumentary refer to nursing notes Bowel Incontinence: Yes Bladder Incontinence: Engle Cath Neuromuscular (Tone, Coordination, Reflexes) severely diminished with all due to weakness Sensory Vision: Unable to Assess Hearing: Functional Transfers Roll Left to Right (QC): 1 (x 2 to reposition up in bed) Sit to Lying (QC): 88 Lying to Sitting/Side of Bed(Q: 88 Sit to Stand (QC): 88 Chair/Qkr-qi-Fyytz Xfer(QC): 88 Toilet Transfer (QC): 88 Car Transfer (QC): 88 Gait Does the Patient Walk?: No and Walking Goal IS indicated Treatment bilateral UE and LE AAROM all planes in supine 5 reps each Assessment/Needs 64 y.o. female, will benefit from skilled PT to address functional strength and mobility to improve current LOF. Patient has been intubated x 2 weeks and extubated 05/20/20. Patient is severely weak and unable to tolerated EOB or OOB activity. PT will increase activity as tolerated by patient. Rehab Potential: Guarded PT Short Term Goals Short Term Goals Time Frame: Jun 12, 2020 Roll Left & Right: 3 Sit to lyin Lying to sitting on side of be: 3 Sit to stand: 3 Chair/cgf-wn-geaas transfer: 3 Toilet transfer: 3 Walk 10 feet: 3 PT Long-Term Goals Long-Term Goals PT Long-Term Goals Time Frame: Jun 27, 2020 Roll Left & Right (QC): 5 Sit to Lying (QC): 5 Lying-Sitting on Side/Bed(QC): 5 Sit to Stand (QC): 5 Chair/Bvf-ky-Oasxq Xfer(QC): 5 Toilet Transfer (QC): 5 Does the Patient Walk: Yes Walk 10 feet (QC): 5 Walk 50ft with 2 Turns (QC): 5 Walk 150 ft (QC): 5 PT Plan Problem List Problem List: Activity Tolerance, Functional Strength, Safety, Balance, Gait, Transfer, Bed Mobility Treatment/Plan Treatment Plan: Continue Plan of Care Treatment Plan: Bed Mobility, Education, Functional Activity Paula, Functional Strength, Gait, Safety, Therapeutic Exercise, Transfers Treatment Duration: Jun 27, 2020 Frequency: 6 times per week Estimated Hrs Per Day: .5 hour per day Patient and/or Family Agrees t: Yes Time/GCodes Time In: 850 Time Out: 906 Total Billed Treatment Time: 16 Total Billed Treatment 1 visit [facility] 16 min RAZIA GILLESPIE PT May 21, 2020 09:58
[2020-05-21 10:58] VITALS: BP 111/74
--- NOTE | 2020-05-21 11:06 | Occupational Therapy Eval ---
OT Evaluation-General/PLF Medical Diagnosis Admission Date May 01, 2020 at 21:20 Medical Diagnosis: Covid (+)/hypoxia Onset Date: May 01, 2020 Therapy Diagnosis Therapy Diagnosis: Weakness Precautions Precautions/Isolations: Airborne Isolation, Fall Prevention Weight Bear Status Weight Bearing Restriction: Weight Bearing/Tolerated Referral Physician: Cherie Referral Reason: Activity Tolerance, Self Care, Evaluation/Treatment, Strengthening/ROM Medical History Pertinent Medical History: DM Additional Medical History NIDDMII, Hypokalemia Current History Pt. was intubated on 05-04-20. Extubated several days ago. Pt. currently on bipap but nursing okay for OT to work with her. Reviewed History: Yes Social History It is unknown at this time pt's prior level of function. She attempts to speak to OT through bipap, but is very weak and is difficult to understand. ADL-Prior Level of Function SCALE: Activities may be completed with or without assistive devices. 3-Tdatlqzcow-zdfdgud completes the activity by him/herself with no assistance from a helper. 5-Set-up or Clean-up Assistance-helper sets up or cleans up; patient completes activity. [place] assists only prior to or following the activity. 4-Supervision or Touching Assistance-helper provides verbal cues and/or touching/steadying and/or contact guard assistance as patient completes activity. Assistance may be provided throughout the activity or intermittently. 3-Partial/Moderate Assistance-helper does LESS THAN HALF the effort. [place] lif ts, holds or supports trunk or limbs, but provides less than half the effort. 2-Substantial/Maximal Assistance-helper does MORE THAN HALF the effort. [place] lifts or holds trunk or limbs and provides more than half the effort. 0-Lcthetxat-ooxsri does ALL the effort. Patient does none of the effort to complete the activity. Or, the assistance of 2 or more helpers is required for the patient to complete the activity. If activity was not attempted, code reason: 7-Patient Refused. 9-Not Applicable-not attempted and the patient did not perform the activity before the current illness, exacerbation or injury. 10-Not Attempted due to Environmental Limitations-(lack of equipment, weather restraints, etc.). 88-Not Attempted due to Medical Conditions or Safety Concerns. Self Care: Unknown Functional Cognition: Unknown OT Current Status Subjective Pt. on bipap. Pt. is able to indicate to OT that she wants to eat. OT removes bipap just briefly so that pt. can state this, and oxygen saturations begin to drop. Bipap placed again quickly. Mental Status/Objective Attachments: Engle Catheter, IV, Oxygen, Telemetry ADL-Treatment Eating (QC): 88 Toileting Hygiene (QC): 1 Pt. in bed on bipap. While donning PPE outside of room, nursing was observed positioning pt., and she requires dependent assistance. Nursing okay for OT to attempt treatment. Pt. has been positioned to comfort level, and attempts to communicate through bipap, which is difficult. Pt. is able to participate in bilateral UE AROM and AAROM exercises to tolerated range. Pt. is able to complete bicep flexion, wrist extension, and finger movement. Movements are labored and slow, but she is able to actively engage. Demonstrates approximately 1/4 range in bicep flexion and full wrist extension. All needs are met again to best of ability. OT attempts to explain to pt. process for getting stronger, and attempts to encourage pt. Education OT Patient Education: Correct positioning, Exercise program, Reviewed precautions, Rehab process Teaching Recipient: Patient Teaching Methods: Demonstration Response to Teaching: Unable to Return Demonstration OT Short Term Goals Short Term Goals Time Frame: Jun 04, 2020 Eatin Oral hygiene: 3 Upper body dressin OT Family Protection Specialist Goals Fdc Goals Time Frame: Jun 18, 2020 Eating (QC): 4 Oral Hygiene (QC): 4 Toileting Hygiene (QC): 3 Upper Body Dressing (QC): 4 Lower Body Dressing (QC): 3 On/Off Footwear (QC): 3 Additional Goals: 1-Demonstrate ADL Tasks, 2-Verbalize Understanding, 3- ImproveStrength/Paula 1=Demonstrate adherence to instructed precautions during ADL tasks. 2=Patient will verbalize/demonstrate understanding of assistive devices/modifications for ADL. 3=Patient will improve strength/tolerance for activity to enable patient to perform ADL's. OT Education/Plan Problem List/Assessment Assessment: Decreased Activ Tolerance, Decreased UE Strength, Dependent Transfers, Impaired Bed Mobility, Impaired Cognition, Impaired Coordination, Impaired Funct Balance, Impaired I ADL's, Impaired Self-Care Skills, Restricted Funct UE ROM Discharge Recommendations Plan/Recommendations: Continue POC Therapy Discharge Recommendati: Post Acute OT Treatment Plan/Plan of Care Treatment,Training & Education: Yes Patient would benefit from OT for education, treatment and training to promote independence in ADL's, mobility, safety and/or upper extremity function for ADL's. Plan of Care: ADL Retraining, Functional Mobility, UE Funct Exercise/Act Treatment Duration: Jun 18, 2020 Frequency: 5 times per week Estimated Hrs Per Day: .5 hour per day Agreement: Yes Rehab Potential: Fair Time/GCodes Start Time: 09:55 Stop Time: 10:15 Total Time Billed (hr/min): 20 Billed Treatment Time 1, AC SNELL OT May 21, 2020 11:06
[2020-05-21 15:09] VITALS: BP 124/82
--- NOTE | 2020-05-21 17:53 | NUR ---
Updated pt daughter at this time, pt able to speak with daughter at this time.
[2020-05-21 18:04] VITALS: BP 118/74
[2020-05-21] MEDS: LACTATED RINGERS 1,000 ML IV SCH (20:36)
[2020-05-21] MEDS: ACETAMINOPHEN 325 MG TABLET PO PRN (20:42)
[2020-05-21 21:02] VITALS: BP 110/62
--- NOTE | 2020-05-21 21:15 | NUR ---
Patient placed on Vapotherm at this time by RT, 30L/70% FIO2. Bedside swallow evaluation done by this typewriter mechanic. Patient passed and is able to swallow water and applesauce without difficulty.
[2020-05-22] MEDS: MEROPENEM 500 MG/SWFI 10 ML IV PUSH IV SCH ×10 (00:03→23:35)
[2020-05-22] MEDS: inSUlin ASPART (NovoLOG) 1 UNIT/0.01 ML (CHARGE PER UNIT) SC SCH ×5 (00:03→23:35)
[2020-05-22] MEDS: RT-ALBUTEROL INHALER HFA (VENTOLIN HFA) 18 GM IH SCH ×4 (01:15→20:49)
[2020-05-22 03:24] LABS: BASOPHILS % (AUTO) 0 % (0-10); EOSINOPHILS # (AUTO) 0.3 10^3/uL (0.0-0.3); EOSINOPHILS % (AUTO) 5 % (0-10); HEMATOCRIT 34 % (35-52); HEMOGLOBIN 10.6 g/dL (11.5-16.0); LYMPHOCYTES # (AUTO) 1.6 10^3/uL (1.0-4.0); LYMPHOCYTES % (AUTO) 25 % (12-44); MEAN CORPUSCULAR HEMOGLOBIN 29 pg (25-34); MEAN CORPUSCULAR HGB CONC 31 g/dL (32-36); MEAN CORPUSCULAR VOLUME 94 fL (80-99); MONOCYTES # (AUTO) 0.5 10^3/uL (0.0-1.0); MONOCYTES % (AUTO) 8 % (0-12); NEUTROPHILS % (AUTO) 62 % (42-75); PLATELET COUNT 151 10^3/uL (130-400); WHITE BLOOD COUNT 6.4 10^3/uL (4.3-11.0)
[2020-05-22 03:39] LABS: CHLORIDE 106 MMOL/L (98-107)
[2020-05-22 03:40] LABS: POTASSIUM 3.3 MMOL/L (3.6-5.0); SODIUM 140 MMOL/L (135-145)
[2020-05-22 03:41] LABS: CALCIUM 8.1 MG/DL (8.5-10.1); GLUCOSE 106 MG/DL (70-105)
[2020-05-22 03:43] LABS: CARBON DIOXIDE 23 MMOL/L (21-32)
[2020-05-22 03:45] LABS: CREATININE SERUM 0.47 MG/DL (0.60-1.30); GFR ESTIMATED > 60; PHOSPHORUS 2.7 MG/DL (2.3-4.7)
[2020-05-22] MEDS: POTASSIUM CL 10MEQ/50ML IVPB 50 ML IV SCH ×4 (03:45→05:08)
[2020-05-22] MEDS: KCL 20 MEQ TAB (K-DUR) PO SCH (03:45)
[2020-05-22 03:46] LABS: BUN/CREATININE RATIO 19
[2020-05-22] MEDS: MAGNESIUM 1 GM/100 ML IVPB 100 ML IV SCH (03:53)
[2020-05-22] MEDS: ENOXAPARIN 40 MG/0.4 ML (LOVENOX) SYR SC SCH ×2 (04:25→20:59)
[2020-05-22] MEDS: ACETAMINOPHEN 325 MG TABLET PO PRN ×3 (05:12→21:00)
[2020-05-22] MEDS: risperiDONE 0.25 MG (RisperDAL) TAB PO SCH ×2 (08:26→21:00)
[2020-05-22] MEDS: METOCLOPRAMIDE INJ 10 MG/2 ML (REGLAN) IVP SCH ×2 (08:26→20:59)
[2020-05-22] MEDS: MICONAZOLE 2% POWDER (DESENEX AF) 90 GM TOP SCH ×2 (08:27→21:01)
[2020-05-22] MEDS: ARTIFICIAL TEARS OINT (LACRI-LUBE) 3.5 GM TUBE OU SCH ×2 (08:27→20:59)
[2020-05-22] MEDS: DOCUSATE SODIUM 10 MG/ML 10 ML UDC (COLACE) PO SCH ×2 (08:27→20:59)
[2020-05-22] MEDS: FAMOTIDINE 20MG/2ML IV (PEPCID) IV SCH ×2 (08:41→20:59)
--- NOTE | 2020-05-22 09:06 | Diagnostic Imaging Report ---
Clinical indication: Patient with respiratory failure. COVID-19 positive. Exam: Portable chest x-ray upright view. Comparisons: Chest x-ray dated 05/21/2020. Findings: There is slight improved aeration of the right midlung field with residual infiltrate. There is peripheral and left basilar consolidation and airspace infiltrates which has slightly progressed. There is blunting of left costophrenic angle and a left pleural effusion cannot be completely excluded. There is no pneumothorax. Pulmonary vasculature and cardiac silhouette are partially obscured, but stable. Right PICC line again seen in stable position. IMPRESSION: 1: There is progression of left basilar and peripheral consolidation and infiltrate involving the left lung. 2: Slight improved aeration of the right midlung field with residual infiltrate remaining. 3: The remainder of this exam shows no significant interval change compared to the prior study of comparison. Dictated by: Dictated on workstation # [id number]
--- NOTE | 2020-05-22 11:42 | Progress Note - Hospitalist ---
Subjective HPI/CC On Admission Date Seen by Provider: May 22, 2020 Time Seen by Provider: 10:00 Pt is a 64yoCF with a PMH of NIDDMII who presented to outside ER due to SOB. She became symptomatic with COVID roughly a week ago and was diagnosed 3 days ago. She has been intermittently febrile with cough but SOB developed yesterday. She has been nauseated as well but denies vomiting. She has had poor oral intake due to nausea and loss of taste. She quit taking her metformin for a few days because of this as well. Subjective/Events-last exam Patient now on Vapotherm Very anxious Motions to have someone come to see her constantly Patient does not want to be alone Review of Systems General: Fatigue Pulmonary: Dyspnea Objective Exam Vital Signs Vital Signs Date Time Temp Pulse Resp B/P (MAP) Pulse Ox O2 Delivery O2 Flow Rate FiO2 05/23/20 06:00 112 26 119/83 (95) 88 Vapotherm 40.00 100.00 05/23/20 05:24 38.4 05/23/20 02:58 60 Capillary Refill : Less Than 3 Seconds General Appearance: Anxious, Chronically ill, Mild Distress Respiratory: No Accessory Muscle Use, No Respiratory Distress, Decreased Breath Sounds Cardiovascular: Regular Rate, Rhythm Neurologic/Psychiatric: Alert, Oriented x3, No Motor/Sensory Deficits, Normal Mood/Affect Results/Procedures Lab Laboratory Tests 05/23/20 02:35 Patient resulted labs reviewed. Imaging: Reviewed Imaging Films Assessment/Plan Assessment and Plan Assess & Plan/Chief Complaint Assessment and plan per Dr Crespo with my modifications in italic bold: Acute hypoxic respiratory failure due to COVID19 -S/p intubation 05/04 -Decrease VT to 350 -Repeat ABG in 1hr - Propofol and Fentanyl after intubation -OG tube and restraints. -Continue TF s/p Remdesivir and CVP - decadron -Check ABG 1hr after intubation Lovenox MAT protocol IS s/p Acute DKA -Levemir -D/C metformin and Gliparide -Pt was not on insulin prior to admission. She will need to remain on insulin after discharge. Hypokalemia/hypophos -replace Thrombocytopenia - Resolved DVT/GI ppx: Lovenox -Start prilosec DC prone positioning protocol 05/23/20: Extubated 1 day ago biPAP today Very anxious Monitor closely for reintubation 05/22/20: Stay in ICU since it appears she is at high risk for decompensating Very anxious Critical Care Critically Ill Patient Clinical Quality Measures DVT/VTE Risk/Contraindication: Risk Factor Score Per Nursin RFS Level Per Nursing on Admit: 4+=Very High YU SINGH DO May 22, 2020 11:42
[2020-05-22] MEDS: MELATONIN 3 MG TABLET PO PRN (21:00)
[2020-05-23 02:51] LABS: BASOPHILS % (AUTO) 0 % (0-10); EOSINOPHILS # (AUTO) 0.2 10^3/uL (0.0-0.3); EOSINOPHILS % (AUTO) 2 % (0-10); HEMATOCRIT 36 % (35-52); LYMPHOCYTES # (AUTO) 1.4 10^3/uL (1.0-4.0); LYMPHOCYTES % (AUTO) 18 % (12-44); MEAN CORPUSCULAR HEMOGLOBIN 29 pg (25-34); MEAN CORPUSCULAR HGB CONC 31 g/dL (32-36); MEAN CORPUSCULAR VOLUME 92 fL (80-99); MEAN PLATELET VOLUME 9.5 fL (9.0-12.2); MONOCYTES # (AUTO) 0.6 10^3/uL (0.0-1.0); MONOCYTES % (AUTO) 8 % (0-12); NEUTROPHILS # (AUTO) 5.4 10^3/uL (1.8-7.8); NEUTROPHILS % (AUTO) 71 % (42-75); PLATELET COUNT 228 10^3/uL (130-400); WHITE BLOOD COUNT 7.6 10^3/uL (4.3-11.0)
[2020-05-23 02:57] LABS: CHLORIDE 102 MMOL/L (98-107); POTASSIUM 3.3 MMOL/L (3.6-5.0); SODIUM 138 MMOL/L (135-145)
[2020-05-23] MEDS: RT-ALBUTEROL INHALER HFA (VENTOLIN HFA) 18 GM IH SCH ×4 (02:57→21:02)
[2020-05-23 02:59] LABS: CALCIUM 8.2 MG/DL (8.5-10.1); GLUCOSE 125 MG/DL (70-105); TRIGLYCERIDES 143 MG/DL (<150)
[2020-05-23 03:01] LABS: CARBON DIOXIDE 23 MMOL/L (21-32)
[2020-05-23 03:03] LABS: CREATININE SERUM 0.48 MG/DL (0.60-1.30); GFR ESTIMATED > 60; PHOSPHORUS 2.6 MG/DL (2.3-4.7)
[2020-05-23 03:04] LABS: BUN/CREATININE RATIO 8
[2020-05-23 03:05] LABS: MAGNESIUM 1.9 MG/DL (1.6-2.4)
[2020-05-23] MEDS: DexMEDEtomidine PRE MIX 100 ML IV SCH ×4 (04:01→18:31)
[2020-05-23] MEDS: LACTATED RINGERS 1,000 ML IV SCH (04:32)
[2020-05-23] MEDS ORDERED: PROPOFOL DRIP (ICU) 100 ML IV ONE (04:32)
[2020-05-23 04:59] LABS: ABG BASE EXCESS 1.6 MMOL/L (-2.5-2.5); ABG OXYGEN SATURATION 100 % (94-100); ABG PCO2 36 MMHG (35-45); ABG PH 7.46 (7.37-7.43); ABG PO2 159 MMHG (79-93); ABG TCO2 25.9 MMOL/L (21.0-31.0)
[2020-05-23 05:00] LABS: ALLENS TEST YES-POS; INSPIRED O2 100%; PATIENT TEMP 38.4; VENTILATOR YES
[2020-05-23] MEDS ORDERED: FUROSEMIDE 40 MG/4 ML INJ (LASIX) IVP ONE (05:00)
--- NOTE | 2020-05-23 05:00 | NUR ---
0400 PT BECOMES TACHYCARDIC, TACHYPNEIC, AND DESATURATES ON VAPOTHERM. THIS RN AND RT AT BEDSIDE. [address] SINGH NOTIFIED OF PT STATUS CHANGE. INFORMED BY DR SINGH TO "GET PATIENT INTUBATED". [address] MIRELES NOTIFIED OF PT STATUS. NEW ORDER RECEIVED FOR ABG. WILL CONTINUE TO MONITOR.
[2020-05-23] MEDS ORDERED: FUROSEMIDE 40 MG/4 ML INJ (LASIX) ONE (05:03)
[2020-05-23] MEDS: POTASSIUM CL 10MEQ/50ML IVPB 50 ML IV SCH ×4 (05:12→07:54)
[2020-05-23] MEDS: KCL 20 MEQ TAB (K-DUR) PO SCH (06:16)
[2020-05-23] MEDS: inSUlin ASPART (NovoLOG) 1 UNIT/0.01 ML (CHARGE PER UNIT) SC SCH ×4 (06:16→23:56)
[2020-05-23] MEDS: MAGNESIUM 1 GM/100 ML IVPB 100 ML IV SCH (06:16)
[2020-05-23] MEDS: ENOXAPARIN 40 MG/0.4 ML (LOVENOX) SYR SC SCH ×2 (06:25→18:32)
[2020-05-23] MEDS: MEROPENEM 500 MG/SWFI 10 ML IV PUSH IV SCH ×8 (06:26→23:55)
--- NOTE | 2020-05-23 07:25 | Progress Note - Hospitalist ---
Subjective HPI/CC On Admission Date Seen by Provider: May 23, 2020 Time Seen by Provider: 11:00 Pt is a 64yoCF with a PMH of NIDDMII who presented to outside ER due to SOB. She became symptomatic with COVID roughly a week ago and was diagnosed 3 days ago. She has been intermittently febrile with cough but SOB developed yesterday. She has been nauseated as well but denies vomiting. She has had poor oral intake due to nausea and loss of taste. She quit taking her metformin for a few days because of this as well. Subjective/Events-last exam Patient very anxious Precedex maintained for severe anxiety Spoke to chrissy carrasco for 15 minutes and she called back and made her DNR and do not intubate again Very poor prognosis Objective Exam Vital Signs Vital Signs Date Time Temp Pulse Resp B/P (MAP) Pulse Ox O2 Delivery O2 Flow Rate FiO2 05/23/20 18:31 36.0 61 19 132/69 94 35.00 05/23/20 18:00 Vapotherm 05/23/20 15:03 50 Capillary Refill : Less Than 3 Seconds General Appearance: Anxious, Chronically ill, Mild Distress, Obese Respiratory: Lungs Clear Cardiovascular: Regular Rate, Rhythm Results/Procedures Lab Laboratory Tests 05/23/20 02:35 Patient resulted labs reviewed. Imaging: Reviewed Imaging Films Assessment/Plan Assessment and Plan Assess & Plan/Chief Complaint Assessment and plan per Dr Crespo with my modifications in italic bold: Acute hypoxic respiratory failure due to COVID19 -S/p intubation 05/04 -Decrease VT to 350 -Repeat ABG in 1hr - Propofol and Fentanyl after intubation -OG tube and restraints. -Continue TF s/p Remdesivir and CVP - decadron -Check ABG 1hr after intubation Lovenox MAT protocol IS s/p Acute DKA -Levemir -D/C metformin and Gliparide -Pt was not on insulin prior to admission. She will need to remain on insulin after discharge. Hypokalemia/hypophos -replace Thrombocytopenia - Resolved DVT/GI ppx: Lovenox -Start prilosec DC prone positioning protocol 05/23/20: Extubated 1 day ago biPAP today Very anxious Monitor closely for reintubation 05/22/20: Stay in ICU since it appears she is at high risk for decompensating Very anxious 05/23/20: Precedex DNR Do not intubate again Critical Care Critically Ill Patient Clinical Quality Measures DVT/VTE Risk/Contraindication: Risk Factor Score Per Nursin RFS Level Per Nursing on Admit: 4+=Very High YU SINGH DO May 23, 2020 07:25
[2020-05-23] MEDS: METOCLOPRAMIDE INJ 10 MG/2 ML (REGLAN) IVP SCH ×2 (08:05→21:26)
[2020-05-23] MEDS: risperiDONE 0.25 MG (RisperDAL) TAB PO SCH ×2 (08:05→21:26)
[2020-05-23] MEDS: FAMOTIDINE 20MG/2ML IV (PEPCID) IV SCH ×2 (08:05→21:25)
[2020-05-23] MEDS: DOCUSATE SODIUM 10 MG/ML 10 ML UDC (COLACE) PO SCH ×2 (08:05→21:26)
[2020-05-23] MEDS: MICONAZOLE 2% POWDER (DESENEX AF) 90 GM TOP SCH ×2 (08:05→21:26)
[2020-05-23] MEDS: ACETAMINOPHEN 325 MG TABLET PO PRN (08:05)
[2020-05-23] MEDS: ARTIFICIAL TEARS OINT (LACRI-LUBE) 3.5 GM TUBE OU SCH ×2 (08:06→21:26)
--- NOTE | 2020-05-23 08:30 | Diagnostic Imaging Report ---
EXAM: CHEST 1 VIEW, AP/PA ONLY INDICATION: Respiratory failure. COVID. COMPARISON: Chest radiograph 05/22/2020. FINDINGS: Examination limited by low lung volumes. Dense airspace opacification throughout both lungs. Heart size is obscured. Right PICC tip mid SVC. Probable left pleural effusion. No definite pneumothorax. IMPRESSION: Limited exam due to low lung volumes. Dense airspace opacification throughout both lungs and probable small left pleural effusion. Dictated by: Dictated on workstation # [id number]
--- NOTE | 2020-05-23 11:30 | NUR ---
SPOKE AND UPDATED PATIENTS DAUGHTER AT ONLY NUMBER PROVIDED. THIS RN ADVISED DAUGHTER THAT PATIENT HAS STATED SEVERAL TIMES THAT SHE DID NOT WANT TO GO ON THE VENTILATOR AGAIN. PATIENTS DAUGHTER STATED "OH NO, SHE HAS TO BREATH". I ADVISED THE DAUGHTER THAT PATIENT IS STILL A FULL CODE AT THIS TIME AND SHE IS ANSWERING ALL QUESTIONS APPROPRIATELY. SHE KNOWS WHO SHE IS AND WHERE SHE IS AT AND WHY SHE IS IN THE HOSPITAL. I THEN ASKED IF SABINA WAS AVAILABLE HE WOULD BE MAKING DECISIONS IF KAYLEIGH COULD NOT. THE DAUGHTER STATED THAT THEY DO NOT LIVE TOGETHER SO SHE COULD CALL HIM. I ASKED FOR HIS NUMBER SINCE HE LIVED SEPARATELY. SABINA CAN BE REACHED AT [phone]. DR SINGH WILL CALL FAMILY TO DISCUSS FURTHER.
--- NOTE | 2020-05-23 11:51 | Physical Therapy Daily Note ---
PT Daily Note-Current Subjective Pt tearful and refuses to participate in PT. She reports she does not want to live any longer. Transfers SCALE: Activities may be completed with or without assistive devices. 4-Fhudcpouqs-oaiqkdk completes the activity by him/herself with no assistance from a helper. 5-Set-up or Clean-up Assistance-helper sets up or cleans up; patient completes activity. [place] assists only prior to or following the activity. 4-Supervision or Touching Assistance-helper provides verbal cues and/or touching/steadying and/or contact guard assistance as patient completes activity. Assistance may be provided throughout the activity or intermittently. 3-Partial/Moderate Assistance-helper does LESS THAN HALF the effort. [place] lifts, holds or supports trunk or limbs, but provides less than half the effort. 2-Substantial/Maximal Assistance-helper does MORE THAN HALF the effort. [place] lifts or holds trunk or limbs and provides more than half the effort. 7-Nbrdayguw-wvvvna does ALL the effort. Patient does none of the effort to complete the activity. Or, the assistance of 2 or more helpers is required for the patient to complete the activity. If activity was not attempted, code reason: 7-Patient Refused. 9-Not Applicable-not attempted and the patient did not perform the activity before the current illness, exacerbation or injury. 10-Not Attempted due to Environmental Limitations-(lack of equipment, weather restraints, etc.). 88-Not Attempted due to Medical Conditions or Safety Concerns. Exercises Spent time consoling patient and encouraged/educated on some simple exercises of QS, HS, and ankle pumps. Spent time encouraging patient not to give and to perform simple movements to help facilitate healing. PT Short Term Goals Short Term Goals Time Frame: Jun 12, 2020 Roll Left & Right: 3 Sit to lyin Lying to sitting on side of be: 3 Sit to stand: 3 Chair/pxr-ky-abwew transfer: 3 Toilet transfer: 3 Walk 10 feet: 3 PT Handbag Designer Goals Halfway Goals PT Handbag Designer Goals Time Frame: Jun 27, 2020 Roll Left & Right (QC): 5 Sit to Lying (QC): 5 Lying-Sitting on Side/Bed(QC): 5 Sit to Stand (QC): 5 Chair/Hkx-vr-Rnoce Xfer(QC): 5 Toilet Transfer (QC): 5 Does the Patient Walk: Yes Walk 10 feet (QC): 5 Walk 50ft with 2 Turns (QC): 5 Walk 150 ft (QC): 5 PT Plan Problem List Problem List: Activity Tolerance Treatment/Plan Treatment Plan: Continue Plan of Care Treatment Plan: Bed Mobility, Education, Functional Activity Paula, Functional Strength, Gait, Safety, Therapeutic Exercise, Transfers Treatment Duration: Jun 27, 2020 Frequency: 6 times per week Estimated Hrs Per Day: .5 hour per day Patient and/or Family Agrees t: Yes Time/GCodes Time In: 1120 Time Out: 1130 Total Billed Treatment Time: 10 Total Billed Treatment visit, FA 10 min МАРИЯ CORREA PT May 23, 2020 11:51
[2020-05-24] MEDS: DexMEDEtomidine PRE MIX 100 ML IV SCH ×7 (01:18→21:45)
[2020-05-24] MEDS: RT-ALBUTEROL INHALER HFA (VENTOLIN HFA) 18 GM IH SCH ×4 (02:40→23:05)
[2020-05-24 03:15] LABS: BASOPHILS % (AUTO) 1 % (0-10); EOSINOPHILS # (AUTO) 0.5 10^3/uL (0.0-0.3); EOSINOPHILS % (AUTO) 9 % (0-10); HEMATOCRIT 34 % (35-52); HEMOGLOBIN 10.5 g/dL (11.5-16.0); LYMPHOCYTES % (AUTO) 18 % (12-44); MEAN CORPUSCULAR HEMOGLOBIN 28 pg (25-34); MEAN CORPUSCULAR HGB CONC 31 g/dL (32-36); MEAN CORPUSCULAR VOLUME 93 fL (80-99); MEAN PLATELET VOLUME 9.7 fL (9.0-12.2); MONOCYTES # (AUTO) 0.6 10^3/uL (0.0-1.0); MONOCYTES % (AUTO) 10 % (0-12); NEUTROPHILS # (AUTO) 3.7 10^3/uL (1.8-7.8); NEUTROPHILS % (AUTO) 63 % (42-75); PLATELET COUNT 204 10^3/uL (130-400); WHITE BLOOD COUNT 5.9 10^3/uL (4.3-11.0)
[2020-05-24 03:35] LABS: CHLORIDE 104 MMOL/L (98-107); POTASSIUM 3.4 MMOL/L (3.6-5.0)
[2020-05-24 03:36] LABS: SODIUM 140 MMOL/L (135-145)
[2020-05-24 03:37] LABS: CALCIUM 8.2 MG/DL (8.5-10.1); GLUCOSE 135 MG/DL (70-105)
[2020-05-24 03:39] LABS: CARBON DIOXIDE 27 MMOL/L (21-32)
[2020-05-24 03:41] LABS: CREATININE SERUM 0.46 MG/DL (0.60-1.30); GFR ESTIMATED > 60; PHOSPHORUS 2.1 MG/DL (2.3-4.7)
[2020-05-24 03:42] LABS: BUN/CREATININE RATIO 20
[2020-05-24 03:44] LABS: MAGNESIUM 2.1 MG/DL (1.6-2.4)
[2020-05-24] MEDS: MAGNESIUM 1 GM/100 ML IVPB 100 ML IV SCH (03:46)
[2020-05-24] MEDS: KCL 20 MEQ TAB (K-DUR) PO SCH (03:46)
[2020-05-24] MEDS: inSUlin ASPART (NovoLOG) 1 UNIT/0.01 ML (CHARGE PER UNIT) SC SCH ×4 (03:46→23:31)
[2020-05-24] MEDS: ENOXAPARIN 40 MG/0.4 ML (LOVENOX) SYR SC SCH ×2 (06:01→18:20)
[2020-05-24] MEDS: MEROPENEM 500 MG/SWFI 10 ML IV PUSH IV SCH ×8 (06:01→23:30)
[2020-05-24] MEDS: POTASSIUM CL 10MEQ/50ML IVPB 50 ML IV SCH ×3 (06:01→06:02)
[2020-05-24] MEDS: LACTATED RINGERS 1,000 ML IV SCH (06:01)
--- NOTE | 2020-05-24 06:38 | Progress Note - Hospitalist ---
Subjective HPI/CC On Admission Date Seen by Provider: May 24, 2020 Time Seen by Provider: 12:00 Pt is a 64yoCF with a PMH of NIDDMII who presented to outside ER due to SOB. She became symptomatic with COVID roughly a week ago and was diagnosed 3 days ago. She has been intermittently febrile with cough but SOB developed yesterday. She has been nauseated as well but denies vomiting. She has had poor oral intake due to nausea and loss of taste. She quit taking her metformin for a few days because of this as well. Subjective/Events-last exam Appears tormented and anxious Precedex required due to severe anxiety Very difficult situation Having ICU psychosis Objective Exam Vital Signs Vital Signs Date Time Temp Pulse Resp B/P (MAP) Pulse Ox O2 Delivery O2 Flow Rate FiO2 05/24/20 21:07 94 Vapotherm 25.00 40 05/24/20 20:13 62 24 132/79 (96) 05/24/20 19:38 36.1 Capillary Refill : Less Than 3 Seconds General Appearance: Anxious, Chronically ill Respiratory: No Respiratory Distress, Accessory Muscle Use, Decreased Breath Sounds Cardiovascular: Regular Rate, Rhythm Neurologic/Psychiatric: Alert, Disoriented Results/Procedures Lab Laboratory Tests 05/24/20 03:00 Patient resulted labs reviewed. Imaging: Reviewed Imaging Films Assessment/Plan Assessment and Plan Assess & Plan/Chief Complaint Assessment and plan per Dr Crespo with my modifications in italic bold: Acute hypoxic respiratory failure due to COVID19 -S/p intubation 05/04 -Decrease VT to 350 -Repeat ABG in 1hr - Propofol and Fentanyl after intubation -OG tube and restraints. -Continue TF s/p Remdesivir and CVP - decadron -Check ABG 1hr after intubation Lovenox MAT protocol IS s/p Acute DKA -Levemir -D/C metformin and Gliparide -Pt was not on insulin prior to admission. She will need to remain on insulin after discharge. Hypokalemia/hypophos -replace Thrombocytopenia - Resolved DVT/GI ppx: Lovenox -Start prilosec DC prone positioning protocol 05/23/20: Extubated 1 day ago biPAP today Very anxious Monitor closely for reintubation 05/22/20: Stay in ICU since it appears she is at high risk for decompensating Very anxious 05/23/20: Precedex DNR Do not intubate again 05/24/20: Tormented appearance ICU psychosis Critical Care Critically Ill Patient Clinical Quality Measures DVT/VTE Risk/Contraindication: Risk Factor Score Per Nursin RFS Level Per Nursing on Admit: 4+=Very High YU SINGH DO May 24, 2020 06:38
--- NOTE | 2020-05-24 06:59 | Diagnostic Imaging Report ---
INDICATION: Pneumonia. Comparison made with prior examination from 05/23/2020 FINDINGS: Heart size is unchanged. There are bilateral pulmonary infiltrates. There is no pleural effusion. There is no pneumothorax. The mediastinum is unremarkable. Some underlying central pulmonary venous congestion cannot be excluded. IMPRESSION: Diffuse bilateral pulmonary infiltrates compatible with atypical pneumonia likely COVID. Some underlying central pulmonary venous congestion cannot be excluded. Report was faxed to [facility] by carmen at 6:58am. Dictated by: Dictated on workstation # [id number]
[2020-05-24] MEDS: DOCUSATE SODIUM 10 MG/ML 10 ML UDC (COLACE) PO SCH ×2 (08:02→22:06)
[2020-05-24] MEDS: risperiDONE 0.25 MG (RisperDAL) TAB PO SCH ×2 (08:02→22:07)
[2020-05-24] MEDS: METOCLOPRAMIDE INJ 10 MG/2 ML (REGLAN) IVP SCH ×2 (08:03→20:04)
[2020-05-24] MEDS: FAMOTIDINE 20MG/2ML IV (PEPCID) IV SCH ×2 (08:03→20:04)
[2020-05-24] MEDS: MICONAZOLE 2% POWDER (DESENEX AF) 90 GM TOP SCH ×2 (08:03→20:08)
[2020-05-24] MEDS: ARTIFICIAL TEARS OINT (LACRI-LUBE) 3.5 GM TUBE OU SCH ×2 (08:03→20:08)
[2020-05-24 18:19] VITALS: BP 139/79
[2020-05-25] MEDS: DexMEDEtomidine PRE MIX 100 ML IV SCH (01:11)
[2020-05-25] MEDS: RT-ALBUTEROL INHALER HFA (VENTOLIN HFA) 18 GM IH SCH ×4 (02:42→21:25)
[2020-05-25 03:07] LABS: BASOPHILS % (AUTO) 0 % (0-10); EOSINOPHILS # (AUTO) 0.6 10^3/uL (0.0-0.3); EOSINOPHILS % (AUTO) 9 % (0-10); HEMATOCRIT 37 % (35-52); HEMOGLOBIN 11.3 g/dL (11.5-16.0); LYMPHOCYTES # (AUTO) 1.7 10^3/uL (1.0-4.0); LYMPHOCYTES % (AUTO) 27 % (12-44); MEAN CORPUSCULAR HEMOGLOBIN 28 pg (25-34); MEAN CORPUSCULAR HGB CONC 31 g/dL (32-36); MEAN CORPUSCULAR VOLUME 92 fL (80-99); MEAN PLATELET VOLUME 9.6 fL (9.0-12.2); MONOCYTES # (AUTO) 0.6 10^3/uL (0.0-1.0); MONOCYTES % (AUTO) 9 % (0-12); NEUTROPHILS # (AUTO) 3.4 10^3/uL (1.8-7.8); NEUTROPHILS % (AUTO) 54 % (42-75); PLATELET COUNT 217 10^3/uL (130-400); WHITE BLOOD COUNT 6.3 10^3/uL (4.3-11.0)
[2020-05-25 03:25] LABS: BUN/CREATININE RATIO 16; CALCIUM 8.4 MG/DL (8.5-10.1); CARBON DIOXIDE 26 MMOL/L (21-32); CHLORIDE 105 MMOL/L (98-107); CREATININE SERUM 0.49 MG/DL (0.60-1.30); GFR ESTIMATED > 60; GLUCOSE 134 MG/DL (70-105); PHOSPHORUS 2.9 MG/DL (2.3-4.7); POTASSIUM 3.4 MMOL/L (3.6-5.0); SODIUM 141 MMOL/L (135-145); TRIGLYCERIDES 197 MG/DL (<150)
[2020-05-25] MEDS: POTASSIUM CL 10MEQ/50ML IVPB 50 ML IV SCH ×6 (03:49→07:49)
[2020-05-25] MEDS: MAGNESIUM 1 GM/100 ML IVPB 100 ML IV SCH (03:49)
[2020-05-25] MEDS: inSUlin ASPART (NovoLOG) 1 UNIT/0.01 ML (CHARGE PER UNIT) SC SCH ×4 (03:49→23:41)
[2020-05-25] MEDS: KCL 20 MEQ TAB (K-DUR) PO SCH (03:49)
--- NOTE | 2020-05-25 04:12 | Pulmonary Progress Note ---
Subjective Time Seen by a Provider: 04:07 Subjective/Events-last exam Pt is doing better. Sepsis Event Evaluation Height, Weight, BMI Height: '" Weight: lbs. oz. kg; 40.97 BMI Method:Estimated Exam Exam Vital Signs Date Time Temp Pulse Resp B/P (MAP) Pulse Ox O2 Delivery O2 Flow Rate FiO2 05/25/20 02:42 95 High Flow N/C 5.00 36 05/25/20 01:11 64 05/24/20 23:52 High Flow N/C 5.00 05/24/20 23:35 High Flow N/C 5.00 05/24/20 23:10 High Flow N/C 6.00 05/24/20 23:05 95 High Flow N/C 6.00 40 05/24/20 23:00 61 25 109/66 (80) 94 Vapotherm 25.00 40.00 05/24/20 22:00 62 20 122/71 (88) 94 Vapotherm 25.00 40.00 05/24/20 21:45 60 05/24/20 21:07 94 Vapotherm 25.00 40 05/24/20 21:00 62 24 125/75 (92) 96 Vapotherm 25.00 40.00 05/24/20 20:13 62 24 132/79 (96) 93 Vapotherm 25.00 40.00 05/24/20 20:00 60 21 114/67 (83) 95 Vapotherm 25.00 40.00 05/24/20 19:38 36.1 05/24/20 19:00 64 23 132/79 (96) 93 Vapotherm 25.00 40.00 05/24/20 19:00 61 05/24/20 18:19 36.9 61 22 139/79 94 25.00 05/24/20 18:00 61 22 139/79 (99) 94 Vapotherm 25.00 40.00 05/24/20 17:00 62 23 142/76 (98) 95 Vapotherm 25.00 40.00 05/24/20 16:11 25.00 40.00 05/24/20 16:00 59 25 132/81 (98) 93 Vapotherm 25.00 40.00 05/24/20 16:00 36.9 59 25 132/81 93 35.00 05/24/20 15:20 36.9 05/24/20 15:00 59 25 132/81 (98) 93 Vapotherm 35.00 40.00 05/24/20 14:00 62 21 138/82 (100) 94 Vapotherm 35.00 40.00 05/24/20 13:57 96 Vapotherm 30.00 40 05/24/20 13:25 37.0 66 32 138/69 92 35.00 05/24/20 13:00 63 21 135/68 (90) 94 Vapotherm 35.00 40.00 05/24/20 12:53 66 05/24/20 12:00 64 32 138/69 (92) 92 Vapotherm 35.00 40.00 05/24/20 11:43 37.0 05/24/20 11:00 64 23 143/81 (101) 94 Vapotherm 35.00 40.00 05/24/20 10:18 36.7 64 22 134/74 94 35.00 05/24/20 10:00 75 20 167/79 (108) 93 Vapotherm 35.00 40.00 05/24/20 09:00 64 22 134/74 (94) 94 Vapotherm 35.00 40.00 05/24/20 08:53 36.7 66 19 133/70 (91) 95 Vapotherm 35.00 40.00 05/24/20 08:04 96 Vapotherm 35.00 40 05/24/20 08:00 64 14 115/65 (82) 94 Vapotherm 35.00 50.00 05/24/20 07:57 36.2 97 Vapotherm 35.00 40.00 05/24/20 07:22 92 Vapotherm 35.00 50 05/24/20 07:00 65 05/24/20 07:00 64 20 113/66 (82) 97 Vapotherm 35.00 50.00 05/24/20 06:03 64 05/24/20 06:00 60 20 113/66 (82) 97 Vapotherm 35.00 50.00 05/24/20 05:00 62 17 95 Vapotherm 35.00 50.00 I & O 05/25/20 07:00 Intake Total 740 ml Output Total 3075 ml Balance -2335 ml Height & Weight Height: '" Weight: lbs. oz. kg; 40.97 BMI Method:Estimated General Appearance: Anxious, Chronically ill HEENT: PERRL/EOMI, Moist Mucous Membranes; No Scleral Icterus (L), No Scleral Icterus (R) Neck: Normal Inspection, Supple Respiratory: No Respiratory Distress, Accessory Muscle Use, Decreased Breath Sounds Cardiovascular: Regular Rate, Rhythm Capillary Refill: Less Than 3 Seconds Extremity: Normal Capillary Refill, No Calf Tenderness, No Pedal Edema Neurologic/Psychiatric: Alert, Disoriented Skin: Normal Color, Warm/Dry Results Lab Laboratory Tests 05/24/20 03:00 05/25/20 03:00 Assessment/Plan Assessment/Plan Acute hypoxic respiratory failure due to COVID19 -s/p ventilator -Continue TF s/p Remdesivir and CVP - decadron Lovenox MAT protocol IS PNA - -Pt has copious sputum production and fevers -Merrem to cover for ESBL s/p Acute DKA -Levemir -Pt was not on insulin prior to admission. Thrombocytopenia - Resolved DVT/GI ppx: Lovenox -Start prilosec ROSIE FRANCO DO May 25, 2020 04:12
[2020-05-25] MEDS ORDERED: HALOPERIDOL 5 MG/ML (HALDOL) VIAL IM PRN (04:30)
[2020-05-25] MEDS: MEROPENEM 500 MG/SWFI 10 ML IV PUSH IV SCH ×6 (05:38→18:19)
[2020-05-25] MEDS: ENOXAPARIN 40 MG/0.4 ML (LOVENOX) SYR SC SCH ×2 (05:38→18:19)
--- NOTE | 2020-05-25 06:52 | Progress Note - Hospitalist ---
Subjective HPI/CC On Admission Date Seen by Provider: May 25, 2020 Pt is a 64yoCF with a PMH of NIDDMII who presented to outside ER due to SOB. She became symptomatic with COVID roughly a week ago and was diagnosed 3 days ago. She has been intermittently febrile with cough but SOB developed yesterday. She has been nauseated as well but denies vomiting. She has had poor oral intake due to nausea and loss of taste. She quit taking her metformin for a few days because of this as well. Objective Exam Vital Signs Vital Signs Date Time Temp Pulse Resp B/P (MAP) Pulse Ox O2 Delivery O2 Flow Rate FiO2 05/25/20 08:51 High Flow N/C 10.00 05/25/20 08:16 36.3 05/25/20 07:30 94 36 05/25/20 06:00 64 27 99/64 (76) Capillary Refill : Less Than 3 Seconds Results/Procedures Lab Laboratory Tests 05/25/20 03:00 Patient resulted labs reviewed. Imaging: Reviewed Imaging Films Assessment/Plan Assessment and Plan Assess & Plan/Chief Complaint Assessment and plan per Dr Crespo with my modifications in italic bold: Acute hypoxic respiratory failure due to COVID19 -S/p intubation 05/04 -Decrease VT to 350 -Repeat ABG in 1hr - Propofol and Fentanyl after intubation -OG tube and restraints. -Continue TF s/p Remdesivir and CVP - decadron -Check ABG 1hr after intubation Lovenox MAT protocol IS s/p Acute DKA -Levemir -D/C metformin and Gliparide -Pt was not on insulin prior to admission. She will need to remain on insulin after discharge. Hypokalemia/hypophos -replace Thrombocytopenia - Resolved DVT/GI ppx: Lovenox -Start prilosec DC prone positioning protocol 05/23/20: Extubated 1 day ago biPAP today Very anxious Monitor closely for reintubation 05/22/20: Stay in ICU since it appears she is at high risk for decompensating Very anxious 05/23/20: Precedex DNR Do not intubate again 05/24/20: Tormented appearance ICU psychosis Critical Care Critically Ill Patient Clinical Quality Measures DVT/VTE Risk/Contraindication: Risk Factor Score Per Nursin RFS Level Per Nursing on Admit: 4+=Very High YU SINGH DO May 25, 2020 06:52
--- NOTE | 2020-05-25 07:04 | Diagnostic Imaging Report ---
INDICATION: Covid. Comparison made with prior examination 05/24/2020. FINDINGS: The heart size is stable. There are patchy bilateral pulmonary infiltrates. PICC line has its tip in superior vena cava. There is no pneumothorax. Mediastinum is unremarkable. IMPRESSION: Patchy bilateral pulmonary infiltrates compatible with Covid pneumonia. Some underlying central pulmonary venous congestion cannot be excluded. Dictated by: Dictated on workstation # [id number]
[2020-05-25] MEDS: FAMOTIDINE 20MG/2ML IV (PEPCID) IV SCH ×2 (07:50→21:02)
[2020-05-25] MEDS: MICONAZOLE 2% POWDER (DESENEX AF) 90 GM TOP SCH ×2 (07:50→21:04)
[2020-05-25] MEDS: DOCUSATE SODIUM 10 MG/ML 10 ML UDC (COLACE) PO SCH ×2 (07:50→21:04)
[2020-05-25] MEDS: risperiDONE 0.25 MG (RisperDAL) TAB PO SCH ×2 (07:51→21:03)
[2020-05-25] MEDS: morphine INJ 4 MG/ML 1 ML (VIAL/SYRINGE) IVP PRN ×2 (09:49→14:12)
--- NOTE | 2020-05-25 12:30 | NUR ---
PT TRANSFERRED TO CARDIAC STEP DOWN, REPORT GIVEN TO LIZA SCOTT WHO ASSUMES CARE OF PT. NO QUESTIONS/CONCERNS VOICED.
--- NOTE | 2020-05-25 12:53 | Physical Therapy Daily Note ---
PT Daily Note-Current Subjective Patient is much more alert on this date but highly confused. Mental Status Patient Orientation: Confused Attachments: Oxygen, Engle Catheter, IV Transfers SCALE: Activities may be completed with or without assistive devices. 5-Wnleipdgnk-ntpoffh completes the activity by him/herself with no assistance from a helper. 5-Set-up or Clean-up Assistance-helper sets up or cleans up; patient completes activity. [place] assists only prior to or following the activity. 4-Supervision or Touching Assistance-helper provides verbal cues and/or touching/steadying and/or contact guard assistance as patient completes activity. Assistance may be provided throughout the activity or intermittently. 3-Partial/Moderate Assistance-helper does LESS THAN HALF the effort. [place] lifts, holds or supports trunk or limbs, but provides less than half the effort. 2-Substantial/Maximal Assistance-helper does MORE THAN HALF the effort. [place] lifts or holds trunk or limbs and provides more than half the effort. 1-Hfxprpqvg-dllznr does ALL the effort. Patient does none of the effort to complete the activity. Or, the assistance of 2 or more helpers is required for the patient to complete the activity. If activity was not attempted, code reason: 7-Patient Refused. 9-Not Applicable-not attempted and the patient did not perform the activity before the current illness, exacerbation or injury. 10-Not Attempted due to Environmental Limitations-(lack of equipment, weather restraints, etc.). 88-Not Attempted due to Medical Conditions or Safety Concerns. Roll Left & Right (QC): 1 Sit to Lying (QC): 1 (x 2) Lying to Sitting/Side of Bed(Q: 1 (x 2) Patient requires encouragement to actively move extremities and body to perform bed mobility. Patient sat EOB x 6 min mod assist to maintain. Exercises Supine Ex: Heel Slides, Straight leg raise, Hip abd/add Supine Reps: 12 (AAROM) Seated Therapy Exercises: Long arc quads Seated Reps: 12 (AAROM) Assessment Patient tolerated treatment well. SAO2 decreased to 80% with EOB activity. PT Short Term Goals Short Term Goals Time Frame: Jun 12, 2020 Roll Left & Right: 3 Sit to lyin Lying to sitting on side of be: 3 Sit to stand: 3 Chair/ozi-uv-avexa transfer: 3 Toilet transfer: 3 Walk 10 feet: 3 PT Assisted Goals Assisted Goals PT Assisted Goals Time Frame: Jun 27, 2020 Roll Left & Right (QC): 5 Sit to Lying (QC): 5 Lying-Sitting on Side/Bed(QC): 5 Sit to Stand (QC): 5 Chair/Jcm-ug-Wyuoe Xfer(QC): 5 Toilet Transfer (QC): 5 Does the Patient Walk: Yes Walk 10 feet (QC): 5 Walk 50ft with 2 Turns (QC): 5 Walk 150 ft (QC): 5 PT Plan Treatment/Plan Treatment Plan: Continue Plan of Care Treatment Plan: Bed Mobility, Education, Functional Activity Paula, Functional Strength, Gait, Safety, Therapeutic Exercise, Transfers Treatment Duration: Jun 27, 2020 Frequency: 6 times per week Estimated Hrs Per Day: .5 hour per day Patient and/or Family Agrees t: Yes Time/GCodes Time In: 1047 Time Out: 1105 Total Billed Treatment Time: 18 Total Billed Treatment 1 visit FA 18 min RAZIA GILLESPIE PT May 25, 2020 12:53
--- NOTE | 2020-05-25 14:18 | Occupational Ther Daily Note ---
OT Current Status-Daily Note Subjective No pain reported. Appearance Pt. sitting on side of bed with PT when OT entered room. Pt. having difficulty maintaining sitting balance. Mental Status/Objective Patient Orientation: Unable to Assess Attachments: IV, Oxygen, Telemetry ADL-Treatment Therapy Code Descriptions/Definitions Functional [place] Measure: 0=Not Assessed/NA 4=Minimal Assistance 1=Total Assistance 5=Supervision or Setup 2=Maximal Assistance 6=Modified [place] 3=Moderate Assistance 7=Complete IndependenceSCALE: Activities may be completed with or without assistive devices. 1-Zjzojjtgqr-lnvmgcy completes the activity by him/herself with no assistance from a helper. 5-Set-up or Clean-up Assistance-helper sets up or cleans up; patient completes activity. [place] assists only prior to or following the activity. 4-Supervision or Touching Assistance-helper provides verbal cues and/or touching/steadying and/or contact guard assistance as patient completes activity. Assistance may be provided throughout the activity or intermittently. 3-Partial/Moderate Assistance-helper does LESS THAN HALF the effort. [place] lifts, holds or supports trunk or limbs, but provides less than half the effort. 2-Substantial/Maximal Assistance-helper does MORE THAN HALF the effort. [place] l ifts or holds trunk or limbs and provides more than half the effort. 7-Zlyegzqrv-zuxadk does ALL the effort. Patient does none of the effort to complete the activity. Or, the assistance of 2 or more helpers is required for the patient to complete the activity. If activity was not attempted, code reason: 7-Patient Refused. 9-Not Applicable-not attempted and the patient did not perform the activity before the current illness, exacerbation or injury. 10-Not Attempted due to Environmental Limitations-(lack of equipment, weather restraints, etc.). 88-Not Attempted due to Medical Conditions or Safety Concerns. Other Treatment Pt. requires max x 2 for sit-supine, and then bed mobility. Pt. is given warm wash cloth to wash her face. She is able to do this, but declines attempting to brush her hair. OT brushes hair at bed level, and pt. is encouraged to tuck her chin, lean forward, and lift her head. She is able to do this somewhat, but has difficulty. Pt. participates in AAROM in bilateral UE. Pt. is able to flex bilateral elbows x 10 reps. Pt. is able to hold water cup with lid when it is handed to her, and bring to mouth for multiple drinks. Pt. hands cup back to OT. Pt. is somewhat confused and would like OT to perform various "errands" for her in her room. OT assists to best of ability. All needs are met, and pt. is positioned to comfort level on left side. Education OT Patient Education: Correct positioning, Exercise program, Modified ADL mary hniques, Progress toward Goal/Update tx plan, Purpose of tx/functional activities, Reviewed precautions, Rehab process, Transfer techniques Teaching Recipient: Patient Teaching Methods: Demonstration, Discussion Response to Teaching: Verbalize Understanding, Return Demonstration OT Short Term Goals Short Term Goals Time Frame: Jun 04, 2020 Eatin Oral hygiene: 3 Upper body dressin OT [facility] Goals Manager [employer] Services Goals Time Frame: Jun 18, 2020 Eating (QC): 4 Oral Hygiene (QC): 4 Toileting Hygiene (QC): 3 Upper Body Dressing (QC): 4 Lower Body Dressing (QC): 3 On/Off Footwear (QC): 3 Additional Goals: 1-Demonstrate ADL Tasks, 2-Verbalize Understanding, 3- ImproveStrength/Paula 1=Demonstrate adherence to instructed precautions during ADL tasks. 2=Patient will verbalize/demonstrate understanding of assistive devices/modifications for ADL. 3=Patient will improve strength/tolerance for activity to enable patient to perform ADL's. OT Education/Plan Problem List/Assessment Assessment: Decreased Activ Tolerance, Decreased Safety Aware, Decreased UE Strength, Dependent Transfers, Impaired Bed Mobility, Impaired Cognition, Impaired Coordination, Impaired Funct Balance, Impaired I ADL's, Impaired Self- Care Skills, Restricted Funct UE ROM Discharge Recommendations Plan/Recommendations: Continue POC Therapy Discharge Recommendati: 24 Hour Supervision, Post Acute OT Treatment Plan/Plan of Care Treatment,Training & Education: Yes Patient would benefit from OT for education, treatment and training to promote independence in ADL's, mobility, safety and/or upper extremity function for ADL's. Plan of Care: ADL Retraining, Functional Mobility, UE Funct Exercise/Act Treatment Duration: Jun 18, 2020 Frequency: 5 times per week Estimated Hrs Per Day: .5 hour per day Agreement: Yes Rehab Potential: Fair Time/GCodes Start Time: 11:00 Stop Time: 11:23 Total Time Billed (hr/min): 23 Billed Treatment Time 1, FA x 8minutes, ADL x 15minutes AC RIVAS OT May 25, 2020 14:18
--- NOTE | 2020-05-25 14:51 | ST Dysphagia Evaluation ---
Speech Evaluation-General Medical Diagnosis Covid (+)/hypoxia Onset Date: May 01, 2020 Therapy Diagnosis Therapy Diagnosis: Oropharyngeal Dysphagia Precautions Precautions: Aspiration Precautions/Isolations: Standard Precautions Referral Referring Physician: Dr. Crespo Medical History Pertinent Medical History: DM Reviewed History: Yes Speech PLF/Current-Dysphagia Prior Level of Function Patient lived at home where she was independent for her daily needs. Subjective Patient was alert and talkative during the Bedside Dysphagia Evaluation. Cognitive Status Patient Orientation: Person, Place, Situation Oral Motor Skills Dentition: Edentalous Ability to Follow Directions: Good Patient is NPO pending BDE. Oral Expression Ability: Mild Impairment Voice Voice Phonatory-Based Quality: Breathy, Weak Voice Pitch: Normal Voice Loudness: Mildly Soft/Quiet Face Facial Symmetry: Symmetrical Oral-Facial Assessment Oral-Facial Dentition: Normal Lingual Protrusion: Normal Lingual ROM: Normal Lingual Strength: Normal Pharynx Velopharyngeal Move.: Normal Volitional Dry Swallow: Yes Voluntary Cough: Yes Dysphagia Evaluation Consistencies Presented: Thin Liquid, Mechanical Soft, Pureed Patient was not presented the regular due to being edentulous. Oral phase is within normal range of function for all consistencies presented. Pharyngeal phase is within normal range of function for all consistencies presented. Dietary Recommendations: Mechanical Soft Liquid Recommendations: Thin Swallowing Precautions: Alternate Liquids/Solids, Chin Tuck, Double Swallow, Decreased Bolus 1/2 Tsp, Liquids from Straw, Liquids from Spoon, Oral Supervision Staff, Sitting Upright 90 Degrees, Sitting 90 Degrees 30 Post Intake Dysphagia Evaluation Summary Patient has been in ICU for a few weeks and was moved to the step down unit this date. Initially she was intubated for the ICU stay. Patient is alert and oriented. She was able to answer questions appropriately. She also demonstrated the ability to follow directions. The patient completed the BDE with presentations of thin liquids via 1/2 tsp x3 and small sips via straw x3 without difficulty. The patient was also presented 1/2 of puree and mechanical soft without difficulty. Patient is recommended for Dysphagia II with thin liquids. This information was provided to her nurse, Chrisitna as well as written on the white board in her room. Barriers to Learning Patient's recent lengthy COVID illness. Speech-Plan Patient/Family Goals Patient/Family Goals: Patient plans on returning to her home upon discharge. Treatment Plan Speech Therapy Treatment Plan: Discontinue ST Treatment Duration: May 25, 2020 Frequency: 1 time per week Estimated Hrs Per Day: .25 hour per day Rehab Potential: Fair Barriers to Learning: Patient's recent lengthy illness Pt/Family Agrees to Plan: Yes Safety Risks/Education Teaching Recipient: Patient Teaching Methods: Discussion Response to Teaching: Verbalize Understanding Education Topics Provided: Safety of oral intake strategies, diet level Time Speech Therapy Time In: 14:20 Speech Therapy Time Out: 14:40 Total Billed Time: 20 Billed Treatment Time 1, DYSEVS, DYST JENA Ramos May 25, 2020 14:51
[2020-05-25] MEDS: ACETAMINOPHEN 325 MG TABLET PO PRN ×2 (16:21→21:03)
--- NOTE | 2020-05-25 17:52 | NUR ---
Spoke with Dr. Crespo concerning pt HR being in the 150's. New orders received.
[2020-05-25] MEDS ORDERED: MEROPENEM 500 MG VIAL (MERREM) IV ONE (18:10)
[2020-05-25] MEDS ORDERED: WATER (STERILE) FOR INJECTION 10 ML ONE (18:10)
[2020-05-25] MEDS: MELATONIN 3 MG TABLET PO PRN (21:03)
[2020-05-26] MEDS ORDERED: MEROPENEM 500 MG VIAL (MERREM) IV ONE ×3 (00:04→12:17)
[2020-05-26] MEDS: MEROPENEM 500 MG/SWFI 10 ML IV PUSH IV SCH ×8 (00:13→17:21)
[2020-05-26] MEDS: RT-ALBUTEROL INHALER HFA (VENTOLIN HFA) 18 GM IH SCH ×4 (02:19→20:55)
[2020-05-26 04:45] LABS: BASOPHILS % (AUTO) 0 % (0-10); EOSINOPHILS # (AUTO) 0.3 10^3/uL (0.0-0.3); EOSINOPHILS % (AUTO) 4 % (0-10); HEMATOCRIT 36 % (35-52); HEMOGLOBIN 11.2 g/dL (11.5-16.0); LYMPHOCYTES # (AUTO) 1.6 10^3/uL (1.0-4.0); LYMPHOCYTES % (AUTO) 23 % (12-44); MEAN CORPUSCULAR HEMOGLOBIN 29 pg (25-34); MEAN CORPUSCULAR HGB CONC 31 g/dL (32-36); MEAN CORPUSCULAR VOLUME 92 fL (80-99); MEAN PLATELET VOLUME 10.8 fL (9.0-12.2); MONOCYTES # (AUTO) 0.7 10^3/uL (0.0-1.0); MONOCYTES % (AUTO) 11 % (0-12); NEUTROPHILS # (AUTO) 4.1 10^3/uL (1.8-7.8); NEUTROPHILS % (AUTO) 61 % (42-75); PLATELET COUNT 269 10^3/uL (130-400); WHITE BLOOD COUNT 6.7 10^3/uL (4.3-11.0)
[2020-05-26 04:59] LABS: BUN/CREATININE RATIO 22; CALCIUM 8.3 MG/DL (8.5-10.1); CARBON DIOXIDE 22 MMOL/L (21-32); CHLORIDE 103 MMOL/L (98-107); CREATININE SERUM 0.49 MG/DL (0.60-1.30); GFR ESTIMATED > 60; GLUCOSE 122 MG/DL (70-105); MAGNESIUM 1.9 MG/DL (1.6-2.4); POTASSIUM 3.5 MMOL/L (3.6-5.0); SODIUM 137 MMOL/L (135-145)
--- NOTE | 2020-05-26 05:35 | Pulmonary Progress Note ---
Subjective Time Seen by a Provider: 05:30 Subjective/Events-last exam Pt is still running persistent fevers and has sinus tach. Sepsis Event Evaluation Height, Weight, BMI Height: '" Weight: lbs. oz. kg; 40.97 BMI Method:Estimated Exam Exam Vital Signs Date Time Temp Pulse Resp B/P (MAP) Pulse Ox O2 Delivery O2 Flow Rate FiO2 05/26/20 04:10 36.8 121 22 109/67 (81) 98 High Flow N/C 8.00 05/26/20 02:19 98 High Flow N/C 8.00 50 05/26/20 01:00 124 05/25/20 23:30 37.2 122 21 96/60 (72) 97 High Flow N/C 10.00 05/25/20 21:35 37.4 05/25/20 21:26 98 High Flow N/C 10.00 60 05/25/20 21:12 38.3 100 High Flow N/C 10.00 05/25/20 21:03 38.3 05/25/20 21:00 90 High Flow N/C 10.00 05/25/20 19:27 37.8 136 24 104/68 (80) 97 High Flow N/C 10.00 05/25/20 19:00 138 05/25/20 16:56 38.1 137 20 108/71 (83) 96 05/25/20 14:31 95 High Flow N/C 5.00 36 05/25/20 12:42 114 05/25/20 12:00 36.3 05/25/20 09:00 90 High Flow N/C 10.00 05/25/20 08:51 High Flow N/C 10.00 05/25/20 08:16 36.3 05/25/20 07:30 94 High Flow N/C 5.00 36 05/25/20 06:00 64 27 99/64 (76) 95 High Flow N/C 5.00 I & O 05/26/20 07:00 Intake Total 1000 ml Output Total 825 ml Balance 175 ml Height & Weight Height: '" Weight: lbs. oz. kg; 40.97 BMI Method:Estimated General Appearance: Anxious, Chronically ill HEENT: PERRL/EOMI, Moist Mucous Membranes; No Scleral Icterus (L), No Scleral Icterus (R) Neck: Normal Inspection, Supple Respiratory: No Respiratory Distress, Accessory Muscle Use, Decreased Breath Sounds Cardiovascular: Regular Rate, Rhythm Capillary Refill: Less Than 3 Seconds Extremity: Normal Capillary Refill, No Calf Tenderness, No Pedal Edema Neurologic/Psychiatric: Alert, Disoriented Skin: Normal Color, Warm/Dry Results Lab Laboratory Tests 05/25/20 03:00 05/26/20 02:35 Assessment/Plan Assessment/Plan Acute hypoxic respiratory failure due to COVID19 -s/p ventilator -Continue TF s/p Remdesivir and CVP - decadron Lovenox MAT protocol IS PNA - with persistent fever -Start Vanco -Repeat cultures -Merrem to cover for ESBL s/p Acute DKA -Levemir -Pt was not on insulin prior to admission. Thrombocytopenia - Resolved DVT/GI ppx: Lovenox -Start daviesec ROSIE FRANCO DO May 26, 2020 05:35
[2020-05-26] MEDS ORDERED: PHARMACY TO DOSE IV SCH (05:45)
--- NOTE | 2020-05-26 05:54 | Progress Note - Hospitalist ---
Subjective HPI/CC On Admission Date Seen by Provider: May 26, 2020 Time Seen by Provider: 09:00 Pt is a 64yoCF with a PMH of NIDDMII who presented to outside ER due to SOB. She became symptomatic with COVID roughly a week ago and was diagnosed 3 days ago. She has been intermittently febrile with cough but SOB developed yesterday. She has been nauseated as well but denies vomiting. She has had poor oral intake due to nausea and loss of taste. She quit taking her metformin for a few days because of this as well. Subjective/Events-last exam Pt transferring to 4th floor On bed partida Bowels are on and off moving Vancomycin and Meropenem maintained Very anxious Transferring to 4th floor, I reviewed all medications Potassium 3.5, receiving supplement After rounds the patient had a rapid response called and color control supervisor called me and I updated color control supervisor about DNR and DNI and no rapid response is necessary due to poor prognosis. Morphine will be initiated for chest pain stated by the patient. Review of Systems General: Fatigue, Malaise Cardiovascular: Chest Pain Neurological: Confusion Objective Exam Vital Signs Vital Signs Date Time Temp Pulse Resp B/P (MAP) Pulse Ox O2 Delivery O2 Flow Rate FiO2 05/26/20 20:12 37.2 125 22 119/71 (87) 94 High Flow N/C 10.00 05/26/20 14:30 50 Capillary Refill : Less Than 3 Seconds General Appearance: No Apparent Distress, WD/WN, Chronically ill Respiratory: Lungs Clear Cardiovascular: Regular Rate, Rhythm Neurologic/Psychiatric: Alert, Oriented x3, No Motor/Sensory Deficits, Normal Mood/Affect Results/Procedures Lab Laboratory Tests 05/26/20 02:35 Patient resulted labs reviewed. Imaging: Reviewed Imaging Films Assessment/Plan Assessment and Plan Assess & Plan/Chief Complaint Assessment and plan per Dr Crespo with my modifications in italic bold: Acute hypoxic respiratory failure due to COVID19 -S/p intubation 05/04 -Decrease VT to 350 -Repeat ABG in 1hr - Propofol and Fentanyl after intubation -OG tube and restraints. -Continue TF s/p Remdesivir and CVP - decadron -Check ABG 1hr after intubation Lovenox MAT protocol IS s/p Acute DKA -Levemir -D/C metformin and Gliparide -Pt was not on insulin prior to admission. She will need to remain on insulin after discharge. Hypokalemia/hypophos -replace Thrombocytopenia - Resolved DVT/GI ppx: Lovenox -Start prilosec DC prone positioning protocol 05/23/20: Extubated 1 day ago biPAP today Very anxious Monitor closely for reintubation 05/22/20: Stay in ICU since it appears she is at high risk for decompensating Very anxious 05/23/20: Precedex DNR Do not intubate again 05/24/20: Tormented appearance ICU psychosis 05/26/20: DNR/DNI No rapid response necessary Morphine as needed Critical Care Critically Ill Patient Clinical Quality Measures DVT/VTE Risk/Contraindication: Risk Factor Score Per Nursin RFS Level Per Nursing on Admit: 4+=Very High YU SINGH DO May 26, 2020 05:54
[2020-05-26] MEDS: POTASSIUM CL 10MEQ/50ML IVPB 50 ML IV SCH ×4 (06:05→08:59)
[2020-05-26] MEDS: ENOXAPARIN 40 MG/0.4 ML (LOVENOX) SYR SC SCH ×2 (06:05→20:28)
[2020-05-26] MEDS: inSUlin ASPART (NovoLOG) 1 UNIT/0.01 ML (CHARGE PER UNIT) SC SCH ×4 (06:06→23:34)
[2020-05-26] MEDS ORDERED: VANCOMYCIN INJECTION 2,000 MG in NS IV 500 ML 500 ML IV SCH (07:00)
--- NOTE | 2020-05-26 07:07 | NUR ---
PTD VANCOMYCIN LABS: SCR 0.46 WBC 6.7 CULTURES: GRAM + COCCI IN BLOOD (05/22 PORT) PLAN: VANCOMYCIN 2 GRAM IV LOADING DOSE THIS AM, THEN 1,500MG IV Q12H (2099/00) WILL CHECK A TROUGH PRIOR TO 3RD DOSE AND ADJUST IF NEEDED (05/27 @ 0800)
--- NOTE | 2020-05-26 08:31 | Diagnostic Imaging Report ---
INDICATION: COVID positive. TECHNIQUE: Single view chest 3:58 AM. CORRELATION STUDY: 05/25/2020 FINDINGS: Right-sided central line tip over the right atrium stable. Heart size enlarged. Mediastinum is prominent. Scattered bilateral pulmonary opacities are again demonstrated. Overall perhaps slightly more consolidated than the right mid lung field generally stable on the left. IMPRESSION: 1. Scattered bilateral pulmonary opacities are consistent with history of COVID pneumonia. Slightly more consolidated in the right mid lung field. Dictated by: Dictated on workstation # [id number]
[2020-05-26] MEDS: FAMOTIDINE 20MG/2ML IV (PEPCID) IV SCH ×2 (08:58→20:27)
[2020-05-26] MEDS: risperiDONE 1 MG (RisperDAL) TAB PO SCH ×2 (08:58→20:27)
[2020-05-26] MEDS: DOCUSATE SODIUM 10 MG/ML 10 ML UDC (COLACE) PO SCH ×2 (08:58→20:28)
[2020-05-26] MEDS: MICONAZOLE 2% POWDER (DESENEX AF) 90 GM TOP SCH ×2 (08:59→20:28)
--- NOTE | 2020-05-26 10:43 | NUR ---
Patient may come out of COVID isolation but she needs to remain in droplet due to ESBL positive in sputum.
[2020-05-26 10:54] LABS: CLARITY,URINE CLEAR; COLOR,URINE YELLOW; GLUCOSE, URINE (UA) NEGATIVE (NEGATIVE); KETONES,URINE 3+ (NEGATIVE); LEUKOCYTE ESTERASE ,URINE NEGATIVE (NEGATIVE); NITRITE,URINE NEGATIVE (NEGATIVE); PROTEIN,URINE TRACE (NEGATIVE)
[2020-05-26 11:09] LABS: BACTERIA,URINE TRACE /HPF; BILIRUBIN,URINE 1+ (NEGATIVE); SQUAMOUS EPITHELIAL CELL,UR 0-2 /HPF; WBC,URINE 0-2 /HPF; YEAST,URINE FEW /HPF
[2020-05-26] MEDS ORDERED: ARTIFICAL TEARS 0.4 ML UNIT DOSE (REFRESH PLUS) OU PRN (11:30)
[2020-05-26] MEDS ORDERED: WATER (STERILE) FOR INJECTION 10 ML ONE (12:18)
[2020-05-26] MEDS: NYSTATIN CREAM (MYCOSTATIN) 30 GM TUBE TP SCH ×2 (13:00→20:28)
--- NOTE | 2020-05-26 13:40 | NUR ---
This RN called to patient room by another RN and PT. Upon arrival patient laying in bed, diaphoretic, nystagmus noted, pt not responsive to verbal stimuli. Clinical observation: PERRL, VSS, NIH-0, EKG-sinus tachycardia. Patient c/o generalized pain and chest pain. See EMAR. Rapid Response called, Dr. Kumar notified by SONIA Ndiaye at 1344, received no new orders at this time. Dr. Kumar instructed SONIA Ndiaye not to call anymore rapid responses per family request.
[2020-05-26] MEDS: morphine INJ 4 MG/ML 1 ML (VIAL/SYRINGE) IVP PRN (13:47)
--- NOTE | 2020-05-26 14:57 | Occ Therapy Progress Note ---
Therapy Progress Note OT orders received to continue therapy. Pt with PT upon OT arrival, PT indicates pt sat EOB and stopped responding. Nurse notified and present to assess pt. Pt on hold this date, OT will check on pt tomorrow. 1330 CLEMENTE VILLAGOMEZ OT May 26, 2020 14:57
--- NOTE | 2020-05-26 14:58 | Physical Therapy Daily Note ---
PT Daily Note-Current Subjective Patient is very alert and talkative upon arrival. Agrees to PT. Mental Status Patient Orientation: Person, Situation Attachments: Oxygen, Engle Catheter, IV Transfers SCALE: Activities may be completed with or without assistive devices. 8-Xqcluzfycg-jaejbvb completes the activity by him/herself with no assistance from a helper. 5-Set-up or Clean-up Assistance-helper sets up or cleans up; patient completes activity. [place] assists only prior to or following the activity. 4-Supervision or Touching Assistance-helper provides verbal cues and/or touching/steadying and/or contact guard assistance as patient completes activity. Assistance may be provided throughout the activity or intermittently. 3-Partial/Moderate Assistance-helper does LESS THAN HALF the effort. [place] lifts, holds or supports trunk or limbs, but provides less than half the effort. 2-Substantial/Maximal Assistance-helper does MORE THAN HALF the effort. [place] lifts or holds trunk or limbs and provides more than half the effort. 7-Hidrxaykv-vqaxpq does ALL the effort. Patient does none of the effort to complete the activity. Or, the assistance of 2 or more helpers is required for the patient to complete the activity. If activity was not attempted, code reason: 7-Patient Refused. 9-Not Applicable-not attempted and the patient did not perform the activity before the current illness, exacerbation or injury. 10-Not Attempted due to Environmental Limitations-(lack of equipment, weather restraints, etc.). 88-Not Attempted due to Medical Conditions or Safety Concerns. Sit to Lying (QC): 1 (x 2) Lying to Sitting/Side of Bed(Q: 1 (x 2) Patient sat EOB CGA for 8 min then had increase SOA and unresponsiveness (RN called to assess) Exercises Supine Ex: Ankle pumps, Heel Slides, Straight leg raise, Hip abd/add Supine Reps: 12 (AAROM bilaterally) Assessment Patient became unresponsive during PT session. Nursing called and vitals taken. (refer to nursing notes EKG, blood gas, etc) PT to reassess patient in a.m. on POC. PT Short Term Goals Short Term Goals Time Frame: Jun 12, 2020 Roll Left & Right: 3 Sit to lyin Lying to sitting on side of be: 3 Sit to stand: 3 Chair/wxc-gy-qczef transfer: 3 Toilet transfer: 3 Walk 10 feet: 3 PT Pain Management Nurse Goals Pain Management Nurse Goals PT [facility] Goals Time Frame: Jun 27, 2020 Roll Left & Right (QC): 5 Sit to Lying (QC): 5 Lying-Sitting on Side/Bed(QC): 5 Sit to Stand (QC): 5 Chair/Kpn-ka-Dwnwl Xfer(QC): 5 Toilet Transfer (QC): 5 Does the Patient Walk: Yes Walk 10 feet (QC): 5 Walk 50ft with 2 Turns (QC): 5 Walk 150 ft (QC): 5 PT Plan Treatment/Plan Treatment Plan: Continue Plan of Care Treatment Plan: Bed Mobility, Education, Functional Activity Paula, Functional Strength, Gait, Safety, Therapeutic Exercise, Transfers Treatment Duration: Jun 27, 2020 Frequency: 6 times per week Estimated Hrs Per Day: .5 hour per day Patient and/or Family Agrees t: Yes Time/GCodes Time In: 1310 Time Out: 1335 Total Billed Treatment Time: 25 Total Billed Treatment 1 visit FA 12 min EX 13 min RAZIA GILLESPIE PT May 26, 2020 14:58
--- NOTE | 2020-05-26 15:13 | NUR ---
CM/SS spoke with the patient's daughter for discharge planning. CM/SS contacted the patient's daughter Tory ([phone]) to discuss discharge planning. Home: Tory reports that the patient was independent with all ADL'S prior to being admitted. She lived at home with a significant other and 16 year-old- grandson. At baseline, she does not have any confusion. Tory reports that they do not have the capacity to take care of the patient at home. [facility]: [facility]SC[facility]/ILEANA and Tory discussed [facility] referral. Tory was provided choices and decided on [facility]. A referral was sent. [facility] reports that they should be able to take her. The plan is for . After chart review, the patient may need to transition to comfort care or go to facility with hospice. CM/SS will wait for care plan from physician. [facility]: CM/ILEANA discussed alf acute care hospitals. Tory reports she would like this to be the last option if possible. IRF: CM/SS discussed the option for Inpatient rehab when the patient can participate in 3 hours and is not dependent. She verbalized understanding. CM/SS will continue to follow.
[2020-05-26] MEDS: ACETAMINOPHEN 325 MG TABLET PO PRN (17:22)
[2020-05-26] MEDS: VANCOMYCIN 1500 MG/NS 500 ML IVPB IV SCH ×2 (20:27)
--- NOTE | 2020-05-26 20:53 | NUR ---
PIOTR PICC LINE STERILE DRESSING CHANGE COMPLETED C CAP X2 CHANGED.
[2020-05-27] MEDS: MEROPENEM 500 MG/SWFI 10 ML IV PUSH IV SCH ×6 (01:23→14:57)
[2020-05-27] MEDS: RT-ALBUTEROL INHALER HFA (VENTOLIN HFA) 18 GM IH SCH ×4 (01:45→20:26)
[2020-05-27 03:25] LABS: BASOPHILS % (AUTO) 1 % (0-10); EOSINOPHILS # (AUTO) 0.4 10^3/uL (0.0-0.3); EOSINOPHILS % (AUTO) 7 % (0-10); HEMATOCRIT 35 % (35-52); HEMOGLOBIN 10.8 g/dL (11.5-16.0); LYMPHOCYTES # (AUTO) 1.5 10^3/uL (1.0-4.0); LYMPHOCYTES % (AUTO) 25 % (12-44); MEAN CORPUSCULAR HEMOGLOBIN 28 pg (25-34); MEAN CORPUSCULAR HGB CONC 31 g/dL (32-36); MEAN CORPUSCULAR VOLUME 92 fL (80-99); MEAN PLATELET VOLUME 9.7 fL (9.0-12.2); MONOCYTES # (AUTO) 0.9 10^3/uL (0.0-1.0); MONOCYTES % (AUTO) 14 % (0-12); NEUTROPHILS # (AUTO) 3.2 10^3/uL (1.8-7.8); NEUTROPHILS % (AUTO) 52 % (42-75); PLATELET COUNT 235 10^3/uL (130-400); WHITE BLOOD COUNT 6.1 10^3/uL (4.3-11.0)
[2020-05-27 03:49] LABS: ALBUMIN 2.8 GM/DL (3.2-4.5); CHLORIDE 102 MMOL/L (98-107); POTASSIUM 3.1 MMOL/L (3.6-5.0); SODIUM 135 MMOL/L (135-145)
[2020-05-27 03:51] LABS: GLUCOSE 135 MG/DL (70-105); TOTAL PROTEIN 6.9 GM/DL (6.4-8.2)
[2020-05-27 03:52] LABS: CARBON DIOXIDE 22 MMOL/L (21-32)
[2020-05-27 03:53] LABS: BILIRUBIN,TOTAL 1.5 MG/DL (0.1-1.0)
[2020-05-27 03:55] LABS: ALKALINE PHOSPHATASE 172 U/L (40-136); CREATININE SERUM 0.48 MG/DL (0.60-1.30); GFR ESTIMATED > 60
[2020-05-27 03:56] LABS: BUN/CREATININE RATIO 10
[2020-05-27 03:58] LABS: ALANINE AMINOTRANSFERASE 32 U/L (0-55)
[2020-05-27 04:19] LABS: MAGNESIUM 1.8 MG/DL (1.6-2.4)
--- NOTE | 2020-05-27 05:22 | Pulmonary Progress Note ---
Subjective Time Seen by a Provider: 05:22 Subjective/Events-last exam No complications noted. Sepsis Event Evaluation Height, Weight, BMI Height: '" Weight: lbs. oz. kg; 40.97 BMI Method:Estimated Exam Exam Vital Signs Date Time Temp Pulse Resp B/P (MAP) Pulse Ox O2 Delivery O2 Flow Rate FiO2 05/27/20 03:55 High Flow N/C 7.00 05/27/20 03:54 37.3 110 20 122/74 (90) 95 High Flow N/C 8.00 05/27/20 01:46 97 High Flow N/C 8.00 05/27/20 01:01 129 05/27/20 00:03 36.8 118 24 125/78 (94) 94 05/26/20 23:37 High Flow N/C 8.00 05/26/20 20:56 98 High Flow N/C 10.00 05/26/20 20:52 95 High Flow N/C 10.00 05/26/20 20:12 37.2 125 22 119/71 (87) 94 High Flow N/C 10.00 05/26/20 19:00 140 05/26/20 16:24 37.6 121 30 124/81 (95) 96 High Flow N/C 10.00 05/26/20 14:30 95 High Flow N/C 8.00 50 05/26/20 12:36 37.8 24 133/78 (96) 95 High Flow N/C 8.00 05/26/20 12:35 124 05/26/20 09:00 94 High Flow N/C 10.00 05/26/20 09:00 37.6 117 22 118/71 (87) 95 High Flow N/C 8.00 05/26/20 07:02 93 High Flow N/C 8.00 50 05/26/20 06:34 125 I & O 05/27/20 07:00 Intake Total 1295 ml Output Total 875 ml Balance 420 ml Height & Weight Height: '" Weight: lbs. oz. kg; 40.97 BMI Method:Estimated General Appearance: No Apparent Distress, WD/WN, Chronically ill HEENT: PERRL/EOMI, Moist Mucous Membranes; No Scleral Icterus (L), No Scleral Icterus (R) Neck: Normal Inspection, Supple Respiratory: Lungs Clear Cardiovascular: Regular Rate, Rhythm Capillary Refill: Less Than 3 Seconds Extremity: Normal Capillary Refill, No Calf Tenderness, No Pedal Edema Neurologic/Psychiatric: Alert, Oriented x3, No Motor/Sensory Deficits, Normal Mood/Affect Skin: Normal Color, Warm/Dry Results Lab Laboratory Tests 05/26/20 02:35 05/27/20 03:05 Assessment/Plan Assessment/Plan Acute hypoxic respiratory failure due to COVID19 -s/p ventilator -Continue TF s/p Remdesivir and CVP - decadron Lovenox MAT protocol IS PNA - with bacteremia - Vanco -Repeat cultures -Merrem to cover for ESBL Debility -PT/OT s/p Acute DKA -Levemir -Pt was not on insulin prior to admission. Thrombocytopenia - Resolved DVT/GI ppx: Lovenox -Start prilosec ROSIE FRANCO DO May 27, 2020 05:22
[2020-05-27] MEDS: inSUlin ASPART (NovoLOG) 1 UNIT/0.01 ML (CHARGE PER UNIT) SC SCH ×4 (06:08→21:48)
--- NOTE | 2020-05-27 06:15 | Progress Note - Hospitalist ---
Subjective HPI/CC On Admission Date Seen by Provider: May 27, 2020 Time Seen by Provider: 09:30 Pt is a 64yoCF with a PMH of NIDDMII who presented to outside ER due to SOB. She became symptomatic with COVID roughly a week ago and was diagnosed 3 days ago. She has been intermittently febrile with cough but SOB developed yesterday. She has been nauseated as well but denies vomiting. She has had poor oral intake due to nausea and loss of taste. She quit taking her metformin for a few days because of this as well. Subjective/Events-last exam Pt very confused and anxious Will DC tomorrow to [facility] on hospice Very difficult situation Pt is a DNR and do not intubate Review of Systems General: Fatigue, Malaise Neurological: Confusion Objective Exam Vital Signs Vital Signs Date Time Temp Pulse Resp B/P (MAP) Pulse Ox O2 Delivery O2 Flow Rate FiO2 05/28/20 15:30 05/28/20 14:43 93 High Flow N/C 4.50 05/28/20 12:00 36.8 101 20 05/26/20 14:30 50 Capillary Refill : Less Than 3 Seconds General Appearance: Anxious, Chronically ill, Mild Distress Respiratory: Decreased Breath Sounds Cardiovascular: Regular Rate, Rhythm Results/Procedures Lab Laboratory Tests 05/28/20 10:00 Patient resulted labs reviewed. Imaging: Reviewed Imaging Films Assessment/Plan Assessment and Plan Assess & Plan/Chief Complaint Assessment and plan per Dr Crespo with my modifications in italic bold: Acute hypoxic respiratory failure due to COVID19 -S/p intubation 05/04 -Decrease VT to 350 -Repeat ABG in 1hr - Propofol and Fentanyl after intubation -OG tube and restraints. -Continue TF s/p Remdesivir and CVP - decadron -Check ABG 1hr after intubation Lovenox MAT protocol IS s/p Acute DKA -Levemir -D/C metformin and Gliparide -Pt was not on insulin prior to admission. She will need to remain on insulin after discharge. Hypokalemia/hypophos -replace Thrombocytopenia - Resolved DVT/GI ppx: Lovenox -Start prilosec DC prone positioning protocol 05/23/20: Extubated 1 day ago biPAP today Very anxious Monitor closely for reintubation 05/22/20: Stay in ICU since it appears she is at high risk for decompensating Very anxious 05/23/20: Precedex DNR Do not intubate again 05/24/20: Tormented appearance ICU psychosis 05/26/20: DNR/DNI No rapid response necessary Morphine as needed 05/27/20: Monitor closely Poor prognosis Hospice on NH admit Critical Care Critically Ill Patient Clinical Quality Measures DVT/VTE Risk/Contraindication: Risk Factor Score Per Nursin RFS Level Per Nursing on Admit: 4+=Very High YU SINGH DO May 27, 2020 06:15
[2020-05-27] MEDS: ENOXAPARIN 40 MG/0.4 ML (LOVENOX) SYR SC SCH ×2 (06:19→18:21)
[2020-05-27] MEDS: POTASSIUM CL 10MEQ/50ML IVPB 50 ML IV SCH ×3 (06:20→09:44)
[2020-05-27] MEDS ORDERED: TROUGH ORDER-PHARMACY XX ONE (08:00)
[2020-05-27] MEDS: DOCUSATE SODIUM 10 MG/ML 10 ML UDC (COLACE) PO SCH ×3 (09:45→21:05)
[2020-05-27] MEDS: FAMOTIDINE 20MG/2ML IV (PEPCID) IV SCH ×2 (09:45→20:59)
[2020-05-27] MEDS: MICONAZOLE 2% POWDER (DESENEX AF) 90 GM TOP SCH ×2 (09:46→21:07)
[2020-05-27] MEDS: LORATADINE (CLARITIN) 10 MG TAB PO SCH ×2 (09:46→10:15)
[2020-05-27] MEDS: VANCOMYCIN 1500 MG/NS 500 ML IVPB IV SCH ×4 (09:46→22:03)
[2020-05-27] MEDS: NYSTATIN CREAM (MYCOSTATIN) 30 GM TUBE TP SCH ×3 (09:46→21:06)
[2020-05-27] MEDS: risperiDONE 2 MG (RisperDAL) TAB PO SCH ×3 (09:46→21:05)
[2020-05-27] MEDS: LIDOCAINE 4% (SALONPAS) PATCH TOP SCH (09:46)
[2020-05-27] MEDS ORDERED: POTASSIUM PHOSPHATE INJ 30 MM in NS (IVPB) 250 ML IV ONE (10:00)
--- NOTE | 2020-05-27 10:00 | NUR ---
PT TRANSFERRED TO ROOM 407 VIA BED AND TRANSFERRED TO BED IN NEW ROOM. PT PERSONAL BELONGINGS WILL BE BROUGHT TO PT ROOM ONCE THEY ARE SANITIZED IN ROOM 510. REPORT GIVEN TO BLANCA SCOTT FOR CONTINUING CARE.
--- NOTE | 2020-05-27 10:11 | NUR ---
patients ESBL is in her blood. She needs to remain in contact isolation not droplet.
--- NOTE | 2020-05-27 11:07 | Physical Therapy Daily Note ---
PT Daily Note-Current Subjective Patient in bed pre tx, nurse states she is going to be transported to the medical floor, PT will assist. Appearance Patient in bed post tx with nurse call, phone, tray, all needs met. Mental Status Patient Orientation: Person, Unable to Assess, M[place] Attachments: Oxygen, Engle Catheter, IV Transfers SCALE: Activities may be completed with or without assistive devices. 6-Swqtnpuyul-qviqlph completes the activity by him/herself with no assistance from a helper. 5-Set-up or Clean-up Assistance-helper sets up or cleans up; patient completes activity. May assists only prior to or following the activity. 4-Supervision or Touching Assistance-helper provides verbal cues and/or touching/steadying and/or contact guard assistance as patient completes activity. Assistance may be provided throughout the activity or intermittently. 3-Partial/Moderate Assistance-helper does LESS THAN HALF the effort. May lifts, holds or supports trunk or limbs, but provides less than half the effort. 2-Substantial/Maximal Assistance-helper does MORE THAN HALF the effort. May lifts or holds trunk or limbs and provides more than half the effort. 2-Xfjprieru-kcpiiu does ALL the effort. Patient does none of the effort to c omplete the activity. Or, the assistance of 2 or more helpers is required for the patient to complete the activity. If activity was not attempted, code reason: 7-Patient Refused. 9-Not Applicable-not attempted and the patient did not perform the activity before the current illness, exacerbation or injury. 10-Not Attempted due to Environmental Limitations-(lack of equipment, weather restraints, etc.). 88-Not Attempted due to Medical Conditions or Safety Concerns. Roll Left & Right (QC): 1 Scoot patient from one bed to another, cues for patient assisting with arms but she assists very little. After getting to the other bed attempt to get patient to sit up but she refuses, states that she is too worn out and doesn't want to sit on the side of the bed but does agree to a couple of leg exercises in bed. Exercises Supine Ex: Ankle pumps, Short Arc Quads, Straight leg raise Supine Reps: 10 Treatments bed mobility, LE exercise Assessment Current Status: Poor Progress Patient very SOB with minimal activity. PT Short Term Goals Short Term Goals Time Frame: Jun 12, 2020 Roll Left & Right: 3 Sit to lyin Lying to sitting on side of be: 3 Sit to stand: 3 Chair/udu-wo-pwqco transfer: 3 Toilet transfer: 3 Walk 10 feet: 3 PT Truck Driver Goals Truck Driver Goals PT Shelter Goals Time Frame: Jun 27, 2020 Roll Left & Right (QC): 5 Sit to Lying (QC): 5 Lying-Sitting on Side/Bed(QC): 5 Sit to Stand (QC): 5 Chair/Zgy-kp-Mgbxe Xfer(QC): 5 Toilet Transfer (QC): 5 Does the Patient Walk: Yes Walk 10 feet (QC): 5 Walk 50ft with 2 Turns (QC): 5 Walk 150 ft (QC): 5 PT Plan Problem List Problem List: Activity Tolerance, Functional Strength, Safety, Balance, Gait, Transfer, Bed Mobility, ROM Treatment/Plan Treatment Plan: Continue Plan of Care Treatment Plan: Bed Mobility, Education, Functional Activity Paula, Functional Strength, Gait, Safety, Therapeutic Exercise, Transfers Treatment Duration: Jun 27, 2020 Frequency: 6 times per week Estimated Hrs Per Day: .5 hour per day Patient and/or Family Agrees t: Yes Safety Risks/Education Patient Education: Correct Positioning, Safety Issues Teaching Recipient: Patient Teaching Methods: Demonstration, Discussion Response to Teaching: Reinforcement Needed Time/GCodes Time In: 0950 Time Out: 1006 Total Billed Treatment Time: 16 Total Billed Treatment 1 visit FA NOY MCKEON PT May 27, 2020 11:07
[2020-05-27] MEDS: morphine INJ 4 MG/ML 1 ML (VIAL/SYRINGE) IVP PRN (11:08)
--- NOTE | 2020-05-27 11:51 | Occupational Ther Daily Note ---
OT Current Status-Daily Note Subjective Pt laying in bed, agreeable to OT tx. Pt has some hesitancy with therapy, requiring moderate encouragement to participate. Mental Status/Objective Patient Orientation: Person, Place, Time, Situation Attachments: Engle Catheter, IV, Oxygen ADL-Treatment Therapy Code Descriptions/Definitions Functional [place] Measure: 0=Not Assessed/NA 4=Minimal Assistance 1=Total Assistance 5=Supervision or Setup 2=Maximal Assistance 6=Modified [place] 3=Moderate Assistance 7=Complete IndependenceSCALE: Activities may be completed with or without assistive devices. 6-Ifnmbbouwq-grwksfh completes the activity by him/herself with no assistance from a helper. 5-Set-up or Clean-up Assistance-helper sets up or cleans up; patient completes activity. [place] assists only prior to or following the activity. 4-Supervision or Touching Assistance-helper provides verbal cues and/or touching/steadying and/or contact guard assistance as patient completes activity. Assistance may be provided throughout the activity or intermittently. 3-Partial/Moderate Assistance-helper does LESS THAN HALF the effort. [place] lifts, holds or supports trunk or limbs, but provides less than half the effort. 2-Substantial/Maximal Assistance-helper does MORE THAN HALF the effort. [place] lifts or holds trunk or limbs and provides more than half the effort. 4-Ofvwzutgo-rufoll does ALL the effort. Patient does none of the effort to co mplete the activity. Or, the assistance of 2 or more helpers is required for the patient to complete the activity. If activity was not attempted, code reason: 7-Patient Refused. 9-Not Applicable-not attempted and the patient did not perform the activity before the current illness, exacerbation or injury. 10-Not Attempted due to Environmental Limitations-(lack of equipment, weather restraints, etc.). 88-Not Attempted due to Medical Conditions or Safety Concerns. Toileting Hygiene (QC): 1 (Assist x2 for rolling side to side, OT performed hygiene) Other Treatment Pt transferred to 4th floor, scooted from one bed to another. Pt cued to assist with her arms, but required assistance with placing arms. Once in the other bed, pt encouraged to sit up on the side but pt refuses due to being worn out. Pt reluctantly agreed to rolling side to side to remove extra linens, noted BM during roll requiring assistance to clean. Post tx, pt laying in bed, call light in reach and all needs met. Education OT Patient Education: Correct positioning, Modified ADL techniques, Progress toward Goal/Update tx plan, Purpose of tx/functional activities Teaching Recipient: Patient Teaching Methods: Discussion Response to Teaching: Verbalize Understanding OT Short Term Goals Short Term Goals Time Frame: Jun 04, 2020 Eatin Oral hygiene: 3 Upper body dressin OT Education Coordinator Goals Education Coordinator Goals Time Frame: Jun 18, 2020 Eating (QC): 4 Oral Hygiene (QC): 4 Toileting Hygiene (QC): 3 Upper Body Dressing (QC): 4 Lower Body Dressing (QC): 3 On/Off Footwear (QC): 3 Additional Goals: 1-Demonstrate ADL Tasks, 2-Verbalize Understanding, 3- ImproveStrength/Paula 1=Demonstrate adherence to instructed precautions during ADL tasks. 2=Patient will verbalize/demonstrate understanding of assistive devices/modifications for ADL. 3=Patient will improve strength/tolerance for activity to enable patient to perform ADL's. OT Education/Plan Problem List/Assessment Assessment: Decreased Activ Tolerance, Decreased UE Strength, Impaired Funct Balance, Impaired I ADL's, Impaired Self-Care Skills Discharge Recommendations Plan/Recommendations: Continue POC Treatment Plan/Plan of Care Patient would benefit from OT for education, treatment and training to promote independence in ADL's, mobility, safety and/or upper extremity function for ADL's. Plan of Care: ADL Retraining, Functional Mobility, UE Funct Exercise/Act Treatment Duration: Jun 18, 2020 Frequency: 5 times per week Estimated Hrs Per Day: .5 hour per day Agreement: Yes Rehab Potential: Fair Time/GCodes Start Time: 09:50 Stop Time: 10:06 Total Time Billed (hr/min): 16 Billed Treatment Time 1, ADL CLEMENTE VILLAGOMEZ OT May 27, 2020 11:51
[2020-05-27] MEDS ORDERED: WATER (STERILE) FOR INJECTION 10 ML ONE (14:49)
[2020-05-27] MEDS ORDERED: MEROPENEM 500 MG VIAL (MERREM) IV ONE (14:49)
--- NOTE | 2020-05-27 15:09 | NUR ---
CM/SS follow up. Plan: The patient will discharge tomorrow 05/27 to [facility] half-way with hospice. The patient will be transported by non-emergent EMS. AH&R: CM/SS sent updated clinicals to facility. CM/SS informed the facility that the patient will discharge with [facility]. Hospice: The patient was provided with a choice list and chose [facility]. CM/SS contacted the referral line and faxed referral. CM/SS spoke with Gerald at [facility] to discuss Medicaid coverage. They report that Medicaid will pay for both room and board and hospice services. They will also help put 250 dollars towards cremation cost due to the family being concerned about cost. CM/SS notified the family. CM/SS contacted the patient's daughter to give update and further discuss discharge planning. CM/SS discussed the option of hospice and the services they can offer with the patient's daughter. CM/SS explained the care team with hospice and the goals of hospice. The patient's daughter verbalized understanding. She spoke with family and it was decided to have the patient enrolled with hospice. CM/SS arranged a face time meeting for the patient's daughter and granddaughter set for 2:00 p.m. today. CM/SS will continue to follow.
[2020-05-27] MEDS ORDERED: TROUGH ORDER-PHARMACY XX NR (20:00)
[2020-05-27] MEDS ORDERED: MEROPENEM 500 MG in WATER (STERILE) FOR INJECTION 10 ML IV SCH (20:00)
[2020-05-27] MEDS ORDERED: MELATONIN 3 MG TABLET PO SCH (21:00)
[2020-05-28] MEDS: MEROPENEM 500 MG in WATER (STERILE) FOR INJECTION 10 ML IV SCH ×2 (03:09→09:46)
[2020-05-28] MEDS: RT-ALBUTEROL INHALER HFA (VENTOLIN HFA) 18 GM IH SCH ×2 (03:11→07:35)
--- NOTE | 2020-05-28 05:03 | NUR ---
Pt does not use call light appropriately, pt was asking for assistance when this nurse walked by room. Pt stated she needed to call her daughter, she needed to know if her dad was home and that she needed her car keys. Attempted to reorient pt, let her know she was in the hospital and that we could call her daughter later on in the morning. Pt seemed confused by this statement and did not say more.
[2020-05-28] MEDS: inSUlin ASPART (NovoLOG) 1 UNIT/0.01 ML (CHARGE PER UNIT) SC SCH ×2 (05:26→11:22)
[2020-05-28] MEDS: ENOXAPARIN 40 MG/0.4 ML (LOVENOX) SYR SC SCH (06:22)
--- NOTE | 2020-05-28 08:50 | Pulmonary Progress Note ---
Subjective Time Seen by a Provider: 08:45 Subjective/Events-last exam No complications noted. Sepsis Event Evaluation Height, Weight, BMI Height: '" Weight: lbs. oz. kg; 40.97 BMI Method:Estimated Exam Exam Vital Signs Date Time Temp Pulse Resp B/P (MAP) Pulse Ox O2 Delivery O2 Flow Rate FiO2 05/28/20 08:00 36.4 113 24 138/84 (102) 95 High Flow N/C 6.00 05/28/20 03:49 37.0 111 21 115/67 (83) 92 High Flow N/C 6.00 05/28/20 03:11 92 High Flow N/C 6.00 05/28/20 00:00 37.2 116 24 132/85 (101) 93 High Flow N/C 6.00 05/27/20 21:12 High Flow N/C 7.00 05/27/20 20:26 97 High Flow N/C 7.00 05/27/20 20:05 35.8 107 18 147/79 (101) 97 High Flow N/C 6.00 05/27/20 16:10 36.4 109 18 135/78 (97) 97 High Flow N/C 6.00 05/27/20 14:49 92 High Flow N/C 7.00 05/27/20 12:06 36.8 105 18 121/73 (89) 97 High Flow N/C 7.00 05/27/20 11:00 High Flow N/C 7.00 I & O 05/28/20 07:00 Intake Total 1535 ml Output Total 1825 ml Balance -290 ml Height & Weight Height: '" Weight: lbs. oz. kg; 40.97 BMI Method:Estimated General Appearance: No Apparent Distress, WD/WN, Chronically ill HEENT: PERRL/EOMI, Moist Mucous Membranes; No Scleral Icterus (L), No Scleral Icterus (R) Neck: Normal Inspection, Supple Respiratory: Lungs Clear Cardiovascular: Regular Rate, Rhythm Capillary Refill: Less Than 3 Seconds Extremity: Normal Capillary Refill, No Calf Tenderness, No Pedal Edema Neurologic/Psychiatric: Alert, Oriented x3, No Motor/Sensory Deficits, Normal Mood/Affect Skin: Normal Color, Warm/Dry Results Lab Laboratory Tests 05/27/20 03:05 Assessment/Plan Assessment/Plan Acute hypoxic respiratory failure due to COVID19 -Repeat CXR and labs -s/p ventilator s/p Remdesivir and CVP - decadron Lovenox MAT protocol IS PNA - with bacteremia - Vanco -Repeat cultures -Merrem to cover for ESBL Debility -PT/OT s/p Acute DKA -Levemir -Pt was not on insulin prior to admission. Thrombocytopenia - Resolved DVT/GI ppx: Lovenox -Start prilosec ROSIE FRANCO DO May 28, 2020 08:50
[2020-05-28] MEDS: FAMOTIDINE 20MG/2ML IV (PEPCID) IV SCH (09:45)
[2020-05-28] MEDS: VANCOMYCIN 1500 MG/NS 500 ML IVPB IV SCH ×2 (09:46)
[2020-05-28 10:08] LABS: BASOPHILS % (AUTO) 1 % (0-10); EOSINOPHILS # (AUTO) 0.5 10^3/uL (0.0-0.3); EOSINOPHILS % (AUTO) 8 % (0-10); HEMATOCRIT 36 % (35-52); HEMOGLOBIN 11.1 g/dL (11.5-16.0); LYMPHOCYTES # (AUTO) 1.4 10^3/uL (1.0-4.0); LYMPHOCYTES % (AUTO) 22 % (12-44); MEAN CORPUSCULAR HEMOGLOBIN 29 pg (25-34); MEAN CORPUSCULAR HGB CONC 31 g/dL (32-36); MEAN CORPUSCULAR VOLUME 92 fL (80-99); MONOCYTES # (AUTO) 0.9 10^3/uL (0.0-1.0); MONOCYTES % (AUTO) 14 % (0-12); NEUTROPHILS # (AUTO) 3.4 10^3/uL (1.8-7.8); NEUTROPHILS % (AUTO) 54 % (42-75); PLATELET COUNT 205 10^3/uL (130-400); WHITE BLOOD COUNT 6.3 10^3/uL (4.3-11.0)
[2020-05-28] MEDS: MICONAZOLE 2% POWDER (DESENEX AF) 90 GM TOP SCH (10:10)
[2020-05-28] MEDS: LIDOCAINE 4% (SALONPAS) PATCH TOP SCH (10:11)
[2020-05-28] MEDS: NYSTATIN CREAM (MYCOSTATIN) 30 GM TUBE TP SCH ×2 (10:11→14:16)
[2020-05-28] MEDS: DOCUSATE SODIUM 10 MG/ML 10 ML UDC (COLACE) PO SCH (10:11)
[2020-05-28] MEDS: risperiDONE 2 MG (RisperDAL) TAB PO SCH (10:11)
[2020-05-28] MEDS: LORATADINE (CLARITIN) 10 MG TAB PO SCH (10:12)
[2020-05-28 10:17] LABS: CHLORIDE 100 MMOL/L (98-107); POTASSIUM 3.1 MMOL/L (3.6-5.0); SODIUM 135 MMOL/L (135-145)
[2020-05-28 10:19] LABS: CALCIUM 8.1 MG/DL (8.5-10.1); GLUCOSE 142 MG/DL (70-105)
[2020-05-28 10:21] LABS: CARBON DIOXIDE 25 MMOL/L (21-32)
[2020-05-28 10:23] LABS: CREATININE SERUM 0.48 MG/DL (0.60-1.30); GFR ESTIMATED > 60
[2020-05-28 10:24] LABS: BUN/CREATININE RATIO 10
[2020-05-28 10:25] LABS: MAGNESIUM 1.7 MG/DL (1.6-2.4)
[2020-05-28] MEDS ORDERED: LORA2ORA PO (10:29)
[2020-05-28] MEDS ORDERED: MORP100S3 PO (10:29)
--- NOTE | 2020-05-28 10:30 | Discharge Summary ---
Discharge Summary Hospital Course Was the Problem List Reviewed?: Yes Problems/Dx: (1) Acute respiratory failure Status: Acute Qualifiers: Qualified Codes: J96.01 - Acute respiratory failure with hypoxia (2) Non-insulin dependent type 2 diabetes mellitus Status: Chronic (3) Prophylactic measure Status: Acute (4) Coronavirus infection Status: Acute Hospital Course Date of Admission: May 01, 2020 at 21:20 Admission Diagnosis : Family Physician/Provider: Grady Dutton MD Date of Discharge: 05/28/20 Discharge Diagnosis: s/p VDRF due to COVID 19 PNA, severe debility, anxiety, confusion Hospital Course: Hospital course: Patient had a lengthy hospital course for 27 days most of it intubated due to COVID-19 pneumonia and hypoxia and respiratory failure. Patient had a very lengthy recovery was able to be extubated and placed on Vapotherm and BiPAP but patient ultimately suffered so much debility and encephalopathy from the COVID-19 pneumonia and long-term vent dependence she was placed on hospice after [facility] to the [facility] and maintained DO NOT RESUSCITATE DO NOT INTUBATE status and overall prognosis was extremely poor Labs and Pending Lab Test: Laboratory Tests 05/27/20 12:29: Glucometer 126H 05/27/20 15:43: Glucometer 115H 05/27/20 20:58: Vancomycin Level Trough 10.1 05/27/20 21:33: Glucometer 118H 05/28/20 05:23: Glucometer 122H 05/28/20 10:00: White Blood Count 6.3, Red Blood Count 3.90, Hemoglobin 11.1L, Hematocrit 36, Mean Corpuscular Volume 92, Mean Corpuscular Hemoglobin 29, Mean Corpuscular Hemoglobin Concent 31L, Red Cell Distribution Width 15.6H, Platelet Count 205, Mean Platelet Volume 10.0, Immature Granulocyte % (Auto) 1, Neutrophils (%) (Auto) 54, Lymphocytes (%) (Auto) 22, Monocytes (%) (Auto) 14H, Eosinophils (%) (Auto) 8, Basophils (%) (Auto) 1, Neutrophils # (Auto) 3.4, Lymphocytes # (Auto) 1.4, Monocytes # (Auto) 0.9, Eosinophils # (Auto) 0.5H, Basophils # (Auto) 0.0, Immature Granulocyte # (Auto) 0.1, Sodium Level 135, Potassium Level 3.1L, Chloride Level 100, Carbon Dioxide Level 25, Anion Gap 10, Blood Urea Nitrogen 5L, Creatinine 0.48L, Estimat Glomerular Filtration Rate > 60, BUN/Creatinine Ratio 10, Glucose Level 142H, Calcium Level 8.1L, Phosphorus Level 2.0L, Magnesium Level 1.7 Microbiology 05/26/20 Urine Culture - Final, Complete YEAST 05/26/20 Blood Culture - Preliminary, Resulted No growth 05/04/20 Gram Stain - Final, Complete 05/04/20 Sputum Culture - Final, Complete Usual upper respiratory [place] Home Meds Active Lorazepam Intensol (Lorazepam) 2 Mg/1 Ml Oral.conc 1 Mg PO Q2H PRN Morphine Conc. 20mg/ml (Morphine Sulfate) 100 Mg/5 Ml Solution 5 Mg PO Q2H PRN Reported Metformin HCl ER (Metformin HCl) 750 Mg Tab.er.24h 750 Mg PO BID Loratadine 10 Mg Tablet 10 Mg PO DAILY Lidocaine 5% Patch (Lidocaine) 1 Each Adh..patch 2 Each TOP DAILY KEEP ON FOR 12 HOURS AND THEN REMOVE AND GO PATCH FREE FOR 12 HOURS Amaryl (Glimepiride) 4 Mg Tablet 4 Mg PO DAILY Nystatin 15 Gm Cream..g. 1 Applic TOP TID Tizanidine HCl 4 Mg Tablet 4 Mg PO BID PRN Ibuprofen 800 Mg Tablet 800 Mg PO TID PRN Restasis (Cyclosporine) 1 Each Droperette 1 Drop OU BID Simvastatin 20 Mg Tablet 20 Mg PO HS Assessment/Pt Instructions [facility] rounds Discharge Planning: <30 minutes discharge planning Discharge Instructions Discharge Diet: No Restrictions Discharge Physical Examination Vital Signs Vital Signs Date Time Temp Pulse Resp B/P (MAP) Pulse Ox O2 Delivery O2 Flow Rate FiO2 05/28/20 08:00 36.4 113 24 138/84 (102) 95 High Flow N/C 6.00 05/26/20 14:30 50 General Appearance: Anxious, Chronically ill Allergies: Coded Allergies: Sulfa (Sulfonamide Antibiotics) (Verified Allergy, Unknown, 11/26/19) Discharge Summary Date of Admission May 01, 2020 at 21:20 Date of Discharge Discharge Date: May 28, 2020 Admission Diagnosis Acute hypoxic respiratory failure due to COVID19 Discharge Diagnosis Assessment and plan per Dr Crespo with my modifications in italic bold: Acute hypoxic respiratory failure due to COVID19 -S/p intubation 12/7 -Decrease VT to 350 -Repeat ABG in 1hr - Propofol and Fentanyl after intubation -OG tube and restraints. -Continue TF s/p Remdesivir and CVP - decadron -Check ABG 1hr after intubation Lovenox MAT protocol IS s/p Acute DKA -Levemir -D/C metformin and Gliparide -Pt was not on insulin prior to admission. She will need to remain on insulin after discharge. Hypokalemia/hypophos -replace Thrombocytopenia - Resolved DVT/GI ppx: Lovenox -Start prilosec DC prone positioning protocol 05/23/20: Extubated 1 day ago biPAP today Very anxious Monitor closely for reintubation 05/22/20: Stay in ICU since it appears she is at high risk for decompensating Very anxious 05/23/20: Precedex DNR Do not intubate again 05/24/20: Tormented appearance ICU psychosis 05/26/20: DNR/DNI No rapid response necessary Morphine as needed (1) Acute respiratory failure Status: Acute Qualifiers: Qualified Codes: J96.01 - Acute respiratory failure with hypoxia (2) Non-insulin dependent type 2 diabetes mellitus Status: Chronic (3) Prophylactic measure Status: Acute (4) Coronavirus infection Status: Acute Clinical Quality Measures DVT/VTE Risk/Contraindication: Risk Factor Score Per Nursin RFS Level Per Nursing on Admit: 4+=Very High YU SINGH DO May 28, 2020 10:30
--- NOTE | 2020-05-28 11:53 | NUR ---
CM/SS finalized discharge plan. Plan: Patient will discharge to [facility] with [facility]. Patient will transport with non emergent EMS. [facility]: CM/SS faxed discharge orders, script, and out of hospital DNR to the facility. Estefany reports they are just waiting for the physician to fully sign him on and the equipment to arrive. [facility]: CM/SS faxed the discharge hospice orders to agency. CM/SS will contact the agency at time of discharge/transportation once equipment is in place. CM/SS contacted the patient's daughter Tory to give an update and status on transporting patient to facility. She verbalized understanding.
--- NOTE | 2020-05-28 12:32 | Diagnostic Imaging Report ---
INDICATION: Shortness of air. COMPARISON: 05/26/2020 FINDINGS: Single frontal radiographic view of the chest was obtained and again demonstrates low inspiratory volumes with asymmetric elevation right hemidiaphragm and scattered bilateral infiltrates, greatest within the right midlung. Overall, aeration is unchanged. Right upper extremity PICC line is seen. Central tip is obscured. There is no large effusion or pneumothorax. Cardiac silhouette is stable. Osseous structures show no adverse interval changes. IMPRESSION: 1. Stable exam of the chest showing low lung volumes with bilateral infiltrates. Dictated by: Dictated on workstation # [id number]
== END 2020-05-28 15:18 | disposition hospice, inpatient (51) | DRG 207 ==
LOC: ICU 21:20 → CSD 05-02 10:22 → ICU 05-04 08:08 → CSD 05-25 11:45 → ICU 05-25 13:05 → CSD 05-26 09:13 → 4TH 05-27 10:00
PROVIDERS: ADMIT Family Medicine; ATTEND Internal Medicine
PROC: XW033E5 Introduction of Remdesivir Anti-infective into Peripheral Vein, Percutaneous Approach, New Technology Group 5 (ICD-10-PCS; 2020-05-02)
PROC: XW13325 Transfusion of Convalescent Plasma (Nonautologous) into Peripheral Vein, Percutaneous Approach, New Technology Group 5 (ICD-10-PCS; 2020-05-02)
PROC: 5A1955Z Respiratory Ventilation, Greater than 96 Consecutive Hours (ICD-10-PCS; principal; 2020-05-04)
PROC: 0BH17EZ Insertion of Endotracheal Airway into Trachea, Via Natural or Artificial Opening (ICD-10-PCS; 2020-05-04)
PROC: 02HV33Z Insertion of Infusion Device into Superior Vena Cava, Percutaneous Approach (ICD-10-PCS; 2020-05-06)
DX: U07.1 COVID-19 (principal); E11.10 Type 2 diabetes mellitus with ketoacidosis without coma; J96.01 Acute respiratory failure with hypoxia; J12.89 Other viral pneumonia; G93.40 Encephalopathy, unspecified; Z66 Do not resuscitate; D69.6 Thrombocytopenia, unspecified; M19.90 Unspecified osteoarthritis, unspecified site; E87.6 Hypokalemia; E83.39 Other disorders of phosphorus metabolism; F41.9 Anxiety disorder, unspecified; Z88.2 Allergy status to sulfonamides
CPT/HCPCS: 36415; 36569; 36600; 71045; 76937; 80048; 80053; 80202; 81000; 82010; 82805; 82962; 83605; 83735; 83880; 84100; 84145; 84478; 85025; 85027; 85379; 85730; 86900; 86901; 87040; 87070; 87077; 87081; 87088; 87184; 87186; 87205; 93005; 94003; 94640; 94660; 94664; 94760; 94799

== ENCOUNTER → 2021-04-09 | Outpatient (CLI) | payer MEDICAID ==
[~2021-04-09] MED LIST changes: +GLIM4TAB56 PO; +LIDO700A45 TOP; +LORA10TA7 PO; +LORA2ORA PO; +METF750T45 PO; +MORP100S7 PO; +NYST15CR TOP; +TIZA4TAB4 PO
--- NOTE | 2021-04-09 11:24 | Diagnostic Imaging Report ---
INDICATION: Routine screening. COMPARISON is made prior mammograms from 10/29/2019 and 12/15/2017. 2-D and 3-D bilateral screening mammography was performed CAD. Both breasts are heterogeneously dense, limiting the sensitivity of mammography. The parenchymal pattern is stable. No mass or malignant-appearing microcalcifications are seen. Axillae are unremarkable. IMPRESSION: BI-RADS Category 1 No mammographic features suspicious for malignancy are identified. ACR BI-RADS Category 1: Negative. Result letter will be mailed to the patient. Note: At least 10% of breast cancer is not imaged by mammography. Dictated by: Dictated on workstation # [id number]
== END ==
LOC: RAD 09:40
PROVIDERS: ATTEND Nurse Practitioner
DX: Z12.31 Encounter for screening mammogram for malignant neoplasm of breast (principal)
CPT/HCPCS: 77063; 77067

== ENCOUNTER 2021-06-08 16:20 | Emergency (ER) | payer MEDICAID ==
[~2021-06-08] VITALS: Ht 157 cm; Wt 136.0 kg
[~2021-06-08 16:20] MED LIST changes: +CYCL10TA25 PO; -CYCL10TA9 PO; +TIZA-186 PO; -TIZA4TAB4 PO
[2021-06-08 16:36] VITALS: BP 122/68
--- NOTE | 2021-06-08 18:01 | ED General ---
General Chief Complaint: COVID19 Suspect/Confirmed Stated Complaint: HEADACHE/BODYACHES/SOA Source of Information: Patient Exam Limitations: No Limitations (SHERRIE SAUL APRN) History of Present Illness Date Seen by Provider: Jun 08, 2021 Time Seen by Provider: 18:00 Initial Comments headache body aches short of breath for few days. 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 Timing/Duration: 2-3 Days Severity: Moderate Associated Systoms: Cough (SHERRIE SAUL APRN) Allergies and Home Medications Allergies Coded Allergies: Sulfa (Sulfonamide Antibiotics) (Verified Allergy, Unknown, 11/26/19) Patient Home Medication List Home Medication List Reviewed: Yes (SHERRIE SAUL APRN) Amoxicillin/Potassium Clav (Augmentin 875-125 Tablet) 1 Each Tablet, 1 EACH PO BID Prescribed by: SHERRIE SAUL on 06/08/21 191 Cyclosporine (Restasis) 1 Each Droperette, 1 DROP OU BID, (Reported) Entered as Reported by: SARAY AMOR on 03/07/19 1651 Lidocaine (Lidocaine 5% Patch) 1 Each Adh..patch, 2 EACH TOP DAILY, (Reported) Entered as Reported by: ALEK MEIER on 05/04/20 1558 Lorazepam (Lorazepam Intensol) 2 Mg/1 Ml Oral.conc, 1 MG PO Q2H PRN for AGITATION Prescribed by: YU SINGH on 05/28/20 1029 Morphine Sulfate (Morphine Conc. 20mg/ml) 100 Mg/5 Ml Solution, 5 MG PO Q2H PRN for PAIN Prescribed by: YU SINGH on 05/28/20 1029 Nystatin (Nystatin) 15 Gm Cream..g., 1 APPLIC TOP TID, (Reported) Entered as Reported by: ALEK MEIER on 05/04/20 1558 Review of Systems Review of Systems Constitutional: see HPI EENTM: see HPI Respiratory: see HPI, cough Genitourinary: no symptoms reported Musculoskeletal: no symptoms reported Skin: no symptoms reported Psychiatric/Neurological: No Symptoms Reported Hematologic/Lymphatic: No Symptoms Reported (SHERRIE SAUL APRN) Past Zsrevns-Hykhmr-Pjfzan Hx Immunizations Up To Date Tetanus Booster (TDap): Unknown (SHERRIE SAUL APRN) Seasonal Allergies Seasonal Allergies: No (SHERRIE SAUL APRN) Past Medical History Surgeries: Yes Respiratory: No Cardiac: No Neurological: No Reproductive Disorders: Yes Genitourinary: No Gastrointestinal: No Musculoskeletal: No Fractures Endocrine: Yes Diabetes, Non-Insulin dep HEENT: No Cancer: No Psychosocial: No Integumentary: No Blood Disorders: No (SHERRIE SAUL APRN) Family Medical History Patient reports no known family medical history. No Pertinent Family Hx (SHERRIE SAUL APRN) Physical Exam Vital Signs Vital Signs - First Documented 06/08/21 16:36 Temp 36.8 Pulse 100 Resp 20 B/P (MAP) 122/68 (86) Pulse Ox 93 O2 Delivery Nasal Cannula O2 Flow Rate 3.00 (HITESH,DEEDEE K DO) Vital Signs Capillary Refill : (SHERRIE SAUL APRN) Height, Weight, BMI Height: '" Weight: lbs. oz. kg; 40.97 BMI Method:Estimated General Appearance: No Apparent Distress, WD/WN, Chronically ill Eyes: Bilateral Eye Normal Inspection, Bilateral Eye PERRL, Bilateral Eye EOMI HEENT: PERRL/EOMI, TMs Normal Neck: Full Range of Motion, Normal Inspection Respiratory: No Accessory Muscle Use, No Respiratory Distress, Crackles (Bibasilar) Cardiovascular: Regular Rate, Rhythm, Normal Peripheral Pulses Gastrointestinal: Normal Bowel Sounds, Non Tender, Soft Extremity: Normal Capillary Refill, Normal Inspection Neurologic/Psychiatric: Alert, Oriented x3 (SHERRIE SAUL APRN) Progress/Results/Core Measures Suspected Sepsis SIRS Temperature: Pulse: Respiratory Rate: Blood Pressure / Mean: (SHERRIE SAUL APRN) Results/Orders Lab Results Laboratory Tests Test 06/08/21 16:42 Range/Units Influenza Type A (RT-PCR) Not Detected Not Detecte Influenza Type B (RT-PCR) Not Detected Not Detecte SARS-CoV-2 RNA (RT-PCR) Not Detected Not Detecte (HITESHDEEDEEMichael Mcgrath DO) Vital Signs/I&O 06/08/21 16:36 Temp 36.8 Pulse 100 Resp 20 B/P (MAP) 122/68 (86) Pulse Ox 93 O2 Delivery Nasal Cannula O2 Flow Rate 3.00 (HITESH,DEEDEE K DO) Vital Signs/I&O Capillary Refill : (SHERRIE SAUL APRN) Departure Impression Primary Impression: Pneumonia Disposition: 01 HOME, SELF-CARE Condition: Stable Departure-Patient Inst. Decision time for Depature: 18:00 (SHERRIE SAUL APRN) Referrals: TERESO WHITESIDE MD (PCP/Family) Primary Care Physician Patient Instructions: Pneumonia, Adult (DC) Scripts Amoxicillin/Potassium Clav (Augmentin 875-125 Tablet) 1 Each Tablet 1 EACH PO BID, #14 TAB Prov: SHERRIE SAUL APRN 06/08/21 ATTENDING PHYSICIAN NOTE: I WAS PHYSICALLY PRESENT ER PHYSICIAN WHEN THIS PATIENT WAS IN ER, BUT I WAS NOT INVOLVED IN ANY DECISION MAKING OR ANY CARE OF THIS PATIENT. (DEEDEE PROCTOR DO) SHERRIE SAUL APRN Jun 08, 2021 18:01 DEEDEE PROCTOR DO Jun 10, 2021 03:21
--- NOTE | 2021-06-08 18:50 | Diagnostic Imaging Report ---
INDICATION: Headache, cough and chills. TIME OF EXAM: 6:17 PM Correlation is made with prior chest of 05/28/2020. Heart size is stable. There are some mild peripheral based infiltrates in right mid lung field. Right hemidiaphragm is chronically elevated. There may be some minimal peripheral based infiltrate in the left base as well. No effusion or pneumothorax is seen. IMPRESSION: There are some subtle peripheral based pulmonary infiltrates bilaterally suggestive of pneumonia. Dictated by: Dictated on workstation # [id number]
[2021-06-08] MEDS ORDERED: AMOX-358 PO (19:13)
[2021-06-08] MEDS ORDERED: AUGMENTIN 875 MG TAB (AMOXICILLIN/CLAVULANATE) PO SCH (19:15)
== END 2021-06-08 19:30 | disposition home or self-care (01) ==
LOC: EDUNIT# 16:20 → ER 16:21
DX: J18.9 Pneumonia, unspecified organism (principal); E11.9 Type 2 diabetes mellitus without complications; Z20.822 Contact with and (suspected) exposure to COVID-19
CPT/HCPCS: 71045; 87636; 99283

== ENCOUNTER → 2021-09-28 | Outpatient (CLI) | payer MEDICAID ==
[~2021-09-28] MED LIST changes: +AMOX-358 PO
--- NOTE | 2021-09-28 18:02 | Diagnostic Imaging Report ---
INDICATION: Bilateral shoulder pain. Time of Exam: 1:20 PM Correlation is made with prior radiographs from 05/24/2019. 3 views of each shoulder were obtained. Left shoulder does show some residual fracture lines in the left scapula extending to the region of the coracoid process as well as the supraglenoid location. Glenohumeral and acromioclavicular alignment are maintained. Right shoulder does show normal glenohumeral and acromioclavicular alignment. No fractures of the right shoulder are identified. IMPRESSION: There are residual fracture lines in the left scapula consistent with unhealed fractures. These appear similar to study dating back to 05/24/2019. No new abnormality is detected. Dictated by: Dictated on workstation # [id number]
== END ==
LOC: RAD 13:09
PROVIDERS: ATTEND Family Medicine
DX: S42.102A Fracture of unspecified part of scapula, left shoulder, initial encounter for closed fracture (principal); M25.511 Pain in right shoulder

== ENCOUNTER 2021-12-01 07:49 | Emergency (ER) | payer MEDICAID ==
[~2021-12-01] VITALS: Ht 157 cm; Wt 100.0 kg
[2021-12-01 08:27] LABS: BILIRUBIN,URINE NEGATIVE (NEGATIVE); CLARITY,URINE CLEAR; COLOR,URINE YELLOW; GLUCOSE, URINE (UA) 3+ (NEGATIVE); KETONES,URINE 1+ (NEGATIVE); LEUKOCYTE ESTERASE ,URINE NEGATIVE (NEGATIVE); NITRITE,URINE POSITIVE (NEGATIVE); PROTEIN,URINE NEGATIVE (NEGATIVE)
[2021-12-01 08:35] LABS: BACTERIA,URINE LARGE /HPF
[2021-12-01] MEDS ORDERED: KETOROLAC 30 MG/ML VIAL IVP ONE (08:45)
[2021-12-01] MEDS ORDERED: PANTOPRAZOLE 40 MG (PROTONIX) VIAL IV ONE (08:45)
[2021-12-01 08:51] VITALS: BP_SYST 125; BP_SYST 130; BP_SYST 140; BP_DIAS 64; BP_DIAS 68; BP_DIAS 73
[2021-12-01 08:58] LABS: BASOPHILS % (AUTO) 1 % (0-10); EOSINOPHILS # (AUTO) 0.2 10^3/uL (0.0-0.3); EOSINOPHILS % (AUTO) 3 % (0-10); HEMATOCRIT 48 % (35-52); HEMOGLOBIN 15.9 g/dL (11.5-16.0); LYMPHOCYTES # (AUTO) 2.8 10^3/uL (1.0-4.0); LYMPHOCYTES % (AUTO) 39 % (12-44); MEAN CORPUSCULAR HEMOGLOBIN 31 pg (25-34); MEAN CORPUSCULAR HGB CONC 33 g/dL (32-36); MEAN CORPUSCULAR VOLUME 94 fL (80-99); MEAN PLATELET VOLUME 11.2 fL (9.0-12.2); MONOCYTES # (AUTO) 0.6 10^3/uL (0.0-1.0); MONOCYTES % (AUTO) 8 % (0-12); NEUTROPHILS # (AUTO) 3.5 10^3/uL (1.8-7.8); NEUTROPHILS % (AUTO) 49 % (42-75); PLATELET COUNT 182 10^3/uL (130-400); WHITE BLOOD COUNT 7.2 10^3/uL (4.3-11.0)
[2021-12-01 09:02] LABS: ALBUMIN 4.1 GM/DL (3.2-4.5); POTASSIUM 3.9 MMOL/L (3.6-5.0)
[2021-12-01 09:03] LABS: CALCIUM 9.2 MG/DL (8.5-10.1)
[2021-12-01 09:05] LABS: TOTAL PROTEIN 7.6 GM/DL (6.4-8.2)
[2021-12-01 09:06] LABS: BILIRUBIN,TOTAL 1.4 MG/DL (0.1-1.0)
[2021-12-01 09:08] LABS: CREATININE SERUM 0.73 MG/DL (0.60-1.30)
--- NOTE | 2021-12-01 09:11 | ED Fall/Injury ---
General Chief Complaint: Trauma-Non Activation Stated Complaint: FELL Nursing Triage Note: PT TO RM 3 PER W/C PT CO OF FALL ON MONDAY, STATES TRIPPED AND FELL ON R SIDE. PT CO OF DIZZINESS, R RIB PAIN 03/07. R GREAT TOE PAIN. PT DENIES LOC. Source: patient Exam Limitations: no limitations History of Present Illness Date Seen by Provider: Dec 01, 2021 Time Seen by Provider: 08:45 Initial Comments Patient to the ER by private conveyance with her significant other with chief complaint that she had a fall 3 to 4 days ago and landed on outstretched forearms and struck her abdomen against the ground. She said she was trying to step over a bag that was on the floor and lost her footing. She is having pain in her right upper quadrant and left upper quadrant abdomen. She is not having any hematuria. She is not having any fevers chills cough shortness of breath nausea vomiting. She did have some nausea this morning. She has had some dizziness. She denies striking her head and she is not on blood thinners. Allergies and Home Medications Allergies Coded Allergies: Sulfa (Sulfonamide Antibiotics) (Verified Allergy, Unknown, 11/26/19) Patient Home Medication List Home Medication List Reviewed: Yes Amoxicillin/Potassium Clav (Augmentin 875-125 Tablet) 1 Each Tablet, 1 EACH PO BID Prescribed by: SHERRIE SAUL on 06/08/211912 Cyclosporine (Restasis) 1 Each Droperette, 1 DROP OU BID, (Reported) Entered as Reported by: SARAY AMOR on 03/07/19 165 Lidocaine (Lidocaine 5% Patch) 1 Each Adh..patch, 2 EACH TOP DAILY, (Reported) Entered as Reported by: ALEK MEIER on 05/04/20 1558 Lorazepam (Lorazepam Intensol) 2 Mg/1 Ml Oral.conc, 1 MG PO Q2H PRN for AGITATION Prescribed by: YU SINGH on 05/28/20 1029 Morphine Sulfate (Morphine Conc. 20mg/ml) 100 Mg/5 Ml Solution, 5 MG PO Q2H PRN for PAIN Prescribed by: YU SINGH on 05/28/20 1029 Nystatin (Nystatin) 15 Gm Cream..g., 1 APPLIC TOP TID, (Reported) Entered as Reported by: ALEK MEIER on 05/04/20 1558 Review of Systems Review of Systems Constitutional: No chills, No diaphoresis Eyes: Denies Blindness, Denies Blurred Vision, Denies Drainage Ears, Nose, Mouth, Throat: denies ear pain, denies ear discharge Respiratory: No cough, No dyspnea on exertion Cardiovascular: No chest pain, No edema Gastrointestinal: No abdominal pain, No constipation, No diarrhea, No nausea Genitourinary: No discharge, No dysuria Musculoskeletal: No back pain, No joint pain All Other Systems Reviewed Negative Unless Noted: Yes Past Flfatwr-Uktsdi-Wojutr Hx Patient Social History Tobacco Use?: No Substance use?: No Alcohol Use?: No Pt feels they are or have been: Yes Immunizations Up To Date Tetanus Booster (TDap): Unknown Seasonal Allergies Seasonal Allergies: No Past Medical History Surgery/Hospitalization HX: COPD, LONG COVID, DIABETES Surgeries: Yes Respiratory: No Cardiac: No Neurological: No Reproductive Disorders: Yes Genitourinary: No Gastrointestinal: No Musculoskeletal: No Fractures Endocrine: Yes Diabetes, Non-Insulin dep HEENT: No Cancer: No Psychosocial: No Integumentary: No Blood Disorders: No Family Medical History Patient reports no known family medical history. No Pertinent Family Hx Physical Exam Vital Signs Vital Signs - First Documented 12/01/21 08:00 Temp 36.4 Pulse 85 Resp 16 B/P (MAP) 141/84 (103) Pulse Ox 97 O2 Delivery Nasal Cannula O2 Flow Rate 3.00 Capillary Refill : Less Than 3 Seconds Height, Weight, BMI Height: '" Weight: lbs. oz. kg; 40.00 BMI Method:Estimated General Appearance: WD/WN, no apparent distress HEENT: PERRL/EOMI, pharynx normal Neck: full range of motion, supple, normal inspection Cardiovascular: normal peripheral pulses, regular rate, rhythm Respiratory: lungs clear, normal breath sounds, no respiratory distress, no accessory muscle use Peripheral Pulses: 2+ Radial Pulses (R), 2+ Radial Pulses (L) Gastrointestinal: normal bowel sounds, no organomegaly, guarding, tenderness (Right upper quadrant tenderness palpation, left upper quadrant tender to palpation. No prominent spleen or liver edge on palpation.), other (No mass or ecchymoses. No abrasion.) Extremities: normal range of motion, non-tender, normal capillary refill Neurologic/Psychiatric: alert, normal mood/affect, oriented x 3 Skin: normal color, warm/dry [place] Coma Score Best Eye Response: (4) Open Spontaneously Best Verbal Response: (5) Oriented Best Motor Response: (6) Obeys Commands [place] Total: 15 Progress/Results/Core Measures Results/Orders Lab Results Laboratory Tests Test 12/01/21 08:09 12/01/21 08:18 12/01/21 08:20 12/01/21 10:43 Range/Units Glucometer 338 H 351 H 70-110 MG/DL Urine Color YELLOW Urine Clarity CLEAR Urine pH 6.0 5-9 Urine Specific [place] 1.015 L 1.016-1.022 Urine Protein NEGATIVE NEGATIVE Urine Glucose (UA) 3+ H NEGATIVE Urine Ketones 1+ H NEGATIVE Urine Nitrite POSITIVE H NEGATIVE Urine Bilirubin NEGATIVE NEGATIVE Urine Urobilinogen 1.0 < = 1.0 MG/DL Urine Leukocyte Esterase NEGATIVE NEGATIVE Urine RBC (Auto) NEGATIVE NEGATIVE Urine RBC NONE /HPF Urine WBC 2-5 /HPF Urine Squamous Epithelial Cells 2-5 /HPF Urine Crystals NONE /LPF Urine Bacteria LARGE H /HPF Urine Casts NONE /LPF Urine Mucus NEGATIVE /LPF Urine Culture Indicated YES White Blood Count 7.2 4.3-11.0 10^3/uL Red Blood Count 5.09 3.80-5.11 10^6/uL Hemoglobin 15.9 11.5-16.0 g/dL Hematocrit 48 35-52 % Mean Corpuscular Volume 94 80-99 fL Mean Corpuscular Hemoglobin 31 25-34 pg Mean Corpuscular Hemoglobin Concent 33 32-36 g/dL Red Cell Distribution Width 12.5 10.0-14.5 % Platelet Count 182 130-400 10^3/uL Mean Platelet Volume 11.2 9.0-12.2 fL Immature Granulocyte % (Auto) 0 % Neutrophils (%) (Auto) 49 42-75 % Lymphocytes (%) (Auto) 39 12-44 % Monocytes (%) (Auto) 8 0-12 % Eosinophils (%) (Auto) 3 0-10 % Basophils (%) (Auto) 1 0-10 % Neutrophils # (Auto) 3.5 1.8-7.8 10^3/uL Lymphocytes # (Auto) 2.8 1.0-4.0 10^3/uL Monocytes # (Auto) 0.6 0.0-1.0 10^3/uL Eosinophils # (Auto) 0.2 0.0-0.3 10^3/uL Basophils # (Auto) 0.0 0.0-0.1 10^3/uL Immature Granulocyte # (Auto) 0.0 0.0-0.1 10^3/uL Sodium Level 135 135-145 MMOL/L Potassium Level 3.9 3.6-5.0 MMOL/L Chloride Level 98 98-107 MMOL/L Carbon Dioxide Level 25 21-32 MMOL/L Anion Gap 12 5-14 MMOL/L Blood Urea Nitrogen 11 7-18 MG/DL Creatinine 0.73 0.60-1.30 MG/DL Estimat Glomerular Filtration Rate 92 BUN/Creatinine Ratio 15 Glucose Level 355 H 70-105 MG/DL Calcium Level 9.2 8.5-10.1 MG/DL Corrected Calcium 9.1 8.5-10.1 MG/DL Total Bilirubin 1.4 H 0.1-1.0 MG/DL Aspartate Amino Transf (AST/SGOT) 22 5-34 U/L Alanine Aminotransferase (ALT/SGPT) 30 0-55 U/L Alkaline Phosphatase 67 40-136 U/L C-Reactive Protein High Sensitivity 0.43 0.00-0.50 MG/DL Total Protein 7.6 6.4-8.2 GM/DL Albumin 4.1 3.2-4.5 GM/DL Lipase 43 8-78 U/L My Orders Orders - RIMMA STEARNS Ua Culture If Indicated (12/01/21 07:59) Urine Culture (12/01/21 08:18) Orthostatic Vital Signs (Adult (12/01/21 08:44) Cbc With Automated Diff (12/01/21 08:44) Comprehensive Metabolic Panel (12/01/21 08:44) Hs C Reactive Protein (12/01/21 08:44) Lipase (12/01/21 08:44) Pantoprazole Injection (Protonix Injecti (12/01/21 08:45) Ketorolac Injection (Toradol Injection) (12/01/21 08:45) Ct Abdomen/Pelvis W (12/01/21 09:03) Insulin (Regular) Human (Novolin R (Per (12/01/21 09:15) Ceftriaxone 1 Gm Pre-Mix (Rocephin 1 Gm (12/01/21 09:15) Iohexol Injection (Omnipaque 350 Mg/Ml 1 (12/01/21 09:30) Received Contrast (Hold Metformin- Contr (12/01/21 09:30) Sodium Chloride Flush (Catheter Flush Sy (12/01/21 09:30) Ns (Ivpb) (Sodium Chloride 0.9% Ivpb Bag (12/01/21 09:30) Medications Given in ED Current Medications Medications Dose Ordered Sig/Bailey Route Start Time Stop Time Status Last Admin Dose Admin Ceftriaxone Sodium/Dextrose 50 ml @ 100 mls/hr ONCE ONCE IV 12/01/21 09:15 12/01/21 09:44 DC 12/01/21 09:35 100 MLS/HR Insulin Human Regular 5 unit ONCE ONCE SC 12/01/21 09:15 12/01/21 09:18 DC 12/01/21 09:36 5 UNIT Iohexol 100 ml ONCE ONCE IV 12/01/21 09:30 12/01/21 09:31 DC 12/01/21 09:39 100 ML Ketorolac Tromethamine 30 mg ONCE ONCE IVP 12/01/21 08:45 12/01/21 08:46 DC 12/01/21 09:09 30 MG Pantoprazole 40 mg ONCE ONCE IV 12/01/21 08:45 12/01/21 08:46 DC 12/01/21 09:09 40 MG Sodium Chloride 10 ml NEEDED PRN IV 12/01/21 09:30 12/01/21 09:40 10 ML Sodium Chloride 100 ml ONCE ONCE IV 12/01/21 09:30 12/01/21 09:31 DC 12/01/21 09:40 80 ML Vital Signs/I&O 12/01/21 12/01/21 08:00 08:51 Temp 36.4 Pulse 85 74 77 82 Resp 16 B/P (MAP) 141/84 (103) 130/64 (86) 140/68 (92) 125/73 (90) Pulse Ox 97 O2 Delivery Nasal Cannula O2 Flow Rate 3.00 Blood Pressure Mean: 90 FSBG Bedside Testing Finger Stick Blood Glucose: 338 Blood Glucose Action Taken: NURSE AND DOC NOTIFIED Progress Progress Note : Time: 09:11 Progress Note Plan to give her some fluids check some labs and a urine. CT of the abdomen and pelvis. 5 units of regular insulin Diagnostic Imaging Diagonstic Imaging: CT Plain Films/CT/US/NM/MRI: abdomen, pelvis Comments [facility], [place] NAME: KAYLEIGH MIDDLETON [facility] REC#: [id number] PT STATUS: REG ER : 1955 PHYSICIAN: RIMMA STEARNS MD ADMIT DATE: 12/01/21/ER Draft Date of Exam:12/01/21 CT ABDOMEN/PELVIS W PROCEDURE: CT abdomen and pelvis with contrast. TECHNIQUE: Multiple contiguous axial images were obtained through the abdomen and pelvis after administration of intravenous contrast. Auto Exposure Controls were utilized during the CT exam to meet ALARA standards for radiation dose reduction. All CT scans use one or more of the following dose optimizing techniques: automated exposure control, MA and/or KvP adjustment based on patient size and exam type or iterative reconstruction. INDICATION: Fall with bilateral flank pain. COMPARISON: 03/07/2019. FINDINGS: There appears to be a nondisplaced fracture of the anterior right 5th rib. The lung bases are clear. No focal liver or splenic laceration is seen. The gallbladder is mildly distended but no biliary ductal dilatation is seen. The pancreas is unremarkable. The adrenal glands are unremarkable. There are multiple tortuous vessels in the region of the left adrenal gland. No renal injury is seen. There is a small renal cyst on the left. The aorta is nonaneurysmal. The bowel loops are of normal caliber. There is diffuse diverticulosis of the sigmoid and descending colon but no evidence of acute diverticulitis. No free fluid or fluid collection is seen. There is a cystic mass in the left adnexa measuring 6.9 x 2.9 cm compared with 8.8 x 5.2 cm on the prior exam. The uterus is unremarkable. The bladder is decompressed. IMPRESSION: 1. Nondisplaced right anterior 5th rib fracture, age indeterminate. 2. No evidence of abdominal or pelvic visceral injury. 3. Uncomplicated diverticulosis. 4. Decrease in size of a left adnexal cyst since the prior study from 03/07/2019. Dictated on workstation # [id number] Dict: 12/01/21 0947 Trans: 12/01/21 0956 [id number] Interpreted by: EAS BOLAND MD Electronically signed by: Reviewed: Reviewed by Me Departure Impression Primary Impression: Right rib fracture Qualified Codes: S22.31XA - Fracture of one rib, right side, initial encounter for closed fracture Additional Impressions: UTI (urinary tract infection) Qualified Codes: N30.00 - Acute cystitis without hematuria Fall Qualified Codes: W19.XXXA - Unspecified fall, initial encounter Disposition: HOME, SELF-CARE Condition: Stable Departure-Patient Inst. Decision time for Depature: 11:10 Referrals: NO,LOCAL PHYSICIAN (PCP/Family) Primary Care Physician Patient Instructions: Urinary Tract Infection, Adult (DC), Rib Fractures in Adults Add. Discharge Instructions: Keflex 500 mg twice a day with food for 5 days to treat urinary tract infection. Tylenol 650 mg every 8 hours needed for pain. Ibuprofen 800 mg or 8 hours needed for pain. Hydrocodone 1 or 2 tablets every 6 hours as needed to control severe unrelenting pain in your ribs. Use the incentive spirometer 10 times every hour while awake for the first 2 weeks to prevent pneumonia. Return to the ER for fever, productive cough, shortness of air or other worrisome symptoms. All discharge instructions reviewed with patient and/or family. Voiced understanding. Scripts Cephalexin (Cephalexin) 500 Mg Tablet 500 MG PO BID for 5 Days, #10 TAB 0 Refills Prov: RIMMA STEARNS 12/01/21 Hydrocodone/Acetaminophen (Hydrocodone-Acetamin 5-325 mg) 5 Mg-325 Mg Tablet 1-2 TAB PO Q6H PRN for PAIN-MODERATE (5-7), #12 TAB 0 Refills Prov: RIMMA STEARNS 12/01/21 RIMMA STEARNS Dec 01, 2021 09:11
[2021-12-01] MEDS ORDERED: inSUlin (REGULAR) HUMAN 1 UNIT/0.01 ML (CHARGE PER UNIT) SC ONE (09:15)
[2021-12-01] MEDS ORDERED: cefTRIAXone 1 GM PRE-MIX 50 ML IV ONE (09:15)
[2021-12-01] MEDS ORDERED: CATHETER FLUSH 10 ML SYR IV PRN (09:30)
[2021-12-01] MEDS ORDERED: IOHEXOL 350 MG/ML 100 ML (OMNIPAQUE 350) VIAL IV ONE (09:30)
[2021-12-01] MEDS ORDERED: NS 100 ML (IVPB) BAG IV ONE (09:30)
[2021-12-01] MEDS ORDERED: HOLD METFORMIN - RECEIVED CONTRAST 20 ML VIAL IV SCH (09:30)
--- NOTE | 2021-12-01 09:57 | Diagnostic Imaging Report ---
PROCEDURE: CT abdomen and pelvis with contrast. TECHNIQUE: Multiple contiguous axial images were obtained through the abdomen and pelvis after administration of intravenous contrast. Auto Exposure Controls were utilized during the CT exam to meet ALARA standards for radiation dose reduction. All CT scans use one or more of the following dose optimizing techniques: automated exposure control, MA and/or KvP adjustment based on patient size and exam type or iterative reconstruction. INDICATION: Fall with bilateral flank pain. COMPARISON: 03/07/2019. FINDINGS: There appears to be a nondisplaced fracture of the anterior right 5th rib. The lung bases are clear. No focal liver or splenic laceration is seen. The gallbladder is mildly distended but no biliary ductal dilatation is seen. The pancreas is unremarkable. The adrenal glands are unremarkable. There are multiple tortuous vessels in the region of the left adrenal gland. No renal injury is seen. There is a small renal cyst on the left. The aorta is nonaneurysmal. The bowel loops are of normal caliber. There is diffuse diverticulosis of the sigmoid and descending colon but no evidence of acute diverticulitis. No free fluid or fluid collection is seen. There is a cystic mass in the left adnexa measuring 6.9 x 2.9 cm compared with 8.8 x 5.2 cm on the prior exam. The uterus is unremarkable. The bladder is decompressed. IMPRESSION: 1. Nondisplaced right anterior 5th rib fracture, age indeterminate. 2. No evidence of abdominal or pelvic visceral injury. 3. Uncomplicated diverticulosis. 4. Decrease in size of a left adnexal cyst since the prior study from 03/07/2019. Dictated by: Dictated on workstation # [id number]
[2021-12-01] MEDS ORDERED: ACHD5005 PO (11:16)
[2021-12-01] MEDS ORDERED: CEPH500T PO (11:16)
[2021-12-01 11:39] VITALS: BP 122/74
== END 2021-12-01 11:39 | disposition home or self-care (01) ==
LOC: EDUNIT# 07:49 → ER 07:52
DX: S22.31XA Fracture of one rib, right side, initial encounter for closed fracture (principal); N39.0 Urinary tract infection, site not specified; Z86.16 Personal history of COVID-19; W18.30XA Fall on same level, unspecified, initial encounter
CPT/HCPCS: 36415; 74177; 80053; 81000; 82947; 83690; 85025; 86141; 87077; 87088; 94664

== ENCOUNTER 2022-01-01 16:41 | Emergency (ER) | payer MEDICAID ==
[~2022-01-01] VITALS: Ht 157 cm; Wt 100.0 kg
[~2022-01-01 16:41] MED LIST changes: +CEPH500T PO
[2022-01-01] MEDS ORDERED: NS IV 1000 ML 1,000 ML IV SCH (17:00)
[2022-01-01] MEDS ORDERED: CEFEPIME INJECTION 1,000 MG in NS (IVPB) 50 ML IV ONE (17:00)
--- NOTE | 2022-01-01 17:06 | ED General ---
General Stated Complaint: WEAKNESS Source of Information: Patient Exam Limitations: No Limitations History of Present Illness Date Seen by Provider: Jan 01, 2022 Time Seen by Provider: 17:02 Initial Comments Patient is a 66-year-old female with a history of diabetes, oxygen dependent from covid who presents ED by EMS for generalized weakness body aches vomiting diarrhea and cough. Symptoms started around 1 week ago. She reports a wet cough with shortness of breath. She states she has been vomiting daily as well as diarrhea during that duration. Denies of any known dark tarry stool or hematemesis. She reports some generalized abdominal discomfort but denies of any chest pain. She does wear 2 L oxygen daily. She denies history of COPD, asthma or smoking. She states she recently tested negative for COVID at her primary care physician. Patient on arrival defecated on herself. Denies of recent antibiotic use. Patient reports frequent urination. Denies any pain. She reports intermittent headache without any known fever at home. Denies back pain, neck pain, visual changes, unilateral muscle weakness or sensory changes. She states she feels weak throughout. Allergies and Home Medications Allergies Coded Allergies: Sulfa (Sulfonamide Antibiotics) (Verified Allergy, Unknown, 11/26/19) Patient Home Medication List Home Medication List Reviewed: Yes Amoxicillin/Potassium Clav (Augmentin 875-125 Tablet) 1 Each Tablet, 1 EACH PO BID Prescribed by: SHERRIE SAUL on 06/08/211912 Cephalexin (Cephalexin) 500 Mg Tablet, 500 MG PO BID Prescribed by: RIMMA STEARNS on 12/01/21 1116 Cephalexin (Cephalexin) 500 Mg Tablet, 500 MG PO TID Prescribed by: NILTON GONZALEZ on 01/01/22 2030 Cyclosporine (Restasis) 1 Each Droperette, 1 DROP OU BID, (Reported) Entered as Reported by: SARAY AMOR on 03/07/19 1651 Hydrocodone/Acetaminophen (Hydrocodone-Acetamin 5-325 mg) 5 Mg-325 Mg Tablet, 1- 2 TAB PO Q6H PRN for PAIN-MODERATE (5-7) Prescribed by: RIMMA STEARNS on 12/01/21 1117 Lidocaine (Lidocaine 5% Patch) 1 Each Adh..patch, 2 EACH TOP DAILY, (Reported) Entered as Reported by: ALEK MEIER on 05/04/20 1558 Lorazepam (Lorazepam Intensol) 2 Mg/1 Ml Oral.conc, 1 MG PO Q2H PRN for AGITATION Prescribed by: YU SINGH on 05/28/20 1029 Morphine Sulfate (Morphine Conc. 20mg/ml) 100 Mg/5 Ml Solution, 5 MG PO Q2H PRN for PAIN Prescribed by: YU SINGH on 05/28/20 1029 Nystatin (Nystatin) 15 Gm Cream..g., 1 APPLIC TOP TID, (Reported) Entered as Reported by: ALEK MEIER on 05/04/20 1558 Ondansetron (Ondansetron Odt) 4 Mg Tab.rapdis, 4 MG PO Q4H Prescribed by: NILTON GONZALEZ on 01/01/222026 Review of Systems Review of Systems Constitutional: chills; No diaphoresis; malaise, weakness EENTM: No blurred vision, No double vision Respiratory: cough, short of breath Cardiovascular: No chest pain Gastrointestinal: abdominal pain; No diarrhea; nausea, vomiting Genitourinary: No decreased output, No discharge Musculoskeletal: No back pain, No joint pain Skin: No change in color All Other Systems Reviewed Negative Unless Noted: Yes Past Oicwsci-Jhywzh-Gyxulk Hx Immunizations Up To Date Tetanus Booster (TDap): Unknown Seasonal Allergies Seasonal Allergies: No Past Medical History Surgery/Hospitalization HX: COPD, LONG COVID, DIABETES Surgeries: Yes Respiratory: No Cardiac: No Neurological: No Reproductive Disorders: Yes Genitourinary: No Gastrointestinal: No Musculoskeletal: No Fractures Endocrine: Yes Diabetes, Non-Insulin dep HEENT: No Cancer: No Psychosocial: No Integumentary: No Blood Disorders: No Family Medical History Patient reports no known family medical history. No Pertinent Family Hx Physical Exam Vital Signs Vital Signs - First Documented 01/01/22 01/01/22 17:03 17:15 Temp 38.8 Pulse 121 Resp 22 B/P (MAP) 156/113 (127) Pulse Ox 94 O2 Delivery Nasal Cannula O2 Flow Rate 3.00 Capillary Refill : Height, Weight, BMI Height: '" Weight: lbs. oz. kg; 40.00 BMI Method:Estimated General Appearance: No Apparent Distress, WD/WN Eyes: Bilateral Eye Normal Inspection HEENT: PERRL/EOMI, TMs Normal, Normal ENT Inspection, Pharynx Normal Neck: Full Range of Motion, Normal Inspection, Non Tender, Supple Respiratory: Chest Non Tender, Lungs Clear, Normal Breath Sounds, No Accessory Muscle Use Cardiovascular: No Edema, No Gallop, No JVD, Tachycardia Gastrointestinal: Normal Bowel Sounds, No Organomegaly, No Pulsatile Mass, Tenderness (Bilateral lower abdominal tenderness.) Extremity: Normal Capillary Refill, Normal Inspection, Normal Range of Motion Neurologic/Psychiatric: Alert, Oriented x3, No Motor/Sensory Deficits, Normal Mood/Affect, stripping shovel oiler II-XII Norm as Tested Skin: Normal Color, Warm/Dry Focused Exam Lactate Level 01/01/22 17:25: Lactic Acid Level 2.14*H 01/01/22 20:03: Lactic Acid Level 1.28 Lactic Acid Level Laboratory Tests Test 01/01/22 17:25 01/01/22 20:03 Lactic Acid Level 2.14 MMOL/L (0.50-2.00) *H 1.28 MMOL/L (0.50-2.00) Progress/Results/Core Measures Suspected Sepsis SIRS Temperature: Pulse: Respiratory Rate: Laboratory Tests 01/01/22 17:25: White Blood Count 10.0 Blood Pressure / Mean: 01/01/22 17:25: Lactic Acid Level 2.14*H 01/01/22 20:03: Lactic Acid Level 1.28 Laboratory Tests 01/01/22 17:25: Creatinine 0.67, INR Comment 1.0, Platelet Count 158, Total Bilirubin 1.3H 01/01/22 20:07: Creatinine 0.55L Results/Orders Lab Results Laboratory Tests Test 01/01/22 17:01 01/01/22 17:25 01/01/22 20:03 01/01/22 20:07 Range/Units Urine Color YELLOW Urine Clarity CLEAR Urine pH 6.0 5-9 Urine Specific [place] 1.010 L 1.016-1.022 Urine Protein NEGATIVE NEGATIVE Urine Glucose (UA) 3+ H NEGATIVE Urine Ketones 2+ H NEGATIVE Urine Nitrite POSITIVE H NEGATIVE Urine Bilirubin NEGATIVE NEGATIVE Urine Urobilinogen 0.2 < = 1.0 MG/DL Urine Leukocyte Esterase NEGATIVE NEGATIVE Urine RBC (Auto) NEGATIVE NEGATIVE Urine RBC 2-5 H /HPF Urine WBC 25-50 H /HPF Urine Squamous Epithelial Cells RARE /HPF Urine Crystals NONE /LPF Urine Bacteria LARGE H /HPF Urine Casts NONE /LPF Urine Mucus NEGATIVE /LPF Urine Culture Indicated CULTURE PENDING Influenza Type A (RT-PCR) Not Detected Not Detecte Influenza Type B (RT-PCR) Not Detected Not Detecte SARS-CoV-2 RNA (RT-PCR) Detected H Not Detecte White Blood Count 10.0 4.3-11.0 10^3/uL Red Blood Count 5.28 H 3.80-5.11 10^6/uL Hemoglobin 16.2 H 11.5-16.0 g/dL Hematocrit 48 35-52 % Mean Corpuscular Volume 91 80-99 fL Mean Corpuscular Hemoglobin 31 25-34 pg Mean Corpuscular Hemoglobin Concent 34 32-36 g/dL Red Cell Distribution Width 12.2 10.0-14.5 % Platelet Count 158 130-400 10^3/uL Mean Platelet Volume 11.0 9.0-12.2 fL Immature Granulocyte % (Auto) 1 % Neutrophils (%) (Auto) 82 H 42-75 % Lymphocytes (%) (Auto) 8 L 12-44 % Monocytes (%) (Auto) 8 0-12 % Eosinophils (%) (Auto) 1 0-10 % Basophils (%) (Auto) 0 0-10 % Neutrophils # (Auto) 8.2 H 1.8-7.8 10^3/uL Lymphocytes # (Auto) 0.8 L 1.0-4.0 10^3/uL Monocytes # (Auto) 0.8 0.0-1.0 10^3/uL Eosinophils # (Auto) 0.1 0.0-0.3 10^3/uL Basophils # (Auto) 0.0 0.0-0.1 10^3/uL Immature Granulocyte # (Auto) 0.1 0.0-0.1 10^3/uL Prothrombin Time 13.7 12.2-14.7 SEC INR Comment 1.0 0.8-1.4 Activated Partial Thromboplast Time 31 24-35 SEC Sodium Level 132 L 133 L 135-145 MMOL/L Potassium Level 3.7 3.5 L 3.6-5.0 MMOL/L Chloride Level 93 L 100 98-107 MMOL/L Carbon Dioxide Level 21 18 L 21-32 MMOL/L Anion Gap 18 H 15 H 5-14 MMOL/L Blood Urea Nitrogen 6 L 5 L 7-18 MG/DL Creatinine 0.67 0.55 L 0.60-1.30 MG/DL Estimat Glomerular Filtration Rate 97 102 BUN/Creatinine Ratio 9 9 Glucose Level 302 H 247 H 70-105 MG/DL Lactic Acid Level 2.14 *H 1.28 0.50-2.00 MMOL/L Calcium Level 9.4 8.1 L 8.5-10.1 MG/DL Corrected Calcium 9.2 8.5-10.1 MG/DL Total Bilirubin 1.3 H 0.1-1.0 MG/DL Aspartate Amino Transf (AST/SGOT) 21 5-34 U/L Alanine Aminotransferase (ALT/SGPT) 27 0-55 U/L Alkaline Phosphatase 99 40-136 U/L Troponin I < 0.028 <0.028 NG/ML C-Reactive Protein High Sensitivity 7.84 H 0.00-0.50 MG/DL B-Type Natriuretic Peptide < 10.0 <100.0 PG/ML Total Protein 8.3 H 6.4-8.2 GM/DL Albumin 4.2 3.2-4.5 GM/DL Beta-Hydroxybutyrate (Chem panel) 1.69 H 0.00-0.27 MMOL/L Micro Results Microbiology 01/01/22 Blood Culture - Preliminary, Resulted No growth 01/01/22 Blood Culture - Preliminary, Resulted No growth 01/01/22 Urine Culture - Final, Complete Escherichia coli My Orders Orders - PAPA ANDERS Cbc With Automated Diff (01/01/22 16:57) Comprehensive Metabolic Panel (01/01/22 16:57) Blood Culture (01/01/22 16:57) Urinalysis (01/01/22 16:57) Urine Culture (01/01/22 16:57) Protime With Inr (01/01/22 16:57) Partial Thromboplastin Time (01/01/22 16:57) Chest 1 View, Ap/Pa Only (01/01/22 16:57) Ed Iv/Invasive Line Start (01/01/22 16:57) Troponin I Jt (01/01/22 16:57) Vital Signs Adult Sepsis Patie Q15M (01/01/22 16:57) O2 (01/01/22 16:57) Lactic Acid Analyzer (01/01/22 16:57) Influenza A And B By Pcr (01/01/22 16:57) Ns Iv 1000 Ml (Sodium Chloride 0.9%) (01/01/22 17:00) Cefepime Injection (Maxipime Injection) (01/01/22 17:00) Covid 19 Inhouse Test (01/01/22 16:57) Ct Abdomen/Pelvis W (01/01/22 16:57) Ekg Tracing (01/01/22 16:57) Bnp Jt (01/01/22 16:57) Hs C Reactive Protein (01/01/22 16:57) Iohexol Injection (Omnipaque 350 Mg/Ml 1 (01/01/22 17:30) Received Contrast (Hold Metformin- Contr (01/01/22 17:30) Ns (Ivpb) (Sodium Chloride 0.9% Ivpb Bag (01/01/22 17:30) Acetaminophen Tablet (Tylenol Tablet) (01/01/22 17:30) Ondansetron Injection (Zofran Injectio (01/01/22 17:30) Beta Hydroxybutyrate (01/01/22 18:19) Ns Iv 1000 Ml (Sodium Chloride 0.9%) (01/01/22 18:22) Insulin (Regular) Human (Novolin R (Per (01/01/22 18:45) Basic Metabolic Panel (01/01/22 19:34) Ns Iv 1000 Ml (Sodium Chloride 0.9%) (01/01/22 18:31) Potassium Chloride (Tablet) (K Dur Table (01/01/22 21:00) Medications Given in ED Vital Signs/I&O 01/01/22 01/01/22 01/01/22 01/01/22 17:03 17:15 19:20 21:07 Temp 38.8 37.0 36.6 Pulse 121 99 90 Resp 22 22 18 B/P (MAP) 156/113 (127) 130/82 129/68 Pulse Ox 94 96 98 O2 Delivery Nasal Cannula Nasal Cannula Nasal Cannula Nasal Cannula O2 Flow Rate 3.00 3.00 3.00 3.00 01/01/22 22:21 Temp 35.9 Pulse 73 Resp 16 B/P (MAP) 146/94 Pulse Ox 95 O2 Delivery Room Air Capillary Refill : ECG Comment Sinus tachycardia, 108 bpm, QRS duration 86 MS, QTc 411 MS. Departure Communication (PCP) Patient on arrival was febrile and tachycardic. Sepsis protocol was initiated. Was given cefepime and started on a liter fluid. Symptoms over the past week diagnosed with COVID. She is oxygen dependent wears 3 L currently and has an oxygen level at 96%. She reports cough generalized abdominal pain with vomiting and diarrhea. She had several bouts of diarrhea here. Check for Hemoccult which was negative. She states she feels extremely weak which may be secondary to dehydration versus the COVID. She does report a cough. Patient lab work showed normal white blood count. She had a lactic acid of 2.14. Her blood sugar was 300 type II diabetic. She is slightly ascitic with hyponatremia and hypochloremia. Was given 2 L of fluid with slight improvement here. Improvement of her anion gap. Was given insulin with improvement of blood sugar from 300-2 4 7. Chest x-ray was negative for pneumonia. Cardiac work-up unremarkable. She did have a urinary tract infection. Improvement of her heart rate during her stay here. Was given Tylenol for the fever. She was able to ambulate and go to the commode to have a bowel movement. She states she felt much better after the fluids. She was requesting to be discharged. Concerning that she still is dehydrated and would likely benefit with IV fluids and observation with admission. She states she was wanting to go home and states she feels much better and has more strength at this time to get to the bathroom. Discussed with patient with the diarrhea she could potentially get severely dehydrated. Importance of oral fluids, Pedialyte to remain hydrated. Will discharge with Zofran and Keflex for the UTI. She refused the monoclonal antibody infusion for the recent diagnosis COVID. She states she will follow-up with her primary care physician for further evaluation per of any worsening symptoms such as increased weakness she needs return back to ED for recheck of lab work and IV fluids. She was not complaining of chest pain or shortness of breath during her stay. CT abdomen and pelvis showed no acute findings but did note hydrops. She had no right upper quadrant tenderness on palpation. More lower abdomen during exam. Further evaluation may be needed. No pericholecystic fluid or thickening of the gallbladder suggesting acute cholecystitis. No severe pain in her right upper abdomen. Impression Primary Impression: COVID-19 Additional Impression: Dehydration Disposition: 01 HOME, SELF-CARE Condition: Stable Departure-Patient Inst. Decision time for Depature: 20:26 [facility]errals: [facility],LOCAL PHYSICIAN (PCP) Primary Care Physician Patient Instructions: COVID-19 (DC) Add. Discharge Instructions: Recommend staying hydrated with oral fluids. Zofran for nausea. May consider Imodium [id number] to help with diarrhea. Outpatient follow-up with your primary care physician for further evaluation. Scripts Cephalexin (Cephalexin) 500 Mg Tablet 500 MG PO TID for 7 Days, #21 TAB Prov: PAPA ANDERS 01/01/22 Ondansetron (Ondansetron Odt) 4 Mg Tab.rapdis 4 MG PO Q4H, #8 TAB Prov: PAPA ANDERS 01/01/22 PAPA ANDERS Jan 01, 2022 17:06
[2022-01-01 17:10] LABS: BILIRUBIN,URINE NEGATIVE (NEGATIVE); CLARITY,URINE CLEAR; COLOR,URINE YELLOW; GLUCOSE, URINE (UA) 3+ (NEGATIVE); KETONES,URINE 2+ (NEGATIVE); LEUKOCYTE ESTERASE ,URINE NEGATIVE (NEGATIVE); NITRITE,URINE POSITIVE (NEGATIVE); PROTEIN,URINE NEGATIVE (NEGATIVE)
[2022-01-01] MEDS ORDERED: HOLD METFORMIN - RECEIVED CONTRAST 20 ML VIAL IV SCH (17:30)
[2022-01-01] MEDS ORDERED: ONDANSETRON 4 MG/2 ML (SDV) Z0FRAN IVP ONE (17:30)
[2022-01-01] MEDS ORDERED: NS 100 ML (IVPB) BAG IV ONE (17:30)
[2022-01-01] MEDS ORDERED: IOHEXOL 350 MG/ML 100 ML (OMNIPAQUE 350) VIAL IV ONE (17:30)
[2022-01-01] MEDS ORDERED: ACETAMINOPHEN 500 MG TAB (TYLENOL) PO ONE (17:30)
[2022-01-01 17:43] LABS: BASOPHILS % (AUTO) 0 % (0-10); EOSINOPHILS # (AUTO) 0.1 10^3/uL (0.0-0.3); EOSINOPHILS % (AUTO) 1 % (0-10); HEMATOCRIT 48 % (35-52); HEMOGLOBIN 16.2 g/dL (11.5-16.0); LYMPHOCYTES # (AUTO) 0.8 10^3/uL (1.0-4.0); LYMPHOCYTES % (AUTO) 8 % (12-44); MEAN CORPUSCULAR HEMOGLOBIN 31 pg (25-34); MEAN CORPUSCULAR HGB CONC 34 g/dL (32-36); MEAN CORPUSCULAR VOLUME 91 fL (80-99); MONOCYTES # (AUTO) 0.8 10^3/uL (0.0-1.0); MONOCYTES % (AUTO) 8 % (0-12); NEUTROPHILS # (AUTO) 8.2 10^3/uL (1.8-7.8); NEUTROPHILS % (AUTO) 82 % (42-75); PLATELET COUNT 158 10^3/uL (130-400)
[2022-01-01 17:49] LABS: BACTERIA,URINE LARGE /HPF; SQUAMOUS EPITHELIAL CELL,UR RARE /HPF; WBC,URINE 25-50 /HPF
[2022-01-01 17:57] LABS: ALBUMIN 4.2 GM/DL (3.2-4.5); CHLORIDE 93 MMOL/L (98-107); POTASSIUM 3.7 MMOL/L (3.6-5.0); PROTHROMBIN TIME PATIENT 13.7 SEC (12.2-14.7); SODIUM 132 MMOL/L (135-145)
[2022-01-01 17:59] LABS: CALCIUM 9.4 MG/DL (8.5-10.1)
[2022-01-01 18:00] LABS: GLUCOSE 302 MG/DL (70-105); TOTAL PROTEIN 8.3 GM/DL (6.4-8.2)
[2022-01-01 18:01] LABS: CARBON DIOXIDE 21 MMOL/L (21-32)
[2022-01-01 18:02] LABS: BILIRUBIN,TOTAL 1.3 MG/DL (0.1-1.0)
[2022-01-01 18:03] LABS: ALKALINE PHOSPHATASE 99 U/L (40-136)
[2022-01-01 18:04] LABS: CREATININE SERUM 0.67 MG/DL (0.60-1.30); GFR ESTIMATED 97
[2022-01-01 18:05] LABS: BUN/CREATININE RATIO 9
[2022-01-01 18:07] LABS: ALANINE AMINOTRANSFERASE 27 U/L (0-55)
[2022-01-01] MEDS ORDERED: inSUlin (REGULAR) HUMAN 1 UNIT/0.01 ML (CHARGE PER UNIT) SC STA (18:22)
[2022-01-01] MEDS ORDERED: NS IV 1000 ML 1,000 ML IV STA (18:22)
[2022-01-01] MEDS ORDERED: inSUlin (REGULAR) HUMAN 1 UNIT/0.01 ML (CHARGE PER UNIT) ONE (18:30)
[2022-01-01] MEDS ORDERED: NS IV 1000 ML 1,000 ML ONE (18:31)
[2022-01-01] MEDS ORDERED: inSUlin (REGULAR) HUMAN 1 UNIT/0.01 ML (CHARGE PER UNIT) IV STA (18:45)
--- NOTE | 2022-01-01 19:18 | Diagnostic Imaging Report ---
INDICATION: Cough. COMPARISON: 06/08/2021. FINDINGS: Single frontal radiographic view of the chest was obtained. Evaluation is degraded by overlying soft tissue attenuation. Heart appears borderline enlarged, as is pulmonary vasculature. Lungs show low inspiratory volumes. Small effusions may be obscured. There is no pneumothorax. IMPRESSION: 1. Mild cardiomegaly and perhaps mild vascular congestion. 2. Low lung volumes. Dictated by: Dictated on workstation # [id number]
--- NOTE | 2022-01-01 19:27 | Diagnostic Imaging Report ---
PROCEDURE: CT abdomen and pelvis with contrast. TECHNIQUE: Multiple contiguous axial images were obtained through the abdomen and pelvis after administration of intravenous contrast. Auto Exposure Controls were utilized during the CT exam to meet ALARA standards for radiation dose reduction. All CT scans use one or more of the following dose optimizing techniques: automated exposure control, MA and/or KvP adjustment based on patient size and exam type or iterative reconstruction. INDICATION: Weakness. Nausea, vomiting and diarrhea. COMPARISON: 12/01/2021. FINDINGS: Included portions of the lung bases show mild patchy bibasilar atelectasis. CT ABDOMEN: There is colonic diverticulosis, but no CT evidence of acute diverticulitis. Normal appendix is identified. Small bowel loops are nondistended. Benign-appearing left renal cyst is noted. Nonobstructive right renal calculus is present. No ureteral calculi are seen on either side. Additionally, there is no hydroureteronephrosis or other evidence of obstruction. No suspicious renal masses are seen. The adrenal glands, spleen, pancreas and liver have a normal CT appearance. There is gallbladder hydrops. Gallbladder measures 4.9 x 7.6 cm. Please note, CT is suboptimal to assess for cholelithiasis or choledocholithiasis. There is no appreciable gallbladder wall thickening or pericholecystic free fluid. There is no loculated fluid collection free fluid or free air within the abdomen. No abnormal mesenteric or retroperitoneal adenopathy is seen. Osseous structures show no acute abnormalities. CT PELVIS: Urinary bladder is unopacified. No calculi are seen within the urinary bladder. Left adnexal cystic structure is again identified. It measures 8.2 x 2.4 cm on today's exam. This is in comparison to 6.9 x 2.9 cm previously. No other loculated fluid collection is seen within the pelvis. There is no free fluid or free air. No abnormal lymph nodes are identified. Osseous structures show no acute abnormalities. IMPRESSION: 1. Gallbladder hydrops. CT is suboptimal to assess for cholelithiasis or choledocholithiasis, but there is no gallbladder wall thickening or pericholecystic free fluid to suggest acute cholecystitis. 2. Redemonstration of left adnexal cystic structure. This may be on the basis of paraovarian cyst given minimal change when compared to 03/07/2019. 3. Punctate nonobstructive right renal calculus. 4. Colonic diverticulosis, but no CT evidence of acute diverticulitis. Dictated by: Dictated on workstation # [id number]
[2022-01-01] MEDS ORDERED: ONDA4TAB11 PO (20:27)
[2022-01-01] MEDS ORDERED: CEPH500T PO (20:30)
[2022-01-01 20:53] LABS: POTASSIUM 3.5 MMOL/L (3.6-5.0)
[2022-01-01 20:54] LABS: CALCIUM 8.1 MG/DL (8.5-10.1)
[2022-01-01 20:59] LABS: CREATININE SERUM 0.55 MG/DL (0.60-1.30)
[2022-01-01] MEDS ORDERED: KCL 20 MEQ TAB (K-DUR) PO ONE (21:00)
[2022-01-01 22:21] VITALS: BP 146/94
== END 2022-01-01 22:21 | disposition home or self-care (01) ==
LOC: EDUNIT# 16:41 → ER 16:47
DX: U07.1 COVID-19 (principal); E86.0 Dehydration; Z99.11 Dependence on respirator [ventilator] status; Z28.310 Unvaccinated for COVID-19
CPT/HCPCS: 36415; 71045; 74177; 80048; 80053; 81000; 82010; 82274; 83605; 83880; 84484; 85025; 85610; 85730; 86141; 87040; 87077; 87088; 87186; 87636; 93005

== ENCOUNTER 2022-02-24 11:36 | Emergency (ER) | payer MEDICAID ==
[~2022-02-24] VITALS: Ht 157.5 cm; Wt 90.7 kg
[~2022-02-24 11:36] MED LIST changes: -NYST15CR TOP; +NYST15CR35 TOP; +ONDA4TAB11 PO
[2022-02-24 12:46] LABS: BILIRUBIN,URINE NEGATIVE (NEGATIVE); CLARITY,URINE CLEAR; COLOR,URINE YELLOW; GLUCOSE, URINE (UA) 3+ (NEGATIVE); KETONES,URINE 1+ (NEGATIVE); LEUKOCYTE ESTERASE ,URINE 1+ (NEGATIVE); NITRITE,URINE POSITIVE (NEGATIVE); PROTEIN,URINE NEGATIVE (NEGATIVE)
[2022-02-24 12:55] LABS: BACTERIA,URINE MODERATE /HPF
--- NOTE | 2022-02-24 13:03 | ED EENT ---
History of Present Illness General Chief Complaint: Dental Problems/Pain Stated Complaint: DENTAL PAIN - FACIAL SWELLING - SOA Nursing Triage Note: PT AMBULATORY TO TRIAGE. STATES SHE HAS HAD DENTAL PAIN SINCE YESTERDAY CAUSING SWELLING IN BILAT UPPER JAW AND NOSE. STATES IT IS CAUSING HER PAIN TO BREATHE. PT O2 95% IN TRIAGE, NON LABORED BREATHING. PT STATES SHE HAS "TWO BAD TEETH ON UPPER LEFT AND ONE BAD TOOTH ON UPPER RIGHT." PT STATES SHE WENT TO THE [facility] BEFORE COMING HERE AND THEY TOLD HER TO COME HERE FOR THE RIGHT MEDICATIONS Source: patient Exam Limitations: no limitations History of Present Illness Date Seen by Provider: Feb 24, 2022 Time Seen by Provider: 12:13 Initial Comments Patient is a 66-year-old female diabetic who presents to the emergency department today with a chief complaint of facial swelling, upper left jaw pain and some shortness of breath. She has been fighting dental infections for the last couple of days. She went to the dental clinic today and they noted that her her room air oxygen saturations were 91%. She states she does wear 3 L at night and occasionally will wear oxygen during the day. She is a non-smoker. She was seen a couple of months ago and diagnosed with urinary tract infection but never filled her prescription for antibiotics because they were sent to the wrong pharmacy. She continues to experience dysuria. Blood sugar is 268 today. She has subjective fever and warmth in her face. She states states that she was sent for antibiotics and pain control from the dental clinic today. No chest pain. She is not currently short of breath, no productive cough. No abdominal pain. No vomiting or diarrhea. She did not take her diabetes medications this morning because she feels bad. All other review of systems reviewed and negative except as stated. Timing/Duration: gradual Severity: moderate Location: facial, dental Prearrival Treatment: no prearrival treatment Associated Symptoms: facial pain/swelling, malaise, tooth pain (left upper) Allergies and Home Medications Allergies Coded Allergies: Sulfa (Sulfonamide Antibiotics) (Verified Allergy, Unknown, 11/26/19) Patient Home Medication List Home Medication List Reviewed: Yes Amoxicillin/Potassium Clav (Augmentin 875-125 Tablet) 1 Each Tablet, 1 EACH PO BID Prescribed by: SHERRIE SAUL on 06/08/211912 Cephalexin (Cephalexin) 500 Mg Tablet, 500 MG PO BID Prescribed by: RIMMA STEARNS on 12/01/21 1116 Cephalexin (Cephalexin) 500 Mg Tablet, 500 MG PO TID Prescribed by: NILTON GONZALEZ on 01/01/222029 Cyclosporine (Restasis) 1 Each Droperette, 1 DROP OU BID, (Reported) Entered as Reported by: SARAY AMOR on 03/07/19 1651 Hydrocodone/Acetaminophen (Hydrocodone-Acetamin 5-325 mg) 5 Mg-325 Mg Tablet, 1- 2 TAB PO Q6H PRN for PAIN-MODERATE (5-7) Prescribed by: RIMMA STERANS on 12/01/21 1117 Lidocaine (Lidocaine 5% Patch) 1 Each Adh..patch, 2 EACH TOP DAILY, (Reported) Entered as Reported by: ALEK MEIER on 05/04/20 1558 Lorazepam (Lorazepam Intensol) 2 Mg/1 Ml Oral.conc, 1 MG PO Q2H PRN for AGITATION Prescribed by: YU SINGH on 05/28/20 1029 Morphine Sulfate (Morphine Conc. 20mg/ml) 100 Mg/5 Ml Solution, 5 MG PO Q2H PRN for PAIN Prescribed by: YU SINGH on 05/28/20 1029 Nystatin (Nystatin) 15 Gm Cream..g., 1 APPLIC TOP TID, (Reported) Entered as Reported by: ALEK MEIER on 05/04/20 1558 Ondansetron (Ondansetron Odt) 4 Mg Tab.rapdis, 4 MG PO Q4H Prescribed by: NILTON GONZALEZ on 01/01/222026 Review of Systems Review of Systems Constitutional: see HPI Eyes: No Symptoms Reported Ears: Pain (bilateral) Nose: no symptoms reported Mouth: pain, swelling Throat: no symptoms reported Respiratory: short of breath (chronic) Cardiovascular: no symptoms reported Gastrointestinal: no symptoms reported Musculoskeletal: no symptoms reported Skin: no symptoms reported Neurological: No Symptoms Reported All Other Systems Reviewed Negative Unless Noted: Yes Past Hghhjtj-Nzrbwz-Uovwng Hx Patient Social History Tobacco Use?: No Use of E-Cig and/or Vaping dev: No Substance use?: No Alcohol Use?: No Immunizations Up To Date Tetanus Booster (TDap): Unknown Influenza Vaccine Up-to-Date: No; Not Current Seasonal Allergies Seasonal Allergies: No Past Medical History Surgery/Hospitalization HX: COPD, LONG COVID, DIABETES TYPE I Surgeries: Yes Respiratory: No Cardiac: No Neurological: No Reproductive Disorders: Yes Genitourinary: No Gastrointestinal: No Musculoskeletal: No Fractures Endocrine: Yes Diabetes, Non-Insulin dep HEENT: No Cancer: No Psychosocial: No Integumentary: No Blood Disorders: No Family Medical History Patient reports no known family medical history. No Pertinent Family Hx Physical Exam Vital Signs Vital Signs - First Documented 02/24/22 02/24/22 11:36 12:01 Temp 36.6 Pulse 87 Resp 16 B/P (MAP) 149/104 (119) Pulse Ox 95 O2 Delivery Nasal Cannula O2 Flow Rate 3.00 Height, Weight, BMI Height: '" Weight: lbs. oz. kg; 36.00 BMI Method:Estimated General Appearance: WD/WN, no apparent distress Eyes: bilateral eye normal inspection, bilateral eye PERRL, bilateral eye EOMI Ears: right ear discharge, right ear erythema, right ear swelling, right ear tenderness; left ear TM dull Nose: normal inspection Mouth/Throat: pharynx normal, excessive drooling, other (Edentulous lower jaw, she has 2 necrotic teeth left upper and 1 on the right upper. There is some swelling over the maxilla bilaterally with a little erythema. No palpable gingival abscesses. No fluctuance. No significant swelling. Posterior pharynx appears normal. No lesions to the tongue or buccal mucosa.) Neck: non-tender, full range of motion, supple Cardiovascular: regular rate, rhythm Respiratory: lungs clear, normal breath sounds, no respiratory distress, no accessory muscle use Gastrointestinal: non tender, soft Neurologic/Psychiatric: alert, normal mood/affect, oriented x 3 Skin: normal color, warm/dry Progress/Results/Core Measures Results/Orders Lab Results Laboratory Tests Test 02/24/22 12:00 02/24/22 12:33 Range/Units Glucometer 268 H 70-110 MG/DL Urine Color YELLOW Urine Clarity CLEAR Urine pH 6.0 5-9 Urine Specific [place] 1.010 L 1.016-1.022 Urine Protein NEGATIVE NEGATIVE Urine Glucose (UA) 3+ H NEGATIVE Urine Ketones 1+ H NEGATIVE Urine Nitrite POSITIVE H NEGATIVE Urine Bilirubin NEGATIVE NEGATIVE Urine Urobilinogen 0.2 < = 1.0 MG/DL Urine Leukocyte Esterase 1+ H NEGATIVE Urine RBC (Auto) NEGATIVE NEGATIVE Urine RBC NONE /HPF Urine WBC 5-10 H /HPF Urine Squamous Epithelial Cells 2-5 /HPF Urine Crystals NONE /LPF Urine Bacteria MODERATE H /HPF Urine Casts NONE /LPF Urine Mucus NEGATIVE /LPF Urine Culture Indicated YES My Orders Orders - STU REYES MD Accucheck Stat ONCE (02/24/22 11:58) Ua Culture If Indicated (02/24/22 12:23) Urine Culture (02/24/22 12:33) Hydrocodone/Apap 7.5/325 Tab (Lortab 7. (02/24/22 13:15) Vital Signs/I&O 02/24/22 02/24/22 11:36 12:01 Temp 36.6 Pulse 87 Resp 16 B/P (MAP) 149/104 (119) Pulse Ox 95 O2 Delivery Nasal Cannula O2 Flow Rate 3.00 Blood Pressure Mean: 119 FSBG Bedside Testing Finger Stick Blood Glucose: 268 Blood Glucose Action Taken: rn notified Progress Progress Note : Time: 13:06 Progress Note Patient's urine is infected. Review of culture results from December showed that the E. coli bacteria that was found was pansensitive. We will place her on Keflex antibiotics to cover both urine and dental etiologies. Recommend cool compresses for the swelling. We will give her 10 hydrocodone 7.5's for pain. ear drops for otitis externa and zyrtec for congestion. Recommend watching her blood sugar. Return precautions provided. Departure Impression Primary Impression: Pain due to dental caries Additional Impressions: Otitis externa Qualified Codes: H60.331 - Swimmer's ear, right ear Diabetes Qualified Codes: E11.65 - Type 2 diabetes mellitus with hyperglycemia Disposition: HOME, SELF-CARE Condition: Stable Departure-Patient Inst. Decision time for Depature: 13:12 Referrals: [facility] (PCP/Family) Primary Care Physician Patient Instructions: Dental Pain ED, Outer Ear Infection ED Add. Discharge Instructions: Take the Keflex antibiotics, 500 mg 4 times a day for the next 10 days. This will help to treat your urine infection as well as the dental infection. Use the eardrops as directed in the right ear. You can also take jvon-vhw-yaoklzu Zyrtec or Claritin to help with the congestion and fluid in your ears. If you develop high fever, worsening facial pain, worsening shortness of breath please come back to the emergency room for reevaluation. Otherwise please follow-up with the dental clinic in the next 2 weeks. Scripts Hydrocodone/Acetaminophen (Hydrocodone-Acetamin 7.5-325) 7.5 Mg-325 Mg Tablet 1 EACH PO Q6H PRN for PAIN-MODERATE (5-7), #12 TAB Prov: STU REYES MD 02/24/22 Neomycin/Polymyxin B Sulf/Hc (Qpkujnjw-Rrexettvu-Yx Ear Susp) 3.5 Mg/Ml-10,000 Unit/Ml-1 % Drops.susp 4 DROPS OT QID for 10 Days, #10 ML Prov: STU REYES MD 02/24/22 Cephalexin (Cephalexin) 500 Mg Tablet 500 MG PO QID, #40 TAB Prov: STU REYES MD 02/24/22 Copy Copies To 1: FARIBA FOX KATHRYN M MD Feb 24, 2022 13:03
[2022-02-24] MEDS ORDERED: HYDROcodone/APAP 7.5 MG/325 MG (LORTAB, LORCET PLUS) TABLET PO ONE (13:15)
[2022-02-24] MEDS ORDERED: NEOM10DR42 OT (13:20)
[2022-02-24] MEDS ORDERED: HYDR-3817 PO (13:20)
[2022-02-24] MEDS ORDERED: CEPH500T PO (13:20)
[2022-02-24 13:32] VITALS: BP 138/73
[2022-02-27] MEDS ORDERED: NITR-65 PO (15:04)
== END 2022-02-24 13:32 | disposition home or self-care (01) ==
LOC: EDUNIT# 11:36 → ER 11:37
DX: K02.9 Dental caries, unspecified (principal); H60.91 Unspecified otitis externa, right ear; E10.9 Type 1 diabetes mellitus without complications; Z86.16 Personal history of COVID-19; Z28.310 Unvaccinated for COVID-19
CPT/HCPCS: 81000; 82947; 87077; 87088; 87186

== ENCOUNTER 2022-03-25 18:26 | Emergency (ER) | payer MEDICAID ==
[~2022-03-25] VITALS: Ht 157.4 cm; Wt 90.7 kg
[~2022-03-25 18:26] MED LIST changes: +HYDR-3817 PO; +NEOM10DR42 OT; +NITR-65 PO
[2022-03-25 19:05] LABS: BASOPHILS % (AUTO) 1 % (0-10); EOSINOPHILS # (AUTO) 0.3 10^3/uL (0.0-0.3); EOSINOPHILS % (AUTO) 4 % (0-10); HEMATOCRIT 47 % (35-52); HEMOGLOBIN 15.4 g/dL (11.5-16.0); LYMPHOCYTES # (AUTO) 2.9 10^3/uL (1.0-4.0); LYMPHOCYTES % (AUTO) 35 % (12-44); MEAN CORPUSCULAR HEMOGLOBIN 30 pg (25-34); MEAN CORPUSCULAR HGB CONC 33 g/dL (32-36); MEAN CORPUSCULAR VOLUME 91 fL (80-99); MEAN PLATELET VOLUME 10.5 fL (9.0-12.2); MONOCYTES # (AUTO) 0.7 10^3/uL (0.0-1.0); MONOCYTES % (AUTO) 9 % (0-12); NEUTROPHILS # (AUTO) 4.5 10^3/uL (1.8-7.8); NEUTROPHILS % (AUTO) 52 % (42-75); PLATELET COUNT 174 10^3/uL (130-400); WHITE BLOOD COUNT 8.5 10^3/uL (4.3-11.0)
[2022-03-25 19:11] LABS: BILIRUBIN,URINE NEGATIVE (NEGATIVE); CLARITY,URINE CLEAR; COLOR,URINE YELLOW; GLUCOSE, URINE (UA) TRACE (NEGATIVE); KETONES,URINE NEGATIVE (NEGATIVE); LEUKOCYTE ESTERASE ,URINE NEGATIVE (NEGATIVE); NITRITE,URINE NEGATIVE (NEGATIVE); PH,URINE 6.5 (5-9); PROTEIN,URINE NEGATIVE (NEGATIVE)
[2022-03-25 19:12] LABS: POTASSIUM 3.5 MMOL/L (3.6-5.0)
[2022-03-25 19:13] LABS: CALCIUM 9.1 MG/DL (8.5-10.1)
[2022-03-25 19:14] LABS: TOTAL PROTEIN 7.9 GM/DL (6.4-8.2)
[2022-03-25] MEDS ORDERED: ONDANSETRON 4 MG/2 ML (SDV) Z0FRAN IVP ONE (19:15)
[2022-03-25 19:16] LABS: BILIRUBIN,TOTAL 0.6 MG/DL (0.1-1.0)
[2022-03-25 19:20] LABS: BACTERIA,URINE TRACE /HPF; SQUAMOUS EPITHELIAL CELL,UR RARE /HPF
--- NOTE | 2022-03-25 19:29 | Diagnostic Imaging Report ---
INDICATION: Shortness of air. COMPARISON: 01/01/2022 TECHNIQUE: Single radiograph of the chest dated 03/23/2022. FINDINGS: The cardiac silhouette is enlarged. Central pulmonary vascular congestion is present. Mild left greater than right bibasilar predominantly interstitial opacities. No significant pleural effusion. Chronic elevation of the right hemidiaphragm. No pneumothorax. No acute osseous abnormality. IMPRESSION: Cardiomegaly with mild central pulmonary vascular congestion. Mild left greater than right bibasilar atelectasis and/or pneumonitis. Chronic elevation right hemidiaphragm. Dictated by: Dictated on workstation # [id number]
--- NOTE | 2022-03-25 19:33 | ED General ---
General Chief Complaint: General Problems/Pain Stated Complaint: NAUSEA,DIZZY Nursing Triage Note: PT ARRIVED POV WITH COMPLAINTS OF NAUSEA AND LIGHTHEADNESS THAT STARTED AT 3PM TODAY. Source of Information: Patient Exam Limitations: No Limitations History of Present Illness Date Seen by Provider: Mar 25, 2022 Time Seen by Provider: 18:40 Initial Comments This 66-year-old woman presents to the emergency room with complaints of weakness, dizziness, shortness of breath, and nausea. She uses oxygen as needed since having 2 bouts of COVID-19 in the last year or so. She applied her oxygen but still did not feel well. She denies fever or cough. She denies chest pain. She reports history of diabetes mellitus managed by oral medications and a difficult bout of COVID-19 requiring hospitalization and resulting in long-term use of oxygen. She did not check her blood sugar during the onset of symptoms today. Symptoms started around 1500. Allergies and Home Medications Allergies Coded Allergies: Sulfa (Sulfonamide Antibiotics) (Verified Allergy, Unknown, 11/26/19) Patient Home Medication List Home Medication List Reviewed: Yes Amoxicillin/Potassium Clav (Augmentin 875-125 Tablet) 1 Each Tablet, 1 EACH PO BID Prescribed by: SHERRIE SAUL on 06/08/21 191 Cephalexin (Cephalexin) 500 Mg Tablet, 500 MG PO BID Prescribed by: RIMMA STEARNS on 12/01/21 1116 Cephalexin (Cephalexin) 500 Mg Tablet, 500 MG PO TID Prescribed by: NILTON GONZALEZ on 01/01/22 2030 Cephalexin (Cephalexin) 500 Mg Tablet, 500 MG PO QID Prescribed by: STU REYES on 02/24/22 1320 Cyclosporine (Restasis) 1 Each Droperette, 1 DROP OU BID, (Reported) Entered as Reported by: SARAY AMOR on 03/07/19 1651 Hydrocodone/Acetaminophen (Hydrocodone-Acetamin 5-325 mg) 5 Mg-325 Mg Tablet, 1- 2 TAB PO Q6H PRN for PAIN-MODERATE (5-7) Prescribed by: RIMMA STEARNS on 12/01/21 1117 Hydrocodone/Acetaminophen (Hydrocodone-Acetamin 7.5-325) 7.5 Mg-325 Mg Tablet, 1 EACH PO Q6H PRN for PAIN-MODERATE (5-7) Prescribed by: STU REYES on 02/24/22 1322 Lidocaine (Lidocaine 5% Patch) 1 Each Adh..patch, 2 EACH TOP DAILY, (Reported) Entered as Reported by: ALEK MEIER on 05/04/20 1558 Lorazepam (Lorazepam Intensol) 2 Mg/1 Ml Oral.conc, 1 MG PO Q2H PRN for AGITATION Prescribed by: YU SINGH on 05/28/20 1029 Meclizine HCl (Meclizine HCl) 12.5 Mg Tablet, 12.5 MG PO Q6H PRN for DIZZINESS Prescribed by: CIRO MATTHEWS on 03/25/222234 Morphine Sulfate (Morphine Conc. 20mg/ml) 100 Mg/5 Ml Solution, 5 MG PO Q2H PRN for PAIN Prescribed by: YU SINGH on 05/28/20 102 Neomycin/Polymyxin B Sulf/Hc (Mrmksqqw-Kkvlnqeul-Uu Ear Susp) 3.5 Mg/Ml-10,000 Unit/Ml-1 % Drops.susp, 4 DROPS OT QID Prescribed by: STU REYES on 02/24/22 1320 Nitrofurantoin Monohyd/M-Cryst (Macrobid 100 mg Capsule) 100 Mg Capsule, 1 TAB PO BID, (Reported) Entered as Reported by: SHARATH ANDERSON on 02/27/22 1504 Nystatin (Nystatin) 15 Gm Cream..g., 1 APPLIC TOP TID, (Reported) Entered as Reported by: ALEK MEIER on 05/04/20 1558 Ondansetron (Ondansetron Odt) 4 Mg Tab.rapdis, 4 MG PO Q4H Prescribed by: NILTON GNOZALEZ on 01/01/222026 Ondansetron (Ondansetron Odt) 4 Mg Tab.rapdis, 4 MG SL Q4H PRN for NAUSEA/VOMITING Prescribed by: CIRO MATTHEWS on 03/25/222234 Review of Systems Review of Systems Constitutional: see HPI EENTM: no symptoms reported Respiratory: see HPI Cardiovascular: see HPI Gastrointestinal: see HPI Genitourinary: no symptoms reported : No Musculoskeletal: no symptoms reported Skin: no symptoms reported Psychiatric/Neurological: No Symptoms Reported Hematologic/Lymphatic: No Symptoms Reported Immunological/Allergic: no symptoms reported Past Osdkjkd-Jlxxbw-Oywjut Hx Patient Social History Tobacco Use?: No Use of E-Cig and/or Vaping dev: No Substance use?: No Alcohol Use?: No Immunizations Up To Date Tetanus Booster (TDap): Unknown Influenza Vaccine Up-to-Date: Yes; Up-to-Date Seasonal Allergies Seasonal Allergies: No Past Medical History Surgery/Hospitalization HX: COPD, LONG COVID, DIABETES TYPE I Surgeries: Yes (Bone growth removed from scalp) Tubal Ligation Respiratory: Yes (History of COVID-19 x2 with resulting chronic hypoxia) Cardiac: No Neurological: No : No Reproductive Disorders: Yes Genitourinary: No Gastrointestinal: No Musculoskeletal: No Fractures Endocrine: Yes Diabetes, Non-Insulin dep HEENT: No Cancer: No Psychosocial: No Integumentary: No Blood Disorders: No Family Medical History Patient reports no known family medical history. No Pertinent Family Hx Physical Exam Vital Signs Vital Signs - First Documented 03/25/22 03/25/22 03/25/22 18:38 18:43 22:37 Temp 36.7 Pulse 92 Resp 18 B/P (MAP) 139/79 (99) Pulse Ox 99 O2 Delivery Nasal Cannula O2 Flow Rate 3.00 Capillary Refill : Height, Weight, BMI Height: '" Weight: lbs. oz. 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 Skin: Normal Color, Warm/Dry Progress/Results/Core Measures Suspected Sepsis SIRS Temperature: Pulse: 92 Respiratory Rate: Laboratory Tests 03/25/22 18:56: White Blood Count 8.5 Blood Pressure 139 /79 Mean: 99 Laboratory Tests 03/25/22 18:56: Creatinine 0.63, INR Comment 1.0, Platelet Count 174, Total Bilirubin 0.6 Results/Orders Lab Results Laboratory Tests Test 03/25/22 18:55 03/25/22 18:56 03/25/22 18:57 03/25/22 19:03 Range/Units Influenza Type A (RT-PCR) Not Detected Not Detecte Influenza Type B (RT-PCR) Not Detected Not Detecte SARS-CoV-2 RNA (RT-PCR) Not Detected Not Detecte White Blood Count 8.5 4.3-11.0 10^3/uL Red Blood Count 5.14 H 3.80-5.11 10^6/uL Hemoglobin 15.4 11.5-16.0 g/dL Hematocrit 47 35-52 % Mean Corpuscular Volume 91 80-99 fL Mean Corpuscular Hemoglobin 30 25-34 pg Mean Corpuscular Hemoglobin Concent 33 32-36 g/dL Red Cell Distribution Width 12.8 10.0-14.5 % Platelet Count 174 130-400 10^3/uL Mean Platelet Volume 10.5 9.0-12.2 fL Immature Granulocyte % (Auto) 0 % Neutrophils (%) (Auto) 52 42-75 % Lymphocytes (%) (Auto) 35 12-44 % Monocytes (%) (Auto) 9 0-12 % Eosinophils (%) (Auto) 4 0-10 % Basophils (%) (Auto) 1 0-10 % Neutrophils # (Auto) 4.5 1.8-7.8 10^3/uL Lymphocytes # (Auto) 2.9 1.0-4.0 10^3/uL Monocytes # (Auto) 0.7 0.0-1.0 10^3/uL Eosinophils # (Auto) 0.3 0.0-0.3 10^3/uL Basophils # (Auto) 0.0 0.0-0.1 10^3/uL Immature Granulocyte # (Auto) 0.0 0.0-0.1 10^3/uL Prothrombin Time 13.8 12.2-14.7 SEC INR Comment 1.0 0.8-1.4 Activated Partial Thromboplast Time 35 24-35 SEC D-Dimer 1.06 H 0.00-0.49 UG/ML Sodium Level 134 L 135-145 MMOL/L Potassium Level 3.5 L 3.6-5.0 MMOL/L Chloride Level 100 98-107 MMOL/L Carbon Dioxide Level 21 21-32 MMOL/L Anion Gap 13 5-14 MMOL/L Blood Urea Nitrogen 9 7-18 MG/DL Creatinine 0.63 0.60-1.30 MG/DL Estimat Glomerular Filtration Rate 98 BUN/Creatinine Ratio 14 Glucose Level 212 H 70-105 MG/DL Calcium Level 9.1 8.5-10.1 MG/DL Corrected Calcium 9.1 8.5-10.1 MG/DL Magnesium Level 1.7 1.6-2.4 MG/DL Total Bilirubin 0.6 0.1-1.0 MG/DL Aspartate Amino Transf (AST/SGOT) 30 5-34 U/L Alanine Aminotransferase (ALT/SGPT) 33 0-55 U/L Alkaline Phosphatase 81 40-136 U/L Myoglobin 15.7 10.0-92.0 NG/ML Troponin I < 0.028 <0.028 NG/ML C-Reactive Protein High Sensitivity 0.50 0.00-0.50 MG/DL B-Type Natriuretic Peptide < 10.0 <100.0 PG/ML Total Protein 7.9 6.4-8.2 GM/DL Albumin 4.0 3.2-4.5 GM/DL Glucometer 204 H 70-110 MG/DL Urine Color YELLOW Urine Clarity CLEAR Urine pH 6.5 5-9 Urine Specific [place] <=1.005 1.016-1.022 Urine Protein NEGATIVE NEGATIVE Urine Glucose (UA) TRACE H NEGATIVE Urine Ketones NEGATIVE NEGATIVE Urine Nitrite NEGATIVE NEGATIVE Urine Bilirubin NEGATIVE NEGATIVE Urine Urobilinogen 0.2 < = 1.0 MG/DL Urine Leukocyte Esterase NEGATIVE NEGATIVE Urine RBC (Auto) NEGATIVE NEGATIVE Urine RBC NONE /HPF Urine WBC NONE /HPF Urine Squamous Epithelial Cells RARE /HPF Urine Crystals NONE /LPF Urine Bacteria TRACE /HPF Urine Casts NONE /LPF Urine Mucus NEGATIVE /LPF Urine Culture Indicated NO My Orders Orders - CIRO BURGER MD Accucheck Stat ONCE (03/25/22 18:50) Ed Iv/Invasive Line Start (03/25/22 18:50) O2 (03/25/22 18:50) Monitor-Rhythm Ecg Trace Only (03/25/22 18:50) Bnp [place] (03/25/22 18:50) Cbc With Automated Diff (03/25/22 18:50) Comprehensive Metabolic Panel (03/25/22 18:50) Hs C Reactive Protein (03/25/22 18:50) Ua Culture If Indicated (03/25/22 18:50) Chest 1 View, Ap/Pa Only (03/25/22 18:50) Covid 19 Inhouse Test (03/25/22 18:50) Influenza A And B By Pcr (03/25/22 18:50) Ondansetron Injection (Zofran Injectio (03/25/22 19:15) Magnesium (03/25/22 19:33) Ekg Tracing (03/25/22 19:33) Myoglobin Serum (03/25/22 19:33) Troponin I [place] (03/25/22 19:33) Fibrin Degradation Products (03/25/22 19:36) Protime With Inr (03/25/22 19:36) Partial Thromboplastin Time (03/25/22 19:36) Ct Angio Chest W (03/25/22 20:25) Iohexol Injection (Omnipaque 350 Mg/Ml 1 (03/25/22 20:30) Ns (Ivpb) (Sodium Chloride 0.9% Ivpb Bag (03/25/22 20:30) Promethazine Injection (Phenergan Injec (03/25/22 20:45) Lactated Ringers (Lr 1000 Ml Iv Solution (03/25/22 20:45) Iohexol Injection (Omnipaque 350 Mg/Ml 1 (03/25/22 21:00) Ns (Ivpb) (Sodium Chloride 0.9% Ivpb Bag (03/25/22 21:00) Meclizine Tablet (Antivert Tablet) (03/25/22 22:29) Medications Given in ED Current Medications Medications Dose Ordered Sig/Bailey Route Start Time Stop Time Status Last Admin Dose Admin Iohexol 100 ml ONCE ONCE IV 03/25/22 20:30 03/25/22 20:31 DC 03/25/22 20:59 90 ML Iohexol 100 ml ONCE ONCE IV 03/25/22 21:00 03/25/22 21:14 DC 03/25/22 21:01 90 ML Lactated Ringer's 1,000 ml @ 0 mls/hr Q0M ONCE IV 03/25/22 20:45 03/25/22 20:46 DC 03/25/22 21:03 1,000 MLS/HR Promethazine HCl 12.5 mg ONCE ONCE IVP 03/25/22 20:45 03/25/22 20:46 DC 03/25/22 21:03 12.5 MG Sodium Chloride 100 ml ONCE ONCE IV 03/25/22 20:30 03/25/22 20:31 DC 03/25/22 20:59 70 ML Sodium Chloride 100 ml ONCE ONCE IV 03/25/22 21:00 03/25/22 21:14 DC 03/25/22 21:02 70 ML Vital Signs/I&O 03/25/22 03/25/22 03/25/22 03/25/22 18:38 18:43 18:51 22:37 Temp 36.7 Pulse 92 82 Resp 18 B/P (MAP) 139/79 (99) 151/82 Pulse Ox 99 97 99 O2 Delivery Nasal Cannula Room Air Nasal Cannula Room Air O2 Flow Rate 3.00 3.00 03/26/22 00:00 Intake Total 1000 ml Balance 1000 ml Capillary Refill : Blood Pressure Mean: 99 Point of Care Testing Finger Stick Blood Glucose: 204 Blood Glucose Action Taken: PROVIDER NOTIFIED Progress Note : Progress Note Initial work-up was relatively unremarkable. D-dimer was added and was positive. CT angiogram was then obtained. No pulmonary emboli were identified, but she did appear to have pulmonary fibrosis. The exact etiology of this is uncertain, but patient seems to believe this developed secondary to her COVID infections. Patient did have some persistent vertigo that was fatigable and triggered by head and body movements. Phenergan was added to her nausea treatment and meclizine was given to treat her vertigo. See discharge instructions for further discussions. ECG Initial ECG Impression Date: Mar 25, 2022 Initial ECG Impression Time: 19:43 Initial ECG Rate: 95 Initial ECG Rhythm: Normal Sinus Initial ECG Intervals: Normal Comment Normal sinus rhythm with no ST elevation or depression. No abnormal intervals or axis deviation. Diagnostic Imaging Diagonstic Imaging: Xray Plain Films/CT/US/NM/MRI: chest Comments Chest x-ray viewed by me and report reviewed. See preliminary report below: NAME: KAYLEIGH MIDDLETON MED REC#: [id number] PT STATUS: REG ER : 1955 PHYSICIAN: CIRO BURGER MD ADMIT DATE: 03/25/22/ER Draft Date of Exam:03/25/22 CHEST 1 VIEW, AP/PA ONLY INDICATION: Shortness of air. COMPARISON: 01/01/2022 TECHNIQUE: Single radiograph of the chest dated 03/23/2022. FINDINGS: The cardiac silhouette is enlarged. Central pulmonary vascular congestion is present. Mild left greater than right bibasilar predominantly interstitial opacities. No significant pleural effusion. Chronic elevation of the right hemidiaphragm. No pneumothorax. No acute osseous abnormality. IMPRESSION: Cardiomegaly with mild central pulmonary vascular congestion. Mild left greater than right bibasilar atelectasis and/or pneumonitis. Chronic elevation right hemidiaphragm. Dictated on workstation # [id number] Dict: 03/25/221924 Trans: 03/25/221928 [id number] Interpreted by: KHAI ROTH MD Diagonstic Imaging: CT Plain Films/CT/US/NM/MRI: chest Comments CT angiogram chest viewed by me and report reviewed. See report below: NAME: KAYLEIGH MIDDLETON [facility] REC#: [id number] PT STATUS: REG ER : 1955 PHYSICIAN: CIRO BURGER MD ADMIT DATE: 03/25/22/ER Draft Date of Exam:03/25/22 CT ANGIO CHEST W PROCEDURE: CT angiography of the chest with contrast. TECHNIQUE: Multiple contiguous axial images were obtained through the chest after uneventful bolus administration of intravenous contrast. 3D reconstructed CTA MIP acquisitions were also performed. Auto Exposure Controls were utilized during the CT exam to meet ALARA standards for radiation dose reduction. INDICATION: Lightheadedness. Nausea. COMPARISON: 03/10/2019. FINDINGS: No abnormal intraluminal filling defect is seen to the segmental division of the pulmonary arteries. Evaluation beyond that is suboptimal due to motion artifact as well as beam-hardening artifact. Thoracic aorta is normal in course and caliber. By NASCET criteria, there is no focal significant stenosis. There is no evidence of dissection or aneurysm. Heart size is within normal limits. There is no large pericardial effusion. No pathologically enlarged or morphologically abnormal adenopathy is seen within the mediastinum, arnol or axilla. Evaluation of the lung briggs demonstrates low inspiratory volumes with bibasilar atelectasis. There is no large effusion or pneumothorax. Subpleural trabeculations are noted. Osseous structures show no acute abnormality. No lytic or blastic bony lesions are seen. Included portions of the upper abdomen show 2.1 x 1.6 cm nodular lesion of the left adrenal gland. This is stable compared to 03/10/2019. IMPRESSION: 1. No acute pulmonary embolus. 2. No other acute cardiopulmonary process. 3. Low lung volumes with scattered areas of atelectasis. Subpleural reticulation changes also suggest underlying interstitial lung disease. Clinical correlation is advised. 4. Stable nodular left adrenal lesion. Dictated on workstation # [id number] Dict: 03/25/222105 Trans: 03/25/222115 [facility] [id number] Interpreted by: SOHAIL SINGH MD Departure Impression Primary Impression: Dyspnea Qualified Codes: R06.00 - Dyspnea, unspecified Additional Impressions: Vertigo Nausea Disposition: HOME, SELF-CARE Condition: Improved Departure-Patient Inst. Decision time for Depature: 22:32 Referrals: [facility] [place] (PCP/Family) Primary Care Physician Patient Instructions: Vertigo ED Add. Discharge Instructions: Follow-up with your primary care provider soon as possible. Please call first thing Monday morning to arrange follow-up. Bring these discharge instructions with you to that appointment. For dizziness you may take meclizine as prescribed. This medication may cause drowsiness so use with caution. You may also try the Sancho maneuver per instructions provided. For nausea and vomiting you may use Zofran (ondansetron) as prescribed. Drink plenty of clear liquids to stay well-hydrated. Please discuss your lung health and your CT scan with your doctor in follow-up. You should seek referral to a clay digger (lung specialist) to further evaluate the scarring or fibrosis seen on the CT scan. Return to the emergency room if you have worsening symptoms despite following these instructions. All discharge instructions reviewed with patient and/or family. Voiced understanding. Scripts Ondansetron (Ondansetron Odt) 4 Mg Tab.rapdis 4 MG SL Q4H PRN for NAUSEA/VOMITING, #10 TAB Prov: CIRO BURGER MD 03/25/22 Meclizine HCl (Meclizine HCl) 12.5 Mg Tablet 12.5 MG PO Q6H PRN for DIZZINESS, #10 TAB Prov: CIRO BURGER MD 03/25/22 Copy Copies To 1: [facility] [place] CIRO BURGER MD Mar 25, 2022 19:33
[2022-03-25 19:46] LABS: CREATININE SERUM 0.63 MG/DL (0.60-1.30)
[2022-03-25 19:54] LABS: FIBRIN DEGRADATION PRODUCTS 1.06 UG/ML (0.00-0.49); PROTHROMBIN TIME PATIENT 13.8 SEC (12.2-14.7)
[2022-03-25 20:06] LABS: MAGNESIUM 1.7 MG/DL (1.6-2.4)
[2022-03-25] MEDS ORDERED: NS 100 ML (IVPB) BAG IV ONE ×2 (20:30→21:00)
[2022-03-25] MEDS ORDERED: IOHEXOL 350 MG/ML 100 ML (OMNIPAQUE 350) VIAL IV ONE ×2 (20:30→21:00)
[2022-03-25] MEDS ORDERED: PROMETHAZINE INJ 25 MG/ML (PHENERGAN) AMP IVP ONE (20:45)
[2022-03-25] MEDS ORDERED: LACTATED RINGERS 1,000 ML IV ONE (20:45)
--- NOTE | 2022-03-25 21:17 | Diagnostic Imaging Report ---
PROCEDURE: CT angiography of the chest with contrast. TECHNIQUE: Multiple contiguous axial images were obtained through the chest after uneventful bolus administration of intravenous contrast. 3D reconstructed CTA MIP acquisitions were also performed. Auto Exposure Controls were utilized during the CT exam to meet ALARA standards for radiation dose reduction. INDICATION: Lightheadedness. Nausea. COMPARISON: 03/10/2019. FINDINGS: No abnormal intraluminal filling defect is seen to the segmental division of the pulmonary arteries. Evaluation beyond that is suboptimal due to motion artifact as well as beam-hardening artifact. Thoracic aorta is normal in course and caliber. By NASCET criteria, there is no focal significant stenosis. There is no evidence of dissection or aneurysm. Heart size is within normal limits. There is no large pericardial effusion. No pathologically enlarged or morphologically abnormal adenopathy is seen within the mediastinum, arnol or axilla. Evaluation of the lung briggs demonstrates low inspiratory volumes with bibasilar atelectasis. There is no large effusion or pneumothorax. Subpleural trabeculations are noted. Osseous structures show no acute abnormality. No lytic or blastic bony lesions are seen. Included portions of the upper abdomen show 2.1 x 1.6 cm nodular lesion of the left adrenal gland. This is stable compared to 03/10/2019. IMPRESSION: 1. No acute pulmonary embolus. 2. No other acute cardiopulmonary process. 3. Low lung volumes with scattered areas of atelectasis. Subpleural reticulation changes also suggest underlying interstitial lung disease. Clinical correlation is advised. 4. Stable nodular left adrenal lesion. Dictated by: Dictated on workstation # [id number]
[2022-03-25] MEDS ORDERED: MECLIZINE 25 MG (ANTIVERT) TAB PO STA (22:29)
[2022-03-25] MEDS ORDERED: ONDA4TAB11 SL (22:35)
[2022-03-25] MEDS ORDERED: MECL-215 PO (22:35)
[2022-03-25 22:37] VITALS: BP 151/82
== END 2022-03-25 22:47 | disposition home or self-care (01) ==
LOC: EDUNIT# 18:26 → ER 18:29
DX: R06.00 Dyspnea, unspecified (principal); R42 Dizziness and giddiness; R11.0 Nausea; E10.9 Type 1 diabetes mellitus without complications; Z20.822 Contact with and (suspected) exposure to COVID-19; Z28.310 Unvaccinated for COVID-19; Z79.84 Long term (current) use of oral hypoglycemic drugs
CPT/HCPCS: 36415; 71045; 71275; 80053; 81000; 82947; 83735; 83874; 83880; 84484; 85025; 85379; 85610; 85730; 86141; 87636; 93041

== ENCOUNTER → 2022-04-11 | Outpatient (CLI) | payer MEDICAID ==
[~2022-04-11] MED LIST changes: +MECL-215 PO; +ONDA4TAB11 SL
--- NOTE | 2022-04-11 09:33 | Diagnostic Imaging Report ---
Indication: Left labial mass Soft tissue ultrasound left labia There is a heterogeneous area of decreased echogenicity in the left labia measuring approximately 2.5 x 1.3 cm with a small satellite hypoechoic nodule measuring 5 mm in diameter. There is minimal vascularity. IMPRESSION: Lobulated heterogeneous area of decreased echogenicity with minimal internal vascularity could represent cellulitis. Neoplasm cannot be excluded. There does not appear to be a drainable fluid collection. Dictated by: Dictated on workstation # [id number]
--- NOTE | 2022-04-11 11:42 | Diagnostic Imaging Report ---
INDICATION: Routine screening. COMPARISON: 04/09/2021 and 10/29/2019. TECHNIQUE: 2D and 3D bilateral screening mammography was performed with CAD. FINDINGS: Scattered fibroglandular densities are identified bilaterally. There has been development of an ovoid density in the upper right breast at mid depth. Additional views are recommended. The left breast is unremarkable. There are occasional benign calcifications. No malignant-appearing microcalcifications are seen. The axillae are unremarkable. IMPRESSION: Right breast density. Additional views are recommended for further evaluation. ACR BI-RADS Category 0: Incomplete. (Needs additional imaging evaluation). Result letter will be mailed to the patient. Note: At least 10% of breast cancer is not imaged by mammography. Dictated by: Dictated on workstation # [id number]
== END ==
LOC: RAD 09:30
PROVIDERS: ATTEND Family Medicine
DX: Z12.31 Encounter for screening mammogram for malignant neoplasm of breast (principal); N63.10 Unspecified lump in the right breast, unspecified quadrant; N90.69 Other specified hypertrophy of vulva; R06.02 Shortness of breath
CPT/HCPCS: 76857; 77063; 77067

== ENCOUNTER 2022-04-15 17:47 | Emergency (ER) | payer MEDICAID ==
[~2022-04-15] VITALS: Ht 160 cm; Wt 90.7 kg
[2022-04-15] MEDS ORDERED: IOHEXOL 350 MG/ML 100 ML (OMNIPAQUE 350) VIAL IV ONE (18:45)
[2022-04-15] MEDS ORDERED: NS 100 ML (IVPB) BAG IV ONE (18:45)
--- NOTE | 2022-04-15 18:58 | ED GU-Female ---
General Chief Complaint: Skin/Wound Problems Stated Complaint: ABSCESS IN GROIN Nursing Triage Note: TO ROOM 03 FROM [facility] [place] WITH A GROIN ABSCESS. PT IS TO BE ON OXGEN AND CAME WITHOUT. Source: patient Exam Limitations: no limitations History of Present Illness Date Seen by Provider: Apr 15, 2022 Time Seen by Provider: 18:00 Initial Comments Patient is a 66-year-old female who presents to the emergency department for evaluation of possible abscess in her left groin. Patient was seen at a clinic prior to arrival where the area was anesthetized and incision and drainage was performed. The provider at the clinic felt that patient may need further evaluation as he was concern for possible Bola's gangrene. Patient was seen at the clinic approximately 1 week ago for a small swollen area to her left labia. Patient was not placed on any medications at that time. Patient states that the clinic gave her a prescription for antibiotics today but she has yet to fill them. She states the area is very tender. States there has been some pus draining from the area once the incision was made. Denies any fever. Denies any pain or swelling anywhere other than her left labia. Allergies and Home Medications Allergies Coded Allergies: Sulfa (Sulfonamide Antibiotics) (Verified Allergy, Unknown, 11/26/19) Patient Home Medication List Home Medication List Reviewed: Yes Amoxicillin/Potassium Clav (Augmentin 875-125 Tablet) 1 Each Tablet, 1 EACH PO BID Prescribed by: SHERRIE SAUL on 06/08/211912 Cephalexin (Cephalexin) 500 Mg Tablet, 500 MG PO BID Prescribed by: RIMMA STEARNS on 12/01/21 111 Cephalexin (Cephalexin) 500 Mg Tablet, 500 MG PO TID Prescribed by: NILTON GONZALEZ on 01/01/22 2030 Cephalexin (Cephalexin) 500 Mg Tablet, 500 MG PO QID Prescribed by: STU REYES on 02/24/22 1320 Cyclosporine (Restasis) 1 Each Droperette, 1 DROP OU BID, (Reported) Entered as Reported by: SARAY AMOR on 03/07/19 165 Hydrocodone Bit/Acetaminophen (HYDROcodone/APAP 5 MG/325 MG TAB) 1 Tab Tab, 1 TAB PO Q6H PRN for PAIN-SEVERE (8-10) Prescribed by: Ian Guzman on 04/15/22 193 Hydrocodone/Acetaminophen (Hydrocodone-Acetamin 5-325 mg) 5 Mg-325 Mg Tablet, 1- 2 TAB PO Q6H PRN for PAIN-MODERATE (5-7) Prescribed by: RIMMA STEARNS on 12/01/21 1117 Hydrocodone/Acetaminophen (Hydrocodone-Acetamin 7.5-325) 7.5 Mg-325 Mg Tablet, 1 EACH PO Q6H PRN for PAIN-MODERATE (5-7) Prescribed by: STU REYES on 02/24/22 1322 Lidocaine (Lidocaine 5% Patch) 1 Each Adh..patch, 2 EACH TOP DAILY, (Reported) Entered as Reported by: ALEK MEIER on 05/04/20 155 Lorazepam (Lorazepam Intensol) 2 Mg/1 Ml Oral.conc, 1 MG PO Q2H PRN for AGITATION Prescribed by: YU SINGH on 05/28/20 1029 Meclizine HCl (Meclizine HCl) 12.5 Mg Tablet, 12.5 MG PO Q6H PRN for DIZZINESS Prescribed by: CIRO MATTHEWS on 03/25/22 2235 Morphine Sulfate (Morphine Conc. 20mg/ml) 100 Mg/5 Ml Solution, 5 MG PO Q2H PRN for PAIN Prescribed by: YU SINGH on 05/28/20 1029 Neomycin/Polymyxin B Sulf/Hc (Mfauhnla-Wmuokqexy-Ds Ear Susp) 3.5 Mg/Ml-10,000 Unit/Ml-1 % Drops.susp, 4 DROPS OT QID Prescribed by: STU REYES on 02/24/22 1320 Nitrofurantoin Monohyd/M-Cryst (Macrobid 100 mg Capsule) 100 Mg Capsule, 1 TAB PO BID, (Reported) Entered as Reported by: SHARATH ANDERSON on 02/27/22 1504 Nystatin (Nystatin) 15 Gm Cream..g., 1 APPLIC TOP TID, (Reported) Entered as Reported by: ALEK MEIER on 05/04/20 155 Ondansetron (Ondansetron Odt) 4 Mg Tab.rapdis, 4 MG PO Q4H Prescribed by: NILTON GONZALEZ on 01/01/222026 Ondansetron (Ondansetron Odt) 4 Mg Tab.rapdis, 4 MG SL Q4H PRN for NAUSEA /VOMITING Prescribed by: CIRO MATTHEWS on 03/25/22 0293 Review of Systems Review of Systems Constitutional: no symptoms reported EENTM: no symptoms reported Respiratory: no symptoms reported Cardiovascular: no symptoms reported Gastrointestinal: no symptoms reported Genitourinary: no symptoms reported Musculoskeletal: no symptoms reported Skin: see HPI Past Thjwbmp-Sxacbk-Nbipds Hx Patient Social History Tobacco Use?: No Substance use?: No Alcohol Use?: No Immunizations Up To Date Tetanus Booster (TDap): Unknown Second COVID19 Vaccination Gallito: UNKNOWN 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: [employer] Seasonal Allergies Seasonal Allergies: No Past Medical History Surgery/Hospitalization HX: COPD, LONG COVID, DIABETES TYPE I Surgeries: Yes (Bone growth removed from scalp) Tubal Ligation Respiratory: Yes (History of COVID-19 x2 with resulting chronic hypoxia) Cardiac: No Neurological: No Reproductive Disorders: Yes Genitourinary: No Gastrointestinal: No Musculoskeletal: No Fractures Endocrine: Yes Diabetes, Non-Insulin dep HEENT: No Cancer: No Psychosocial: No Integumentary: No Blood Disorders: No Family Medical History Patient reports no known family medical history. No Pertinent Family Hx Physical Exam Vital Signs Vital Signs - First Documented 04/15/22 17:55 Temp 36.7 Pulse 106 Resp 16 B/P (MAP) 143/77 (99) Pulse Ox 96 O2 Delivery Room Air Capillary Refill : Less Than 3 Seconds Height, Weight, BMI Height: '" Weight: lbs. oz. kg; 35.00 BMI Method:Estimated General Appearance: WD/WN, no apparent distress HEENT: PERRL/EOMI, normal ENT inspection, TMs normal, pharynx normal Neck: non-tender, full range of motion, supple, normal inspection Cardiovascular: regular rate, rhythm Respiratory: lungs clear, normal breath sounds, no respiratory distress, no accessory muscle use Gastrointestinal: normal bowel sounds, non tender, soft Back: normal inspection, no vertebral tenderness Neurologic/Psychiatric: no motor/sensory deficits, alert, normal mood/affect, oriented x 3 Skin: normal color, warm/dry Left labial swelling and erythema noted; area of swelling measures approximately 2 x 4 cm; area is tender to palpation; incision noted to the affected area with active bloody purulent drainage Focused Exam Respiratory: Chest Non Tender, Lungs Clear, Normal Breath Sounds Progress/Results/Core Measures Suspected Sepsis SIRS Temperature: Pulse: 106 Respiratory Rate: 16 Laboratory Tests 04/15/22 18:50: White Blood Count 8.5 Blood Pressure 143 /77 Mean: 99 Laboratory Tests 04/15/22 18:50: Creatinine 0.65, Platelet Count 206, Total Bilirubin 0.4 Results/Orders Lab Results Laboratory Tests Test 04/15/22 18:50 Range/Units White Blood Count 8.5 4.3-11.0 10^3/uL Red Blood Count 4.76 3.80-5.11 10^6/uL Hemoglobin 14.4 11.5-16.0 g/dL Hematocrit 43 35-52 % Mean Corpuscular Volume 90 80-99 fL Mean Corpuscular Hemoglobin 30 25-34 pg Mean Corpuscular Hemoglobin Concent 34 32-36 g/dL Red Cell Distribution Width 12.5 10.0-14.5 % Platelet Count 206 130-400 10^3/uL Mean Platelet Volume 9.8 9.0-12.2 fL Immature Granulocyte % (Auto) 1 % Neutrophils (%) (Auto) 63 42-75 % Lymphocytes (%) (Auto) 25 12-44 % Monocytes (%) (Auto) 9 0-12 % Eosinophils (%) (Auto) 3 0-10 % Basophils (%) (Auto) 1 0-10 % Neutrophils # (Auto) 5.3 1.8-7.8 10^3/uL Lymphocytes # (Auto) 2.1 1.0-4.0 10^3/uL Monocytes # (Auto) 0.8 0.0-1.0 10^3/uL Eosinophils # (Auto) 0.2 0.0-0.3 10^3/uL Basophils # (Auto) 0.0 0.0-0.1 10^3/uL Immature Granulocyte # (Auto) 0.0 0.0-0.1 10^3/uL Sodium Level 138 135-145 MMOL/L Potassium Level 3.4 L 3.6-5.0 MMOL/L Chloride Level 101 98-107 MMOL/L Carbon Dioxide Level 22 21-32 MMOL/L Anion Gap 15 H 5-14 MMOL/L Blood Urea Nitrogen 9 7-18 MG/DL Creatinine 0.65 0.60-1.30 MG/DL Estimat Glomerular Filtration Rate 98 BUN/Creatinine Ratio 14 Glucose Level 245 H 70-105 MG/DL Calcium Level 9.2 8.5-10.1 MG/DL Corrected Calcium 9.4 8.5-10.1 MG/DL Total Bilirubin 0.4 0.1-1.0 MG/DL Aspartate Amino Transf (AST/SGOT) 23 5-34 U/L Alanine Aminotransferase (ALT/SGPT) 22 0-55 U/L Alkaline Phosphatase 93 40-136 U/L Total Protein 7.5 6.4-8.2 GM/DL Albumin 3.7 3.2-4.5 GM/DL My Orders Orders - IAN GUZMAN MINI BAR ATTENDANT Cbc With Automated Diff (04/15/22 18:31) Comprehensive Metabolic Panel (04/15/22 18:31) Ct Pelvis W (04/15/22 18:31) Iv/Invasive Line Insertion .IV INSERT (04/15/22 18:31) Iohexol Injection (Omnipaque 350 Mg/Ml 1 (04/15/22 18:45) Ns (Ivpb) (Sodium Chloride 0.9% Ivpb Bag (04/15/22 18:45) Ed Iv/Invasive Line Start (04/15/22 18:56) Clindamycin 600 Mg/50 Ml Ivpb (Cleocin P (04/15/22 19:30) Hydrocodone/Apap 5/325 Tablet (Lortab 5 (04/15/22 19:45) Medications Given in ED Vital Signs/I&O 04/16/22 00:00 Intake Total 50 ml Balance 50 ml Capillary Refill : Less Than 3 Seconds Blood Pressure Mean: 99 Progress Note : Progress Note Patient is nontoxic and well-hydrated on exam. Exam is notable for large area of swelling to the left labia measuring approximately 2-4 cm. The area is maria t thematous and painful to palpation. Incision is noted with small amount of purulence and bloody drainage noted. No extension of the swelling into any of the other perineal tissues. No subcutaneous air palpated. Laboratory evaluation is overall reassuring. CT of the pelvis notable for likely abscess of the left labia but there is no subcutaneous air or extension concerning for Bola's gangrene or any other infection necessitating admission for IV antibiotics. 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 Patient will be given a short prescription for narcotic analgesia. Discussed importance of sitz bath's to promote further drainage. Follow-up with PCP. Return precautions for urgent symptomology discussed. Patient verbalized understanding. Departure Impression Primary Impression: Left genital labial abscess Disposition: HOME, SELF-CARE Condition: Stable Departure-Patient Inst. Decision time for Depature: 19:30 Referrals: NO,LOCAL PHYSICIAN (PCP/Family) Primary Care Physician Patient Instructions: Skin Abscess Scripts Hydrocodone Bit/Acetaminophen (HYDROcodone/APAP 5 MG/325 MG TAB) 1 Tab Tab 1 TAB PO Q6H PRN for PAIN-SEVERE (8-10) for 3 Days, #12 TAB 0 Refills Prov: IAN GUZMAN APRN 04/15/22 IAN GUZMAN APRN Apr 15, 2022 18:58
[2022-04-15 18:59] LABS: BASOPHILS % (AUTO) 1 % (0-10); EOSINOPHILS # (AUTO) 0.2 10^3/uL (0.0-0.3); EOSINOPHILS % (AUTO) 3 % (0-10); HEMATOCRIT 43 % (35-52); HEMOGLOBIN 14.4 g/dL (11.5-16.0); LYMPHOCYTES # (AUTO) 2.1 10^3/uL (1.0-4.0); LYMPHOCYTES % (AUTO) 25 % (12-44); MEAN CORPUSCULAR HEMOGLOBIN 30 pg (25-34); MEAN CORPUSCULAR HGB CONC 34 g/dL (32-36); MEAN CORPUSCULAR VOLUME 90 fL (80-99); MEAN PLATELET VOLUME 9.8 fL (9.0-12.2); MONOCYTES # (AUTO) 0.8 10^3/uL (0.0-1.0); MONOCYTES % (AUTO) 9 % (0-12); NEUTROPHILS # (AUTO) 5.3 10^3/uL (1.8-7.8); NEUTROPHILS % (AUTO) 63 % (42-75); PLATELET COUNT 206 10^3/uL (130-400); WHITE BLOOD COUNT 8.5 10^3/uL (4.3-11.0)
--- NOTE | 2022-04-15 19:14 | Diagnostic Imaging Report ---
EXAMINATION: CT pelvis with intravenous contrast. TECHNIQUE: Multiple contiguous axial images were obtained through the pelvis after the uneventful administration of intravenous contrast. All CT scans use one or more of the following dose optimizing techniques: automated exposure control, MA and/or KvP adjustment based on patient size and exam type or iterative reconstruction. HISTORY: Groin abscess COMPARISON: 01/01/2022. FINDINGS: Visualized portions of the kidneys are normal. There is no hydronephrosis. Urinary bladder is normal. There is scattered colonic diverticulosis. The appendix is normal. No visualized bowel obstruction. No free fluid or air. No pelvic lymphadenopathy. Aorta is normal in caliber without aneurysm. Degenerative changes of the spine without suspicious osseous lesion or compression fracture. There are bilateral L5 pars defects. The uterus is unremarkable. There is a dilated cystic structure within the left adnexa measuring up to 7.3 x 3.3 cm. There is significant stranding within the left perineum and labia. No definitive loculated fluid collection is seen on this exam. There may be developing phlegmon measuring approximately 2.9 cm. IMPRESSION: 1. Left labial and perineal soft tissue swelling with large loculated fluid collection. There may be developing phlegmon measuring up to 2.9 cm. 2. Dilated cystic structure within the left adnexa. This could represent dilation of the fallopian tube or of an ovarian/adnexal cystic lesion. This has been present from 01/01/2022 and favors cystic neoplasm. Dictated by: Dictated on workstation # [id number]
[2022-04-15 19:16] LABS: ALBUMIN 3.7 GM/DL (3.2-4.5); BILIRUBIN,TOTAL 0.4 MG/DL (0.1-1.0); CALCIUM 9.2 MG/DL (8.5-10.1); CREATININE SERUM 0.65 MG/DL (0.60-1.30); POTASSIUM 3.4 MMOL/L (3.6-5.0); TOTAL PROTEIN 7.5 GM/DL (6.4-8.2)
[2022-04-15] MEDS ORDERED: ACHD5005 PO (19:30)
[2022-04-15] MEDS ORDERED: CLINDAMYCIN 600 MG/50 ML IVPB 50 ML IV ONE (19:30)
[2022-04-15] MEDS ORDERED: HYDROcodone/APAP 5 MG/325 MG (LORTAB) TAB PO ONE (19:45)
[2022-04-15 20:16] VITALS: BP 138/72
== END 2022-04-15 20:16 | disposition home or self-care (01) ==
LOC: EDUNIT# 17:47 → ER 17:48
DX: N76.4 Abscess of vulva (principal); Z88.2 Allergy status to sulfonamides; Z86.16 Personal history of COVID-19; Z28.310 Unvaccinated for COVID-19
CPT/HCPCS: 36415; 72193; 80053; 85025

== ENCOUNTER → 2022-05-16 | Outpatient (CLI) | payer MEDICAID ==
--- NOTE | 2022-05-16 17:30 | Diagnostic Imaging Report ---
Indication: Right breast density. Patient presents for additional views. Correlation is made with screening study from 04/11/2022. Unilateral right 2-D and 3-D diagnostic mammography was performed. This includes spot compression CC and ML views as well as conventional 90 degree lateral views. Circumscribed ovoid density in the upper central right breast has resolved. This may represent resolution of a previous previous cyst. No mass or malignant-appearing microcalcifications are seen. There are benign calcifications present. IMPRESSION: BI-RADS Category 2 Additional views fail to demonstrate a discrete mass. Patient may return to routine annual screening mammography. ACR BI-RADS Category 2: Benign findings. Result letter will be mailed to the patient. Note: At least 10% of breast cancer is not imaged by mammography. Dictated by: Dictated on workstation # [id number]
== END ==
LOC: RAD 14:15
PROVIDERS: ATTEND Family Medicine
DX: N63.10 Unspecified lump in the right breast, unspecified quadrant (principal)
CPT/HCPCS: 77065; G0279

== ENCOUNTER → 2022-05-24 | Outpatient (CLI) | payer MEDICAID ==
--- NOTE | 2022-05-24 10:54 | Diagnostic Imaging Report ---
PROCEDURE: US Non-ob pelvis comp/trans. TECHNIQUE: Multiple realtime grayscale images were obtained of the pelvis in various projections endovaginally. Transabdominal imaging was also performed. INDICATION: Left ovarian cyst Uterus measures 8.0 x 3.8 x 5.4 cm. Endometrial stripe is 16 mm. The myometrium and endometrium were unremarkable. Right ovary is obscured by bowel gas. There is a 5.4 x 2.3 x 3.8 cm cyst in the left adnexa. Left ovary is not discretely identified. IMPRESSION: Left adnexal cyst. This has simple cyst features. Neither ovary was discretely identified. Dictated by: Dictated on workstation # [id number]
== END ==
LOC: RAD 09:29
PROVIDERS: ATTEND Obstetrics & Gynecology
DX: N83.202 Unspecified ovarian cyst, left side (principal); R19.09 Other intra-abdominal and pelvic swelling, mass and lump
CPT/HCPCS: 76830; 76856

== ENCOUNTER 2022-07-11 12:31 | Emergency (ER) | payer MEDICAID ==
[~2022-07-11] VITALS: Ht 157 cm; Wt 90.7 kg
--- NOTE | 2022-07-11 14:29 | ED GU-Female ---
General Chief Complaint: Skin/Wound Problems Stated Complaint: ABCESS ON VAGINA Nursing Triage Note: VAGINAL ABSCESS X1 WEEK. PT HAS BEEN TAKING IBUPROFEN. Source: patient Exam Limitations: no limitations History of Present Illness Date Seen by Provider: Jul 11, 2022 Time Seen by Provider: 12:37 Initial Comments 66-year-old female with past medical history of diabetes coming in due to concerns for an abscess on her right labia and its been going on for the past several days. Taking ibuprofen as needed. Slowly getting worse with increasing pain. Denies any fever, redness in her skin, or any other concerns. Otherwise denying any other acute complaints Allergies and Home Medications Allergies Coded Allergies: Sulfa (Sulfonamide Antibiotics) (Verified Allergy, Unknown, 11/26/19) Patient Home Medication List Home Medication List Reviewed: Yes Amoxicillin/Potassium Clav (Augmentin 875-125 Tablet) 1 Each Tablet, 1 EACH PO BID Prescribed by: SHERRIE SAUL on 06/08/211912 Cephalexin (Cephalexin) 500 Mg Tablet, 500 MG PO BID Prescribed by: RIMMA STEARNS on 12/01/21 1116 Cephalexin (Cephalexin) 500 Mg Tablet, 500 MG PO TID Prescribed by: NILTON GONZALEZ on 01/01/22 2030 Cephalexin (Cephalexin) 500 Mg Tablet, 500 MG PO QID Prescribed by: STU REYES on 02/24/22 1320 Cyclosporine (Restasis) 1 Each Droperette, 1 DROP OU BID, (Reported) Entered as Reported by: SARAY AMOR on 03/07/19 1651 Hydrocodone Bit/Acetaminophen (HYDROcodone/APAP 5 MG/325 MG TAB) 1 Tab Tab, 1 TAB PO Q6H PRN for PAIN-SEVERE (8-10) Prescribed by: Ian Guzman on 04/15/22 1931 Hydrocodone/Acetaminophen (Hydrocodone-Acetamin 5-325 mg) 5 Mg-325 Mg Tablet, 1- 2 TAB PO Q6H PRN for PAIN-MODERATE (5-7) Prescribed by: RIMMA STEARNS on 12/01/21 1117 Hydrocodone/Acetaminophen (Hydrocodone-Acetamin 7.5-325) 7.5 Mg-325 Mg Tablet, 1 EACH PO Q6H PRN for PAIN-MODERATE (5-7) Prescribed by: STU REYES on 02/24/22 1322 Lidocaine (Lidocaine 5% Patch) 1 Each Adh..patch, 2 EACH TOP DAILY, (Reported) Entered as Reported by: ALEK MEIER on 05/04/20 1558 Lorazepam (Lorazepam Intensol) 2 Mg/1 Ml Oral.conc, 1 MG PO Q2H PRN for AGITATION Prescribed by: YU SINGH on 05/28/20 1029 Meclizine HCl (Meclizine HCl) 12.5 Mg Tablet, 12.5 MG PO Q6H PRN for DIZZINESS Prescribed by: CIRO MATTHEWS on 03/25/222234 Morphine Sulfate (Morphine Conc. 20mg/ml) 100 Mg/5 Ml Solution, 5 MG PO Q2H PRN for PAIN Prescribed by: YU SINGH on 05/28/20 1029 Neomycin/Polymyxin B Sulf/Hc (Xvzveexn-Kppoittzv-Cr Ear Susp) 3.5 Mg/Ml-10,000 Unit/Ml-1 % Drops.susp, 4 DROPS OT QID Prescribed by: STU REYES on 02/24/22 1320 Nitrofurantoin Monohyd/M-Cryst (Macrobid 100 mg Capsule) 100 Mg Capsule, 1 TAB PO BID, (Reported) Entered as Reported by: SHARATH ANDERSON on 02/27/22 1504 Nystatin (Nystatin) 15 Gm Cream..g., 1 APPLIC TOP TID, (Reported) Entered as Reported by: ALEK MEIER on 05/04/20 1558 Ondansetron (Ondansetron Odt) 4 Mg Tab.rapdis, 4 MG PO Q4H Prescribed by: NILTON GONZALEZ on 01/01/222026 Ondansetron (Ondansetron Odt) 4 Mg Tab.rapdis, 4 MG SL Q4H PRN for NAUSEA/VOMITING Prescribed by: CIRO MATTHEWS on 03/25/222234 Review of Systems Review of Systems Constitutional: No fever EENTM: no symptoms reported Respiratory: no symptoms reported Cardiovascular: no symptoms reported Gastrointestinal: no symptoms reported Genitourinary: see HPI Musculoskeletal: no symptoms reported Skin: no symptoms reported Psychiatric/Neurological: No Symptoms Reported Endocrine: No Symptoms Reported Past Dejnloe-Cdkexp-Rbkxqu Hx Patient Social History Tobacco Use?: No Substance use?: No Alcohol Use?: No Immunizations Up To Date Tetanus Booster (TDap): Unknown Second COVID19 Vaccination Gallito: UNKNOWN Seasonal Allergies Seasonal Allergies: No Past Medical History Surgery/Hospitalization HX: COPD, LONG COVID, DIABETES TYPE I Surgeries: Yes (Bone growth removed from scalp) Tubal Ligation Respiratory: Yes (History of COVID-19 x2 with resulting chronic hypoxia) Cardiac: No Neurological: No Reproductive Disorders: Yes Genitourinary: No Gastrointestinal: No Musculoskeletal: No Fractures Endocrine: Yes Diabetes, Non-Insulin dep HEENT: No Cancer: No Psychosocial: No Integumentary: No Blood Disorders: No Family Medical History Patient reports no known family medical history. No Pertinent Family Hx Physical Exam Vital Signs Vital Signs - First Documented 07/11/22 12:52 Temp 36.9 Pulse 105 Resp 16 B/P (MAP) 152/72 (98) Pulse Ox 93 O2 Delivery Nasal Cannula O2 Flow Rate 4.00 Capillary Refill : Less Than 3 Seconds Height, Weight, BMI Height: '" Weight: lbs. oz. kg; 36.00 BMI Method:Estimated General Appearance: WD/WN, no apparent distress HEENT: PERRL/EOMI, normal ENT inspection, pharynx normal Neck: non-tender, full range of motion, supple, normal inspection Cardiovascular: regular rate, rhythm, no edema, no murmur Respiratory: chest non-tender, lungs clear, normal breath sounds, no respiratory distress, no accessory muscle use Gastrointestinal: normal bowel sounds, non tender, soft; No distended, No guarding, No rebound Genital/Rectal: other (Right-sided labial abscess with no significant skin changes, no crepitus) Back: normal inspection, no CVA tenderness Extremities: normal range of motion, non-tender, normal inspection, no pedal edema, no calf tenderness, normal capillary refill Neurologic/Psychiatric: no motor/sensory deficits, alert, normal mood/affect Skin: normal color, warm/dry Lymphatic: no adenopathy Procedures/Interventions I&D : Site: right labia Blade Size: 11 I & D Procedure: betadine prep Progress 6 cc of 1% lidocaine were used to anesthetize the region afterwards a single stab incision that was slightly elongated was made. Probed and deloculated with forceps. mild amount of purulent drainage followed by blood. The rest of the area was mostly indurated in nature, but I was able to feel the entire extent of the infection on her labia, and it does not extend deep Progress/Results/Core Measures Suspected Sepsis SIRS Temperature: Pulse: 105 Respiratory Rate: 16 Blood Pressure 152 /72 Mean: 98 Results/Orders My Orders Orders - PAPA GRAHAM MD Clindamycin Capsule (Cleocin Capsule) (07/11/22 14:30) Medications Given in ED Current Medications Medications Dose Ordered Sig/Bailey Route Start Time Stop Time Status Last Admin Dose Admin Clindamycin HCl 300 mg ONCE ONCE PO 07/11/22 14:30 07/11/22 14:31 DC 07/11/22 14:54 300 MG Vital Signs/I&O 07/11/22 12:52 Temp 36.9 Pulse 105 Resp 16 B/P (MAP) 152/72 (98) Pulse Ox 93 O2 Delivery Nasal Cannula O2 Flow Rate 4.00 Capillary Refill : Less Than 3 Seconds Blood Pressure Mean: 98 Progress Note : Progress Note 66-year-old female with above history coming in due to concerns for labial abscess. ABCs were intact and vitals were stable on presentation. Physical exam with what felt to be a labial abscess duration around it. I was able to feel the entire depth and see the entire depth of the wounds on her labia, and it does not go deep at this time. She has no skin changes over it, no crepitus, and clinically no signs of necrotizing fasciitis. Additionally this has been insidious in onset over the past week or so and does not clinically fit nec f asc. The patient was given clindamycin as well as IM ceftriaxone. Mild amount of purulent drainage after I&D. She will go home on prescription clindamycin and needs a wound check with her doctor in the next couple days. She was then discharged home in stable condition with strict return precautions Departure Impression Primary Impression: Labial abscess Disposition: HOME, SELF-CARE Condition: Stable Departure-Patient Inst. Decision time for Depature: 15:24 Referrals: CIRO GRAF MD (PCP/Family) Primary Care Physician Patient Instructions: Wound Incision and Drainage (DC) Add. Discharge Instructions: You do have a small abscess in the area, the rest of the hardness is just infection that will turn to abscess soon if the antibiotics were not started. Now that there is an incision, this gives it something to drain. Keep the area clean and covered. Change the dressing every 6 hours or so when the bleeding is still oozing. Take ibuprofen or Tylenol as needed for pain. Follow-up with your regular doctor in the next couple of days for a wound check. If it is getting worse, follow-up with the surgeon, Dr. Cash, who is numbers in this paperwork. If getting significantly worse rapidly, please come back to the ER. You will be on antibiotics for the next 10 days which can cause diarrhea. Scripts Clindamycin HCl (Clindamycin HCl) 300 Mg Capsule 300 MG PO Q6H for 10 Days, #40 CAP Prov: PAPA GRAHAM MD 07/11/22 Work/School Note: Family Work Note, Patient Received Medical Care In the Emergency Department On: Jul 11, 2022 Patient Will Be Able to Return to Work/School On: Jul 12, 2022 Work Release Form Date Seen in the Emergency Department: Jul 11, 2022 Return to Work: Jul 12, 2022 Restrictions: No Restrictions PAPA GRAHAM MD Jul 11, 2022 14:29
[2022-07-11] MEDS ORDERED: CLINDAMYCIN 150 MG (CLEOCIN) CAP PO ONE (14:30)
[2022-07-11] MEDS ORDERED: CLIN-144 PO (15:25)
[2022-07-11] MEDS ORDERED: LIDOCAINE 1% INJ 20 ML VIAL INJ ONE (15:30)
[2022-07-11] MEDS ORDERED: cefTRIAXone 1,000 MG VIAL IM ONE (15:30)
[2022-07-11] MEDS ORDERED: LIDOCAINE 1% INJ 10 ML VIAL ONE (15:47)
[2022-07-11 16:13] VITALS: BP 160/90
[2022-07-11] MEDS ORDERED: HYDROcodone/APAP 5 MG/325 MG (LORTAB) TAB PO ONE (16:15)
== END 2022-07-11 16:15 | disposition home or self-care (01) ==
LOC: EDUNIT# 12:31 → ER 12:33
DX: N76.4 Abscess of vulva (principal); E10.9 Type 1 diabetes mellitus without complications; Z88.1 Allergy status to other antibiotic agents; Z28.310 Unvaccinated for COVID-19
CPT/HCPCS: 99284

== ENCOUNTER 2022-08-18 12:44 | Emergency (ER) | payer MEDICAID ==
[~2022-08-18 12:44] MED LIST changes: +CLIN-144 PO
[2022-08-18] MEDS ORDERED: LIDOCAINE 1% INJ 10 ML VIAL INJ ONE (13:15)
--- NOTE | 2022-08-18 13:19 | ED Integumentary General ---
General Chief Complaint: Skin/Wound Problems Stated Complaint: BLEEDING ABCESS Nursing Triage Note: pt has abscess on right side of her amanda-area. pt has had the abscess for about 6mo and has had it drained/lanced 3x, the last time was about 1 mo ago. pt reports abscess is bleeding. Source: patient Exam Limitations: no limitations History of Present Illness Date Seen by Provider: Aug 18, 2022 Time Seen by Provider: 13:13 Initial Comments Patient is a 66-year-old female who presents the ED for gluteal and pubic abscess. Patient states she has had this pubic abscess for 6 months. She has had it drained 3 different times. Last incision and drainage was 1 month ago was seen here. Patient*developing pain around her right buttock. This started about 1 week ago with pain and discomfort. Increasing pain with bloody purulent drainage over the past few days. Denies any fever, chills, nausea vomit, diarrhea. Patient has been having bowel movements. Reports taking anti- inflammatories for pain. Denies abdominal pain, chest pain, shortness of breath. She noted some drainage today from a developing abscess overlying her pubic area. Allergies and Home Medications Allergies Coded Allergies: Sulfa (Sulfonamide Antibiotics) (Verified Allergy, Unknown, 11/26/19) Patient Home Medication List Home Medication List Reviewed: Yes Amoxicillin/Potassium Clav (Augmentin 875-125 Tablet) 1 Each Tablet, 1 EACH PO BID Prescribed by: SHERRIE SAUL on 06/08/211912 Cephalexin (Cephalexin) 500 Mg Tablet, 500 MG PO BID Prescribed by: RIMMA STEARNS on 12/01/21 1116 Cephalexin (Cephalexin) 500 Mg Tablet, 500 MG PO TID Prescribed by: NILTON GONZALEZ on 01/01/22 2030 Cephalexin (Cephalexin) 500 Mg Tablet, 500 MG PO QID Prescribed by: STU REYES on 02/24/22 1320 Cephalexin (Cephalexin) 500 Mg Tablet, 500 MG PO QID Prescribed by: NILTON GONZALEZ on 08/18/22 1535 Clindamycin HCl (Clindamycin HCl) 300 Mg Capsule, 300 MG PO Q6H Prescribed by: PAPA GRAHAM on 07/11/22 1525 Cyclosporine (Restasis) 1 Each Droperette, 1 DROP OU BID, (Reported) Entered as Reported by: SARAY AMOR on 03/07/19 1651 Doxycycline Monohydrate (Doxycycline Monohydrate) 100 Mg Tablet, 100 MG PO BID Prescribed by: NILTON GONZALEZ on 08/18/22 1535 Hydrocodone Bit/Acetaminophen (HYDROcodone/APAP 5 MG/325 MG TAB) 1 Tab Tab, 1 TAB PO Q6H PRN for PAIN-SEVERE (8-10) Prescribed by: Ian Guzman on 04/15/22 1931 Hydrocodone/Acetaminophen (Hydrocodone-Acetamin 5-325 mg) 5 Mg-325 Mg Tablet, 1- 2 TAB PO Q6H PRN for PAIN-MODERATE (5-7) Prescribed by: RIMMA STEARNS on 12/01/21 1117 Hydrocodone/Acetaminophen (Hydrocodone-Acetamin 7.5-325) 7.5 Mg-325 Mg Tablet, 1 EACH PO Q6H PRN for PAIN-MODERATE (5-7) Prescribed by: STU REYES on 02/24/22 1322 Lidocaine (Lidocaine 5% Patch) 1 Each Adh..patch, 2 EACH TOP DAILY, (Reported) Entered as Reported by: ALEK MEIER on 05/04/20 1558 Lorazepam (Lorazepam Intensol) 2 Mg/1 Ml Oral.conc, 1 MG PO Q2H PRN for AGITATION Prescribed by: YU SINGH on 05/28/20 1029 Meclizine HCl (Meclizine HCl) 12.5 Mg Tablet, 12.5 MG PO Q6H PRN for DIZZINESS Prescribed by: CIRO MATTHEWS on 03/25/22 2235 Morphine Sulfate (Morphine Conc. 20mg/ml) 100 Mg/5 Ml Solution, 5 MG PO Q2H PRN for PAIN Prescribed by: UY SINGH on 05/28/20 1029 Neomycin/Polymyxin B Sulf/Hc (Yabtjbtk-Jwzjacgvr-Oy Ear Susp) 3.5 Mg/Ml-10,000 Unit/Ml-1 % Drops.susp, 4 DROPS OT QID Prescribed by: STU REYES on 02/24/22 1320 Nitrofurantoin Monohyd/M-Cryst (Macrobid 100 mg Capsule) 100 Mg Capsule, 1 TAB PO BID, (Reported) Entered as Reported by: SHARATH ANDERSON on 02/27/22 1504 Nystatin (Nystatin) 15 Gm Cream..g., 1 APPLIC TOP TID, (Reported) Entered as Reported by: ALEK MEIER on 05/04/20 1558 Ondansetron (Ondansetron Odt) 4 Mg Tab.rapdis, 4 MG PO Q4H Prescribed by: NILTON GONZALEZ on 01/01/222026 Ondansetron (Ondansetron Odt) 4 Mg Tab.rapdis, 4 MG SL Q4H PRN for NAUSEA/VOMITING Prescribed by: CIRO MATTHEWS on 03/25/222234 Review of Systems Review of Systems Constitutional: No chills, No diaphoresis, No fever, No malaise, No weakness EENTM: No ear pain, No blurred vision Respiratory: No cough, No dyspnea on exertion Cardiovascular: No chest pain, No edema Gastrointestinal: No abdominal pain, No diarrhea, No nausea, No vomiting Genitourinary: No decreased output, No discharge Musculoskeletal: No back pain, No joint pain Skin: No change in color, No change in hair/nails All Other Systems Reviewed Negative Unless Noted: Yes Past Kvrtgpu-Zdppjb-Qqpugu Hx Immunizations Up To Date Tetanus Booster (TDap): Unknown Second COVID19 Vaccination Gallito: UNKNOWN Seasonal Allergies Seasonal Allergies: No Past Medical History Surgery/Hospitalization HX: COPD, LONG COVID, DIABETES TYPE I Surgeries: Yes (Bone growth removed from scalp) Tubal Ligation Respiratory: Yes (History of COVID-19 x2 with resulting chronic hypoxia) Cardiac: No Neurological: No Reproductive Disorders: Yes Genitourinary: No Gastrointestinal: No Musculoskeletal: No Fractures Endocrine: Yes Diabetes, Non-Insulin dep HEENT: No Cancer: No Psychosocial: No Integumentary: No Blood Disorders: No Family Medical History Patient reports no known family medical history. No Pertinent Family Hx Physical Exam Vital Signs Vital Signs - First Documented 08/18/22 13:05 Pulse 83 Resp 20 B/P (MAP) 123/63 (83) Pulse Ox 98 O2 Delivery Room Air Capillary Refill : Less Than 3 Seconds General Appearance: WD/WN, no apparent distress HEENT: PERRL/EOMI, normal ENT inspection, TMs normal, pharynx normal Neck: non-tender, full range of motion, supple Cardiovascular: regular rate, rhythm, no edema, no gallop, no JVD Respiratory: chest non-tender, lungs clear, normal breath sounds, no respiratory distress, no accessory muscle use Gastrointestinal: normal bowel sounds, non tender, soft, no organomegaly Back: normal inspection, no CVA tenderness, no vertebral tenderness Extremities: normal range of motion, non-tender, normal inspection, no pedal edema Skin: other (2 x 2 similar function mass to the pubic area. Purulent drainage. 5 x 4 cm fluctuant area to the right buttock in the gluteal region with surrounding erythema swelling and purulent drainage) Skin Problem Character: abscess (Pubic 2 x 2 cm abscess, right buttock 5 x 4 cm abscess with active drainage) Procedures/Interventions I&D : Site: right gluteal Blade Size: 11 I & D Procedure: betadine prep Progress 5 x 4 cm large abscess with surrounding induration and erythema to the right gluteal region. Prepped area with Betadine. Incision and drainage with 11 inch blade with large amount of purulent drainage. Extensive irrigation with normal saline and Shur-Clens. Packing with iodoform quarter inch. Patient tolerated procedure well. Anesthetized with 8 mls Small pubic 2 x 2 cm fluctuant mass. Small incision with 11 inch blade. Prepped with iodine. Small amount purulent drainage. Iodoform quarter-inch packing was placed. Anesthetized with 2 mls Progress/Results/Core Measures Results/Orders Lab Results Laboratory Tests Test 08/18/22 14:00 Range/Units White Blood Count 8.5 4.3-11.0 10^3/uL Red Blood Count 4.50 3.80-5.11 10^6/uL Hemoglobin 13.6 11.5-16.0 g/dL Hematocrit 40 35-52 % Mean Corpuscular Volume 89 80-99 fL Mean Corpuscular Hemoglobin 30 25-34 pg Mean Corpuscular Hemoglobin Concent 34 32-36 g/dL Red Cell Distribution Width 12.3 10.0-14.5 % Platelet Count 194 130-400 10^3/uL Mean Platelet Volume 10.4 9.0-12.2 fL Immature Granulocyte % (Auto) 1 % Neutrophils (%) (Auto) 61 42-75 % Lymphocytes (%) (Auto) 25 12-44 % Monocytes (%) (Auto) 9 0-12 % Eosinophils (%) (Auto) 3 0-10 % Basophils (%) (Auto) 1 0-10 % Neutrophils # (Auto) 5.2 1.8-7.8 10^3/uL Lymphocytes # (Auto) 2.1 1.0-4.0 10^3/uL Monocytes # (Auto) 0.8 0.0-1.0 10^3/uL Eosinophils # (Auto) 0.3 0.0-0.3 10^3/uL Basophils # (Auto) 0.0 0.0-0.1 10^3/uL Immature Granulocyte # (Auto) 0.1 0.0-0.1 10^3/uL Sodium Level 135 135-145 MMOL/L Potassium Level 3.9 3.6-5.0 MMOL/L Chloride Level 100 98-107 MMOL/L Carbon Dioxide Level 27 21-32 MMOL/L Anion Gap 8 5-14 MMOL/L Blood Urea Nitrogen 10 7-18 MG/DL Creatinine 0.68 0.60-1.30 MG/DL Estimat Glomerular Filtration Rate 97 BUN/Creatinine Ratio 15 Glucose Level 332 H 70-105 MG/DL Calcium Level 8.9 8.5-10.1 MG/DL Corrected Calcium 9.3 8.5-10.1 MG/DL Total Bilirubin 0.8 0.1-1.0 MG/DL Aspartate Amino Transf (AST/SGOT) 29 5-34 U/L Alanine Aminotransferase (ALT/SGPT) 30 0-55 U/L Alkaline Phosphatase 78 40-136 U/L Total Protein 7.2 6.4-8.2 GM/DL Albumin 3.5 3.2-4.5 GM/DL My Orders Orders - PAPA ANDERS Wound Culture (08/18/22 13:12) Lidocaine 1% Inj 10 Ml (Xylocaine 1% Inj (08/18/22 13:15) Cbc With Automated Diff (08/18/22 13:54) Comprehensive Metabolic Panel (08/18/22 13:54) Ct Pelvis W (08/18/22 13:54) Iohexol Injection (Omnipaque 350 Mg/Ml 1 (08/18/22 14:00) Received Contrast (Hold Metformin- Contr (08/18/22 14:00) Ns (Ivpb) (Sodium Chloride 0.9% Ivpb Bag (08/18/22 14:00) Medications Given in ED Current Medications Medications Dose Ordered Sig/Bailey Route Start Time Stop Time Status Last Admin Dose Admin Iohexol 100 ml ONCE ONCE IV 08/18/22 14:00 08/18/22 14:01 DC 08/18/22 14:57 80 ML Lidocaine HCl 20 ml ONCE ONCE INJ 08/18/22 13:15 08/18/22 13:16 DC 08/18/22 13:40 20 ML Sodium Chloride 100 ml ONCE ONCE IV 08/18/22 14:00 08/18/22 14:01 DC 08/18/22 14:58 80 ML Vital Signs/I&O 08/18/22 08/18/22 13:05 15:53 Pulse 83 79 Resp 20 18 B/P (MAP) 123/63 (83) 108/55 Pulse Ox 98 97 O2 Delivery Room Air Room Air Blood Pressure Mean: 83 Departure Communication (PCP) Patient complaining of gluteal pain with an abscess for the past week. Pubic abscess as well. History of labial abscess with 3 previous incision and drainage. Reviewed previous ED H&P's, testing. No previous wound culture. On exam patient has 2 abscess with a large abscess to the right gluteal region. Patient states she did have 1 bowel movement. Pain preventing having bowel movement. Patient is afebrile. Due to location of pain CBC, CMP, CT pelvis with contrast was initiated. Differential diagnosis of gluteal abscess, perianal abscess, cellulitis, sepsis. Patient CBC, CMP was otherwise unremarkable. Normal white blood count. Blood sugar of 332. Does not appear in DKA. Type II diabetic. She is on insulin. Recommend continue monitoring. Normal electrolytes. Incision and drainage with large amount of purulent drainage to the right gluteal region. Packing was placed. Procedure documented note. Pubic abscess drained here in the ED with packing. CT pelvis did show some edema without evidence of a fluid collection at this time. No intra- abdominal abscess, fistula. Patient pain has improved after incision and drainage. Patient will be discharged with Keflex and doxycycline for strep, staph and MRSA coverage. Recommend packing removal in 2 to 3 days. Return back to ED. Discussed wound care. Return back to ED if worsening pain, swelling or drainage. Outpatient general surgery follow-up which may require further evaluation Impression Primary Impression: Gluteal abscess Disposition: HOME, SELF-CARE Condition: Stable Departure-Patient Inst. Decision time for Depature: 15:35 Referrals: CIRO GRAF MD (PCP) Primary Care Physician RONEY MCWILLIAMS MD Patient Instructions: Abscess Incision and Drainage Add. Discharge Instructions: Return back to ED in 2 or 3 days for packing removal. Continue taking antibiotics as prescribed. If any worsening redness, swelling or pain to return back to ED. General surgery outpatient follow-up for further evaluation All discharge instructions reviewed with patient and/or family. Voiced understanding. Scripts Doxycycline Monohydrate (Doxycycline Monohydrate) 100 Mg Tablet 100 MG PO BID for 7 Days, #14 TAB Prov: PAPA ANDERS 08/18/22 Cephalexin (Cephalexin) 500 Mg Tablet 500 MG PO QID for 7 Days, #28 TAB Prov: PAPA ANDERS 08/18/22 PAPA ANDERS Aug 18, 2022 13:19
[2022-08-18] MEDS ORDERED: NS 100 ML (IVPB) BAG IV ONE ×2 (14:00→15:00)
[2022-08-18] MEDS ORDERED: IOHEXOL 350 MG/ML 100 ML (OMNIPAQUE 350) VIAL IV ONE ×2 (14:00→15:00)
[2022-08-18] MEDS ORDERED: HOLD METFORMIN - RECEIVED CONTRAST 20 ML VIAL IV SCH ×2 (14:00→15:00)
[2022-08-18 14:08] LABS: BASOPHILS % (AUTO) 1 % (0-10); EOSINOPHILS # (AUTO) 0.3 10^3/uL (0.0-0.3); EOSINOPHILS % (AUTO) 3 % (0-10); HEMATOCRIT 40 % (35-52); HEMOGLOBIN 13.6 g/dL (11.5-16.0); LYMPHOCYTES # (AUTO) 2.1 10^3/uL (1.0-4.0); LYMPHOCYTES % (AUTO) 25 % (12-44); MEAN CORPUSCULAR HEMOGLOBIN 30 pg (25-34); MEAN CORPUSCULAR HGB CONC 34 g/dL (32-36); MEAN CORPUSCULAR VOLUME 89 fL (80-99); MEAN PLATELET VOLUME 10.4 fL (9.0-12.2); MONOCYTES # (AUTO) 0.8 10^3/uL (0.0-1.0); MONOCYTES % (AUTO) 9 % (0-12); NEUTROPHILS # (AUTO) 5.2 10^3/uL (1.8-7.8); NEUTROPHILS % (AUTO) 61 % (42-75); PLATELET COUNT 194 10^3/uL (130-400); WHITE BLOOD COUNT 8.5 10^3/uL (4.3-11.0)
[2022-08-18 14:17] LABS: ALBUMIN 3.5 GM/DL (3.2-4.5)
[2022-08-18 14:18] LABS: POTASSIUM 3.9 MMOL/L (3.6-5.0)
[2022-08-18 14:19] LABS: CALCIUM 8.9 MG/DL (8.5-10.1)
[2022-08-18 14:20] LABS: TOTAL PROTEIN 7.2 GM/DL (6.4-8.2)
[2022-08-18 14:22] LABS: BILIRUBIN,TOTAL 0.8 MG/DL (0.1-1.0)
[2022-08-18 14:24] LABS: CREATININE SERUM 0.68 MG/DL (0.60-1.30)
--- NOTE | 2022-08-18 15:25 | Diagnostic Imaging Report ---
PROCEDURE: CT pelvis with contrast. TECHNIQUE: Oral and intravenous contrast were administered with pelvic CT performed. Auto Exposure Controls were utilized during the CT exam to meet ALARA standards for radiation dose reduction. INDICATION: Pelvic abscess. Correlation is made with prior CT 04/15/2022. Previously noted fluid collection in the left labial region is no longer visualized. No perirectal or perianal abscess is detected. There is some edema in the right gluteal tissues but no fluid collection is identified. Bladder is unremarkable. There is extensive diverticulosis of the sigmoid but no evidence of acute vasculitis. The elongated cystic structure in the left adnexa described previously is again noted and appears similar. Uterus unremarkable. No free fluid is identified. Bony structures are nonacute. IMPRESSION: 1. Resolution of inflammatory changes involving the left labia and perineum with comparison study from 04/15/2022. No new fluid collection is identified. There is some edema in the right gluteal fat but no discrete abscess is seen. 2. Stable elongated cystic structure left adnexa. 3. Uncomplicated diverticulosis. Dictated by: Dictated on workstation # [id number]
[2022-08-18] MEDS ORDERED: DOXY100T31 PO (15:35)
[2022-08-18] MEDS ORDERED: CEPH500T PO (15:35)
[2022-08-18 15:53] VITALS: BP 108/55
== END 2022-08-18 15:54 | disposition home or self-care (01) ==
LOC: EDUNIT# 12:44 → ER 12:46
DX: L02.31 Cutaneous abscess of buttock (principal); Z88.2 Allergy status to sulfonamides; Z86.16 Personal history of COVID-19
CPT/HCPCS: 36415; 72193; 80053; 85025; 87070; 87077; 87186; 87205

== ENCOUNTER 2022-09-12 11:15 | Emergency (ER) | payer MEDICAID ==
[~2022-09-12 11:15] MED LIST changes: +DOXY100T31 PO
--- NOTE | 2022-09-12 13:28 | ED Lower Extremity ---
General Chief Complaint: Lower Extremity Stated Complaint: R LEG PAIN| BACK PAIN Nursing Triage Note: PT TO FT3 BY WC WITH CC OF BILAT LEG PAIN SINCE MONDAY. PT STATES PAIN IS WORSE IN R LEG. PT REPORTS PAIN RADIATES INTO LOWER BACK. PT DENIES INJURY. PT ABLE TO GET INTO ER BED WITH NO DIFFICULITY. Source: patient Exam Limitations: no limitations History of Present Illness Date Seen by Provider: Sep 12, 2022 Time Seen by Provider: 13:25 Initial Comments Patient is a 66-year-old female who presents to the ED with bilateral leg pain since Monday. She states she woke up stepped had cramping in her right thigh and hip. Started having a pain radiate from her left lower back to her left raffaele t. That pain has gradually improved. Start developing pain in the right buttock down to the right leg. Still having cramping of the right sided hip. She denies any falls. History of scoliosis. Denies history of sciatica. She denies bowel or urine incontinence, saddle paresthesia. She is able to ambulate but difficult because of the pain. She has been taken ibuprofen at home. She is able to move her lower extremities. Denies weakness. Pain is described as more sharp. History of diabetes but denies neuropathy. Denies fever, chills, chest pain, shortness of breath, Robert pain, headache, dizziness Allergies and Home Medications Allergies Coded Allergies: Sulfa (Sulfonamide Antibiotics) (Verified Allergy, Unknown, 11/26/19) Patient Home Medication List Home Medication List Reviewed: Yes Amoxicillin/Potassium Clav (Augmentin 875-125 Tablet) 1 Each Tablet, 1 EACH PO BID Prescribed by: SHERRIE SAUL on 06/08/211912 Cephalexin (Cephalexin) 500 Mg Tablet, 500 MG PO BID Prescribed by: RIMMA STEARNS on 12/01/21 1116 Cephalexin (Cephalexin) 500 Mg Tablet, 500 MG PO TID Prescribed by: NILTON GONZALEZ on 01/01/22 2030 Cephalexin (Cephalexin) 500 Mg Tablet, 500 MG PO QID Prescribed by: STU REYES on 02/24/22 1320 Cephalexin (Cephalexin) 500 Mg Tablet, 500 MG PO QID Prescribed by: NILTON GONZALEZ on 08/18/22 1535 Clindamycin HCl (Clindamycin HCl) 300 Mg Capsule, 300 MG PO Q6H Prescribed by: PAPA GRAHAM on 07/11/22 1525 Cyclosporine (Restasis) 1 Each Droperette, 1 DROP OU BID, (Reported) Entered as Reported by: SARAY AMOR on 03/07/19 1651 Doxycycline Monohydrate (Doxycycline Monohydrate) 100 Mg Tablet, 100 MG PO BID Prescribed by: NILTON GONZALEZ on 08/18/22 1535 Hydrocodone Bit/Acetaminophen (HYDROcodone/APAP 5 MG/325 MG TAB) 1 Tab Tab, 1 TAB PO Q6H PRN for PAIN-SEVERE (8-10) Prescribed by: Ian Guzman on 04/15/22 1931 Hydrocodone/Acetaminophen (Hydrocodone-Acetamin 5-325 mg) 5 Mg-325 Mg Tablet, 1- 2 TAB PO Q6H PRN for PAIN-MODERATE (5-7) Prescribed by: RIMMA STEARNS on 12/01/21 1117 Hydrocodone/Acetaminophen (Hydrocodone-Acetamin 7.5-325) 7.5 Mg-325 Mg Tablet, 1 EACH PO Q6H PRN for PAIN-MODERATE (5-7) Prescribed by: STU REYES on 02/24/22 1322 Hydrocodone/Acetaminophen (Hydrocodone-Acetamin 5-325 mg) 5 Mg-325 Mg Tablet, 1 TAB PO Q4H PRN for PAIN-MODERATE (5-7) Prescribed by: NILTON GONZALEZ on 09/12/22 1447 Lidocaine (Lidocaine 5% Patch) 1 Each Adh..patch, 2 EACH TOP DAILY, (Reported) Entered as Reported by: ALEK MEIER on 05/04/20 1558 Lorazepam (Lorazepam Intensol) 2 Mg/1 Ml Oral.conc, 1 MG PO Q2H PRN for AGITATION Prescribed by: YU SINGH on 05/28/20 1029 Meclizine HCl (Meclizine HCl) 12.5 Mg Tablet, 12.5 MG PO Q6H PRN for DIZZINESS Prescribed by: CIRO MATTHEWS on 03/25/22 2235 Morphine Sulfate (Morphine Conc. 20mg/ml) 100 Mg/5 Ml Solution, 5 MG PO Q2H PRN for PAIN Prescribed by: YU SINGH on 05/28/20 1029 Neomycin/Polymyxin B Sulf/Hc (Wnqkhvrd-Bnkgvvlzw-Rj Ear Susp) 3.5 Mg/Ml-10,000 Unit/Ml-1 % Drops.susp, 4 DROPS OT QID Prescribed by: STU REYES on 02/24/22 1320 Nitrofurantoin Monohyd/M-Cryst (Macrobid 100 mg Capsule) 100 Mg Capsule, 1 TAB PO BID, (Reported) Entered as Reported by: SHARATH ANDERSON on 02/27/22 1504 Nystatin (Nystatin) 15 Gm Cream..g., 1 APPLIC TOP TID, (Reported) Entered as Reported by: ALEK MEIER on 05/04/20 1558 Ondansetron (Ondansetron Odt) 4 Mg Tab.rapdis, 4 MG PO Q4H Prescribed by: NILTON GONZALEZ on 01/01/222026 Ondansetron (Ondansetron Odt) 4 Mg Tab.rapdis, 4 MG SL Q4H PRN for NAUSEA/VOMITING Prescribed by: CIRO MATTHEWS on 03/25/225 Review of Systems Constitutional: No chills, No diaphoresis EENTM: No ear pain, No blurred vision, No double vision Respiratory: No cough, No dyspnea on exertion Cardiovascular: No chest pain Gastrointestinal: No abdominal pain, No diarrhea, No nausea, No vomiting Genitourinary: No decreased output, No discharge Musculoskeletal: back pain, joint pain; No joint swelling; muscle pain Skin: No change in color, No change in hair/nails All Other Systems Reviewed Negative Unless Noted: Yes Past Poflhlk-Equtsu-Hhwhmw Hx Patient Social History Tobacco Use?: No Substance use?: No Alcohol Use?: No Pt feels they are or have been: No Immunizations Up To Date Tetanus Booster (TDap): Unknown First/Initial COVID19 Vaccinat: UNKNOWN Second COVID19 Vaccination Gallito: UNKNOWN Third COVID19 Vaccination Date: UNKNOWN Seasonal Allergies Seasonal Allergies: No Past Medical History Surgery/Hospitalization HX: COPD, LONG COVID, DIABETES TYPE I Surgeries: Yes (Bone growth removed from scalp) Tubal Ligation Respiratory: Yes (History of COVID-19 x2 with resulting chronic hypoxia) Cardiac: No Neurological: No Reproductive Disorders: Yes Genitourinary: No Gastrointestinal: No Musculoskeletal: No Fractures Endocrine: Yes Diabetes, Non-Insulin dep HEENT: No Cancer: No Psychosocial: No Integumentary: No Blood Disorders: No Family Medical History Patient reports no known family medical history. No Pertinent Family Hx Physical Exam Vital Signs Vital Signs - First Documented 09/12/22 13:08 Temp 36.5 Pulse 103 Resp 20 B/P (MAP) 138/75 (96) Pulse Ox 96 O2 Delivery Nasal Cannula O2 Flow Rate 3.00 Capillary Refill : Less Than 3 Seconds Height, Weight, BMI Height: '" Weight: lbs. oz. kg; 36.00 BMI Method:Estimated General Appearance: WD/WN, no apparent distress HEENT: PERRL/EOMI, normal ENT inspection, TMs normal, pharynx normal Neck: non-tender, full range of motion, supple, normal inspection Cardiovascular: regular rate, rhythm, no edema, no gallop, no JVD Respiratory: chest non-tender, lungs clear, normal breath sounds, no respiratory distress, no accessory muscle use Gastrointestinal: normal bowel sounds, non tender, soft Back: No CVA tenderness (R), No CVA tenderness (L), No vertebral tenderness Hips: right hip pain, right hip soft tissue tenderness Legs: bilateral leg other (Neurovascular intact +2 dorsalis pedis bilateral. Dorsiflexion plantarflexion intact. 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, no motor/sensory deficits, alert, normal mood/affect, oriented x 3 Skin: normal color, warm/dry Progress/Results/Core Measures Results/Orders Lab Results Laboratory Tests Test 09/12/22 14:06 Range/Units White Blood Count 6.8 4.3-11.0 10^3/uL Red Blood Count 4.70 3.80-5.11 10^6/uL Hemoglobin 14.2 11.5-16.0 g/dL Hematocrit 43 35-52 % Mean Corpuscular Volume 92 80-99 fL Mean Corpuscular Hemoglobin 30 25-34 pg Mean Corpuscular Hemoglobin Concent 33 32-36 g/dL Red Cell Distribution Width 13.1 10.0-14.5 % Platelet Count 90 L 130-400 10^3/uL Mean Platelet Volume 11.5 9.0-12.2 fL Immature Granulocyte % (Auto) 0 % Neutrophils (%) (Auto) 52 42-75 % Lymphocytes (%) (Auto) 34 12-44 % Monocytes (%) (Auto) 9 0-12 % Eosinophils (%) (Auto) 5 0-10 % Basophils (%) (Auto) 1 0-10 % Neutrophils # (Auto) 3.5 1.8-7.8 10^3/uL Lymphocytes # (Auto) 2.3 1.0-4.0 10^3/uL Monocytes # (Auto) 0.6 0.0-1.0 10^3/uL Eosinophils # (Auto) 0.4 H 0.0-0.3 10^3/uL Basophils # (Auto) 0.0 0.0-0.1 10^3/uL Immature Granulocyte # (Auto) 0.0 0.0-0.1 10^3/uL Percent Immature Platelet Fraction 10.4 H 0.0-7.6 % Sodium Level 136 135-145 MMOL/L Potassium Level 4.2 3.6-5.0 MMOL/L Chloride Level 103 98-107 MMOL/L Carbon Dioxide Level 22 21-32 MMOL/L Anion Gap 11 5-14 MMOL/L Blood Urea Nitrogen 9 7-18 MG/DL Creatinine 0.72 0.60-1.30 MG/DL Estimat Glomerular Filtration Rate 93 BUN/Creatinine Ratio 13 Glucose Level 275 H 70-105 MG/DL Calcium Level 9.1 8.5-10.1 MG/DL Corrected Calcium 9.3 8.5-10.1 MG/DL Magnesium Level 2.0 1.6-2.4 MG/DL Total Bilirubin 0.8 0.1-1.0 MG/DL Aspartate Amino Transf (AST/SGOT) 36 H 5-34 U/L Alanine Aminotransferase (ALT/SGPT) 44 0-55 U/L Alkaline Phosphatase 63 40-136 U/L Total Protein 7.6 6.4-8.2 GM/DL Albumin 3.8 3.2-4.5 GM/DL My Orders Orders - PAPA ANDERS Ct Lumbar Spine Wo (09/12/22 13:23) Pelvis/Rojelio Hips 2 Views (09/12/22 13:23) Cbc With Automated Diff (09/12/22 13:23) Comprehensive Metabolic Panel (09/12/22 13:23) Magnesium (09/12/22 13:23) Hydrocodone/Apap 5/325 Tablet (Lortab 5 (09/12/22 14:00) Vital Signs/I&O 09/12/22 13:08 Temp 36.5 Pulse 103 Resp 20 B/P (MAP) 138/75 (96) Pulse Ox 96 O2 Delivery Nasal Cannula O2 Flow Rate 3.00 Blood Pressure Mean: 96 Departure Communication (PCP) Patient presents ED back pain bilateral leg pain. Started this past Monday. No trauma. Afebrile. No neurological red flag findings such as bowel or urine inc ontience, saddle paresthesia, lower extremity weakness. Differential diagnosis of sciatica, degenerative disc disease lower back, low back muscle strain, DVT, peripheral artery disease. On exam no evidence swelling, bruising or tenderness to the lower extremities. Equal pulses bilateral +2 dorsalis pedis and posterior tibialis. Warm extremities without any coolness. Unlikely peripheral artery disease or DVT with negative exam. Negative Homans' sign. Pain bilateral posterior buttock, lower back. Pain with flexion. Pain initially radiated down the left leg and now has work to the right leg. Due to the cramping sensation rule out any electrolyte abnormalities CBC, CMP and magnesium level was ordered which were grossly unremarkable. Refused anything for pain. Due to the pain in the lower back history of scoliosis CT scan was ordered which showed degenerative changes in the lumbar spine with no acute fracture, spinal canal stenosis due to degenerative changes most severe at L2-L3, multilevel foraminal stenosis most severe at L5-S1. Grade 1 anterolisthesis at L5-S1 with bilateral L5 pars defects. Concerning for nerve impingement versus sciatica coming from the lower back. Discussed these results with patient. Did perform a x-ray of the hip which did note some arthritis but no acute fracture. No weight loss, fever, skin color changes, weight changes suggesting cancer or infection related. Will discharge few days worth of pain medication. Would likely benefit with physical therapy and further outpatient follow-up may require an MRI for further evaluation. Discussed neurological red flag findings that were mentioned above and when to return. Impression Primary Impression: Back pain Additional Impression: Leg pain, bilateral Disposition: HOME, SELF-CARE Condition: Stable Departure-Patient Inst. Decision time for Depature: 14:46 Referrals: CIRO GRAF MD (PCP/Family) Primary Care Physician Patient Instructions: Low Back Pain ED Add. Discharge Instructions: Need to follow-up with your primary care physician for further evaluation. W ould likely benefit with physical therapy. All discharge instructions reviewed with patient and/or family. Voiced understanding. Scripts Hydrocodone/Acetaminophen (Hydrocodone-Acetamin 5-325 mg) 5 Mg-325 Mg Tablet 1 TAB PO Q4H PRN for PAIN-MODERATE (5-7), #8 TAB Prov: PAPA ANDERS 09/12/22 PAPA ANDERS Sep 12, 2022 13:28
--- NOTE | 2022-09-12 13:52 | Diagnostic Imaging Report ---
PROCEDURE: CT lumbar spine without contrast. TECHNIQUE: Multiple contiguous axial images were obtained through the lumbar spine without the use of intravenous contrast. Sagittal and coronal reformations were then performed. Auto Exposure Controls were utilized during the CT exam to meet ALARA standards for radiation dose reduction. INDICATION: Low back pain. COMPARISON: CT abdomen and pelvis from 12/01/2021. FINDINGS: Vertebral body heights are preserved. No acute fracture is seen in the lumbar spine. There is grade 1 anterolisthesis at L5-S1 and bilateral L5 pars defects. There are bqssfxrm-da-[id number] degenerative changes at L5-S1 and moderate degenerative change at L2-L3 and L3-L4. There are multilevel disc bulges and posterior osteophytes throughout the lumbar spine. This includes a large posterior osteophyte at L2-L3 causing severe spinal canal stenosis. There is facet arthropathy in the lower lumbar spine. There is multilevel foraminal stenosis, which appears most severe at L2-L3 on the right and L5-S1 bilaterally. Soft tissues about the lumbar spine demonstrate no acute abnormality. IMPRESSION: 1. Degenerative changes in the lumbar spine with no acute fracture seen. 2. Spinal canal stenosis due to degenerative change, most severe at L2-L3. Multilevel foraminal stenosis, most severe at L5-S1 bilaterally. 3. Grade 1 anterolisthesis at L5-S1 with bilateral L5 pars defects. Dictated by: Dictated on workstation # [id number]
[2022-09-12] MEDS ORDERED: HYDROcodone/APAP 5 MG/325 MG (LORTAB) TAB PO ONE (14:00)
[2022-09-12 14:12] LABS: BASOPHILS % (AUTO) 1 % (0-10); HEMOGLOBIN 14.2 g/dL (11.5-16.0); MEAN CORPUSCULAR VOLUME 92 fL (80-99)
[2022-09-12 14:13] LABS: EOSINOPHILS # (AUTO) 0.4 10^3/uL (0.0-0.3); EOSINOPHILS % (AUTO) 5 % (0-10); HEMATOCRIT 43 % (35-52); LYMPHOCYTES # (AUTO) 2.3 10^3/uL (1.0-4.0); LYMPHOCYTES % (AUTO) 34 % (12-44); MEAN CORPUSCULAR HEMOGLOBIN 30 pg (25-34); MEAN CORPUSCULAR HGB CONC 33 g/dL (32-36); MEAN PLATELET VOLUME 11.5 fL (9.0-12.2); MONOCYTES # (AUTO) 0.6 10^3/uL (0.0-1.0); MONOCYTES % (AUTO) 9 % (0-12); NEUTROPHILS # (AUTO) 3.5 10^3/uL (1.8-7.8); NEUTROPHILS % (AUTO) 52 % (42-75); WHITE BLOOD COUNT 6.8 10^3/uL (4.3-11.0)
[2022-09-12 14:14] LABS: PLATELET COUNT 90 10^3/uL (130-400)
--- NOTE | 2022-09-12 14:26 | Diagnostic Imaging Report ---
PELVIS/HARRIET HIPS 2 VIEWS INDICATION: Bilateral hip pain. COMPARISON: CT pelvis from 08/18/2022. TECHNIQUE: AP pelvis with AP and frog-leg lateral views of both hips. FINDINGS: Mild degenerative changes in both hips are similar to prior exam. No features of avascular necrosis of femoral heads. SI joints and symphysis pubis are normal in alignment. IMPRESSION: 1. No acute osseous abnormality about either hip. 2. Unchanged mild degenerative arthritis. Dictated by: Dictated on workstation # [id number]
[2022-09-12 14:27] LABS: ALBUMIN 3.8 GM/DL (3.2-4.5); POTASSIUM 4.2 MMOL/L (3.6-5.0)
[2022-09-12 14:29] LABS: CALCIUM 9.1 MG/DL (8.5-10.1)
[2022-09-12 14:30] LABS: TOTAL PROTEIN 7.6 GM/DL (6.4-8.2)
[2022-09-12 14:32] LABS: BILIRUBIN,TOTAL 0.8 MG/DL (0.1-1.0)
[2022-09-12 14:33] LABS: CREATININE SERUM 0.72 MG/DL (0.60-1.30)
[2022-09-12] MEDS ORDERED: ACHD5005 PO (14:47)
[2022-09-12 14:55] VITALS: BP 118/78
== END 2022-09-12 14:55 | disposition home or self-care (01) ==
LOC: EDUNIT# 11:15 → ER 11:20
DX: M48.07 Spinal stenosis, lumbosacral region (principal); Z86.16 Personal history of COVID-19
CPT/HCPCS: 36415; 72131; 73521; 80053; 83735; 85025

== ENCOUNTER → 2023-02-09 | Outpatient (CLI) | payer MEDICAID ==
--- NOTE | 2023-02-09 14:13 | Diagnostic Imaging Report ---
Indication: Pain and lump in the upper outer right breast. Correlation is made with prior mammograms from 04/11/2022 and 04/09/2021. Unilateral right 2-D and 3-D diagnostic mammography was performed with CAD. A marker was placed at the area of palpable abnormality in the upper outer right breast. Right breast is heterogeneously dense, limiting the sensitivity of mammography. The density noted in the superior right breast on prior study does appear to be slightly smaller. No new mass is identified. Specifically, no underlying abnormality at the area of palpable abnormality in the upper outer right breast is identified. There are scattered benign calcifications. No malignant-appearing microcalcifications are seen. Right axilla is unremarkable. IMPRESSION: BI-RADS 0 No mammographic features suspicious for malignancy are identified. Even so, directed sonographic interrogation of the area of palpable abnormality upper outer right breast is recommended and will be performed today. ACR BI-RADS Category 0: Incomplete. (Needs additional imaging evaluation). Result letter will be mailed to the patient. Note: At least 10% of breast cancer is not imaged by mammography. Dictated by: Dictated on workstation # [id number]
--- NOTE | 2023-02-09 14:26 | Diagnostic Imaging Report ---
INDICATION: Right breast pain and a lump. Sonographic interrogation of the area of pain and lump in the upper outer right breast was performed. There is a small ovoid complex cyst at the 11:00 location, 5-6 cm from the nipple measuring 7 x 4 x 8 mm. No internal vascularity is identified. This has benign features. No other masses are detected. IMPRESSION: BI-RADS Category 2 Features suggestive of a complex cyst at the 11 o'clock location right breast, corresponding to the area of pain and palpable lump. No concerning sonographic findings are identified. The patient may return to routine annual screening mammography. ACR BI-RADS Category 2: Benign findings. Result letter will be mailed to the patient. Note: At least 10% of breast cancer is not imaged by mammography. Dictated by: Dictated on workstation # [id number]
== END ==
LOC: RAD 13:09
PROVIDERS: ATTEND Family Medicine
DX: N63.10 Unspecified lump in the right breast, unspecified quadrant (principal)
CPT/HCPCS: 76642; 77065; G0279

== ENCOUNTER 2023-05-04 10:38 | Emergency (ER) | payer MEDICAID ==
[~2023-05-04] VITALS: Ht 165 cm; Wt 80.0 kg
[2023-05-04 11:01] VITALS: BP 138/84
[2023-05-04] MEDS ORDERED: NS IV 1000 ML 1,000 ML IV STA (11:11)
[2023-05-04] MEDS ORDERED: RT-Ipratropium/Albuterol NEB 3 ML VIAL INH ONE (11:15)
[2023-05-04] MEDS ORDERED: methylPREDNISolone INJ 125 MG VIAL IVP ONE (11:15)
--- NOTE | 2023-05-04 11:16 | ED General ---
General Chief Complaint: General Problems/Pain Stated Complaint: DIFFICULTY BREATHING Nursing Triage Note: PATIENT REPORTS HEADACHE, FATIGUE, CONGESTION, AND MILD SHORTNESS OF BREATH WITH EXERTION, SINCE WAKING UP THIS AM. ON HOME OXYGEN. Source of Information: Patient Exam Limitations: No Limitations History of Present Illness Date Seen by Provider: May 04, 2023 Time Seen by Provider: 11:14 Initial Comments Patient is a 67-year-old female who presents ED for multiple complaints. She reports headache fatigue nasal congestion ear pain dizziness headache shortness of breath and cough. She has a history of COPD and diabetes. She states she has had bilateral ear pain for the past 3 days. Was placed on antibiotic for ear infections. She reports intermittent dizziness not necessarily associated with movement. She states she feels nauseous without vomiting or diarrhea. She states she feels short of breath today. History of COPD chronically on 4 L. She denies breathing treatments at home. She denies any pain with urination decreased urination, fever. Abdominal pain. She does report some shortness of breath with exertion. Vital signs stable on arrival. She denies of any unilateral muscle weakness, visual changes, severe headache, neck pain, chest pain. Allergies and Home Medications Allergies Coded Allergies: Sulfa (Sulfonamide Antibiotics) (Verified Allergy, Unknown, 11/26/19) Patient Home Medication List Home Medication List Reviewed: Yes Albuterol Sulfate (Ventolin Hfa) 1 Puff Puff, 2 PUFF INH Q4H Prescribed by: NILTON GONZALEZ on 05/04/23 1243 Amoxicillin/Potassium Clav (Augmentin 875-125 Tablet) 1 Each Tablet, 1 EACH PO BID Prescribed by: SHERRIE SAUL on 06/08/21 191 Cephalexin (Cephalexin) 500 Mg Tablet, 500 MG PO BID Prescribed by: RIMMA STEARNS on 12/01/21 1116 Cephalexin (Cephalexin) 500 Mg Tablet, 500 MG PO TID Prescribed by: NILTON GONZALEZ on 01/01/22 2030 Cephalexin (Cephalexin) 500 Mg Tablet, 500 MG PO QID Prescribed by: STU REYES on 02/24/22 1320 Cephalexin (Cephalexin) 500 Mg Tablet, 500 MG PO QID Prescribed by: NILTON GONZALEZ on 08/18/22 1535 Clindamycin HCl (Clindamycin HCl) 300 Mg Capsule, 300 MG PO Q6H Prescribed by: PAPA GRAHAM on 07/11/22 1525 Cyclosporine (Restasis) 1 Each Droperette, 1 DROP OU BID, (Reported) Entered as Reported by: SARAY AMOR on 03/07/19 1651 Doxycycline Monohydrate (Doxycycline Monohydrate) 100 Mg Tablet, 100 MG PO BID Prescribed by: NILTON GONZALEZ on 08/18/22 1535 Hydrocodone Bit/Acetaminophen (HYDROcodone/APAP 5 MG/325 MG TAB) 1 Tab Tab, 1 T AB PO Q6H PRN for PAIN-SEVERE (8-10) Prescribed by: Ian Guzman on 04/15/22 1931 Hydrocodone/Acetaminophen (Hydrocodone-Acetamin 5-325 mg) 5 Mg-325 Mg Tablet, 1- 2 TAB PO Q6H PRN for PAIN-MODERATE (5-7) Prescribed by: RIMMA STEARNS on 12/01/21 1117 Hydrocodone/Acetaminophen (Hydrocodone-Acetamin 7.5-325) 7.5 Mg-325 Mg Tablet, 1 EACH PO Q6H PRN for PAIN-MODERATE (5-7) Prescribed by: STU REYES on 02/24/22 1322 Hydrocodone/Acetaminophen (Hydrocodone-Acetamin 5-325 mg) 5 Mg-325 Mg Tablet, 1 TAB PO Q4H PRN for PAIN-MODERATE (5-7) Prescribed by: NILTON GONZALEZ on 09/12/22 1447 Lidocaine (Lidocaine 5% Patch) 1 Each Adh..patch, 2 EACH TOP DAILY, (Reported) Entered as Reported by: AELK MEIER on 05/04/20 1558 Lorazepam (Lorazepam Intensol) 2 Mg/1 Ml Oral.conc, 1 MG PO Q2H PRN for AGITATION Prescribed by: YU SINGH on 05/28/20 1029 Meclizine HCl (Meclizine HCl) 12.5 Mg Tablet, 12.5 MG PO Q6H PRN for DIZZINESS Prescribed by: CIRO MATTHEWS on 03/25/22 2235 Morphine Sulfate (Morphine Conc. 20mg/ml) 100 Mg/5 Ml Solution, 5 MG PO Q2H PRN for PAIN Prescribed by: YU SINGH on 05/28/20 1029 Neomycin/Polymyxin B Sulf/Hc (Dybjjvfy-Dzazfxypt-Rf Ear Susp) 3.5 Mg/Ml-10,000 Unit/Ml-1 % Drops.susp, 4 DROPS OT QID Prescribed by: STU REYES on 02/24/22 1320 Nitrofurantoin Monohyd/M-Cryst (Macrobid 100 mg Capsule) 100 Mg Capsule, 1 TAB PO BID, (Reported) Entered as Reported by: SHARATH ANDERSON on 02/27/22 1504 Nystatin (Nystatin) 15 Gm Cream..g., 1 APPLIC TOP TID, (Reported) Entered as Reported by: ALEK MEIER on 05/04/20 1558 Ondansetron (Ondansetron Odt) 4 Mg Tab.rapdis, 4 MG PO Q4H Prescribed by: NILTON GONZALEZ on 01/01/222026 Ondansetron (Ondansetron Odt) 4 Mg Tab.rapdis, 4 MG SL Q4H PRN for NAUSEA/VOMITING Prescribed by: CIRO MATTHEWS on 03/25/222234 Review of Systems Review of Systems Constitutional: No chills; malaise, weakness EENTM: ear pain, nose congestion; No throat swelling Respiratory: cough, short of breath Cardiovascular: No chest pain Gastrointestinal: No abdominal pain, No diarrhea; nausea Genitourinary: No decreased output, No discharge Musculoskeletal: No back pain, No joint pain Skin: No change in color, No change in hair/nails All Other Systems Reviewed Negative Unless Noted: Yes Past Bmtmmgk-Sfuoig-Lfcyjk Hx Patient Social History Tobacco Use?: No Smoking Status: Never a Smoker Substance use?: No Alcohol Use?: No Immunizations Up To Date Tetanus Booster (TDap): Unknown First/Initial COVID19 Vaccinat: UNKNOWN Second COVID19 Vaccination [place]: UNKNOWN Third COVID19 Vaccination Date: UNKNOWN Seasonal Allergies Seasonal Allergies: No Past Medical History Surgery/Hospitalization HX: COPD, LONG COVID, DIABETES TYPE I Surgeries: Yes (Bone growth removed from scalp) Tubal Ligation Respiratory: Yes (History of COVID-19 x2 with resulting chronic hypoxia) Cardiac: No Neurological: No Reproductive Disorders: Yes Genitourinary: No Gastrointestinal: No Musculoskeletal: No Fractures Endocrine: Yes Diabetes, Non-Insulin dep HEENT: No Cancer: No Psychosocial: No Integumentary: No Blood Disorders: No Family Medical History Patient reports no known family medical history. No Pertinent Family Hx Physical Exam Vital Signs Vital Signs - First Documented 05/04/23 11:01 Temp 36.8 Pulse 89 Resp 20 B/P (MAP) 138/84 (102) Pulse Ox 96 O2 Delivery Nasal Cannula O2 Flow Rate 4.00 Capillary Refill : Less Than 3 Seconds Height, Weight, BMI Height: '" Weight: lbs. oz. kg; 29.00 BMI Method:Estimated General Appearance: No Apparent Distress, WD/WN Eyes: Bilateral Eye Normal Inspection, Bilateral Eye PERRL, Bilateral Eye EOMI HEENT: PERRL/EOMI, TMs Normal, Normal ENT Inspection, Pharynx Normal Neck: Full Range of Motion, Normal Inspection, Non Tender, Supple Respiratory: Chest Non Tender, Lungs Clear, Normal Breath Sounds, No Accessory Muscle Use, No Respiratory Distress Cardiovascular: Regular Rate, Rhythm, No Edema, No Gallop, No JVD, No Murmur Gastrointestinal: Normal Bowel Sounds, No Organomegaly, No Pulsatile Mass, Non Tender Back: Normal Inspection Extremity: Normal Capillary Refill, Normal Inspection, Normal Range of Motion, Non Tender Neurologic/Psychiatric: Alert, Oriented x3, No Motor/Sensory Deficits, Normal Mood/Affect, 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 Norm as Tested Skin: Normal Color, Warm/Dry Progress/Results/Core Measures Suspected Sepsis SIRS Temperature: Pulse: 89 Respiratory Rate: 20 Laboratory Tests 05/04/23 11:40: White Blood Count 6.7 Blood Pressure 138 /84 Mean: 102 Laboratory Tests 05/04/23 11:40: Creatinine 0.72, Platelet Count 166, Total Bilirubin 0.8 Results/Orders Lab Results Laboratory Tests Test 05/04/23 10:50 05/04/23 11:20 05/04/23 11:40 05/04/23 12:45 Range/Units Urine Color YELLOW Urine Clarity CLEAR Urine pH 5.5 5-9 Urine Specific [place] 1.010 L 1.016-1.022 Urine Protein NEGATIVE NEGATIVE Urine Glucose (UA) 3+ H NEGATIVE Urine Ketones NEGATIVE NEGATIVE Urine Nitrite NEGATIVE NEGATIVE Urine Bilirubin NEGATIVE NEGATIVE Urine Urobilinogen 1.0 < = 1.0 MG/DL Urine Leukocyte Esterase NEGATIVE NEGATIVE Urine RBC (Auto) NEGATIVE NEGATIVE Urine RBC NONE /HPF Urine WBC RARE /HPF Urine Squamous Epithelial Cells 0-2 /HPF Urine Crystals NONE /LPF Urine Bacteria TRACE /HPF Urine Casts NONE /LPF Urine Mucus NEGATIVE /LPF Urine Culture Indicated NO Influenza Type A (RT-PCR) Not Detected Not Detecte Influenza Type B (RT-PCR) Not Detected Not Detecte SARS-CoV-2 RNA (RT-PCR) Not Detected Not Detecte White Blood Count 6.7 4.3-11.0 10^3/uL Red Blood Count 4.48 3.80-5.11 10^6/uL Hemoglobin 13.9 11.5-16.0 g/dL Hematocrit 42 35-52 % Mean Corpuscular Volume 94 80-99 fL Mean Corpuscular Hemoglobin 31 25-34 pg Mean Corpuscular Hemoglobin Concent 33 32-36 g/dL Red Cell Distribution Width 12.2 10.0-14.5 % Platelet Count 166 130-400 10^3/uL Mean Platelet Volume 10.6 9.0-12.2 fL Immature Granulocyte % (Auto) 0 % Neutrophils (%) (Auto) 56 42-75 % Lymphocytes (%) (Auto) 32 12-44 % Monocytes (%) (Auto) 8 0-12 % Eosinophils (%) (Auto) 3 0-10 % Basophils (%) (Auto) 1 0-10 % Neutrophils # (Auto) 3.8 1.8-7.8 10^3/uL Lymphocytes # (Auto) 2.1 1.0-4.0 10^3/uL Monocytes # (Auto) 0.5 0.0-1.0 10^3/uL Eosinophils # (Auto) 0.2 0.0-0.3 10^3/uL Basophils # (Auto) 0.0 0.0-0.1 10^3/uL Immature Granulocyte # (Auto) 0.0 0.0-0.1 10^3/uL Sodium Level 134 L 135-145 MMOL/L Potassium Level 4.1 3.6-5.0 MMOL/L Chloride Level 99 98-107 MMOL/L Carbon Dioxide Level 26 21-32 MMOL/L Anion Gap 9 5-14 MMOL/L Blood Urea Nitrogen 9 7-18 MG/DL Creatinine 0.72 0.60-1.30 MG/DL Estimat Glomerular Filtration Rate 92 BUN/Creatinine Ratio 13 Glucose Level 391 H 70-105 MG/DL Calcium Level 9.5 8.5-10.1 MG/DL Corrected Calcium 9.7 8.5-10.1 MG/DL Magnesium Level 1.9 1.6-2.4 MG/DL Total Bilirubin 0.8 0.1-1.0 MG/DL Aspartate Amino Transf (AST/SGOT) 34 5-34 U/L Alanine Aminotransferase (ALT/SGPT) 41 0-55 U/L Alkaline Phosphatase 78 40-136 U/L Troponin I < 0.028 <0.028 NG/ML B-Type Natriuretic Peptide < 10.0 <100.0 PG/ML Total Protein 7.5 6.4-8.2 GM/DL Albumin 3.7 3.2-4.5 GM/DL Glucometer 358 H 70-110 MG/DL My Orders Orders - PAPA ANDERS Covid 19 Inhouse Test (05/04/23 11:11) Influenza A And B By Pcr (05/04/23 11:11) Cbc And Automated Diff (05/04/23 11:11) Comprehensive Metabolic Panel (05/04/23 11:11) Magnesium (05/04/23 11:11) Troponin I [place] (05/04/23 11:11) Bnp Jt (05/04/23 11:11) Chest 1 View, Ap/Pa Only (05/04/23 11:11) Ua Culture If Indicated (05/04/23 11:11) Ipratropium/Albuterol Inh Soln (Ipratrop (05/04/23 11:15) Svn Small Volume Nebulizer (05/04/23 11:11) Methylprednisolone Sod Succ (Methylpredn (05/04/23 11:15) Ns Iv 1000 Ml (Ns Iv 1000 Ml) (05/04/23 11:11) Ekg Tracing (05/04/23 12:42) Insulin (Regular) Per Unit (Insulin (Reg (05/04/23 12:50) Medications Given in ED Current Medications Medications Dose Ordered Sig/Bailey Route Start Time Stop Time Status Last Admin Dose Admin Albuterol/ Ipratropium 3 ml ONCE ONCE INH 05/04/23 11:15 05/04/23 11:16 DC 05/04/23 12:06 3 ML Methylprednisolone Sodium Succinate 125 mg ONCE ONCE IVP 05/04/23 11:15 127/23 11:16 DC 05/04/23 12:01 125 MG Vital Signs/I&O 05/04/23 05/04/23 05/04/23 05/04/23 11:01 11:01 12:06 12:46 Temp 36.8 36.8 Pulse 89 89 Resp 20 20 B/P (MAP) 138/84 (102) Pulse Ox 96 98 98 O2 Delivery Nasal Cannula Nasal Cannula Nasal Cannula Nasal Cannula O2 Flow Rate 4.00 4.00 4.00 4.00 4.00 05/04/23 13:06 Pulse 85 Resp 20 Pulse Ox 95 O2 Delivery Nasal Cannula O2 Flow Rate 4.00 Capillary Refill : Less Than 3 Seconds Blood Pressure Mean: 102 ECG Comment Sinus rhythm, LVH. Borderline prolonged QT interval, 90 bpm, QRS duration 94 MS, QTc 489 MS. Departure Communication (PCP) Patient is a 67-year-old female with a history of COPD, hyperglycemia, who presents to ED for dizziness, lightheadedness, shortness of breath, nausea. Denies of any chest pain or chest pain with exertion. differential diagnosis COPD, pneumonia, ACS, CHF, UTI. Currently on antibiotics for ear infection. She does report some dizziness and ear pressure but feels like this is improving. No focal neural deficits suggesting emergent imaging of her brain. Generalized workup cardiac workup was initiated. EKG sinus rhythm without ST elevation or depression. No arrhythmia. Slight borderline prolonged QT interval. CBC, CMP was grossly unremarkable besides a blood sugar 391. She has not taken her insulin or her oral medication for diabetes this morning. troponin and BNP negative. Chest x-ray cardiomegaly with some mild pulmonary edema. No pleural effusion, consolidation. She states she had an echocardiogram 3 months ago and states everything was unremarkable. There is no appreciation of lower leg swelling. No lower extremity pain. No significant wheezing but she states she does feel short of breath with exertion. She did receive a DuoNeb breathing treatment which states her breathing feels much better. She does not do breathing treatments at home. Chronically on 4 L. Patient in no acute respiratory distress. Not requiring increased oxygen. No evidence suggesting pneumonia. Symptoms could be more of a pulmonary component with her COPD. continue with antibiotics for ear infection. Will discharge albuterol as this seemed to help. She did receive small amount of fluid. Her urinalysis was negative for infection. Blood sugar did improved to 351. She does not want to take any insulin at this time as she states she does have medication at home and she will continue monitoring. She does not appear in DKA . Normal anion gap. Typically blood sugar ranges in the 200s. Monitor diet. Follow-up with PCP in 2 days for reevaluation. Follow-up with your PCP in 3 to 4 days for reevaluation and chest x-ray. Return back to ED if symptoms worsen. Impression Primary Impression: Hyperglycemia Additional Impression: Cardiomegaly Disposition: HOME, SELF-CARE Condition: Stable Departure-Patient Inst. Decision time for Depature: 12:43 Referrals: CIRO GRAF MD (PCP/Family) Primary Care Physician Patient Instructions: Chronic Obstructive Pulmonary Disease (COPD) (DC) Add. Discharge Instructions: Recommend follow-up with your PCP in the next week for reevaluation. If any worsening symptoms return back to ED. continue monitoring your blood sugar. Take your insulin when you get home. All discharge instructions reviewed with patient and/or family. Voiced understanding. Scripts Albuterol Sulfate (VENTOLIN HFA) 1 Puff Puff 2 PUFF INH Q4H, #1 EA 1 PUFF = 90 MCG Prov: PAPA ANDERS 05/04/23 PAPA ANDERS May 04, 2023 11:16
[2023-05-04 11:34] LABS: BACTERIA,URINE TRACE /HPF; BILIRUBIN,URINE NEGATIVE (NEGATIVE); CLARITY,URINE CLEAR; COLOR,URINE YELLOW; GLUCOSE, URINE (UA) 3+ (NEGATIVE); KETONES,URINE NEGATIVE (NEGATIVE); LEUKOCYTE ESTERASE ,URINE NEGATIVE (NEGATIVE); NITRITE,URINE NEGATIVE (NEGATIVE); PH,URINE 5.5 (5-9); PROTEIN,URINE NEGATIVE (NEGATIVE); SQUAMOUS EPITHELIAL CELL,UR 0-2 /HPF; WBC,URINE RARE /HPF
[2023-05-04 11:48] LABS: BASOPHILS % (AUTO) 1 % (0-10); EOSINOPHILS # (AUTO) 0.2 10^3/uL (0.0-0.3); EOSINOPHILS % (AUTO) 3 % (0-10); HEMATOCRIT 42 % (35-52); HEMOGLOBIN 13.9 g/dL (11.5-16.0); LYMPHOCYTES # (AUTO) 2.1 10^3/uL (1.0-4.0); LYMPHOCYTES % (AUTO) 32 % (12-44); MEAN CORPUSCULAR HEMOGLOBIN 31 pg (25-34); MEAN CORPUSCULAR HGB CONC 33 g/dL (32-36); MEAN CORPUSCULAR VOLUME 94 fL (80-99); MEAN PLATELET VOLUME 10.6 fL (9.0-12.2); MONOCYTES # (AUTO) 0.5 10^3/uL (0.0-1.0); MONOCYTES % (AUTO) 8 % (0-12); NEUTROPHILS # (AUTO) 3.8 10^3/uL (1.8-7.8); NEUTROPHILS % (AUTO) 56 % (42-75); PLATELET COUNT 166 10^3/uL (130-400); WHITE BLOOD COUNT 6.7 10^3/uL (4.3-11.0)
--- NOTE | 2023-05-04 11:52 | Diagnostic Imaging Report ---
EXAMINATION: Chest 1 view HISTORY: Headache. Cough. COMPARISON: 03/25/2022. FINDINGS: There is cardiomegaly with central pulmonary vascular congestion. Scattered interstitial and alveolar opacities are seen in both lungs. No large pleural effusion or pneumothorax. IMPRESSION: 1. Cardiomegaly and congestion with suggestion of mild edema. Dictated by: Dictated on workstation # [id number]
[2023-05-04 12:02] LABS: ALBUMIN 3.7 GM/DL (3.2-4.5); CHLORIDE 99 MMOL/L (98-107); POTASSIUM 4.1 MMOL/L (3.6-5.0); SODIUM 134 MMOL/L (135-145)
[2023-05-04 12:03] LABS: CALCIUM 9.5 MG/DL (8.5-10.1)
[2023-05-04 12:04] LABS: GLUCOSE 391 MG/DL (70-105); TOTAL PROTEIN 7.5 GM/DL (6.4-8.2)
[2023-05-04 12:05] LABS: CARBON DIOXIDE 26 MMOL/L (21-32)
[2023-05-04 12:06] LABS: BILIRUBIN,TOTAL 0.8 MG/DL (0.1-1.0)
[2023-05-04 12:08] LABS: ALKALINE PHOSPHATASE 78 U/L (40-136); CREATININE SERUM 0.72 MG/DL (0.60-1.30); GFR ESTIMATED 92
[2023-05-04 12:09] LABS: BUN/CREATININE RATIO 13
[2023-05-04 12:11] LABS: ALANINE AMINOTRANSFERASE 41 U/L (0-55); MAGNESIUM 1.9 MG/DL (1.6-2.4)
[2023-05-04] MEDS ORDERED: RT-ALBUINH INH (12:43)
[2023-05-04] MEDS ORDERED: inSUlin (REGULAR) HUMAN 1 UNIT/0.01 ML (CHARGE PER UNIT) SC STA (12:50)
== END 2023-05-04 13:07 | disposition home or self-care (01) ==
LOC: EDUNIT# 10:38 → ER 10:39
DX: E10.65 Type 1 diabetes mellitus with hyperglycemia (principal); I51.7 Cardiomegaly; J44.9 Chronic obstructive pulmonary disease, unspecified; Z86.16 Personal history of COVID-19; Z99.81 Dependence on supplemental oxygen
CPT/HCPCS: 36415; 71045; 80053; 81000; 82947; 83735; 83880; 84484; 85025; 87636; 93005; 94640; 96374